=== PATIENT | female | born 1935 | race Caucasian/White ===

== ENCOUNTER → 2018-05-11 07:22 | Outpatient (CLI) | payer MEDICARE, OTHER, SELFPAY ==
--- NOTE | 2018-05-11 07:29 | CT_ITS ---
STUDY: CT ABDOMEN AND PELVIS WITHOUT CONTRAST REASON FOR EXAM: Female, 83 years old. Microhematuria and bilateral flank pain. RADIATION DOSAGE (If Supplied By Facility): CTDIvol = ( 15.99 ) mGy, DLP = ( 1087.20 ) mGycm TECHNIQUE: Transaxial images were obtained from the dome of the diaphragm to the symphysis pubis without oral contrast, and without intravenous contrast. Sagittal and coronal images were reconstructed. Individualized dose optimization techniques were used for this CT. COMPARISON: Comparison is made with prior examination dated May 12, 2009. FINDINGS: The visualized lung bases are unremarkable. The visualized portions of the heart are within normal limits. Normal liver. The patient is status post cholecystectomy. Normal spleen. Normal pancreas. Normal bilateral adrenal glands. Normal right kidney. Small cyst in the upper pole of the left kidney. 1.1 cm hypodensity in the peripheral lateral portion of the left kidney most likely representing a small cyst. There is a small hiatal hernia. Normal small intestine. There are multiple colonic diverticula consistent with diverticulosis. The patient is status post appendectomy. There is diffuse atherosclerotic calcification of the abdominal aorta and its major visceral branches. Infrarenal fusiform abdominal aortic aneurysm with a transverse dimension are 4.7 cm. Mural thrombus is seen on the right side of the aorta. Normal inferior vena cava. Normal retroperitoneum. Distended urinary bladder. There is absence of the uterus consistent with a prior hysterectomy. Normal abdominal wall. Disc space narrowing and degeneration with subchondral sclerosis at the L1-L2 level. CT/CT Abd/Pelvis W/WO Contrast IMPRESSION: Abdominal aortic aneurysm with a transverse dimension of 4.7 cm. Mural thrombus is seen on the right side of the aorta. Small left renal cysts. Electronically Signed: Juancarlos Goddard MD at 15:02 EDT Tel [phone], Service support ,
[2018-05-11 07:56] LABS: CREATININE FINGERSTICK 0.7 mg/dL (0.55-1.02)
== END ==
PROVIDERS: Family Provider Family Medicine; PCP Family Medicine; Visit Provider Nurse Practitioner Adult Health
DX: R31.29 Other microscopic hematuria (principal)
CPT/HCPCS: 74178; Q9967

== ENCOUNTER 2018-12-19 07:56 | Inpatient (IN) | payer MEDICARE, OTHER, SELFPAY ==
[2018-12-19] VITALS (20 sets, daily range): BP systolic 92–142; BP diastolic 58–82; PULSE 86–111; RESP 16–25; TEMP 30.5–37.1; O2SAT 87–95; BMI 30.9; BMI 29.4
--- NOTE | 2018-12-19 08:22 | EKG12_ITS ---
Test Reason : FALL Blood Pressure : / mmHG Vent. Rate : 089 BPM Atrial Rate : 089 BPM P-R Int : 188 ms QRS Dur : 078 ms QT Int : 424 ms P-R-T Axes : 067 -40 -01 degrees QTc Int : 515 ms Normal sinus rhythm Left axis deviation Minimal voltage criteria for LVH, may be normal variant Septal infarct , age undetermined Prolonged QT Abnormal ECG Confirmed by WANDA JURADO, RODOLFO ([id number]), order editor GUIDO BURROWS ([id number]) on 12/20/2018 10:10:40 AM Referred By: MILAGROS Confirmed By:RODOLFO MUÑOZ MD
[2018-12-19 08:42] LABS: Bacteria 0 SEEN /hpf (None Seen); Mucous, Urine 0 SEEN /hpf (<or=2+); Squamous Epithelial Cells - UA 0 SEEN /hpf (5-10)
[2018-12-19 08:46] LABS: Allen Test POS; Base Excess -5 mmol/L (-2 to +2); Blood Gas Specimen Type ART; O2 Delivery Device Nasal Can; PO2 59 mmHG (75-100); SITE R Radial; SO2 90 % (95-99); Time Given 835; Total Carbon Dioxide 21 mmol/L; pCO2 34.1 mmHg (35-45); pH 7.38 (7.35-7.45)
[2018-12-19 08:49] LABS: Color, Urine Yellow (Yellow); Glucose, Dipstick Normal (Normal); Ketone-Dipstick 15 mg/dl (Negative); Leukocyte Esterase-Dipstick Negative /ul (Negative); Nitrite-Dipstick Negative (Negative); Occult Blood-Urine 25 /ul (Negative); Protein-Dipstick 30 mg/dl (Negative); Specific Gravity, Urine 1.015 (1.002-1.030); Urine Bilirubin Dipstick Negative (Negative); Urine Clarity Clear (Clear); Urine Urobilinogen Normal (Normal)
[2018-12-19 08:49] LABS: Absolute Neutrophil Count 8.7 X10^3/uL (2.0-7.7); Basophil# 0.01 X10^3/uL; Basophil% 0.1 % (0-1); Hematocrit 42.8 % (37-47); Hemoglobin 15.1 g/dl (12.0-15.0); Lymphocyte % 6.6 % (19-41); Mean Corp Hgb Conc 35.3 g/gl (32-36); Mean Corpuscular Hgb 34.5 pg (27.0-32.0); Mean Corpuscular Volume 97.7 fL (81-99); Mean Platelet Vol. 10.6 fl (6.2-12.0); Monocyte# 1.15 X10^3/uL; Monocyte% 10.9 % (0-10); Neutrophil # 8.66 X10^3/uL (2.7-7.7); Neutrophil % 82.2 % (47-70); POSITIVE COUNT NO; POSITIVE DIFFERENTIAL NO; POSITIVE MORPHOLOGY NO; Platelet Count 339 K/mm3 (150-450); RBC Distribution Width CV 12.3 % (11.6-14.6); RBC Distribution Width SD 42.6 fl (35.1-43.9); Red Blood Count 4.38 M/mm3 (4.2-5.4); White Blood Count 10.5 K/mm3 (4.4-11.0)
--- NOTE | 2018-12-19 08:49 | ED.VISSUMM ---
- ER Visit Summary Date of Service: 12/19/18 Chief Complaint: Hypothermia History of Present Illness: The patient is a 83 F who presents to the emergency department via ambulance. She was found laying on the ground outside her house this morning by a neighbor. Patient is lethargic but does speak although be it very slowly. She tells me she went outside to get the dog this morning. It was still dark outside. She fell for unknown reason. She is unable to get up noting pain in her right hip and back. She denies any headache. EMS notes a body temperature of 87 degrees. They noted that she was slightly hypoxic 87-88 degrees. She received axillary heat packs and warm blankets in route to the hospital. Physical Examination: 142/74 heart rate of 92 respirations are 19 pulse ox is 90% on nasal cannula core body temperature Gen: Well-nourished well-developed Head: Normocephalic atraumatic Eyes: Perrl EOMI ENT: TMs clear no rhinorrhea moist mucous membranes Neck: Supple no lymphadenopathy no JVD nontender CVS: Regular rate rhythm no murmurs normal S1-S2 Respiratory: No distress clear to auscultation bilaterally chest nontender Abdomen: Soft nontender nondistended normal bowel sounds no masses Back: Palpation in the midline of the thoracic spine. Extremity: Nontender no edema Skin: Normal color there is erythema in the axilla Neuro: Lethargic but orientated ?3 CN II-XII intact normal strength sensation reflexes gait cerebellar Test Results: EKG demonstrates a sinus rhythm at a rate of 89. Her lactic acid is elevated. Her total body CPK is elevated. Troponin elevated at 1. Again note significant EKG features of ACS. CT of the head neck chest abdomen pelvis were obtained does not show any obvious injuries. X-rays of the pelvis and hip were negative for fracture. Emergency Department Course and Treatment: Patient was placed on a Alex hugger and given warmed IV fluids. The patient had a temperature sensitive Reeder placed. We have warmed her from 83 degrees to 97.7. Her mentation is improving. Family is now at bedside. Our plan is admission into the hospital. Impression: 1. Hypothermia 2. Rhabdomyolysis 3. NSTEMI 4. Critical care time 35 minutes This note was generated with [employer] dictation software. It may contain incorrect words, spelling, and punctuation that were not noted in review of the chart prior to signing ED Disposition - Plan for ED Patient: Disposition: Acute Care Hospital [facility]
--- NOTE | 2018-12-19 08:55 | RAD_ITS ---
STUDY: X-RAY CHEST REASON FOR EXAM: Female, 83 years old. History of trauma. TECHNIQUE: Single AP portable view of the chest. COMPARISON: Comparison is made with prior study dated November 08, 2016. FINDINGS: EKG electrodes are seen. Stable elevation of the right hemidiaphragm. Stable mild degree of increased markings at the lung bases suggestive of mild scarring. Scattered calcified granulomas. There is no demonstrated pleural abnormality. There is mild cardiac enlargement. Normal mediastinum and yvette. Normal visualized pulmonary arteries. There is atherosclerotic calcification of the aortic arch with tortuosity. There are diffuse degenerative changes of the visualized thoracic spine. Mild dextroscoliosis. There is degenerative osteoarthritis of the bilateral shoulders. There is no demonstrated abnormality of the visualized soft tissue structures of the upper abdomen. RAD/Chest 1 View (Portable) IMPRESSION: No acute abnormality is seen. Electronically Signed: Juancarlos Goddard, at 9:51 EST , Service support ,
--- NOTE | 2018-12-19 08:55 | ED.DCSUM_ITS ---
- ER Visit Summary Date of Service: 12/19/18 Chief Complaint: Hypothermia History of Present Illness: The patient is a 83 F who presents to the emergency department via ambulance. She was found laying on the ground outside her house this morning by a neighbor. Patient is lethargic but does speak although be it very slowly. She tells me she went outside to get the dog this morning. It was still dark outside. She fell for unknown reason. She is unable to get up noting pain in her right hip and back. She denies any headache. EMS notes a body temperature of 87 degrees. They noted that she was slightly hypoxic 87-88 degrees. She received axillary heat packs and warm blankets in route to the [facility]. Physical Examination: 142/74 heart rate of 92 respirations are 19 pulse ox is 90% on nasal cannula core body temperature Gen: Well-nourished well-developed Head: Normocephalic atraumatic Eyes: Perrl EOMI ENT: TMs clear no rhinorrhea moist mucous membranes Neck: Supple no lymphadenopathy no JVD nontender CVS: Regular rate rhythm no murmurs normal S1-S2 Respiratory: No distress clear to auscultation bilaterally chest nontender Abdomen: Soft nontender nondistended normal bowel sounds no masses Back: Palpation in the midline of the thoracic spine. Extremity: Nontender no edema Skin: Normal color there is erythema in the axilla Neuro: Lethargic but orientated ?3 CN II-XII intact normal strength sensation reflexes gait cerebellar Test Results: EKG demonstrates a sinus rhythm at a rate of 89. Her lactic acid is elevated. Her total body CPK is elevated. Troponin elevated at 1. Again note significant EKG features of ACS. CT of the head neck chest abdomen pelvis were obtained does not show any obvious injuries. X-rays of the pelvis and hip were negative for fracture. Emergency Department Course and Treatment: Patient was placed on a Alex hugger and given warmed IV fluids. The patient had a temperature sensitive Reeder placed. We have warmed her from 83 degrees to 97.7. Her mentation is i mproving. Family is now at bedside. Our plan is admission into the hospital. Impression: 1. Hypothermia 2. Rhabdomyolysis 3. NSTEMI 4. Critical care time 35 minutes This note was generated with [employer] dictation software. It may contain incorrect words, spelling, and punctuation that were not noted in review of the chart prior to signing ED Disposition - Plan for ED Patient: Disposition: Acute Care Hospital [facility]
[2018-12-19 08:57] LABS: International Normalized Ratio 1.1; Partial Thromboplast Time 29.2 Seconds (24.1-36.2); Prothrombin Time (Protime)PT. 13.6 SECONDS (11.7-14.9)
[2018-12-19 08:59] LABS: Red Blood Cells-Urine 0-5 SEEN /hpf (0-5); White Blood Cells 0-5 SEEN /hpf (0-5)
--- NOTE | 2018-12-19 09:00 | RAD_ITS ---
STUDY: X-RAY - LEFT HIP REASON FOR EXAM: Female, 83 years old. Pain following injury. TECHNIQUE: 2 views of the hip. COMPARISON: None. FINDINGS: Normal femoral head, neck, intertrochanteric region and visualized proximal femur. There is osteoarthritic spur formation of the acetabular rim. There is moderate articular joint space narrowing. Degenerative changes and sclerosis of the symphysis pubis. Moderate amount of fecal material is seen in the colon. A calcified phlebolith is seen in the left hemipelvis. A rectal probe is seen. RAD/HIP, UNI W/ Pelvis 2-3 Views IMPRESSION: Degenerative changes of the hip. No fracture or dislocation is present. Electronically Signed: Juancarlos Goddadr, at 9:52 EST , Service support ,
[2018-12-19 09:12] LABS: CPK Total, Creatine Kinase 806 U/L (26-192); Lactic Acid 3.9 mmol/L (0.4-2.0)
[2018-12-19] MEDS: 0.9% Normal Saline 1,000 ML 250 ML IV (09:27)
[2018-12-19 09:29] LABS: AST(SGOT) 50 U/L (15-37); Alanine Aminotransfer ALT/SGPT 25 U/L (13-56); Albumin, Serum 3.9 g/dL (3.2-5.0); Alkaline Phosphatase 35 U/L (45-117); Anion Gap 10 (5-15); BUN 15 mg/dL (7-18); BUN/Creat Ratio 16.9 RATIO (10-20); Bilirubin, Direct 0.21 mg/dL (0.00-0.30); Chloride 102 mmol/L (98-107); Creatinine, Serum 0.89 mg/dL (0.55-1.02); EST Glomerular Filtration Rate 65 mL/min (>60); Est Glom Filt Rate - Afr Amer 78 mL/min (>60); Estimated Creatinine Clearance 42.81 ml/min; Globulin 4.1 g/dL (2.2-4.2); Glucose 118 mg/dL (74-106); Lipase 55 U/L (73-393); Potassium 4.5 mmol/L (3.5-5.1); Sodium Level 135 mmol/L (136-145)
--- NOTE | 2018-12-19 09:51 | CT_ITS ---
STUDY: CT BRAIN WITHOUT CONTRAST REASON FOR EXAM: Female, 83 years old. Unresponsive. Within the and confusion. RADIATION DOSAGE (If Supplied By Facility): CTDIvol = ( 44.99 ) mGy, DLP = ( 779.24 ) mGycm TECHNIQUE: Transaxial CT imaging of the brain was performed without administration of intravenous contrast material. Individualized dose optimization techniques were used for this CT. COMPARISON: None. FINDINGS: Normal soft tissue structures. There is hyperostosis frontalis internus. There is mild cerebral atrophy with widening of the extra-axial spaces and ventricular dilatation. There are areas of decreased attenuation within the white matter tracts of the supratentorial brain, consistent with microvascular disease changes. There is a 1.3 cm x 2.7 cm CSF space along the anterior aspect of the left temporal lobe. This may represent either focal encephalomalacia or a small arachnoid cyst. Normal basal ganglia and thalami. Normal brainstem. Normal cerebellum. There is no intracranial hemorrhage. The left middle cerebral artery and the sylvian artery branches appeared dense. Correlation with CTA is recommended. Normal visualized paranasal sinuses. CT/Brain/Head without Contrast IMPRESSION: Chronic involutional changes of the brain. Questionable hyperdensity of the left middle cerebral artery and sylvian branches as described. CTA is recommended for further evaluation. N.B. : The above information has been verbally conveyed by Juancarlos Goddard to Ryan Brink MD, on 12/19/2018 11:16:16 (ET). Electronically Signed: Juancarlos Goddard, at 11:17 EST , Service support ,
--- NOTE | 2018-12-19 09:51 | CT_ITS ---
STUDY: CT CHEST WITHOUT CONTRAST REASON FOR EXAM: Female, 83 years old. Upper extremity confusion and unresponsive. RADIATION DOSAGE (If Supplied By Facility): CTDIvol = ( 25.66 ) mGy, DLP = ( 1326.72 ) mGycm TECHNIQUE: Transaxial imaging was performed without the administration of intravenous contrast material. Multiplanar coronal and sagittal images were reformatted. Individualized dose optimization techniques were used for this CT. COMPARISON: Comparison is made with prior CT examination dated May 16, 2009. FINDINGS: Dense consolidation in the upper lobes worse on the right side. This also evidence of the infiltration of both lung bases with small bilateral pleural effusions. This may represent changes compatible with the CHF. Aspiration should be ruled out as well. There is no demonstrated pleural abnormality. There are calcifications of the coronary arteries. Cardiomegaly with enlargement of the left ventricle. Normal mediastinum. Normal hilar regions. Normal unenhanced pulmonary arteries. There is atherosclerotic calcification of the aortic arch with tortuosity and elongation of the aortic arch and descending thoracic aorta. There are multi-level degenerative changes of the thoracic spine. Increased kyphosis. Small hiatal hernia. CT/Chest without Contrast IMPRESSION: Airspace disease in the upper lobes as well as in the lower lobes. The differential diagnosis should include either pulmonary edema, infectious process or aspiration. Electronically Signed: Juancarlos Goddard, at 11:20 EST , Service support ,
--- NOTE | 2018-12-19 09:51 | CT_ITS ---
STUDY: CT CERVICAL SPINE WITHOUT CONTRAST REASON FOR EXAM: Female, 83 years old. Hypothermia and confusion following a fall. RADIATION DOSAGE (If Supplied By Facility): CTDIvol = ( 28.36 ) mGy, DLP = ( 547.01 ) mGycm TECHNIQUE: High resolution transaxial imaging was performed without contrast material. Sagittal and coronal images were reconstructed. Individualized dose optimization techniques were used for this CT. COMPARISON: None FINDINGS: Normal craniovertebral junction. There are degenerative changes of the anterior atlantoaxial articulation. Normal odontoid process. There is straightening of the normal cervical lordosis. Normal vertebral bodies and posterior osseous elements. C2-3: Normal endplates. Normal disc height and morphology. Normal central canal and intervertebral neuroforamina. C3-4: Moderate degree of disc space narrowing. Hypertrophy of the facet joints and uncovertebral arthrosis worse on the right side. Moderate degree of bilateral neural foraminal stenosis slightly worse on the right side. C4-5: Marked degree of volar displacement. Spondylosis. Uncovertebral arthrosis and hypertrophy of the facet joints bilaterally. Moderate to severe bilateral neural foraminal stenosis. C5-6: Marked degree of disc space narrowing and spondylosis. Uncovertebral arthrosis. Moderate degree of bilateral neural foraminal stenosis. C6-7: Moderate degree of disc space narrowing. Spondylosis. No significant stenosis is seen. Consolidation in the upper lobes worse on the right side. CT/Spine Cervical without Contras IMPRESSION: Multilevel degenerative changes, as described above. Electronically Signed: Juancarlos Goddard, at 11:07 EST , Service support ,
--- NOTE | 2018-12-19 10:43 | CT_ITS ---
STUDY: CT ABDOMEN AND PELVIS WITHOUT CONTRAST REASON FOR EXAM: Female, 83 years old. Found unresponsive. Confusion. Hypothermia. RADIATION DOSAGE (If Supplied By Facility): CTDIvol = ( 25.66 ) mGy, DLP = ( 1326.72 ) mGycm TECHNIQUE: Transaxial images were obtained from the dome of the diaphragm to the symphysis pubis without oral contrast, and without intravenous contrast. Sagittal and coronal images were reconstructed. Individualized dose optimization techniques were used for this CT. COMPARISON: Comparison is made with prior study dated May 11, 2018. FINDINGS: There is evidence of bibasilar infiltrates worse on the right side with small bilateral pleural effusions. Coronary artery calcifications. Cardiomegaly and prominence of the left atrium. Normal liver. The patient is status post cholecystectomy. Normal spleen. Normal pancreas. Normal bilateral adrenal glands. Normal right kidney. Normal left kidney. There is a small hiatal hernia. Normal small intestine. There are multiple colonic diverticula consistent with diverticulosis. There is non-visualization of the appendix. There is diffuse atherosclerotic calcification of the abdominal aorta and its major visceral branches. Infrarenal saccular aneurysm with a transverse dimension of 5 cm. Normal inferior vena cava. Normal retroperitoneum. Normal urinary bladder. There is absence of the uterus consistent with a prior hysterectomy. Normal abdominal wall. There is retrolisthesis of L1 on L2 with marked degree of disc space narrowing and disc degeneration and subchondral sclerosis. Dextroscoliosis. CT/Abdomen/Pelvis without Cont IMPRESSION: Bibasilar infiltrates and/or atelectasis. Stable infrarenal abdominal aortic aneurysm. Sigmoid diverticulosis. Electronically Signed: Juancarlos Goddard, at 11:11 EST , Service support ,
[2018-12-19] MEDS: Ondansetron 4 MG/2 ML Vial IV (10:45)
--- NOTE | 2018-12-19 11:14 | CT_ITS ---
STUDY: CTA OF THE BRAIN REASON FOR EXAM: Female, 83 years old. Syncopal episodes. RADIATION DOSAGE (If Supplied By Facility): CTDIvol = ( 26.89 ) mGy, DLP = ( 671.32 ) mGycm TECHNIQUE: CT angiography was performed with a multi-detector CT scanner. Data acquisition was obtained from the skull base through the vertex following intravenous administration of Isovue 370 100 IV. MIP images were reconstructed from the axial data set. Post-processing of the angiographic images was performed, with multiplanar reformation and 3D reconstruction. Individualized dose optimization techniques were used for this CT. COMPARISON: None. FINDINGS: Normal bilateral petrous carotid arteries. There is calcified plaque formation of the right cavernous carotid artery, without a cross-sectional luminal stenosis. There is calcified plaque formation of the left cavernous carotid artery, without a cross-sectional luminal stenosis. There is non-visualization of the right A1 segment of the anterior cerebral arteries consistent with either aplastic development or an occlusion. Normal left A1 segments of the anterior cerebral artery. Normal intact anterior communicating artery (ACOM). Normal bilateral A2 segments of the anterior cerebral arteries. Normal right M1 and M2 segments of the middle cerebral arteries, with a normal M1 bifurcation. Normal left M1 and M2 segments of the middle cerebral arteries, with a normal M1 bifurcation. There is a persistent origin of the right posterior cerebral artery with absence of the posterior communicating artery (PCOM). Normal left posterior communicating artery (PCOM). Normal bilateral vertebral arteries. Normal basilar artery with a normal basilar bifurcation. The visualized bilateral superior cerebellar (SCA) arteries are normal. Normal bilateral P1, P2 and visualized P3 segments of the posterior cerebral arteries. There is no demonstrated aneurysm of the [place] of [place]. There is no demonstrated abnormality of the visualized brain. CT/CTA Head W/WO Contrast IMPRESSION: Normal [place] without a demonstrated aneurysm or hemodynamically significant stenosis. Electronically Signed: Juancarlos Goddard, at 12:55 EST , Service support ,
--- NOTE | 2018-12-19 11:14 | CT_ITS ---
STUDY: CTA NECK WITH CONTRAST REASON FOR EXAM: Female, 83 years old. Syncopal episode. RADIATION DOSAGE (If Supplied By Facility): CTDIvol = ( 26.89 ) mGy, DLP = ( 671.32 ) mGycm TECHNIQUE: CT angiography with multi-detector data acquisition was performed from the aortic arch to the skull base following intravenous administration of Isovue 370 100 IV. MIP images were reconstructed from the axial data set. Post-processing of the angiographic images was performed, with multiplanar reformation and 3D reconstruction. Individualized dose optimization techniques were used for this CT. COMPARISON: None. FINDINGS: AORTIC ARCH: There is atherosclerotic calcific plaque formation of the aortic arch and great vessels arising from the aortic arch, without a hemodynamically significant stenosis. There is a normal origin of the brachiocephalic, left common carotid, and left subclavian arteries. RIGHT CAROTID ARTERIES: Normal right common carotid artery (CCA). Normal right common carotid bulb. There is mild atherosclerotic plaque formation of the origin of the right internal carotid artery with less than 50% cross sectional diameter stenosis. Normal visualized cervical portion of the right internal carotid artery. Normal origin of the right external carotid artery (ECA). LEFT CAROTID ARTERIES: Normal left common carotid artery (CCA). Normal left common carotid bulb. There is mild atherosclerotic plaque formation of the origin of the left internal carotid artery with less than 50% cross sectional diameter stenosis. Normal visualized cervical portion of the left internal carotid artery. Normal origin of the left external carotid artery (ECA). VERTEBRAL ARTERIES: There is enhancement within the bilateral vertebral arteries with a small right vertebral artery, and a dominant left vertebral artery. CT/CTA Neck W/WO Contrast IMPRESSION: Normal bilateral cervical carotid and vertebral arteries. Electronically Signed: Juancarlos Goddard, at 12:57 EST , Service support ,
[2018-12-19] MEDS: LORazepam 2 MG/ML Syringe 0.5 MG IV (11:59)
[2018-12-19 12:36] LABS: Reflex Lactate? Y
--- NOTE | 2018-12-19 13:01 | CM.ED ---
Social Work Assessment Referral Date: 12/19/18 Date of Assessment: 12/19/18 Informant: DR. ELDER Reason for Consult: D/C PLANNING Information obtained from: PT'S SON, CRISTINE [phone] Living Arrangements: PT LIVES HOME ALONE WITH 2 CATS AND A DOG IN A 2 STORY HOME WITH 1ST FLOOR SET UP. Supports: PT HAS SUPPORT FROM SON AND BROTHER. Social/Family Stressors: SON VOICES CONCERNS PT IS NOT EATING PROPER DIET. DISCUSSED HOME DELIVERED MEALS IF APPROPRIATE. Mental Health History: SON VOICES HX OF DEPRESSION SINCE HUSBANDS PASSING 2 YEARS AGO. Substance Abuse History: SON DENIES ANY HX OF SUBSTANCE ABUSE FOR PT. Interventions: INITIAL ASSESSMENT COMPLETED EDUCATION Assessment: PT IS A 83 Y/O FEMALE WHO PRESENTS TO ED BY AMBULANCE AFTER BEING FOUND LAYING ON THE GROUND OUTSIDE HER HOUSE BY A NEIGHBOR. PT IS ALERT TO PERSON. SON REPORTS PT WITH NO COGNITIVE DEFICITS PRIOR TO FALL. PT LIVES HOME ALONE WITH HER ANIMALS IN A 2 STORY HOME WITH 1ST FLOOR SET UP. SON REPORTS PRIOR TO VISIT PT WAS INDEPENDENT WITH ADLS AND USED A CANE NEEDED FOR ASSISTANCE WITH AMBULATION. SON REPORTS DOES HAVE CONCERNS PT IS NOT EATING PROPERLY. PT WITH NO PREVIOUS SERVICES IN THE HOME SUCH HOME HEALTH OR PRIVATE DUTY AIDES. SON STATES PT WITH HX OF DEPRESSION SINCE 'S PASSING 2 YEARS AGO. EXPLAINED THIS WORKER'S ROLE AND REASON FOR CONSULT. SON STATES HAS NOT SPOKEN WITH ER DOCTOR AND IS WAITING FOR ALL TEST RESULTS PRIOR TO MAKING ANY DECISIONS. DISCUSSED POSSIBLE NEED FOR CARE HOME PLACEMENT OR HOME HEALTH SERVICES. EDUCATION PROVIDED. PER DR. ELDER, ANTICIPATE ADMISSION. PLAN: ADMIT
[2018-12-19 13:36] LABS: Lactic Acid 2.5 mmol/L (0.4-2.0)
--- NOTE | 2018-12-19 13:40 | NURSING ---
U JESS, ESCOBAR, FALL
--- NOTE | 2018-12-19 14:34 | HP.PCM_ITS ---
Problem List (1) Encephalopathy acute Status: Acute (2) Accidental hypothermia Status: Acute Qualifiers: Encounter type: initial encounter Qualified Code(s): T68.XXXA - Hypothermia, initial encounter (3) Lactic acidosis Status: Acute (4) Rhabdomyolysis Status: Acute Qualifiers: Rhabdomyolysis type: non-traumatic Qualified Code(s): M62.82 - Rhabdomyolysis (5) NSTEMI (non-ST elevated myocardial infarction) Status: Acute (6) HTN (hypertension) Status: Chronic Qualifiers: Hypertension type: essential hypertension Qualified Code(s): I10 - Essenti al (primary) hypertension (7) HLD (hyperlipidemia) Status: Chronic Qualifiers: Hyperlipidemia type: pure hypercholesterolemia Qualified Code(s): E78.00 - Pure hypercholesterolemia, unspecified; E78.0 - Pure hypercholesterolemia (8) Anxiety and depression Status: Chronic (9) Hypothyroidism Status: Chronic Qualifiers: Hypothyroidism type: unspecified Qualified Code(s): E03.9 - Hypothyroidism, unspecified (10) GERD (gastroesophageal reflux disease) Status: Chronic Qualifiers: Esophagitis presence: esophagitis presence not specified Qualified Code(s): K21.9 - Gastro-esophageal reflux disease without esophagitis History of Present Illness Date of Admission: 12/19/18 Chief Complaint: Found on ground outside, fallen, unclear timeline, confused The patient is a 83 y/o F w/ PMHx: HTN, HLD, Hypothyroidism, Depression and Anxiety, GERD who in the last year has been living alone since the passing of her with unclear intake of her medications as filled in June day supply but possibly not taking her regimen and notes not having any money as her had arranged for the farm property to be sold with the allowance that she be allowed to live in the farm house until her with the sale money from description possibly going to her children who presents to the [facility] ED on 12/19/18 found outside per a neighbor on a cement pad, notes she fell letting the dog out early in the pre-sun up AM, laying there for unclear timeline. Patient was transported per EMS with an initial body temperature of 87 degrees and slightly hypoxic with oxygenation 87-88 degrees with axillary heat packs and a warming blanket placed in route to the hospital. In the ED work-up included initially T 87---> improved to 98.4 following bear hugger and warmed IV fluids, heart rate 92, BP 142/74, respiratory rate 19, initially 87% on room air--> 3% on 2 L nasal cannula, CBC with WBC 10.5, hemoglobin 15.1, platelets 339 with left shift, unremarkable coags, ABG with pH 7.38, bicarb 20, O2 saturation 90, PCO2 34.1, PO2 59 obtained on nasal cannula 3 L, CMP with sodium 135, glucose 118, initial lactic acid 3.9, total bilirubin 1.20, direct bilirubin 0.21, AST/ALT 50/25, Alk phos 35, TCK 806, Trop 1.100, EKG without no acute evidence of ischemia, CXR without acute findings, plain film of the hip and pelvis with degenerative changes with no acute fracture or dislocation, CT of the brain with chronic involutional changes, CTA head w/ [place] without a demonstrated aneurysm or hemodynamically significant stenosis, CTA Neck w/ normal bilateral cervical carotid and vertebral arteries, CT cervical spine with multilevel degenerative changes with no acute findings, CT chest with airspace disease in the upper lobes as well as lower lobes, CT A/P w/ bibasilar infiltrate and/or atelectasis with no recent URI symptoms however and stable infrarenal abdominal aortic aneurysm, sigmoid diverticulosis. In the ED patient administered NS, ativan secondary to period of sudden severe agitation and combativeness but this did not recur, zofran, NS. Past Medical History Past Medical History (Chronic Problems): Chronic Problems HTN (hypertension) (Chronic) HLD (hyperlipidemia) (Chronic) Anxiety and depression (Chronic) Hypothyroidism (Chronic) GERD (gastroesophageal reflux disease) (Chronic) Allergies No Known Allergies Allergy (Verified 12/19/18 08:08) Home Medications: Ambulatory Orders Medication Instructions Recorded Amlodipine Besylate/Benazepril 1 cap PO DAILY 12/19/18 [Amlodipine-Benazepril 2.5-10] Bupropion HCl [Wellbutrin Xl] 300 mg PO DAILY 12/19/18 Esomeprazole Mag Trihydrate 40 mg PO DAILY 12/19/18 [Nexium] Levothyroxine [Synthroid] 50 mcg PO DAILY 12/19/18 Sertraline HCl [Zoloft] 50 mg PO DAILY 12/19/18 Tolterodine Tartrate [Detrol LA] 4 mg PO DAILY 12/19/18 Surgical History: - - Appendectomy, hysterectomy, cholecystectomy, T+A. 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 Paternal History Items: Unknown - Patient unavailable to accurately give family history. Review of Systems Constitutional: Denies: Chills, Fever, Weight Change HEENT: Denies: Head Aches, Sinus Congestion, Sinus Drainage Cardiovascular: Denies: Chest Pain, Palpitations Respiratory: Denies: Cough, Shortness of breath at rest, Sputum production Gastrointestinal: Denies: Abdominal Pain, Nausea, Vomiting Genitourinary: Denies: Dysuria Musculoskeletal: Reports: Back Pain, Joint stiffness, Joint swelling, Joint Tenderness. Denies: Joint Pain Skin: Denies: Rash, Wounds Neurological: Reports: Confusion. Denies: Focal weakness, Numbness, Tingling Psychiatric: Denies: Anxiety, Depression, Homicidal Ideations, Suicidal Ideations Hematologic/ Lymphatic: Denies: Easy Bruising, Easy Bleeding Unable to obtain accurate/complete ROS d/t: Patient gives ROS but is very confused. VTE Information - Inpt Only VTE Present on Admission: No VTE Mechan Device Prophylaxis: SCD's VTE Pharm Prophylaxis ordered?: Yes Patient Problems: Active and Suspected Problems Accidental hypothermia (Acute) Lactic acidosis (Acute) Rhabdomyolysis (Acute) NSTEMI (non-ST elevated myocardial infarction) (Acute) Encephalopathy acute (Acute) Subjective: Patient lying in ED bed, currently calm but had period of agitation prior, temperature improved, not oriented but is alert and talking. Objective: Physical Examination: General: awake, more alert, currently cooperative, laying in the ED bed, currently calm, is able to have a conversation but remains non-oriented. Skin: normal color, turgor, no icterus, cyanosis except occasional various staged ecchymoses. HEENT: AT/NC, EOMI, PERRLA, dry MM, no carotid bruits or JVD noted. Lungs: Diminished breath sounds bilaterally, greater bilateral bases, mild effort, no rales, ronchi or wheezing. Heart: Mildly tachycardic with regular rhythm; no gallop, rub audible. Abdomen: soft, NTTP, ND, normal BS, no HSM. Extremities: no cyanosis, clubbing, BL ankle mild edema. Neurological: awake, more alert, currently cooperative, laying in the ED bed, currently calm, is able to have a conversation but remains non-oriented; cogni tive function not baseline intact; pupils equally reactive to light and accomodation; cranial nerves II-XII grossly normal, moving all 4 extremities, no focal deficits, strength severely globally decreased secondary to acute presentation. Psychiatric: affect appears currently calm, not agitated, fatigued appearance, no acute evidence of depressive or anxiety feelings. - Physical Exam Vital Signs Temp Pulse Resp BP Pulse Ox 97.3 F L 98 20 H 128/78 H 94 12/19/18 13:21 12/19/18 13:21 12/19/18 13:21 12/19/18 13:21 12/19/18 13:21 Oxygen Flow Rate (L/min) 3 Oxygen Delivery Method Room Air Weight: 180 lb Body Mass Index (BMI) 30.9 Laboratory Tests Past 24 Hrs 12/19/18 12/19/18 12/19/18 08:30 08:30 08:30 WBC 10.5 RBC 4.38 Hgb 15.1 H Hct 42.8 MCV 97.7 MCH 34.5 H MCHC 35.3 RDW 12.3 RDW Differential 42.6 Plt Count 339 MPV 10.6 Immature Gran % (Auto) 0.200 Neut % (Auto) 82.2 H Lymph % (Auto) 6.6 L [place] % (Auto) 10.9 H Eos % (Auto) 0.0 Baso % (Auto) 0.1 Absolute Neuts (auto) 8.7 H Absolute Lymphs (auto) 0.70 L Total Counted Not Reportable PT 13.6 INR 1.1 APTT 29.2 Specimen Type Sample Site pH Bicarbonate Actual POC Total CO2 Base Excess O2 Saturation ABG pCO2 ABG pO2 Yaakov Test O2 Delivery Device Liter Flow Blood Gas Notified Whom Blood Gas Notified Time Sodium 135 L Potassium 4.5 Chloride 102 Carbon Dioxide 23.0 Anion Gap 10 BUN 15 Creatinine 0.89 Estim Creat Clear Calc 42.81 Est GFR (MDRD) Af Amer 78 Est GFR (MDRD) Non-Af 65 BUN/Creatinine Ratio 16.9 Glucose 118 H Lactic Acid Calcium 9.0 Magnesium Total Bilirubin 1.20 H Direct Bilirubin 0.21 AST 50 H ALT 25 Alkaline Phosphatase 35 L Total Creatine Kinase Troponin I 1.100 H* Total Protein 8.0 Albumin 3.9 Globulin 4.1 Lipase 55 L Urine Color Urine Clarity Urine pH Ur Specific Calvin Urine Protein Urine Glucose (UA) Urine Ketones Urine Occult Blood Urine Nitrite Urine Bilirubin Urine Urobilinogen Ur Leukocyte Esterase Urine RBC Urine WBC Ur Squamous Epith Cells Urine Bacteria Urine Mucus 12/19/18 12/19/18 12/19/18 08:30 08:30 08:36 WBC RBC Hgb Hct MCV MCH MCHC RDW RDW Differential Plt Count MPV Immature Gran % (Auto) Neut % (Auto) Lymph % (Auto) [place] % (Auto) Eos % (Auto) Baso % (Auto) Absolute Neuts (auto) Absolute Lymphs (auto) Total Counted PT INR APTT Specimen Type Sample Site pH Bicarbonate Actual POC Total CO2 Base Excess O2 Saturation ABG pCO2 ABG pO2 Yaakov Test O2 Delivery Device Liter Flow Blood Gas Notified Whom Blood Gas Notified Time Sodium Potassium Chloride Carbon Dioxide Anion Gap BUN Creatinine Estim Creat Clear Calc Est GFR (MDRD) Af Amer Est GFR (MDRD) Non-Af BUN/Creatinine Ratio Glucose Lactic Acid 3.9 H Calcium Magnesium 2.0 Total Bilirubin Direct Bilirubin AST ALT Alkaline Phosphatase Total Creatine Kinase 806 H Troponin I Total Protein Albumin Globulin Lipase Urine Color Yellow Urine Clarity Clear Urine pH 6.0 Ur Specific Calvin 1.015 Urine Protein 30 H Urine Glucose (UA) Normal Urine Ketones 15 H Urine Occult Blood 25 H Urine Nitrite Negative Urine Bilirubin Negative Urine Urobilinogen Normal Ur Leukocyte Esterase Negative Urine RBC 0-5 SEEN Urine WBC 0-5 SEEN Ur Squamous Epith Cells 0 SEEN Urine Bacteria 0 SEEN Urine Mucus 0 SEEN 12/19/18 12/19/18 08:41 12:55 WBC RBC Hgb Hct MCV MCH MCHC RDW RDW Differential Plt Count MPV Immature Gran % (Auto) Neut % (Auto) Lymph % (Auto) [place] % (Auto) Eos % (Auto) Baso % (Auto) Absolute Neuts (auto) Absolute Lymphs (auto) Total Counted PT INR APTT Specimen Type ART Sample Site R Radial pH 7.38 Bicarbonate Actual 20.0 L POC Total CO2 21 Base Excess -5 L O2 Saturation 90 L ABG pCO2 34.1 L ABG pO2 59 L Yaakov Test POS O2 Delivery Device Nasal Can Liter Flow 3.0 Blood Gas Notified Whom ED Blood Gas Notified Time 835 Sodium Potassium Chloride Carbon Dioxide Anion Gap BUN Creatinine Estim Creat Clear Calc Est GFR (MDRD) Af Amer Est GFR (MDRD) Non-Af BUN/Creatinine Ratio Glucose Lactic Acid 2.5 H Calcium Magnesium Total Bilirubin Direct Bilirubin AST ALT Alkaline Phosphatase Total Creatine Kinase Troponin I Total Protein Albumin Globulin Lipase Urine Color Urine Clarity Urine pH Ur Specific Calvin Urine Protein Urine Glucose (UA) Urine Ketones Urine Occult Blood Urine Nitrite Urine Bilirubin Urine Urobilinogen Ur Leukocyte Esterase Urine RBC Urine WBC Ur Squamous Epith Cells Urine Bacteria Urine Mucus Assessment/Plan All Active Problems Accidental hypothermia (Acute) Lactic acidosis (Acute) Rhabdomyolysis (Acute) NSTEMI (non-ST elevated myocardial infarction) (Acute) Encephalopathy acute (Acute) The patient is a 83 y/o F w/ PMHx: HTN, HLD, Hypothyroidism, Depression and Anxiety, GERD who in the last year has been living alone since the passing of her with unclear intake of her medications as filled in June day supply but possibly not taking her regimen and notes not having any money as her had arranged for the farm property to be sold with the allowance that she be allowed to live in the farm house until her with the sale money from description possibly going to her children who presents to the [facility] ED on 12/19/18 found outside per a neighbor on a cement pad, notes she fell letting the dog out early in the pre-sun up AM, laying there for unclear timeline. (1) Acute NSTEMI: Trop 1.100, EKG without no acute evidence of ischemia, CXR without acute findings. Will admit to PCU, maintain on a monitored bed, continue serial cardiac enzymes and EKGs. Obtain magnesium level upon admission. Start therapeutic lovenox. Continue medical management w/ asa, add low dose BB, add low dose statin w/ AM FLP. Cardiology consulted, pending. ECHO requested. ASA, NG, morphine. FLP in AM. Mag pending. (2) Acute rhabdomyolysis: Mild, fortunately no injury with recent fall, unclear timeline down, creatinine kinase 806, lactic acid 3.9-->2.5 following hydration, continue to hydrate, monitor urine output, repeat labs in a.m. including creatinine kinase. (3) Lactic acidosis: Vision lactic acid 3.9-->2.5 following ED hydration, associated with acute presentation, dehydration, rhabdomyolysis, acute N STEMI. (4) Hyponatremia, mild: Admission sodium 135, secondary to acute presentation as noted with recent poor oral intake, unclear downtime, continue to hydrate as noted, repeat labs in a.m. (5) Mechanical fall prolonged downtime, exposure, hypothermia: CT of the brain with chronic involutional changes, CTA head w/ [place] without a demonstrated aneurysm or hemodynamically significant stenosis, CTA Neck w/ normal bilateral cervical carotid and vertebral arteries, CT cervical spine with multilevel degenerative changes with no acute findings, CT chest with airspace disease in the upper lobes as well as lower lobes, CT A/P w/ bibasilar infiltrate and/or atelectasis with no recent URI symptoms however and stable infrarenal abdominal aortic aneurysm, sigmoid diverticulosis. Temperature improving, continue bear hugger, continue warmed IV fluids, Reeder catheter with monitoring T in place. PT, OT, CM for discharge planning. (6) Acute encephalopathy: Metabolic, secondary to #1, #2, #3, #4, #5, continue treatments as noted. (7) Hypertension: BP low normal in the ED, continue hydration, given N STEMI presentation will initiate low-dose beta-risa therapy and continue to closely monitor, potentially restart home regimen, PRN hydralazine. (8) Hyperlipidemia: Noted history, not on regimen, given an STEMI presentation will start low-dose atorvastatin, FLP in AM. (9) Hypothyroidism: Unclear timeline of medication intake, TSH and free T4 pending, continue supplementation. (10) Anxiety and depression: Unclear timeline of intake, will resume Wellbutrin as well as sertraline regimen. (11) GERD: PPI. (12) DVT Prophylaxis: SCDs, therapeutic lovenox. (13) CODE status: Full code given status non-oriented status, no family present in the ED, had been prior per ED physician report. Code Visit Inpatient E&M: 19255 Init Hosp L3
--- NOTE | 2018-12-19 16:03 | ECHOD_ITS ---
Reason For Study: CAD/ASHD Procedure This was a 2D Doppler, Color Flow transthoracic echocardiogram. Exam performed portable in patient room. Left Ventricle Moderate eccentric left ventricular hypertrophy. The estimated ejection fraction is 55 %. Stage 1 diastolic dysfunction. There is mild global hypokinesis of the left ventricle. Right Ventricle Normal size and thickness. Normal systolic function. Atria Normal left atrium. Normal right atrium. Normal atrial septum. Mitral Valve Moderate diffuse mitral valve thickening. Severe mitral annular calcification extending into the posterior leaflet. Mild mitral valve stenosis. Trivial mitral valve insufficiency. Tricuspid Valve Normal tricuspid valve. Moderate (2+) eccentric tricuspid valve insufficiency. Right ventricular systolic pressure estimated to be 45 mmHg. Mild pulmonary hypertension. Aortic Valve Trisinus/trileaflet aortic valve. Trivial aortic valve insufficiency. Pulmonic Valve Normal pulmonic valve. Trivial pulmonic valve insufficiency. Great Vessels Normal aortic root. Normal arch. Normal inferior vena cava. Inferior vena cava collapse with sniff. Pericardium/Pleural No pericardial effusion. MMode/2D Measurements & Calculations LVIDd: 4.1 cm IVSd: 1.7 cm Ao root diam: 3.7 cm LVIDs: 2.7 cm LVPWd: 1.1 cm LA dimension: 4.3 cm FS: 33.9 % LAV(MOD-bp): 78.0 ml LA A4 area: 20.3 cm2 RA A4 area: 17.7 cm2 LAV(MOD-bp) Indexed: 43.8 ml/m2 LAV(MOD-sp2): 84.3 ml LAV(MOD-sp4): 61.6 ml Time Measurements MV dec time: 0.29 sec Doppler Measurements & Calculations MV E max alireza: 110.5 cm/sec Lat Peak E' Alireza: 6.5 cm/sec Med Peak E' Alireza: 4.9 cm/sec MV A max alireza: 127.8 cm/sec E/E' lat: 17.1 E/E' med: 22.5 MV E/A: 0.86 MV V2 max: 152.1 cm/sec MV P1/2t max alireza: 127.3 cm/sec Ao V2 max: 145.4 cm/sec MV max P.2 mmHg MV P1/2t: 84.4 msec Ao max P.5 mmHg MV V2 mean: 87.3 cm/sec MV dec slope: 442.0 cm/sec2 Ao V2 mean: 89.8 cm/sec MV mean P.6 mmHg MVA(P1/2t): 2.6 cm2 Ao mean P.8 mmHg MV V2 VTI: 38.8 cm Ao V2 VTI: 27.8 cm AI max alireza: 361.0 cm/sec LV V1 max: 111.1 cm/sec PA V2 max: 74.7 cm/sec AI max P.2 mmHg LV V1 max P.9 mmHg LV V1 mean P.1 mmHg AI dec slope: 276.7 cm/sec2 LV V1 mean: 65.7 cm/sec AI P1/2t: 382.1 msec LV V1 VTI: 26.2 cm TR max alireza: 310.5 cm/sec TR max P.6 mmHg Interpretation Summary The estimated ejection fraction is 55 %. Stage 1 diastolic dysfunction. There is mild global hypokinesis of the left ventricle. Mild mitral valve stenosis. Trivial mitral valve insufficiency. Moderate (2+) eccentric tricuspid valve insufficiency. Right ventricular systolic pressure estimated to be 45 mmHg. Mild pulmonary hypertension. Trivial aortic valve insufficiency. There is no comparison study available. Ordering Physician: Arabella Mejia Referring Physician: Austin Cuevas Performed By: Minor Emanuel RCS
--- NOTE | 2018-12-19 16:03 | EKG12_ITS ---
Test Reason : CP Blood Pressure : / mmHG Vent. Rate : 099 BPM Atrial Rate : 099 BPM P-R Int : 168 ms QRS Dur : 082 ms QT Int : 408 ms P-R-T Axes : 057 -36 -11 degrees QTc Int : 523 ms Sinus rhythm with Premature atrial complexes Left axis deviation Prolonged QT Abnormal ECG Confirmed by DOMENICO JURADO, CHERYL ([id number]), material expeditor GUIDO BURROWS ([id number]) on 12/21/2018 4:08:08 PM Referred By: KJ Confirmed By:CHERYL ACUÑA MD
[2018-12-19 16:48] LABS: T4 Free Direct 1.18 ng/dL (0.76-1.46); Thyroid Stim Hormone (TSH) 3.04 uIU/mL (0.358-3.74)
[2018-12-19] MEDS: 0.9% Normal Saline 1,000 ML 100 ML IV (16:49)
[2018-12-19] MEDS: Metoprolol Tartrate 25 MG Tablet 12.5 MG PO ×2 (16:49→23:45)
[2018-12-19] MEDS: Enoxaparin 80 MG/0.8 ML Syringe SC (17:02)
[2018-12-19 17:08] LABS: Hemoglobin A1c 4.9 % (4.2-6.3)
[2018-12-19] MEDS: Ipratropium/Albuterol Sulfate 3 ML AMPUL.NEB INHALATION (19:32)
--- NOTE | 2018-12-19 19:43 | PCM.CONS.C ---
Problem List (1) NSTEMI (non-ST elevated myocardial infarction) Status: Acute (2) AAA (abdominal aortic aneurysm) Status: Chronic Qualifiers: Presence of rupture: without rupture Qualified Code(s): I71.4 - Abdominal aortic aneurysm, without rupture (3) HLD (hyperlipidemia) Status: Chronic Qualifiers: Hyperlipidemia type: pure hypercholesterolemia Qualified Code(s): E78.00 - Pure hypercholesterolemia, unspecified; E78.0 - Pure hypercholesterolemia (4) HTN (hypertension) Status: Chronic Qualifiers: Hypertension type: essential hypertension Qualified Code(s): I10 - Essential (primary) hypertension (5) Accidental hypothermia Status: Acute Qualifiers: Encounter type: initial encounter Qualified Code(s): T68.XXXA - Hypothermia, initial encounter (6) Lactic acidosis Status: Acute (7) Rhabdomyolysis Status: Acute Qualifiers: Rhabdomyolysis type: non-traumatic Qualified Code(s): M62.82 - Rhabdomyolysis (8) Encephalopathy acute Status: Acute Reason for Consult Date of Consultation: 12/19/18 History of Present Illness: The patient is a 83 year old Who was referred for evaluation of abnormal cardiac enzymes compatible with a non-ST segment elevation HI superimposed upon history of hyperlipidemia hypertension superimposed upon an acute diagnosis of hypothermia, lactic acidosis, and encephalopathy. Based upon the medical records obtained it appears that the patient was found outside, in the cold, subsequent brought to the emergency department for evaluation. The patient does not recall the events of earlier this day. She does not appear to be alert and oriented at this time. She believes she was taking care of her and taking her son to the store to by a uniform for school. She does not recall having any acute symptoms such as chest discomfort or difficulty breathing. She does not recall following or any episodes of loss of consciousness. Again she is not aware of her place or time. She was evaluated in the emergency department. She was found to be hypothyroid. She was also noted to have elevated lactic acid levels. There are concerns of acute encephalopathy. She had an elevated BNP level and an elevated troponin I level. She underwent a variety of radiologic studies that also revealed she had an abdominal aortic aneurism -5 cm without rupture. She was evaluated was ECG that demonstrated sinus rhythm with left axis deviation with no acute ECG changes. She was subsequently placed in the PCU for further evaluation and care. Her repeat troponin level which has trended upward. In the meantime she has remained confused and has had attempts at getting out of bed in the setting off the bed alarm. [] Past Medical History Allergies/Adverse Reactions: Allergies No Known Allergies Allergy (Verified 12/19/18 08:08) Home Medications: Ambulatory Orders Medication Instructions Recorded Amlodipine Besylate/Benazepril 1 cap PO DAILY 12/19/18 [Amlodipine-Benazepril 2.5-10] Bupropion HCl [Wellbutrin Xl] 300 mg PO DAILY 12/19/18 Esomeprazole Mag Trihydrate 40 mg PO DAILY 12/19/18 [Nexium] Levothyroxine [Synthroid] 50 mcg PO DAILY 12/19/18 Sertraline HCl [Zoloft] 50 mg PO DAILY 12/19/18 Tolterodine Tartrate [Detrol LA] 4 mg PO DAILY 12/19/18 Past Medical History (Chronic Problems): Chronic Problems HTN (hypertension) (Chronic) HLD (hyperlipidemia) (Chronic) Anxiety and depression (Chronic) Hypothyroidism (Chronic) GERD (gastroesophageal reflux disease) (Chronic) AAA (abdominal aortic aneurysm) (Chronic) Surgical History: - - Appendectomy, hysterectomy, cholecystectomy, T+A. Psychiatric History: Anxiety, Depression DEVELOPMENT INTERN History: No pertinent DEVELOPMENT INTERN history - *Family History Maternal History Items: Unknown - Patient unavailable to accurately give family history. Paternal History Items: Unknown - Patient unavailable to accurately give family history. Lives: Alone Smoking Status: Former smoker Tobacco Use: Non-smoker Alcohol: None Drugs: None Review of Systems - Review of Systems General: Reports: - - Hypothermia . Denies: Fever, Fatigue, Night Sweats Cardiovascular: Denies: Chest Discomfort, Shortness of Breath, Orthopnea, PND, Peripheral Edema, Palpitations, Lightheadedness, Dizziness, Near Syncope, Syncope Respiratory: Denies: Cough, Sputum Production, Hemoptysis Gastrointestinal: Denies: Hematemesis, Hematochezia, Melena Genitourinary: Denies: Dysuria, Hematuria Skin: Denies: Rash Subjectve: This is an 83-year-old white female who does not appear to be alert and oriented at this time. She does not appear to be in any acute distress. Objective: Vital Signs Temp Pulse Resp BP Pulse Ox 98.3 F 89 16 107/66 93 12/19/18 18:08 12/19/18 18:08 12/19/18 18:08 12/19/18 18:08 12/19/18 18:08 Oxygen Flow Rate (L/min) 2 Oxygen Delivery Method Nasal Cannula Weight: 160 lb 11.472 oz Body Mass Index (BMI) 29.4 Intake and Output for Last 24 Hours 12/17/18 12/18/18 12/19/18 23:59 23:59 23:59 Intake Total 305 / 305 Output Total 450 / 450 Balance -145 / -145 General: Awake, Disoriented HEENT: Atraumatic, Normocephalic, PERRL, EOMI, Sclera Non Icteric Oral: Moist Mucosa Neck: Supple, Good ROM, No JVD Lungs: Clear to auscultation Cardiovascular: Regular Rhythm, Normal S1, Normal S2 Vascular: No Carotid Bruits Abdomen: Bowel Sounds Present, Soft, Non Tender Extremities: No edema 12/19/18 08:30: WBC 10.5, RBC 4.38, Hgb 15.1 H, Hct 42.8, MCV 97.7, MCH 34.5 H, MCHC 35.3, RDW 12.3, RDW Differential 42.6, Plt Count 339, MPV 10.6, Immature Gran % (Auto) 0.200, Neut % (Auto) 82.2 H, Lymph % (Auto) 6.6 L, [place] % (Auto) 10.9 H, Eos % (Auto) 0.0, Baso % (Auto) 0.1, Absolute Neuts (auto) 8.7 H, Total Counted Not Reportable 12/19/18 08:30: PT 13.6, INR 1.1, APTT 29.2 12/19/18 08:30: Sodium 135 L, Potassium 4.5, Chloride 102, Carbon Dioxide 23.0, Anion Gap 10, BUN 15, Creatinine 0.89, Est GFR (MDRD) Af Amer 78, Est GFR (MDRD) Non-Af 65, BUN/Creatinine Ratio 16.9, Glucose 118 H, Calcium 9.0, Total Bilirubin 1.20 H, Direct Bilirubin 0.21, Troponin I 1.100 H* 12/19/18 08:30: Lactic Acid 3.9 H 12/19/18 08:30: Magnesium 2.0 12/19/18 08:30: Magnesium 2.0 12/19/18 08:30: Hemoglobin A1c 4.9 12/19/18 08:36: Urine Color Yellow, Urine Clarity Clear, Urine pH 6.0, Ur Specific [place] 1.015, Urine Protein 30 H, Urine Glucose (UA) Normal, Urine Ketones 15 H, Urine Occult Blood 25 H, Urine Nitrite Negative, Urine Bilirubin Negative, Urine Urobilinogen Normal, Ur Leukocyte Esterase Negative, Urine RBC 0-5 SEEN, Urine WBC 0-5 SEEN 12/19/18 08:41: pH 7.38, Bicarbonate Actual 20.0 L, POC Total CO2 21, Base Excess -5 L, O2 Saturation 90 L, ABG pCO2 34.1 L, ABG pO2 59 L, Yaakov Test POS 12/19/18 12:55: Lactic Acid 2.5 H 12/19/18 16:42: Troponin I 1.840 H* Rhythm:Sinus rhythm EKG:As noted above Assessment/Plan 1. Non st segment elevation HI She does have elevated troponin I levels. The etiology is unclear at this time whether this is truly represents a primary acute coronary syndrome event or any type 2 events secondary to supply demand mismatch from noncardiovascular issues. She does not appear to be a complaining of any ongoing acute chest discomfort or associated symptoms. Her ECG is demonstrated no acute ECG changes. She will continue to be followed. She will be treated medically. This could include agents such as aspirin, antiplatelets, anticoagulants, nitrates is needed, beta blockers, lipid lowering agents, etc. It would not be unreasonable to obtain a transthoracic echocardiogram to assess her left ventricular wall motion and systolic function. At the moment with her disorientation and acute encephalopathy she does not appear to be an ideal candidate for additional noninvasive or invasive studies as she does not appear to be able to cooperate with such as demonstrated by her wanting to get out of bed and set off her bed alarm. 2. Abdominal aortic aneurysm She was found to have an abdominal aortic aneurysm. This was reportedly chronic. It is unclear at this time who has been following her abdominal aortic aneurysm. However this will need to be followed in the future as it was reported at 5 cm. Thus she should be followed by peripheral vascular surgery for comments on additional evaluation and care. 3. Hyperlipidemia She can continue lipid lowering therapy is deemed appropriate. 4. Hypertension Her blood pressures will be followed. Her medications can be adjusted as needed. 5. Hypothermia She was found to be markedly hypothermic. She is being evaluated and cared for by internal medicine. 6. Lactic acidosis She was also found to have lactic acidosis. This may be secondary to her event and poor perfusion. She will continue to be evaluated by internal medicine. 7. Rhabdomyolysis She was also found to have elevated CPK levels. This may be secondary to her unknown period of time down outside in the cold. These levels, with respect her CPK, can be followed. Also her renal function will need to be followed for any obvious evidence of renal impairment. 8. Acute encephalopathy She does have mental status changes. At the present time she is disoriented. She is having a challenging time cooperating with respect to remain in bed. Hopefully as her multiple medical conditions improve so will her mental status. This note was generated using a voice recognition system and there may be incorrect words, spelling or punctuation that were not noted when reviewing the office note prior to saving.
[2018-12-19] MEDS: Atorvastatin Calcium 10 MG Tablet PO (23:39)
[2018-12-19] MEDS: Clopidogrel Bisulfate 300 MG Tablet PO (23:39)
[2018-12-19] MEDS: Pantoprazole Sodium 20 MG Tablet PO (23:39)
[2018-12-20] VITALS (16 sets, daily range): BP systolic 107–150; BP diastolic 66–80; PULSE 73–87; RESP 16–20; TEMP 36.7–37.1; O2SAT 92–96
--- NOTE | 2018-12-20 05:55 | EKG12_ITS ---
Test Reason : AM EKG Blood Pressure : / mmHG Vent. Rate : 090 BPM Atrial Rate : 090 BPM P-R Int : 168 ms QRS Dur : 082 ms QT Int : 394 ms P-R-T Axes : 058 -28 -35 degrees QTc Int : 481 ms Normal sinus rhythm Nonspecific ST and T wave abnormality Prolonged QT Abnormal ECG When compared with ECG of 19-DEC-2018 16:19, MANUAL COMPARISON REQUIRED, DATA IS UNCONFIRMED Confirmed by DOMENICO JURADO, CHERYL ([id number]), map editor GUIDO BURROWS ([id number]) on 12/21/2018 4:06:16 PM Referred By: KJ Confirmed By:CHERYL ACUÑA MD
--- NOTE | 2018-12-20 05:55 | RAD_ITS ---
STUDY: X-RAY CHEST REASON FOR EXAM: Female, 83 years old. Shortness of breath/dyspnea. TECHNIQUE: AP and lateral views of the chest. COMPARISON: Comparison is made with prior study dated December 19, 2018. FINDINGS: EKG electrodes are seen. Stable elevation of the right hemidiaphragm. Stable increased markings at the left lung base with blunting of the left costophrenic angle. Mild degree of vascular congestion. Normal size heart. Normal mediastinum and yvette. Normal visualized pulmonary arteries. There is atherosclerotic calcification of the aortic arch with tortuosity. There is a dextroscoliosis of the thoracic spine. There is degenerative osteoarthritis of the bilateral shoulders. There is no demonstrated abnormality of the visualized soft tissue structures of the upper abdomen. RAD/Chest PA and Lateral IMPRESSION: Mild degree of vascular congestion with superimposed atelectasis and/or infiltrate at the left lung base with blunting of left costophrenic angle. Electronically Signed: Juancarlos Goddard, at 13:24 EST , Service support ,
[2018-12-20] MEDS: Levothyroxine 50 MCG Tablet PO (06:06)
[2018-12-20] MEDS: Enoxaparin 80 MG/0.8 ML Syringe SC ×2 (06:07→18:25)
[2018-12-20] MEDS: 0.9% Normal Saline 1,000 ML 100 ML IV (06:11)
[2018-12-20 06:12] LABS: Hematocrit 36.8 % (37-47); Hemoglobin 12.6 g/dl (12.0-15.0); Mean Corp Hgb Conc 34.2 g/gl (32-36); Mean Corpuscular Hgb 34.1 pg (27.0-32.0); Mean Corpuscular Volume 99.7 fL (81-99); Mean Platelet Vol. 10.4 fl (6.2-12.0); Platelet Count 255 K/mm3 (150-450); RBC Distribution Width CV 12.8 % (11.6-14.6); RBC Distribution Width SD 44.7 fl (35.1-43.9); Red Blood Count 3.69 M/mm3 (4.2-5.4); White Blood Count 11.8 K/mm3 (4.4-11.0)
[2018-12-20 06:16] LABS: Scan Indicated on CBC? Y/N NO
[2018-12-20] MEDS: Ipratropium/Albuterol Sulfate 3 ML AMPUL.NEB INHALATION ×3 (06:47→19:50)
[2018-12-20 07:03] LABS: AST(SGOT) 113 U/L (15-37); Alanine Aminotransfer ALT/SGPT 46 U/L (13-56); Albumin, Serum 3.2 g/dL (3.2-5.0); Alkaline Phosphatase 26 U/L (45-117); Anion Gap 12 (5-15); BUN 16 mg/dL (7-18); BUN/Creat Ratio 21.4 RATIO (10-20); CPK Total, Creatine Kinase 2578 U/L (26-192); Calcium,Total 8.3 mg/dL (8.5-10.1); Chloride 109 mmol/L (98-107); Cholesterol 200 mg/dL (200); Creatinine, Serum 0.75 mg/dL (0.55-1.02); EST Glomerular Filtration Rate 79 mL/min (>60); Est Glom Filt Rate - Afr Amer 95 mL/min (>60); Globulin 3.2 g/dL (2.2-4.2); Glucose 86 mg/dL (74-106); High Density Lipoprotein 80 mg/dL; Potassium 3.7 mmol/L (3.5-5.1); Protein, Total 6.4 g/dL (6.4-8.2); Sodium Level 145 mmol/L (136-145); Triglycerides 106 mg/dL; Very Low Density Lipoprotein 21 mg/dL (5-40)
--- NOTE | 2018-12-20 07:47 | PN_ITS ---
Patient Problems: Active and Suspected Problems Accidental hypothermia (Acute) Lactic acidosis (Acute) Rhabdomyolysis (Acute) NSTEMI (non-ST elevated myocardial infarction) (Acute) Encephalopathy acute (Acute) Vitals/I&O's: Vital Signs Temp Pulse Resp BP Pulse Ox 98.3 F 81 16 131/68 H 95 12/20/18 05:57 12/20/18 06:55 12/20/18 06:47 12/20/18 05:57 12/20/18 06:47 Oxygen Flow Rate (L/min) 3 Oxygen Delivery Method Nasal Cannula Weight: 160 lb 11.472 oz Body Mass Index (BMI) 29.4 Intake and Output for Last 24 Hours 12/18/18 12/19/18 12/20/18 23:59 23:59 23:59 Intake Total 545 / 545 894 / 894 Output Total 450 / 450 325 / 325 Balance 95 / 569 / 569 Laboratory Results 12/19/18 08:30: WBC 10.5, RBC 4.38, Hgb 15.1 H, Hct 42.8, MCV 97.7, MCH 34.5 H, MCHC 35.3, RDW 12.3, RDW Differential 42.6, Plt Count 339, MPV 10.6, Immature Gran % (Auto) 0.200, Neut % (Auto) 82.2 H, Lymph % (Auto) 6.6 L, [place] % (Auto) 10.9 H, Eos % (Auto) 0.0, Baso % (Auto) 0.1, Absolute Neuts (auto) 8.7 H, Absolute Lymphs (auto) 0.70 L, Total Counted Not Reportable 12/19/18 08:30: PT 13.6, INR 1.1, APTT 29.2 12/19/18 08:30: Sodium 135 L, Potassium 4.5, Chloride 102, Carbon Dioxide 23.0, Anion Gap 10, BUN 15, Creatinine 0.89, Estim Creat Clear Calc 42.81, Est GFR (MDRD) Af Amer 78, Est GFR (MDRD) Non-Af 65, BUN/Creatinine Ratio 16.9, Glucose 118 H, Calcium 9.0, Total Bilirubin 1.20 H, Direct Bilirubin 0.21, AST 50 H, ALT 25, Alkaline Phosphatase 35 L, Troponin I 1.100 H*, Total Protein 8.0, Albumin 3.9, Globulin 4.1, Lipase 55 L 12/19/18 08:30: Lactic Acid 3.9 H 12/19/18 08:30: Magnesium 2.0, Total Creatine Kinase 806 H 12/19/18 08:30: Magnesium 2.0, TSH 3.04, Free T4 1.18 12/19/18 08:30: Hemoglobin A1c 4.9 12/19/18 08:36: Urine Color Yellow, Urine Clarity Clear, Urine pH 6.0, Ur Specific [place] 1.015, Urine Protein 30 H, Urine Glucose (UA) Normal, Urine Ketones 15 H, Urine Occult Blood 25 H, Urine Nitrite Negative, Urine Bilirubin Negative, Urine Urobilinogen Normal, Ur Leukocyte Esterase Negative, Urine RBC 0-5 SEEN, Urine WBC 0-5 SEEN, Ur Squamous Epith Cells 0 SEEN, Urine Bacteria 0 SEEN, Urine Mucus 0 SEEN 12/19/18 08:41: Specimen Type ART, Sample Site R Radial, pH 7.38, Bicarbonate Actual 20.0 L, POC Total CO2 21, Base Excess -5 L, O2 Saturation 90 L, ABG pCO2 34.1 L, ABG pO2 59 L, Yaakov Test POS, O2 Delivery Device Nasal Can, Liter Flow 3.0, Blood Gas Notified Whom ED MD, Blood Gas Notified Time 835 12/19/18 12:55: Lactic Acid 2.5 H 12/19/18 16:42: Troponin I 1.840 H* 12/19/18 20:15: Troponin I 1.910 H* 12/19/18 23:10: Troponin I 1.990 H* 12/20/18 05:30: WBC 11.8 H, RBC 3.69 L, Hgb 12.6, Hct 36.8 L, MCV 99.7 H, MCH 34.1 H, MCHC 34.2, RDW 12.8, RDW Differential 44.7 H, Plt Count 255, MPV 10.4 12/20/18 05:30: Sodium 145, Potassium 3.7, Chloride 109 H, Carbon Dioxide 24.0, Anion Gap 12, BUN 16, Creatinine 0.75, Estim Creat Clear Calc 34.90, Est GFR (MDRD) Af Amer 95, Est GFR (MDRD) Non-Af 79, BUN/Creatinine Ratio 21.4 H, Gluc ose 86, Calcium 8.3 L, Total Bilirubin 0.60, AST 113 H, ALT 46, Alkaline Phosphatase 26 L, Total Creatine Kinase 2578 H, Total Protein 6.4, Albumin 3.2, Globulin 3.2, Albumin/Globulin Ratio 1.0, Triglycerides 106, Cholesterol 200, LDL Cholesterol 99, VLDL Cholesterol 21, HDL Cholesterol 80 Current Medications Acetaminophen (Tylenol) 650 mg PO Q6H PRN PRN PRN Reason: Non-cardiac pain (mod-severe) Al Hydroxide/Mg Hydroxide (Mylanta Ii) 30 ml PO Q6H PRN PRN PRN Reason: Gastric burning Albuterol Sulfate (Ventolin Aerosols) 2.5 mg INHALATION Q2H PRN PRN PRN Reason: dyspnea, wheezing Albuterol/Ipratropium (Duoneb) 3 ml INHALATION Q6HWA.RT [facility] Last Admin: 12/20/18 06:47 Dose: 3 ml Aspirin (Ecotrin) 81 mg PO DAILY@0800 [facility] Atorvastatin Calcium (Lipitor) 10 mg PO QHS [facility] Last Admin: 12/19/18 23:39 Dose: 10 mg Bupropion HCl (Wellbutrin Xl) 300 mg PO DAILY [facility] Clopidogrel Bisulfate (Plavix) 75 mg PO DAILY [facility] Enoxaparin Sodium (Lovenox) 80 mg SC Q12@0600,1800 [facility] Last Admin: 12/20/18 06:07 Dose: 80 mg Haloperidol Lactate (Haldol) 0.5 mg IM Q4H PRN PRN PRN Reason: AGITATION Hydralazine HCl (Apresoline Iv) 10 mg IV Q4H PRN PRN PRN Reason: SBP > 160 Sodium Chloride () 1,000 mls @ 100 mls/hr IV .Q10H [facility] Last Admin: 12/20/18 06:11 Dose: 100 mls/hr Levothyroxine Sodium (Synthroid) 50 mcg PO DAILY@0600 [facility] Last Admin: 12/20/18 06:06 Dose: 50 mcg Magnesium Hydroxide (Milk Of Magnesia) 30 ml PO DAILY PRN PRN Reason: Constipation Metoprolol Tartrate (Lopressor (Beta Shawna)) 12.5 mg PO BID [facility] Last Admin: 12/19/18 23:45 Dose: 12.5 mg Nitroglycerin (Nitrostat) 0.4 mg SUBLINGUAL Q5M PRN PRN Reason: Angina pain Ondansetron HCl (Zofran) 4 mg IV Q8H PRN PRN PRN Reason: NAUSEA/VOMITING Pantoprazole Sodium (Protonix) 20 mg PO BID [facility] Last Admin: 12/19/18 23:39 Dose: 20 mg Sertraline HCl (Zoloft) 50 mg PO DAILY [facility] Medical Necessity - Tobacco Use Smoking Status: Former smoker Tobacco Use: Non-smoker Assessment/Plan All Active Problems Accidental hypothermia (Acute) Lactic acidosis (Acute) Rhabdomyolysis (Acute) NSTEMI (non-ST elevated myocardial infarction) (Acute) Encephalopathy acute (Acute)
[2018-12-20] MEDS: Clopidogrel Bisulfate 75 MG Tablet PO (09:45)
[2018-12-20] MEDS: Aspirin E.C. 81 MG Tablet PO (09:45)
[2018-12-20] MEDS: buPROPion (XL) 300 MG TABLET.XL PO (09:46)
[2018-12-20] MEDS: Metoprolol Tartrate 25 MG Tablet 12.5 MG PO ×2 (09:46→22:18)
[2018-12-20] MEDS: Pantoprazole Sodium 20 MG Tablet PO ×2 (09:46→22:18)
[2018-12-20] MEDS: Sertraline 50 MG Tablet PO (09:50)
--- NOTE | 2018-12-20 11:28 | PCM.CONS.GEN ---
Reason for Consult Date of Consultation: 12/20/18 Reason for Consultation: COPD, fibrosis, multilobar pneumonia History of Present Illness: The patient is an 83-year-old female, with a history as outlined below, who presented to the emergency department on December 19 after sustaining a fall outside and then going on to develop hypothermia. However, the patient does not recall the exact events that led to her being found outside. The patient does not utilize supplemental oxygen at her baseline. She denies ever having been diagnosed with COPD or asthma in the past. She does endorse a prior smoking history, but states that she quit 40+ years ago. She reports previously being employed in the [employer] industry. The patient does have shortness of breath and states that she has been experiencing a cough over the course of the last year. She does report that she occasionally experiences choking/coughing with ingestion of food. On presentation to the emergency department, the patient was noted to be hypothermic, but remained hemodynamically stable. She was noted to be saturating 87% on room air. Laboratory evaluation revealed no evidence of a leukocytosis. Coagulation profile was within normal limits. Chemistry profile was largely unremarkable. Serum lactate was elevated to 3.9 initially. Total CK was increased to 806. Initial troponin was elevated to 1.1. Urinalysis was largely unremarkable. CT head revealed chronic involutional changes along with a questionable hyperdensity of the left middle cerebral artery. C-spine CT was negative for acute fracture or dislocation. A CT chest without contrast was obtained and revealed evidence of diffuse bilateral groundglass changes, most pronounced in the upper lobes bilaterally. The groundglass changes continue into the lower lobes as well. The patient was subsequently rewarmed and did receive supplemental IV fluid hydration. She was then admitted to the progressive care unit for ongoing management. The patient was evaluated by cardiology due to her presenting non-ST segment elevation UT. An echocardiogram was subsequently ordered. The patient's troponin did peak at 1.990. Her total CK level has increased to 2578. She is currently documented to be overall net +1.2 L for the admission. Although the patient appears to have been started on Zosyn, no infectious workup was ordered. She currently has normal saline running at 100 mL/hour. Past Medical History Past Medical History (Chronic Problems): Chronic Problems HTN (hypertension) (Chronic) HLD (hyperlipidemia) (Chronic) Anxiety and depression (Chronic) Hypothyroidism (Chronic) GERD (gastroesophageal reflux disease) (Chronic) AAA (abdominal aortic aneurysm) (Chronic) Allergies No Known Allergies Allergy (Verified 12/19/18 08:08) Home Medications: Ambulatory Orders Medication Instructions Recorded Amlodipine Besylate/Benazepril 1 cap PO DAILY 12/19/18 [Amlodipine-Benazepril 2.5-10] Bupropion HCl [Wellbutrin Xl] 300 mg PO DAILY 12/19/18 Esomeprazole Mag Trihydrate 40 mg PO DAILY 12/19/18 [Nexium] Levothyroxine [Synthroid] 50 mcg PO DAILY 12/19/18 Sertraline HCl [Zoloft] 50 mg PO DAILY 12/19/18 Tolterodine Tartrate [Detrol LA] 4 mg PO DAILY 12/19/18 Surgical History: - - Appendectomy, hysterectomy, cholecystectomy, T+A. Psychiatric History: Anxiety, Depression RN PSYCHIATRIC History: No pertinent RN PSYCHIATRIC history Lives: Alone Smoking Status: Former smoker Tobacco Use: Non-smoker Alcohol: None Drugs: None - *Family History Maternal History Items: Unknown - Patient unavailable to accurately give family history. Paternal History Items: Unknown - Patient unavailable to accurately give family history. Review of Systems Constitutional: Denies: Chills, Fever Eyes: Denies: Blurred vision, Double vision HEENT: Denies: Head Aches, Sinus Congestion, Sinus Drainage Cardiovascular: Denies: Chest Pain, Palpitations Respiratory: Reports: Cough, Shortness of Breath Gastrointestinal: Denies: Abdominal Pain, Nausea, Vomiting Genitourinary: Denies: Dysuria Musculoskeletal: Denies: Joint Pain, Joint Tenderness Skin: Denies: Rash, Wounds Neurological: Denies: Numbness, Tingling, Focal weakness Psychiatric: Reports: Depression Hematologic/ Lymphatic: Denies: Easy Bruising, Easy Bleeding Patient Problems: Active and Suspected Problems Accidental hypothermia (Acute) Lactic acidosis (Acute) Rhabdomyolysis (Acute) NSTEMI (non-ST elevated myocardial infarction) (Acute) Encephalopathy acute (Acute) Objective: The patient's most recent lab work, culture data and imaging studies have all been personally reviewed. - Physical Exam General: Alert, Cooperative, No apparent distress HEENT: Atraumatic, PERRLA, Normocephalic Oral: No Gingival or Mucosal Lesions/ Ulcerations Neck: Supple, No Nodes, Trachea Midline Lungs: No rhonchi, No wheeze, Diminished, Rales Cardiovascular: Regular rate, Regular Rhythm, Normal S1, Normal S2, No murmurs Abdomen: Bowel Sounds Present, Soft, Non Tender Extremities: No clubbing, No cyanosis, Edema Skin: No breakdown Musculoskeletal: No Muscle Wasting Lymphatic: No Cervical, Supraclavicular, or Inguinal Adenopathy Neurological: - - No focal neurological deficits. Vital Signs Temp Pulse Resp BP Pulse Ox 36.9 C 74 16 130/76 H 94 12/20/18 09:42 12/20/18 10:56 12/20/18 09:42 12/20/18 10:07 12/20/18 09:42 Oxygen Flow Rate (L/min) 4 Oxygen Delivery Method Nasal Cannula Weight: 160 lb 11.472 oz Body Mass Index (BMI) 29.4 Orthostatic Vital Signs Start: 12/20/18 10:07 Freq: q24h Status: Active Protocol: Activity Type Activity Date Activity User E-Sign Co-Sign Detail Recorded Client Recorded Date Recorded By Document 12/20/18 10:07 RI [id number] 12/20/18 10:16 [place] 12/20/18 10:07 Orthostatic Vitals Sitting -Blood Pressure (90/60-120/80) 132/75 H -Extremity Use Right Arm -Pulse Rate (60-100) 84 Lying -Blood Pressure (90/60-120/80) 130/76 H -Extremity Use Right Arm -Pulse Rate (60-100) 81 Intake and Output for Last 24 Hours 12/18/18 12/19/18 12/20/18 23:59 23:59 23:59 Intake Total 545 / 545 894 / 894 Output Total 450 / 450 325 / 325 Balance 95 / 95 569 / 569 Laboratory Tests Past 24 Hrs 12/19/18 12/19/18 12/19/18 08:30 08:30 12:55 WBC RBC Hgb Hct MCV MCH MCHC RDW RDW Differential Plt Count MPV Sodium Potassium Chloride Carbon Dioxide Anion Gap BUN Creatinine Estim Creat Clear Calc Est GFR (MDRD) Af Amer Est GFR (MDRD) Non-Af BUN/Creatinine Ratio Glucose Hemoglobin A1c 4.9 Lactic Acid 2.5 H Calcium Magnesium 2.0 Total Bilirubin AST ALT Alkaline Phosphatase Total Creatine Kinase Troponin I Total Protein Albumin Globulin Albumin/Globulin Ratio Triglycerides Cholesterol LDL Cholesterol VLDL Cholesterol HDL Cholesterol TSH 3.04 Free T4 1.18 12/19/18 12/19/18 12/19/18 16:42 20:15 23:10 WBC RBC Hgb Hct MCV MCH MCHC RDW RDW Differential Plt Count MPV Sodium Potassium Chloride Carbon Dioxide Anion Gap BUN Creatinine Estim Creat Clear Calc Est GFR (MDRD) Af Amer Est GFR (MDRD) Non-Af BUN/Creatinine Ratio Glucose Hemoglobin A1c Lactic Acid Calcium Magnesium Total Bilirubin AST ALT Alkaline Phosphatase Total Creatine Kinase Troponin I 1.840 H* 1.910 H* 1.990 H* Total Protein Albumin Globulin Albumin/Globulin Ratio Triglycerides Cholesterol LDL Cholesterol VLDL Cholesterol HDL Cholesterol TSH Free T4 12/20/18 12/20/18 12/20/18 05:10 05:30 05:30 WBC 11.8 H RBC 3.69 L Hgb 12.6 Hct 36.8 L MCV 99.7 H MCH 34.1 H MCHC 34.2 RDW 12.8 RDW Differential 44.7 H Plt Count 255 MPV 10.4 Sodium 145 Potassium 3.7 Chloride 109 H Carbon Dioxide 24.0 Anion Gap 12 BUN 16 Creatinine 0.75 Estim Creat Clear Calc 34.90 Est GFR (MDRD) Af Amer 95 Est GFR (MDRD) Non-Af 79 BUN/Creatinine Ratio 21.4 H Glucose 86 Hemoglobin A1c Lactic Acid Calcium 8.3 L Magnesium Total Bilirubin 0.60 AST 113 H ALT 46 Alkaline Phosphatase 26 L Total Creatine Kinase 2578 H Troponin I 1.850 H* Total Protein 6.4 Albumin 3.2 Globulin 3.2 Albumin/Globulin Ratio 1.0 Triglycerides 106 Cholesterol 200 LDL Cholesterol 99 VLDL Cholesterol 21 HDL Cholesterol 80 TSH Free T4 Clinical Impression(s) from Imaging Studies Chest X-Ray 12/19/18 08:55 IMPRESSION: No acute abnormality is seen. Electronically Signed: Juancarlos Goddard, at 9:51 EST , Service support , Hip/Pelvis X-Ray 12/19/18 09:00 IMPRESSION: Degenerative changes of the hip. No fracture or dislocation is present. Electronically Signed: Juancarlos Goddard, at 9:52 EST , Service support , Brain CT 12/19/18 09:51 IMPRESSION: Chronic involutional changes of the brain. Questionable hyperdensity of the left middle cerebral artery and sylvian branches as described. CTA is recommended for further evaluation. N.B. : The above information has been verbally conveyed by Juancarlos Goddard to Ryan Brink MD, on 12/19/2018 11:16:16 (ET). Electronically Signed: Juancarlos Goddard, at 11:17 EST , Service support , ADDENDUM: 12/19/18 1124 IMPRESSION: Chronic involutional changes of the brain. Questionable hyperdensity of the left middle cerebral artery and sylvian branches as described. CTA is recommended for further evaluation. N.B. : The above information has been verbally conveyed by Juancarlos Goddard to Ryan Brink MD, on 12/19/2018 11:16:16 (ET). Electronically Signed: Juancarlos Goddard, at 11:17 EST , Service support , ADDENDUM: 12/19/18 1206 IMPRESSION: Chronic involutional changes of the brain. Questionable hyperdensity of the left middle cerebral artery and sylvian branches as described. CTA is recommended for further evaluation. N.B. : The above information has been verbally conveyed by Juancarlos Goddard to Ryan Brink MD, on 12/19/2018 11:16:16 (ET). Electronically Signed: Juancarlos Goddard, at 11:17 EST , Service support , Cervical Spine CT 12/19/18 09:51 IMPRESSION: Multilevel degenerative changes, as described above. Electronically Signed: Juancarlos Goddard, at 11:07 EST , Service support , Chest CT 12/19/18 09:51 IMPRESSION: Airspace disease in the upper lobes as well as in the lower lobes. The differential diagnosis should include either pulmonary edema, infectious process or aspiration. Electronically Signed: Juancarlos Ugartethang, at 11:20 EST , Service support , Abdomen/Pelvis CT 12/19/18 10:43 IMPRESSION: Bibasilar infiltrates and/or atelectasis. Stable infrarenal abdominal aortic aneurysm. Sigmoid diverticulosis. Electronically Signed: Juancarlos Rupesh, at 11:11 EST , Service support , Head CTA 12/19/18 11:14 IMPRESSION: Normal [place] of [place] without a demonstrated aneurysm or hemodynamically significant stenosis. Electronically Signed: Juancarlos Rupesh, at 12:55 EST , Service support , Neck CTA 12/19/18 11:14 IMPRESSION: Normal bilateral cervical carotid and vertebral arteries. Electronically Signed: Juancarlos Rupesh, at 12:57 EST , Service support , Assessment/Plan All Active Problems Accidental hypothermia (Acute) Lactic acidosis (Acute) Rhabdomyolysis (Acute) NSTEMI (non-ST elevated myocardial infarction) (Acute) Encephalopathy acute (Acute) RECOMMENDATIONS: 1. Continue antibiotics as ordered. 2. Check strep and urine Legionella antigens along with respiratory viral panel. 3. Check MRSA screen. 4. Check BNP and await results of echocardiogram. 5. Wean supplemental oxygen as tolerated to maintain saturations at or above 90%. 6. Obtain speech therapy evaluation, given patient's report of occasional choking/coughing with food ingestion. IMPRESSIONS: 1. Acute hypoxemic respiratory insufficiency/abnormal chest imaging The patient presented to the hospital with a new supplemental oxygen requirement and radiographic evidence of ground glass changes in the bilateral lungs, most pronounced in the upper lung barcenas. While the presence of groundglass changes are inherently nonspecific and could represent edema, infection or an inflammatory process, there are no prior chest CTs available for comparison to determine the chronicity of these findings. Given that the patient is currently on antibiotics, I would recommend pursuing an infectious workup. Check strep and urine Legionella antigens along with respiratory viral panel. MRSA screen will also be obtained. If the patient is able to expectorate any sputum, please send for culture. In addition, while the patient does report a year-long cough, she is currently prescribed a combination antihypertensive medication that includes an YULISA inhibitor. This should ideally be discontinued. If the patient's BNP is elevated, consider gentle diuresis. 2. Non-ST segment elevation UT Continue current medical management per cardiology recommendations. Echocardiogram is currently pending. 3. Encephalopathy Likely metabolic in nature, as the patient appears to be mentating appropriately today. 4. Hypertension/hyperlipidemia/hypothyroidism/anxiety/depression/advanced age Complicates care, management, recovery and prognosis. Likely okay to continue home medications. This note was generated with [employer] dictation software. It may contain incorrect words, spelling, and punctuation that were not noted in checking the note before signing. Code Visit Inpatient E&M: 06141 Init Hosp L3
--- NOTE | 2018-12-20 11:31 | CON.PCM_ITS ---
Reason for Consult Date of Consultation: 12/20/18 Reason for Consultation: COPD, fibrosis, multilobar pneumonia History of Present Illness: The patient is an 83-year-old female, with a history as outlined below, who presented to the emergency department on December 19 after sustaining a fall o utside and then going on to develop hypothermia. However, the patient does not recall the exact events that led to her being found outside. The patient does not utilize supplemental oxygen at her baseline. She denies ever having been diagnosed with COPD or asthma in the past. She does endorse a prior smoking history, but states that she quit 40+ years ago. 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 The patient does have shortness of breath and states that she has been experiencing a cough over the course of the last year. She does report that she occasionally experiences choking/coughing with ingestion of food. On presentation to the emergency department, the patient was noted to be hypothermic, but remained hemodynamically stable. She was noted to be saturatin g 87% on room air. Laboratory evaluation revealed no evidence of a leukocytosis. Coagulation profile was within normal limits. Chemistry profile was largely unremarkable. Serum lactate was elevated to 3.9 initially. Total CK was increased to 806. Initial troponin was elevated to 1.1. Urinalysis was largely unremarkable. CT head revealed chronic involutional changes along with a questionable hyperdensity of the left middle cerebral artery. C-spine CT was negative for acute fracture or dislocation. A CT chest without contrast was obtained and revealed evidence of diffuse bilateral groundglass changes, most pronounced in the upper lobes bilaterally. The groundglass changes continue into the lower lobes as well. The patient was subsequently rewarmed and did receive supplemental IV fluid hydration. She was then admitted to the progressive care unit for ongoing management. The patient was evaluated by cardiology due to her presenting non-ST segment elevation OR. An echocardiogram was subsequently ordered. The patient's troponin did peak at 1.990. Her total CK level has increased to 2578. She is currently documented to be overall net +1.2 L for the admission. Although the patient appears to have been started on Zosyn, no infectious workup was ordered. She currently has normal saline running at 100 mL/hour. Past Medical History Past Medical History (Chronic Problems): Chronic Problems HTN (hypertension) (Chronic) HLD (hyperlipidemia) (Chronic) Anxiety and depression (Chronic) Hypothyroidism (Chronic) GERD (gastroesophageal reflux disease) (Chronic) AAA (abdominal aortic aneurysm) (Chronic) Allergies No Known Allergies Allergy (Verified 12/19/18 08:08) Home Medications: Ambulatory Orders Medication Instructions Recorded Amlodipine Besylate/Benazepril 1 cap PO DAILY 12/19/18 [Amlodipine-Benazepril 2.5-10] Bupropion HCl [Wellbutrin Xl] 300 mg PO DAILY 12/19/18 Esomeprazole Mag Trihydrate 40 mg PO DAILY 12/19/18 [Nexium] Levothyroxine [Synthroid] 50 mcg PO DAILY 12/19/18 Sertraline HCl [Zoloft] 50 mg PO DAILY 12/19/18 Tolterodine Tartrate [Detrol LA] 4 mg PO DAILY 12/19/18 Surgical History: - - Appendectomy, hysterectomy, cholecystectomy, T+A. 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 Paternal History Items: Unknown - Patient unavailable to accurately give family history. Review of Systems Constitutional: Denies: Chills, Fever Eyes: Denies: Blurred vision, Double vision HEENT: Denies: Head Aches, Sinus Congestion, Sinus Drainage Cardiovascular: Denies: Chest Pain, Palpitations Respiratory: Reports: Cough, Shortness of Breath Gastrointestinal: Denies: Abdominal Pain, Nausea, Vomiting Genitourinary: Denies: Dysuria Musculoskeletal: Denies: Joint Pain, Joint Tenderness Skin: Denies: Rash, Wounds Neurological: Denies: Numbness, Tingling, Focal weakness Psychiatric: Reports: Depression Hematologic/ Lymphatic: Denies: Easy Bruising, Easy Bleeding Patient Problems: Active and Suspected Problems Accidental hypothermia (Acute) Lactic acidosis (Acute) Rhabdomyolysis (Acute) NSTEMI (non-ST elevated myocardial infarction) (Acute) Encephalopathy acute (Acute) Objective: The patient's most recent lab work, culture data and imaging studies have all been personally reviewed. - Physical Exam General: Alert, Cooperative, No apparent distress HEENT: Atraumatic, PERRLA, Normocephalic Oral: No Gingival or Mucosal Lesions/ Ulcerations Neck: Supple, No Nodes, Trachea Midline Lungs: No rhonchi, No wheeze, Diminished, Rales Cardiovascular: Regular rate, Regular Rhythm, Normal S1, Normal S2, No murmurs Abdomen: Bowel Sounds Present, Soft, Non Tender Extremities: No clubbing, No cyanosis, Edema Skin: No breakdown Musculoskeletal: No Muscle Wasting Lymphatic: No Cervical, Supraclavicular, or Inguinal Adenopathy Neurological: - - No focal neurological deficits. Vital Signs Temp Pulse Resp BP Pulse Ox 36.9 C 74 16 130/76 H 94 12/20/18 09:42 12/20/18 10:56 12/20/18 09:42 12/20/18 10:07 12/20/18 09:42 Oxygen Flow Rate (L/min) 4 Oxygen Delivery Method Nasal Cannula Weight: 160 lb 11.472 oz Body Mass Index (BMI) 29.4 Orthostatic Vital Signs Start: 12/20/18 10:07 Freq: q24h Status: Active Protocol: Activity Type Activity Date Activity User E-Sign Co-Sign Detail Recorded Client Recorded Date Recorded By Document 12/20/18 10:07 [place] [id number] 12/20/18 10:16 [place] 12/20/18 10:07 Orthostatic Vitals Sitting -Blood Pressure (90/60-120/80) 132/75 H -Extremity Use Right Arm -Pulse Rate (60-100) 84 Lying -Blood Pressure (90/60-120/80) 130/76 H -Extremity Use Right Arm -Pulse Rate (60-100) 81 Intake and Output for Last 24 Hours 12/18/18 12/19/18 12/20/18 23:59 23:59 23:59 Intake Total 545 / 545 894 / 894 Output Total 450 / 450 325 / 325 Balance 95 / 95 569 / 569 Laboratory Tests Past 24 Hrs 12/19/18 12/19/18 12/19/18 08:30 08:30 12:55 WBC RBC Hgb Hct MCV MCH MCHC RDW RDW Differential Plt Count MPV Sodium Potassium Chloride Carbon Dioxide Anion Gap BUN Creatinine Estim Creat Clear Calc Est GFR (MDRD) Af Amer Est GFR (MDRD) Non-Af BUN/Creatinine Ratio Glucose Hemoglobin A1c 4.9 Lactic Acid 2.5 H Calcium Magnesium 2.0 Total Bilirubin AST ALT Alkaline Phosphatase Total Creatine Kinase Troponin I Total Protein Albumin Globulin Albumin/Globulin Ratio Triglycerides Cholesterol LDL Cholesterol VLDL Cholesterol HDL Cholesterol TSH 3.04 Free T4 1.18 12/19/18 12/19/18 12/19/18 16:42 20:15 23:10 WBC RBC Hgb Hct MCV MCH MCHC RDW RDW Differential Plt Count MPV Sodium Potassium Chloride Carbon Dioxide Anion Gap BUN Creatinine Estim Creat Clear Calc Est GFR (MDRD) Af Amer Est GFR (MDRD) Non-Af BUN/Creatinine Ratio Glucose Hemoglobin A1c Lactic Acid Calcium Magnesium Total Bilirubin AST ALT Alkaline Phosphatase Total Creatine Kinase Troponin I 1.840 H* 1.910 H* 1.990 H* Total Protein Albumin Globulin Albumin/Globulin Ratio Triglycerides Cholesterol LDL Cholesterol VLDL Cholesterol HDL Cholesterol TSH Free T4 12/20/18 12/20/18 12/20/18 05:10 05:30 05:30 WBC 11.8 H RBC 3.69 L Hgb 12.6 Hct 36.8 L MCV 99.7 H MCH 34.1 H MCHC 34.2 RDW 12.8 RDW Differential 44.7 H Plt Count 255 MPV 10.4 Sodium 145 Potassium 3.7 Chloride 109 H Carbon Dioxide 24.0 Anion Gap 12 BUN 16 Creatinine 0.75 Estim Creat Clear Calc 34.90 Est GFR (MDRD) Af Amer 95 Est GFR (MDRD) Non-Af 79 BUN/Creatinine Ratio 21.4 H Glucose 86 Hemoglobin A1c Lactic Acid Calcium 8.3 L Magnesium Total Bilirubin 0.60 AST 113 H ALT 46 Alkaline Phosphatase 26 L Total Creatine Kinase 2578 H Troponin I 1.850 H* Total Protein 6.4 Albumin 3.2 Globulin 3.2 Albumin/Globulin Ratio 1.0 Triglycerides 106 Cholesterol 200 LDL Cholesterol 99 VLDL Cholesterol 21 HDL Cholesterol 80 TSH Free T4 Clinical Impression(s) from Imaging Studies Chest X-Ray 12/19/18 08:55 IMPRESSION: No acute abnormality is seen. Electronically Signed: Juancarlos Goddard, at 9:51 EST , Service support , Hip/Pelvis X-Ray 12/19/18 09:00 IMPRESSION: Degenerative changes of the hip. No fracture or dislocation is present. Electronically Signed: Juancarlos Goddard, at 9:52 EST , Service support , Brain CT 12/19/18 09:51 IMPRESSION: Chronic involutional changes of the brain. Questionable hyperdensity of the left middle cerebral artery and sylvian branches as described. CTA is recommended for further evaluation. N.B. : The above information has been verbally conveyed by Juancarlos Goddard to Ryan Brink MD, on 12/19/2018 11:16:16 (ET). Electronically Signed: Juancarlos Goddard, at 11:17 EST , Service support , ADDENDUM: 12/19/18 1124 IMPRESSION: Chronic involutional changes of the brain. Questionable hyperdensity of the left middle cerebral artery and sylvian branches as described. CTA is recommended for further evaluation. N.B. : The above information has been verbally conveyed by Juancarlos Goddard to Ryan Brink MD, on 12/19/2018 11:16:16 (ET). Electronically Signed: Juancarlos Goddard, at 11:17 EST , Service support , ADDENDUM: 12/19/18 1206 IMPRESSION: Chronic involutional changes of the brain. Questionable hyperdensity of the left middle cerebral artery and sylvian branches as described. CTA is recommended for further evaluation. N.B. : The above information has been verbally conveyed by Juancarlos Goddard to Ryan Brink MD, on 12/19/2018 11:16:16 (ET). Electronically Signed: Juancarlos Goddard, at 11:17 EST , Service support , Cervical Spine CT 12/19/18 09:51 IMPRESSION: Multilevel degenerative changes, as described above. Electronically Signed: Juancarlos Goddard, at 11:07 EST , Service support , Chest CT 12/19/18 09:51 IMPRESSION: Airspace disease in the upper lobes as well as in the lower lobes. The differential diagnosis should include either pulmonary edema, infectious process or aspiration. Electronically Signed: Juancarlos Longmat, at 11:20 EST , Service support , Abdomen/Pelvis CT 12/19/18 10:43 IMPRESSION: Bibasilar infiltrates and/or atelectasis. Stable infrarenal abdominal aortic aneurysm. Sigmoid diverticulosis. Electronically Signed: Juancarlos Rupesh, at 11:11 EST , Service support , Head CTA 12/19/18 11:14 IMPRESSION: Normal quinault of Claudio without a demonstrated aneurysm or hemodynamically significant stenosis. Electronically Signed: Juancarlos Rupesh, at 12:55 EST , Service support , Neck CTA 12/19/18 11:14 IMPRESSION: Normal bilateral cervical carotid and vertebral arteries. Electronically Signed: Juancarlos Rupesh, at 12:57 EST , Service support , Assessment/Plan All Active Problems Accidental hypothermia (Acute) Lactic acidosis (Acute) Rhabdomyolysis (Acute) NSTEMI (non-ST elevated myocardial infarction) (Acute) Encephalopathy acute (Acute) RECOMMENDATIONS: 1. Continue antibiotics as ordered. 2. Check strep and urine Legionella antigens along with respiratory viral panel. 3. Check MRSA screen. 4. Check BNP and await results of echocardiogram. 5. Wean supplemental oxygen as tolerated to maintain saturations at or above 90%. 6. Obtain speech therapy evaluation, given patient's report of occasional choking/coughing with food ingestion. IMPRESSIONS: 1. Acute hypoxemic respiratory insufficiency/abnormal chest imaging The patient presented to the hospital with a new supplemental oxygen requirement and radiographic evidence of ground glass changes in the bilateral lungs, most pronounced in the upper lung barcenas. While the presence of groundglass changes are inherently nonspecific and could represent edema, infection or an inflammatory process, there are no prior chest CTs available for comparison to determine the chronicity of these findings. Given that the patient is currently on antibiotics, I would recommend pursuing an infectious workup. Check strep and urine Legionella antigens along with respiratory viral panel. MRSA screen will also be obtained. If the patient is able to expectorate any sputum, please send for culture. In addition, while the patient does report a year-long cough, she is currently prescribed a combination antihypertensive medication that includes an YULISA inhibitor. This should ideally be discontinued. If the patient's BNP is elevated, consider gentle diuresis. 2. Non-ST segment elevation OR Continue current medical management per cardiology recommendations. Echocardiogram is currently pending. 3. Encephalopathy Likely metabolic in nature, as the patient appears to be mentating appropriately today. 4. Hypertension/hyperlipidemia/hypothyroidism/anxiety/depression/advanced age Complicates care, management, recovery and prognosis. Likely okay to continue home medications. This note was generated with Get[employer] dictation software. It may contain incorrect words, spelling, and punctuation that were not noted in checking the note before signing. Code Visit Inpatient E&M: 11673 Init Hosp L3
--- NOTE | 2018-12-20 12:36 | NURSING ---
This RN talked to the pt's son in law on the phone. Denies needs.
[2018-12-20 13:07] LABS: BNP,B-Type NATRIURETIC PEPTIDE 1080.5 pg/mL (0-100)
--- NOTE | 2018-12-20 15:06 | PCM.PN.CARD ---
Subjectve: The patient is awake. However, she still appears to be confused. She could not answer correctly questions regarding the date, the city she is currently on, or the type of facility she is currently on. She responded by noting that it was maintained 20, she was in [place], [place], and she was in a jail. She appears to deny any ongoing chest discomfort. She does not complain of any acute respiratory issues. She still does not recall the events of yesterday that led her to the hospital. Objective: Vital Signs Temp Pulse Resp BP Pulse Ox 98.5 F 80 20 H 130/76 H 94 12/20/18 09:42 12/20/18 13:00 12/20/18 13:00 12/20/18 10:07 12/20/18 09:42 Oxygen Flow Rate (L/min) 4 Oxygen Delivery Method Nasal Cannula Weight: 160 lb 11.472 oz Body Mass Index (BMI) 29.4 Orthostatic Vital Signs Start: 12/20/18 10:07 Freq: q24h Status: Active Protocol: Activity Type Activity Date Activity User E-Sign Co-Sign Detail Recorded Client Recorded Date Recorded By Document 12/20/18 10:07 [place] [id number] 12/20/18 10:16 [place] 12/20/18 10:07 Orthostatic Vitals Sitting -Blood Pressure (90/60-120/80) 132/75 H -Extremity Use Right Arm -Pulse Rate (60-100) 84 Lying -Blood Pressure (90/60-120/80) 130/76 H -Extremity Use Right Arm -Pulse Rate (60-100) 81 Intake and Output for Last 24 Hours 12/18/18 12/19/18 12/20/18 23:59 23:59 23:59 Intake Total 545 / 545 1619 / 1619 Output Total 450 / 450 475 / 475 Balance 95 / 95 1144 / 1144 General: Awake, No Acute Distress, Disoriented HEENT: Atraumatic, Normocephalic, PERRL, EOMI, Sclera Non Icteric Oral: Moist Mucosa Neck: Supple, Good ROM, No JVD Lungs: Diminished Right Base Cardiovascular: Regular Rhythm, Normal S1, Normal S2 Abdomen: Bowel Sounds Present, Soft, Non Tender Extremities: No edema 12/19/18 08:30: Magnesium 2.0 12/19/18 08:30: Hemoglobin A1c 4.9 12/19/18 16:42: Troponin I 1.840 H* 12/19/18 20:15: Troponin I 1.910 H* 12/19/18 23:10: Troponin I 1.990 H* 12/20/18 05:10: Troponin I 1.850 H* 12/20/18 05:30: WBC 11.8 H, RBC 3.69 L, Hgb 12.6, Hct 36.8 L, MCV 99.7 H, MCH 34.1 H, MCHC 34.2, RDW 12.8, RDW Differential 44.7 H, Plt Count 255, MPV 10.4 12/20/18 05:30: Sodium 145, Potassium 3.7, Chloride 109 H, Carbon Dioxide 24.0, Anion Gap 12, BUN 16, Creatinine 0.75, Est GFR (MDRD) Af Amer 95, Est GFR (MDRD) Non-Af 79, BUN/Creatinine Ratio 21.4 H, Glucose 86, Calcium 8.3 L, Total Bilirubin 0.60, Triglycerides 106, Cholesterol 200, LDL Cholesterol 99, VLDL Cholesterol 21, HDL Cholesterol 80 12/20/18 05:30: B-Natriuretic Peptide 1080.5 H Rhythm:Sinus rhythm ECHO:pending Medical Necessity - Tobacco Use Smoking Status: Former smoker Tobacco Use: Non-smoker Assessment/Plan 1. Non st segment elevation SD She does have elevated troponin I levels. The etiology is unclear at this time whether this is truly represents a primary acute coronary syndrome event or any type 2 events secondary to supply demand mismatch from noncardiovascular issues including concerns of her underlying prolonged downtime leading to her hypothermia and rhabdomyolysis. . She does not appear to be a complaining of any ongoing acute chest discomfort or associated symptoms. Her ECG is demonstrated no acute ECG changes. She will continue to be followed. her troponin I level has decreased. She will be treated medically. This could include agents such as aspirin, antiplatelets, anticoagulants, nitrates is needed, beta blockers, lipid lowering agents, etc. A transthoracic echocardiogram is pending. At the moment with her disorientation and acute encephalopathy she does not appear to be an ideal candidate for additional noninvasive or invasive studies. When asked if she would not want to consider undergoing further evaluation care such as a cardiac catheterization she responded no. 2. Abdominal aortic aneurysm She was found to have an abdominal aortic aneurysm. This was reportedly chronic. It is unclear at this time who has been following her abdominal aortic aneurysm. However this will need to be followed in the future as it was reported at 5 cm. Thus she should be followed by peripheral vascular surgery for comments on additional evaluation and care. 3. Hyperlipidemia She can continue lipid lowering therapy is deemed appropriate. 4. Hypertension Her blood pressures will be followed. Her medications can be adjusted as needed. 5. Hypothermia She was found to be markedly hypothermic. She is being evaluated and cared for by internal medicine. 6. Lactic acidosis She was also found to have lactic acidosis. This may be secondary to her event and poor perfusion. She will continue to be evaluated by internal medicine. 7. Rhabdomyolysis She was also found to have elevated CPK levels. This may be secondary to her unknown period of time down outside in the cold. Her CPK levels have increased. Her creatinine level appears to be stable at this time. 8. Acute encephalopathy She does have mental status changes. At the present time she is disoriented. Hopefully as her multiple medical conditions improve so will her mental status. This note was generated using a voice recognition system and there may be incorrect words, spelling or punctuation that were not noted when reviewing the office note prior to saving.
[2018-12-20 15:14] LABS: M R Staph aureus DNA By PCR Negative (Negative); Probe Check PASS; Specimen Processing Control PASS
--- NOTE | 2018-12-20 15:15 | PCM.PROGNOTE ---
<Gregorio Walters - Last Filed: 12/20/18 15:15> Patient Problems: Active and Suspected Problems Accidental hypothermia (Acute) Lactic acidosis (Acute) Rhabdomyolysis (Acute) NSTEMI (non-ST elevated myocardial infarction) (Acute) Encephalopathy acute (Acute) Subjective: Pt does not appear confused today. No chest pain. No body aches or swelling. She does have some SOB and cough which is nonproductive, no fevers or chills. She no longer smokes but did smoke from about age 12 to 42 years old. - Physical Exam General: Alert, Oriented x3, Cooperative HEENT: Atraumatic, PERRLA, EOMI, Normocephalic Neck: Supple, No JVD, Negative Carotid Bruits Lungs: Diminished, Rales Cardiovascular: Regular rate, No murmurs Abdomen: Bowel Sounds Present, Soft, Non Tender Extremities: No edema, Capillary Refill Less than 3 Seconds Skin: No rashes, No breakdown Musculoskeletal: No Tenderness to Palpation of Joints or Extremities Neurological: Cranial nerves II-XII grossly intact Psych/Mental Status: Normal Affect, Appropriate, Alert and oriented to time, place, person, mood and affect Vital Signs Temp Pulse Resp BP Pulse Ox 98.5 F 84 20 H 130/76 H 94 12/20/18 09:42 12/20/18 14:57 12/20/18 13:00 12/20/18 10:07 12/20/18 09:42 Oxygen Flow Rate (L/min) 4 Oxygen Delivery Method Nasal Cannula Weight: 160 lb 11.472 oz Body Mass Index (BMI) 29.4 Orthostatic Vital Signs Start: 12/20/18 10:07 Freq: q24h Status: Active Protocol: Activity Type Activity Date Activity User E-Sign Co-Sign Detail Recorded Client Recorded Date Recorded By Document 12/20/18 10:07 KS [id number] 12/20/18 10:16 KS 12/20/18 10:07 Orthostatic Vitals Sitting -Blood Pressure (90/60-120/80 mm Hg) 132/75 H -Extremity Use Right Arm -Pulse Rate (60-100 beats/min) 84 Lying -Blood Pressure (90/60-120/80 mm Hg) 130/76 H -Extremity Use Right Arm -Pulse Rate (60-100 beats/min) 81 Intake and Output for Last 24 Hours 12/18/18 12/19/18 12/20/18 23:59 23:59 23:59 Intake Total 545 / 545 1619 / 1619 Output Total 450 / 450 475 / 475 Balance 95 / 95 1144 / 1144 Microbiology Past 72 Hours 12/19/18 08:36 Streptococcus pneumoniae Antigen (M - Final Urine Catheter - Reeder 12/19/18 12:05 Legionella Antigen - Final Urine Catheter - Reeder Laboratory Tests Past 24 Hrs 12/19/18 12/19/18 12/19/18 08:30 08:30 16:42 WBC RBC Hgb Hct MCV MCH MCHC RDW RDW Differential Plt Count MPV Sodium Potassium Chloride Carbon Dioxide Anion Gap BUN Creatinine Estim Creat Clear Calc Est GFR (MDRD) Af Amer Est GFR (MDRD) Non-Af BUN/Creatinine Ratio Glucose Hemoglobin A1c 4.9 Calcium Magnesium 2.0 Total Bilirubin AST ALT Alkaline Phosphatase Total Creatine Kinase Troponin I 1.840 H* B-Natriuretic Peptide Total Protein Albumin Globulin Albumin/Globulin Ratio Triglycerides Cholesterol LDL Cholesterol VLDL Cholesterol HDL Cholesterol TSH 3.04 Free T4 1.18 MRSA (PCR) 12/19/18 12/19/18 12/20/18 20:15 23:10 05:10 WBC RBC Hgb Hct MCV MCH MCHC RDW RDW Differential Plt Count MPV Sodium Potassium Chloride Carbon Dioxide Anion Gap BUN Creatinine Estim Creat Clear Calc Est GFR (MDRD) Af Amer Est GFR (MDRD) Non-Af BUN/Creatinine Ratio Glucose Hemoglobin A1c Calcium Magnesium Total Bilirubin AST ALT Alkaline Phosphatase Total Creatine Kinase Troponin I 1.910 H* 1.990 H* 1.850 H* B-Natriuretic Peptide Total Protein Albumin Globulin Albumin/Globulin Ratio Triglycerides Cholesterol LDL Cholesterol VLDL Cholesterol HDL Cholesterol TSH Free T4 MRSA (PCR) 12/20/18 12/20/18 12/20/18 05:30 05:30 05:30 WBC 11.8 H RBC 3.69 L Hgb 12.6 Hct 36.8 L MCV 99.7 H MCH 34.1 H MCHC 34.2 RDW 12.8 RDW Differential 44.7 H Plt Count 255 MPV 10.4 Sodium 145 Potassium 3.7 Chloride 109 H Carbon Dioxide 24.0 Anion Gap 12 BUN 16 Creatinine 0.75 Estim Creat Clear Calc 34.90 Est GFR (MDRD) Af Amer 95 Est GFR (MDRD) Non-Af 79 BUN/Creatinine Ratio 21.4 H Glucose 86 Hemoglobin A1c Calcium 8.3 L Magnesium Total Bilirubin 0.60 AST 113 H ALT 46 Alkaline Phosphatase 26 L Total Creatine Kinase 2578 H Troponin I B-Natriuretic Peptide 1080.5 H Total Protein 6.4 Albumin 3.2 Globulin 3.2 Albumin/Globulin Ratio 1.0 Triglycerides 106 Cholesterol 200 LDL Cholesterol 99 VLDL Cholesterol 21 HDL Cholesterol 80 TSH Free T4 MRSA (PCR) 12/20/18 12:10 WBC RBC Hgb Hct MCV MCH MCHC RDW RDW Differential Plt Count MPV Sodium Potassium Chloride Carbon Dioxide Anion Gap BUN Creatinine Estim Creat Clear Calc Est GFR (MDRD) Af Amer Est GFR (MDRD) Non-Af BUN/Creatinine Ratio Glucose Hemoglobin A1c Calcium Magnesium Total Bilirubin AST ALT Alkaline Phosphatase Total Creatine Kinase Troponin I B-Natriuretic Peptide Total Protein Albumin Globulin Albumin/Globulin Ratio Triglycerides Cholesterol LDL Cholesterol VLDL Cholesterol HDL Cholesterol TSH Free T4 MRSA (PCR) Negative Medical Necessity - Tobacco Use Smoking Status: Former smoker Tobacco Use: Non-smoker Assessment/Plan All Active Problems Accidental hypothermia (Acute) Lactic acidosis (Acute) Rhabdomyolysis (Acute) NSTEMI (non-ST elevated myocardial infarction) (Acute) Encephalopathy acute (Acute) 1. NSTEMI - cardiology following. No chest pain. Trop peak 1.990. No acute EKG findings. Thyroid studies unremarkable. Continue asa/statin/plavix/lovenox/metoprolol 2. Acute hypoxic respiratory failure 2/2 Acute severe sepsis 2/2 BL CAP - present on admission. Continue Zosyn. MRSA screen neg. No fever but was hypothermic at admission, found down out in cold. Leukocytosis, tachycardia, elevated lactate - trending down. Pulm consulted. Now requiring up to 4lpm O2 via nasal cannula. Does not use O2 at home. BNP is elevated however she is receiving fluids for acute rhabdo. She may have some underlying heart failure. Obtain 2d echo. CT with infiltrates, edema vs infection, multilobar. Urine antigens negative Resp panel pending. Blood cultures pending. With encephalopathy will order speech eval as aspiration is a consideration. 3. Acute rhabdomyolysis - CPK increased from 806 to 2578. No local swelling or pain. Continue gentle hydration. 4. Acute metabolic encephalopathy 2/2 sepsis/rhabdo - resolved. 5. Hx AAA - stable. CTA on chart. 6. HLD - statin 7. HTN -stable 8. ? underlying COPD - fibrosis on CT. Continue duonebs. 9. hypothyroid - synthroid - thyroid studies normal. 10. Depression - zoloft/wellbutrin DVT ppx: lovenox DC planning: PTOT evals. lives alone, found down. This patient was seen by Gregorio Walters PA-C under the supervision of Doctor Narayan. <Suman Busch - Last Filed: 12/20/18 17:03> Subjective: Seen and examined. Detailed history taken from patient's son, Mateus and Celio. Overall, patient has flulike symptoms for 2-3 weeks and feeling weak, wobbly and tired for about 1 month. Patient also had fall recently and is weak on hip and knee joints. She also has gait incoordination. She fell down and was on cemented floor for unknown period of time. Patient was unconscious. In ED, patient was found to have high troponin in non-STEMI range, acute rhabdomyolysis, lactic acidosis and hyponatremic. Cardiology was consulted. CT brain shows hypodensity of left MCA and sylvian branches therefore CTA was recommended which did not show acute occlusion or stenosis. Patient denies any chest pain or shortness of breath. Patient was seen by explosive operator bomb. CT chest shows Airspace disease in the upper lobes as well as in the lower lobes. Pulmonary was consulted and discussed with Dr. Holt. Started on IV Zosyn for suspicion of pneumonia. Patient has chronic cough for more than 1 year and has about 25 pack years of smoking, quit 40 years ago - Physical Exam General: Alert, Oriented x3, Cooperative HEENT: Atraumatic, PERRLA, EOMI, Normocephalic Neck: Supple, No JVD, Negative Carotid Bruits Lungs: Diminished - Air entry severely diminished in all lung barcenas, Rales Cardiovascular: Regular rate, Normal S1, Normal S2, No murmurs Abdomen: Bowel Sounds Present, Soft, Non Tender, Non-Distended Extremities: Capillary Refill Less than 3 Seconds, Edema Skin: No rashes, No breakdown Musculoskeletal: No Tenderness to Palpation of Joints or Extremities, Arthritic Changes, Muscle Wasting Neurological: Cranial nerves II-XII grossly intact, Deep Tendon Reflexes 2+/4 and Symmetrical, Neuro grossly intact, - - Chronic bilateral lower extremity weakness from arthritis Psych/Mental Status: Normal Affect, Appropriate Vital Signs Temp Pulse Resp BP Pulse Ox 98.0 F 73 16 109/70 96 12/20/18 15:52 12/20/18 15:52 12/20/18 15:52 12/20/18 15:52 12/20/18 15:52 Oxygen Flow Rate (L/min) 4 Oxygen Delivery Method Nasal Cannula Weight: 160 lb 11.472 oz Body Mass Index (BMI) 29.4 Orthostatic Vital Signs Start: 12/20/18 10:07 Freq: q24h Status: Active Protocol: Activity Type Activity Date Activity User E-Sign Co-Sign Detail Recorded Client Recorded Date Recorded By Document 12/20/18 10:07 KS [id number] 12/20/18 10:16 KS 12/20/18 10:07 Orthostatic Vitals Sitting -Blood Pressure (90/60-120/80) 132/75 H -Extremity Use Right Arm -Pulse Rate (60-100) 84 Lying -Blood Pressure (90/60-120/80) 130/76 H -Extremity Use Right Arm -Pulse Rate (60-100) 81 Intake and Output for Last 24 Hours 12/18/18 12/19/18 12/20/18 23:59 23:59 23:59 Intake Total 545 / 545 1619 / 1619 Output Total 450 / 450 475 / 475 Balance 95 / 95 1144 / 1144 Microbiology Past 72 Hours 12/20/18 13:00 Respiratory Panel (PCR) - Final Mucosa - Nose 12/19/18 08:36 Streptococcus pneumoniae Antigen (M - Final Urine Catheter - Reeder 12/19/18 12:05 Legionella Antigen - Final Urine Catheter - Reeder Laboratory Tests Past 24 Hrs 12/19/18 12/19/18 12/19/18 08:30 08:30 16:42 WBC RBC Hgb Hct MCV MCH MCHC RDW RDW Differential Plt Count MPV Sodium Potassium Chloride Carbon Dioxide Anion Gap BUN Creatinine Estim Creat Clear Calc Est GFR (MDRD) Af Amer Est GFR (MDRD) Non-Af BUN/Creatinine Ratio Glucose Hemoglobin A1c 4.9 Calcium Magnesium 2.0 Total Bilirubin AST ALT Alkaline Phosphatase Total Creatine Kinase Troponin I 1.840 H* B-Natriuretic Peptide Total Protein Albumin Globulin Albumin/Globulin Ratio Triglycerides Cholesterol LDL Cholesterol VLDL Cholesterol HDL Cholesterol TSH 3.04 Free T4 1.18 MRSA (PCR) 02/12/19/18 12/20/18 20:15 23:10 05:10 WBC RBC Hgb Hct MCV MCH MCHC RDW RDW Differential Plt Count MPV Sodium Potassium Chloride Carbon Dioxide Anion Gap BUN Creatinine Estim Creat Clear Calc Est GFR (MDRD) Af Amer Est GFR (MDRD) Non-Af BUN/Creatinine Ratio Glucose Hemoglobin A1c Calcium Magnesium Total Bilirubin AST ALT Alkaline Phosphatase Total Creatine Kinase Troponin I 1.910 H* 1.990 H* 1.850 H* B-Natriuretic Peptide Total Protein Albumin Globulin Albumin/Globulin Ratio Triglycerides Cholesterol LDL Cholesterol VLDL Cholesterol HDL Cholesterol TSH Free T4 MRSA (PCR) 12/20/18 12/20/18 12/20/18 05:30 05:30 05:30 WBC 11.8 H RBC 3.69 L Hgb 12.6 Hct 36.8 L MCV 99.7 H MCH 34.1 H MCHC 34.2 RDW 12.8 RDW Differential 44.7 H Plt Count 255 MPV 10.4 Sodium 145 Potassium 3.7 Chloride 109 H Carbon Dioxide 24.0 Anion Gap 12 BUN 16 Creatinine 0.75 Estim Creat Clear Calc 34.90 Est GFR (MDRD) Af Amer 95 Est GFR (MDRD) Non-Af 79 BUN/Creatinine Ratio 21.4 H Glucose 86 Hemoglobin A1c Calcium 8.3 L Magnesium Total Bilirubin 0.60 AST 113 H ALT 46 Alkaline Phosphatase 26 L Total Creatine Kinase 2578 H Troponin I B-Natriuretic Peptide 1080.5 H Total Protein 6.4 Albumin 3.2 Globulin 3.2 Albumin/Globulin Ratio 1.0 Triglycerides 106 Cholesterol 200 LDL Cholesterol 99 VLDL Cholesterol 21 HDL Cholesterol 80 TSH Free T4 MRSA (PCR) 12/20/18 12:10 WBC RBC Hgb Hct MCV MCH MCHC RDW RDW Differential Plt Count MPV Sodium Potassium Chloride Carbon Dioxide Anion Gap BUN Creatinine Estim Creat Clear Calc Est GFR (MDRD) Af Amer Est GFR (MDRD) Non-Af BUN/Creatinine Ratio Glucose Hemoglobin A1c Calcium Magnesium Total Bilirubin AST ALT Alkaline Phosphatase Total Creatine Kinase Troponin I B-Natriuretic Peptide Total Protein Albumin Globulin Albumin/Globulin Ratio Triglycerides Cholesterol LDL Cholesterol VLDL Cholesterol HDL Cholesterol TSH Free T4 MRSA (PCR) Negative Assessment/Plan This patient was seen in conjunction with Gregorio MELO. I have independently interviewed and examined the patient and reviewed pertinent history, examination findings, laboratory and plan of management. I have reviewed the note and agree with the documented findings with the few additional points. In brief, this 83-year-old female with multiple comorbidities as listed above as admitted with fall, unconsciousness of unknown duration, flulike symptoms for 2-3 weeks, chronic cough and lab abnormalities including high troponin in ER consistent with non-STEMI e, acute rhabdomyolysis, lactic acidosis and hyponatremia. Machine Heddle Cleaner was consulted. CT brain shows hypodensity of left MCA and sylvian branches therefore CTA was recommended which did not show acute occlusion or stenosis. CT chest shows Airspace disease in the upper lobes as well as in the lower lobes. Pulmonary was consulted and discussed with Dr. Holt. Started on IV Zosyn for suspicion of pneumonia. Patient has chronic cough for more than 1 year and has about 25 pack years of smoking, quit 40 years ago. Overall, impression is non-STEMI, acute hypoxic respiratory failure secondary to severe sepsis with multilobar multifocal community-acquired pneumonia with possibility of interstitial lung disease/COPD. She also has acute rhabdomyolysis, acute metabolic encephalopathy as listed above. I have discussed my assessment with Gregorio MELO and orders have been reviewed. Clinical Impression(s) from Imaging Studies Chest X-Ray 12/19/18 08:55 IMPRESSION: No acute abnormality is seen. Electronically Signed: Juancarlos Goddard, at 9:51 EST , Service support , Hip/Pelvis X-Ray 12/19/18 09:00 IMPRESSION: Degenerative changes of the hip. No fracture or dislocation is present. Electronically Signed: Juancarlos Goddard, at 9:52 EST , Service support , Brain CT 12/19/18 09:51 IMPRESSION: Chronic involutional changes of the brain. Questionable hyperdensity of the left middle cerebral artery and sylvian branches as described. CTA is recommended for further evaluation. N.B. : The above information has been verbally conveyed by Juancarlos Goddard to Ryan Brink MD, on 12/19/2018 11:16:16 (ET). Electronically Signed: Juancarlos Goddard, at 11:17 EST , Service support , ADDENDUM: 12/19/18 1124 IMPRESSION: Chronic involutional changes of the brain. Questionable hyperdensity of the left middle cerebral artery and sylvian branches as described. CTA is recommended for further evaluation. N.B. : The above information has been verbally conveyed by Juancarlos Goddard to Ryan Brink MD, on 12/19/2018 11:16:16 (ET). Electronically Signed: Juancarlos Goddard, at 11:17 EST , Service support , ADDENDUM: 12/19/18 1206 IMPRESSION: Chronic involutional changes of the brain. Questionable hyperdensity of the left middle cerebral artery and sylvian branches as described. CTA is recommended for further evaluation. N.B. : The above information has been verbally conveyed by Juancarlos Goddard to Ryan Brink MD, on 12/19/2018 11:16:16 (ET). Electronically Signed: Juancarlos Goddard, at 11:17 EST , Service support , Cervical Spine CT 12/19/18 09:51 IMPRESSION: Multilevel degenerative changes, as described above. Electronically Signed: Juancarlos Goddard, at 11:07 EST , Service support , Chest CT 12/19/18 09:51 IMPRESSION: Airspace disease in the upper lobes as well as in the lower lobes. The differential diagnosis should include either pulmonary edema, infectious process or aspiration. Abdomen/Pelvis CT 12/19/18 10:43 IMPRESSION: Bibasilar infiltrates and/or atelectasis. Stable infrarenal abdominal aortic aneurysm. Sigmoid diverticulosis. Electronically Signed: Juancarlos Goddard, at 11:11 EST , Service support , Head CTA 12/19/18 11:14 IMPRESSION: Normal [place] of [place] without a demonstrated aneurysm or hemodynamically significant stenosis. Electronically Signed: Juancarlos Goddard, at 12:55 EST , Service support , Neck CTA 12/19/18 11:14 IMPRESSION: Normal bilateral cervical carotid and vertebral arteries. Chest X-Ray 12/20/18 05:55 IMPRESSION: Mild degree of vascular congestion with superimposed atelectasis and/or infiltrate at the left lung base with blunting of left costophrenic angle. Active Medications Acetaminophen (Tylenol) 650 mg PO Q6H PRN PRN PRN Reason: Non-cardiac pain (mod-severe) Al Hydroxide/Mg Hydroxide (Mylanta Ii) 30 ml PO Q6H PRN PRN PRN Reason: Gastric burning Albuterol Sulfate (Ventolin Aerosols) 2.5 mg INHALATION Q2H PRN PRN PRN Reason: dyspnea, wheezing Albuterol/Ipratropium (Duoneb) 3 ml INHALATION Q6HWA.RT [facility] Last Admin: 12/20/18 13:00 Dose: 3 ml Aspirin (Ecotrin) 81 mg PO DAILY@0800 [facility] Last Admin: 12/20/18 09:45 Dose: 81 mg Atorvastatin Calcium (Lipitor) 10 mg PO QHS [facility] Last Admin: 12/19/18 23:39 Dose: 10 mg Bupropion HCl (Wellbutrin Xl) 300 mg PO DAILY [facility] Last Admin: 12/20/18 09:46 Dose: 300 mg Clopidogrel Bisulfate (Plavix) 75 mg PO DAILY [facility] Last Admin: 12/20/18 09:45 Dose: 75 mg Enoxaparin Sodium (Lovenox) 80 mg SC Q12@0600,1800 [facility] Last Admin: 12/20/18 06:07 Dose: 80 mg Haloperidol Lactate (Haldol) 0.5 mg IM Q4H PRN PRN PRN Reason: AGITATION Hydralazine HCl (Apresoline Iv) 10 mg IV Q4H PRN PRN PRN Reason: SBP > 160 Piperacillin Sod/Tazobactam (Sod 3.375 gm/ Sodium Chloride) 50 mls @ 12.5 mls/hr IV Q8 [facility] Last Admin: 12/20/18 11:42 Dose: 12.5 mls/hr Sodium Chloride () 1,000 mls @ 50 mls/hr IV .Q20H [facility] Levothyroxine Sodium (Synthroid) 50 mcg PO DAILY@0600 [facility] Last Admin: 12/20/18 06:06 Dose: 50 mcg Magnesium Hydroxide (Milk Of Magnesia) 30 ml PO DAILY PRN PRN Reason: Constipation Metoprolol Tartrate (Lopressor (Beta Shawna)) 12.5 mg PO BID [facility] Last Admin: 12/20/18 09:46 Dose: 12.5 mg Nitroglycerin (Nitrostat) 0.4 mg SUBLINGUAL Q5M PRN PRN Reason: Angina pain Ondansetron HCl (Zofran) 4 mg IV Q8H PRN PRN PRN Reason: NAUSEA/VOMITING Pantoprazole Sodium (Protonix) 20 mg PO BID [facility] Last Admin: 12/20/18 09:46 Dose: 20 mg Sertraline HCl (Zoloft) 50 mg PO DAILY [facility] Last Admin: 12/20/18 09:50 Dose: 50 mg Sodium Chloride () 5 - 15 ml IV UD PRN PRN Reason: SALINE FLUSH Code Visit Inpatient E&M: [id number] [facility] [place] [facility] L3
--- NOTE | 2018-12-20 15:20 | PN.CARD_ITS ---
Subjectve: The patient is awake. However, she still appears to be confused. She could not answer correctly questions regarding the date, the city she is currently on, or the type of facility she is currently on. She responded by noting that it was maintained 20, she was in [place], [place], and she was in a detention. She appears to deny any ongoing chest discomfort. She does not complain of any acute respiratory issues. She still does not recall the events of yesterday that led her to the hospital. Objective: Vital Signs Temp Pulse Resp BP Pulse Ox 98.5 F 80 20 H 130/76 H 94 12/20/18 09:42 12/20/18 13:00 12/20/18 13:00 12/20/18 10:07 12/20/18 09:42 Oxygen Flow Rate (L/min) 4 Oxygen Delivery Method Nasal Cannula Weight: 160 lb 11.472 oz Body Mass Index (BMI) 29.4 Orthostatic Vital Signs Start: 12/20/18 10:07 Freq: q24h Status: Active Protocol: Activity Type Activity Date Activity User E-Sign Co-Sign Detail Recorded Client Recorded Date Recorded By Document 12/20/18 10:07 KS [id number] 12/20/18 10:16 KS 12/20/18 10:07 Orthostatic Vitals Sitting -Blood Pressure (90/60-120/80) 132/75 H -Extremity Use Right Arm -Pulse Rate (60-100) 84 Lying -Blood Pressure (90/60-120/80) 130/76 H -Extremity Use Right Arm -Pulse Rate (60-100) 81 Intake and Output for Last 24 Hours 12/18/18 12/19/18 12/20/18 23:59 23:59 23:59 Intake Total 545 / 545 1619 / 1619 Output Total 450 / 450 475 / 475 Balance 95 / 95 1144 / 1144 General: Awake, No Acute Distress, Disoriented HEENT: Atraumatic, Normocephalic, PERRL, EOMI, Sclera Non Icteric Oral: Moist Mucosa Neck: Supple, Good ROM, No JVD Lungs: Diminished Right Base Cardiovascular: Regular Rhythm, Normal S1, Normal S2 Abdomen: Bowel Sounds Present, Soft, Non Tender Extremities: No edema 12/19/18 08:30: Magnesium 2.0 12/19/18 08:30: Hemoglobin A1c 4.9 12/19/18 16:42: Troponin I 1.840 H* 12/19/18 20:15: Troponin I 1.910 H* 12/19/18 23:10: Troponin I 1.990 H* 12/20/18 05:10: Troponin I 1.850 H* 12/20/18 05:30: WBC 11.8 H, RBC 3.69 L, Hgb 12.6, Hct 36.8 L, MCV 99.7 H, MCH 34.1 H, MCHC 34.2, RDW 12.8, RDW Differential 44.7 H, Plt Count 255, MPV 10.4 12/20/18 05:30: Sodium 145, Potassium 3.7, Chloride 109 H, Carbon Dioxide 24.0, Anion Gap 12, BUN 16, Creatinine 0.75, Est GFR (MDRD) Af Amer 95, Est GFR (MDRD) Non-Af 79, BUN/Creatinine Ratio 21.4 H, Glucose 86, Calcium 8.3 L, Total Bilir ubin 0.60, Triglycerides 106, Cholesterol 200, LDL Cholesterol 99, VLDL Cholesterol 21, HDL Cholesterol 80 12/20/18 05:30: B-Natriuretic Peptide 1080.5 H Rhythm:Sinus rhythm ECHO:pending Medical Necessity - Tobacco Use Smoking Status: Former smoker Tobacco Use: Non-smoker Assessment/Plan 1. Non st segment elevation IL She does have elevated troponin I levels. The etiology is unclear at this time whether this is truly represents a primary acute coronary syndrome event or any type 2 events secondary to supply demand mismatch from noncardiovascular issues including concerns of her underlying prolonged downtime leading to her hypothermia and rhabdomyolysis. . She does not appear to be a complaining of any ongoing acute chest discomfort or associated symptoms. Her ECG is demonstrated no acute ECG changes. She will continue to be followed. her troponin I level has decreased. She will be treated medically. This could include agents such as aspirin, antiplatelets, anticoagulants, nitrates is needed, beta blockers, lipid lowering agents, etc. A transthoracic echocardiogram is pending. At the moment with her disorientation and acute encephalopathy she does not appear to be an ideal candidate for additional noninvasive or invasive studies. When asked if she would not want to consider undergoing further evaluation care such as a cardiac catheterization she responded no. 2. Abdominal aortic aneurysm She was found to have an abdominal aortic aneurysm. This was reportedly chronic. It is unclear at this time who has been following her abdominal aortic aneurysm. However this will need to be followed in the future as it was reported at 5 cm. Thus she should be followed by peripheral vascular surgery for comments on additional evaluation and care. 3. Hyperlipidemia She can continue lipid lowering therapy is deemed appropriate. 4. Hypertension Her blood pressures will be followed. Her medications can be adjusted as needed. 5. Hypothermia She was found to be markedly hypothermic. She is being evaluated and cared for by internal medicine. 6. Lactic acidosis She was also found to have lactic acidosis. This may be secondary to her event and poor perfusion. She will continue to be evaluated by internal medicine. 7. Rhabdomyolysis She was also found to have elevated CPK levels. This may be secondary to her unknown period of time down outside in the cold. Her CPK levels have increased. Her creatinine level appears to be stable at this time. 8. Acute encephalopathy She does have mental status changes. At the present time she is disoriented. Hopefully as her multiple medical conditions improve so will her mental status. This note was generated using a voice recognition system and there may be incorrect words, spelling or punctuation that were not noted when reviewing the office note prior to saving.
--- NOTE | 2018-12-20 15:28 | PN_ITS ---
<Gregorio Walters - Last Filed: 12/20/18 15:15> Patient Problems: Active and Suspected Problems Accidental hypothermia (Acute) Lactic acidosis (Acute) Rhabdomyolysis (Acute) NSTEMI (non-ST elevated myocardial infarction) (Acute) Encephalopathy acute (Acute) Subjective: Pt does not appear confused today. No chest pain. No body aches or swelling. She does have some SOB and cough which is nonproductive, no fevers or chills. She no longer smokes but did smoke from about age 12 to 42 years old. - Physical Exam General: Alert, Oriented x3, Cooperative HEENT: Atraumatic, PERRLA, EOMI, Normocephalic Neck: Supple, No JVD, Negative Carotid Bruits Lungs: Diminished, Rales Cardiovascular: Regular rate, No murmurs Abdomen: Bowel Sounds Present, Soft, Non Tender Extremities: No edema, Capillary Refill Less than 3 Seconds Skin: No rashes, No breakdown Musculoskeletal: No Tenderness to Palpation of Joints or Extremities Neurological: Cranial nerves II-XII grossly intact Psych/Mental Status: Normal Affect, Appropriate, Alert and oriented to time, place, person, mood and affect Vital Signs Temp Pulse Resp BP Pulse Ox 98.5 F 84 20 H 130/76 H 94 12/20/18 09:42 12/20/18 14:57 12/20/18 13:00 12/20/18 10:07 12/20/18 09:42 Oxygen Flow Rate (L/min) 4 Oxygen Delivery Method Nasal Cannula Weight: 160 lb 11.472 oz Body Mass Index (BMI) 29.4 Orthostatic Vital Signs Start: 12/20/18 10:07 Freq: q24h Status: Active Protocol: Activity Type Activity Date Activity User E-Sign Co-Sign Detail Recorded Client Recorded Date Recorded By Document 12/20/18 10:07 KS [id number] 12/20/18 10:16 KS 12/20/18 10:07 Orthostatic Vitals Sitting -Blood Pressure (90/60-120/80 mm Hg) 132/75 H -Extremity Use Right Arm -Pulse Rate (60-100 beats/min) 84 Lying -Blood Pressure (90/60-120/80 mm Hg) 130/76 H -Extremity Use Right Arm -Pulse Rate (60-100 beats/min) 81 Intake and Output for Last 24 Hours 12/18/18 12/19/18 12/20/18 23:59 23:59 23:59 Intake Total 545 / 545 1619 / 1619 Output Total 450 / 450 475 / 475 Balance 95 / 95 1144 / 1144 Microbiology Past 72 Hours 12/19/18 08:36 Streptococcus pneumoniae Antigen (M - Final Urine Catheter - Reeder 12/19/18 12:05 Legionella Antigen - Final Urine Catheter - Reeder Laboratory Tests Past 24 Hrs 12/19/18 12/19/18 12/19/18 08:30 08:30 16:42 WBC RBC Hgb Hct MCV MCH MCHC RDW RDW Differential Plt Count MPV Sodium Potassium Chloride Carbon Dioxide Anion Gap BUN Creatinine Estim Creat Clear Calc Est GFR (MDRD) Af Amer Est GFR (MDRD) Non-Af BUN/Creatinine Ratio Glucose Hemoglobin A1c 4.9 Calcium Magnesium 2.0 Total Bilirubin AST ALT Alkaline Phosphatase Total Creatine Kinase Troponin I 1.840 H* B-Natriuretic Peptide Total Protein Albumin Globulin Albumin/Globulin Ratio Triglycerides Cholesterol LDL Cholesterol VLDL Cholesterol HDL Cholesterol TSH 3.04 Free T4 1.18 MRSA (PCR) 12/19/18 12/19/18 12/20/18 20:15 23:10 05:10 WBC RBC Hgb Hct MCV MCH MCHC RDW RDW Differential Plt Count MPV Sodium Potassium Chloride Carbon Dioxide Anion Gap BUN Creatinine Estim Creat Clear Calc Est GFR (MDRD) Af Amer Est GFR (MDRD) Non-Af BUN/Creatinine Ratio Glucose Hemoglobin A1c Calcium Magnesium Total Bilirubin AST ALT Alkaline Phosphatase Total Creatine Kinase Troponin I 1.910 H* 1.990 H* 1.850 H* B-Natriuretic Peptide Total Protein Albumin Globulin Albumin/Globulin Ratio Triglycerides Cholesterol LDL Cholesterol VLDL Cholesterol HDL Cholesterol TSH Free T4 MRSA (PCR) 12/20/18 12/20/18 12/20/18 05:30 05:30 05:30 WBC 11.8 H RBC 3.69 L Hgb 12.6 Hct 36.8 L MCV 99.7 H MCH 34.1 H MCHC 34.2 RDW 12.8 RDW Differential 44.7 H Plt Count 255 MPV 10.4 Sodium 145 Potassium 3.7 Chloride 109 H Carbon Dioxide 24.0 Anion Gap 12 BUN 16 Creatinine 0.75 Estim Creat Clear Calc 34.90 Est GFR (MDRD) Af Amer 95 Est GFR (MDRD) Non-Af 79 BUN/Creatinine Ratio 21.4 H Glucose 86 Hemoglobin A1c Calcium 8.3 L Magnesium Total Bilirubin 0.60 AST 113 H ALT 46 Alkaline Phosphatase 26 L Total Creatine Kinase 2578 H Troponin I B-Natriuretic Peptide 1080.5 H Total Protein 6.4 Albumin 3.2 Globulin 3.2 Albumin/Globulin Ratio 1.0 Triglycerides 106 Cholesterol 200 LDL Cholesterol 99 VLDL Cholesterol 21 HDL Cholesterol 80 TSH Free T4 MRSA (PCR) 12/20/18 12:10 WBC RBC Hgb Hct MCV MCH MCHC RDW RDW Differential Plt Count MPV Sodium Potassium Chloride Carbon Dioxide Anion Gap BUN Creatinine Estim Creat Clear Calc Est GFR (MDRD) Af Amer Est GFR (MDRD) Non-Af BUN/Creatinine Ratio Glucose Hemoglobin A1c Calcium Magnesium Total Bilirubin AST ALT Alkaline Phosphatase Total Creatine Kinase Troponin I B-Natriuretic Peptide Total Protein Albumin Globulin Albumin/Globulin Ratio Triglycerides Cholesterol LDL Cholesterol VLDL Cholesterol HDL Cholesterol TSH Free T4 MRSA (PCR) Negative Medical Necessity - Tobacco Use Smoking Status: Former smoker Tobacco Use: Non-smoker Assessment/Plan All Active Problems Accidental hypothermia (Acute) Lactic acidosis (Acute) Rhabdomyolysis (Acute) NSTEMI (non-ST elevated myocardial infarction) (Acute) Encephalopathy acute (Acute) 1. NSTEMI - cardiology following. No chest pain. Trop peak 1.990. No acute EKG findings. Thyroid studies unremarkable. Continue asa/statin/plavix/lovenox/metoprolol 2. Acute hypoxic respiratory failure 2/2 Acute severe sepsis 2/2 BL CAP - present on admission. Continue Zosyn. MRSA screen neg. No fever but was hypo thermic at admission, found down out in cold. Leukocytosis, tachycardia, elevated lactate - trending down. Pulm consulted. Now requiring up to 4lpm O2 via nasal cannula. Does not use O2 at home. BNP is elevated however she is receiving fluids for acute rhabdo. She may have some underlying heart failure. Obtain 2d echo. CT with infiltrates, edema vs infection, multilobar. Urine antigens negative Resp panel pending. Blood cultures pending. With encephalopathy will order speech eval as aspiration is a consideration. 3. Acute rhabdomyolysis - CPK increased from 806 to 2578. No local swelling or pain. Continue gentle hydration. 4. Acute metabolic encephalopathy 2/2 sepsis/rhabdo - resolved. 5. Hx AAA - stable. CTA on chart. 6. HLD - statin 7. HTN -stable 8. ? underlying COPD - fibrosis on CT. Continue duonebs. 9. hypothyroid - synthroid - thyroid studies normal. 10. Depression - zoloft/wellbutrin DVT ppx: lovenox DC planning: PTOT evals. lives alone, found down. This patient was seen by Gregorio Walters PA-C under the supervision of Doctor Narayan. <Suman Busch - Last Filed: 12/20/18 17:03> Subjective: Seen and examined. Detailed history taken from patient's son, Mateus and Celio. Overall, patient has flulike symptoms for 2-3 weeks and feeling weak, wobbly and tired for about 1 month. Patient also had fall recently and is weak on hip and knee joints. She also has gait incoordination. She fell down and was on cemented floor for unknown period of time. Patient was unconscious. In ED, patient was found to have high troponin in non-STEMI range, acute rhabdomyolysis, lactic acidosis and hyponatremic. Cardiology was consulted. CT brain shows hypodensity of left MCA and sylvian branches therefore CTA was recommended which did not show acute occlusion or stenosis. Patient denies any chest pain or shortness of breath. Patient was seen by industry segment specialist. CT chest shows Airspace disease in the upper lobes as well as in the lower lobes. Pulmonary was consulted and discussed with Dr. Holt. Started on IV Zosyn for suspicion of pneumonia. Patient has chronic cough for more than 1 year and has about 25 pack years of smoking, quit 40 years ago - Physical Exam General: Alert, Oriented x3, Cooperative HEENT: Atraumatic, PERRLA, EOMI, Normocephalic Neck: Supple, No JVD, Negative Carotid Bruits Lungs: Diminished - Air entry severely diminished in all lung barcenas, Rales Cardiovascular: Regular rate, Normal S1, Normal S2, No murmurs Abdomen: Bowel Sounds Present, Soft, Non Tender, Non-Distended Extremities: Capillary Refill Less than 3 Seconds, Edema Skin: No rashes, No breakdown Musculoskeletal: No Tenderness to Palpation of Joints or Extremities, Arthritic Changes, Muscle Wasting Neurological: Cranial nerves II-XII grossly intact, Deep Tendon Reflexes 2+/4 and Symmetrical, Neuro grossly intact, - - Chronic bilateral lower extremity weakness from arthritis Psych/Mental Status: Normal Affect, Appropriate Vital Signs Temp Pulse Resp BP Pulse Ox 98.0 F 73 16 109/70 96 12/20/18 15:52 12/20/18 15:52 12/20/18 15:52 12/20/18 15:52 12/20/18 15:52 Oxygen Flow Rate (L/min) 4 Oxygen Delivery Method Nasal Cannula Weight: 160 lb 11.472 oz Body Mass Index (BMI) 29.4 Orthostatic Vital Signs Start: 12/20/18 10:07 Freq: q24h Status: Active Protocol: Activity Type Activity Date Activity User E-Sign Co-Sign Detail Recorded Client Recorded Date Recorded By Document 12/20/18 10:07 KS [id number] 12/20/18 10:16 KS 12/20/18 10:07 Orthostatic Vitals Sitting -Blood Pressure (90/60-120/80) 132/75 H -Extremity Use Right Arm -Pulse Rate (60-100) 84 Lying -Blood Pressure (90/60-120/80) 130/76 H -Extremity Use Right Arm -Pulse Rate (60-100) 81 Intake and Output for Last 24 Hours 12/18/18 12/19/18 12/20/18 23:59 23:59 23:59 Intake Total 545 / 545 1619 / 1619 Output Total 450 / 450 475 / 475 Balance 95 / 95 1144 / 1144 Microbiology Past 72 Hours 12/20/18 13:00 Respiratory Panel (PCR) - Final Mucosa - Nose 12/19/18 08:36 Streptococcus pneumoniae Antigen (M - Final Urine Catheter - Reeder 12/19/18 12:05 Legionella Antigen - Final Urine Catheter - Reeder Laboratory Tests Past 24 Hrs 12/19/18 12/19/18 12/19/18 08:30 08:30 16:42 WBC RBC Hgb Hct MCV MCH MCHC RDW RDW Differential Plt Count MPV Sodium Potassium Chloride Carbon Dioxide Anion Gap BUN Creatinine Estim Creat Clear Calc Est GFR (MDRD) Af Amer Est GFR (MDRD) Non-Af BUN/Creatinine Ratio Glucose Hemoglobin A1c 4.9 Calcium Magnesium 2.0 Total Bilirubin AST ALT Alkaline Phosphatase Total Creatine Kinase Troponin I 1.840 H* B-Natriuretic Peptide Total Protein Albumin Globulin Albumin/Globulin Ratio Triglycerides Cholesterol LDL Cholesterol VLDL Cholesterol HDL Cholesterol TSH 3.04 Free T4 1.18 MRSA (PCR) 0212/19/18 12/20/18 20:15 23:10 05:10 WBC RBC Hgb Hct MCV MCH MCHC RDW RDW Differential Plt Count MPV Sodium Potassium Chloride Carbon Dioxide Anion Gap BUN Creatinine Estim Creat Clear Calc Est GFR (MDRD) Af Amer Est GFR (MDRD) Non-Af BUN/Creatinine Ratio Glucose Hemoglobin A1c Calcium Magnesium Total Bilirubin AST ALT Alkaline Phosphatase Total Creatine Kinase Troponin I 1.910 H* 1.990 H* 1.850 H* B-Natriuretic Peptide Total Protein Albumin Globulin Albumin/Globulin Ratio Triglycerides Cholesterol LDL Cholesterol VLDL Cholesterol HDL Cholesterol TSH Free T4 MRSA (PCR) 12/20/18 12/20/18 12/20/18 05:30 05:30 05:30 WBC 11.8 H RBC 3.69 L Hgb 12.6 Hct 36.8 L MCV 99.7 H MCH 34.1 H MCHC 34.2 RDW 12.8 RDW Differential 44.7 H Plt Count 255 MPV 10.4 Sodium 145 Potassium 3.7 Chloride 109 H Carbon Dioxide 24.0 Anion Gap 12 BUN 16 Creatinine 0.75 Estim Creat Clear Calc 34.90 Est GFR (MDRD) Af Amer 95 Est GFR (MDRD) Non-Af 79 BUN/Creatinine Ratio 21.4 H Glucose 86 Hemoglobin A1c Calcium 8.3 L Magnesium Total Bilirubin 0.60 AST 113 H ALT 46 Alkaline Phosphatase 26 L Total Creatine Kinase 2578 H Troponin I B-Natriuretic Peptide 1080.5 H Total Protein 6.4 Albumin 3.2 Globulin 3.2 Albumin/Globulin Ratio 1.0 Triglycerides 106 Cholesterol 200 LDL Cholesterol 99 VLDL Cholesterol 21 HDL Cholesterol 80 TSH Free T4 MRSA (PCR) 12/20/18 12:10 WBC RBC Hgb Hct MCV MCH MCHC RDW RDW Differential Plt Count MPV Sodium Potassium Chloride Carbon Dioxide Anion Gap BUN Creatinine Estim Creat Clear Calc Est GFR (MDRD) Af Amer Est GFR (MDRD) Non-Af BUN/Creatinine Ratio Glucose Hemoglobin A1c Calcium Magnesium Total Bilirubin AST ALT Alkaline Phosphatase Total Creatine Kinase Troponin I B-Natriuretic Peptide Total Protein Albumin Globulin Albumin/Globulin Ratio Triglycerides Cholesterol LDL Cholesterol VLDL Cholesterol HDL Cholesterol TSH Free T4 MRSA (PCR) Negative Assessment/Plan This patient was seen in conjunction with Gregorio MELO. I have independently interviewed and examined the patient and reviewed pertinent history, examination findings, laboratory and plan of management. I have reviewed the note and agree with the documented findings with the few additional points. In brief, this 83-year-old female with multiple comorbidities as listed above as admitted with fall, unconsciousness of unknown duration, flulike symptoms for 2-3 weeks, chronic cough and lab abnormalities including high troponin in ER consistent with non-STEMI e, acute rhabdomyolysis, lactic acidosis and hyponatremia. Avionics Systems Repairer was consulted. CT brain shows hypodensity of left MCA and sylvian branches therefore CTA was recommended which did not show acute occlusion or stenosis. CT chest shows Airspace disease in the upper lobes as well as in the lower lobes. Pulmonary was consulted and discussed with Dr. Holt. Started on IV Zosyn for suspicion of pneumonia. Patient has chronic cough for more than 1 year and has about 25 pack years of smoking, quit 40 years ago. Overall, impression is non-STEMI, acute hypoxic respiratory failure secondary to severe sepsis with multilobar multifocal community-acquired pneumonia with possibility of interstitial lung disease/COPD. She also has acute rhabdomyolysis, acute metabolic encephalopathy as listed above. I have discussed my assessment with Gregorio MELO and orders have been reviewed. Clinical Impression(s) from Imaging Studies Chest X-Ray 12/19/18 08:55 IMPRESSION: No acute abnormality is seen. Electronically Signed: Juancarlos Goddard, at 9:51 EST , Service support , Hip/Pelvis X-Ray 12/19/18 09:00 IMPRESSION: Degenerative changes of the hip. No fracture or dislocation is present. Electronically Signed: Juancarlos Goddard, at 9:52 EST , Service support , Brain CT 12/19/18 09:51 IMPRESSION: Chronic involutional changes of the brain. Questionable hyperdensity of the left middle cerebral artery and sylvian branches as described. CTA is recommended for further evaluation. N.B. : The above information has been verbally conveyed by Juancarlos Goddard to Ryan Brink MD, on 12/19/2018 11:16:16 (ET). Electronically Signed: Juancarlos Goddard, at 11:17 EST , Service support , ADDENDUM: 12/19/18 1124 IMPRESSION: Chronic involutional changes of the brain. Questionable hyperdensity of the left middle cerebral artery and sylvian branches as described. CTA is recommended for further evaluation. N.B. : The above information has been verbally conveyed by Juancarlos Goddard to Ryan Brink MD, on 12/19/2018 11:16:16 (ET). Electronically Signed: Juancarlos Goddard, at 11:17 EST , Service support , ADDENDUM: 12/19/18 1206 IMPRESSION: Chronic involutional changes of the brain. Questionable hyperdensity of the left middle cerebral artery and sylvian branches as described. CTA is recommended for further evaluation. N.B. : The above information has been verbally conveyed by Juancarlos Goddard to Ryan Brink MD, on 12/19/2018 11:16:16 (ET). Electronically Signed: Juancarlos Goddard, at 11:17 EST , Service support , Cervical Spine CT 12/19/18 09:51 IMPRESSION: Multilevel degenerative changes, as described above. Electronically Signed: Juancarlos Goddard, at 11:07 EST , Service support , Chest CT 12/19/18 09:51 IMPRESSION: Airspace disease in the upper lobes as well as in the lower lobes. The differential diagnosis should include either pulmonary edema, infectious process or aspiration. Abdomen/Pelvis CT 12/19/18 10:43 IMPRESSION: Bibasilar infiltrates and/or atelectasis. Stable infrarenal abdominal aortic aneurysm. Sigmoid diverticulosis. Electronically Signed: Juancarlos Goddard, at 11:11 EST , Service support , Head CTA 12/19/18 11:14 IMPRESSION: Normal [place] of [place] without a demonstrated aneurysm or hemodynamically significant stenosis. Electronically Signed: Juancarlos Goddard, at 12:55 EST , Service support , Neck CTA 12/19/18 11:14 IMPRESSION: Normal bilateral cervical carotid and vertebral arteries. Chest X-Ray 12/20/18 05:55 IMPRESSION: Mild degree of vascular congestion with superimposed atelectasis and/or infiltrate at the left lung base with blunting of left costophrenic angle. Active Medications Acetaminophen (Tylenol) 650 mg PO Q6H PRN PRN PRN Reason: Non-cardiac pain (mod-severe) Al Hydroxide/Mg Hydroxide (Mylanta Ii) 30 ml PO Q6H PRN PRN PRN Reason: Gastric burning Albuterol Sulfate (Ventolin Aerosols) 2.5 mg INHALATION Q2H PRN PRN PRN Reason: dyspnea, wheezing Albuterol/Ipratropium (Duoneb) 3 ml INHALATION Q6HWA.RT [facility] Last Admin: 12/20/18 13:00 Dose: 3 ml Aspirin (Ecotrin) 81 mg PO DAILY@0800 [facility] Last Admin: 12/20/18 09:45 Dose: 81 mg Atorvastatin Calcium (Lipitor) 10 mg PO QHS [facility] Last Admin: 12/19/18 23:39 Dose: 10 mg Bupropion HCl (Wellbutrin Xl) 300 mg PO DAILY [facility] Last Admin: 12/20/18 09:46 Dose: 300 mg Clopidogrel Bisulfate (Plavix) 75 mg PO DAILY [facility] Last Admin: 12/20/18 09:45 Dose: 75 mg Enoxaparin Sodium (Lovenox) 80 mg SC Q12@0600,1800 [facility] Last Admin: 12/20/18 06:07 Dose: 80 mg Haloperidol Lactate (Haldol) 0.5 mg IM Q4H PRN PRN PRN Reason: AGITATION Hydralazine HCl (Apresoline Iv) 10 mg IV Q4H PRN PRN PRN Reason: SBP > 160 Piperacillin Sod/Tazobactam (Sod 3.375 gm/ Sodium Chloride) 50 mls @ 12.5 mls/hr IV Q8 [facility] Last Admin: 12/20/18 11:42 Dose: 12.5 mls/hr Sodium Chloride () 1,000 mls @ 50 mls/hr IV .Q20H [facility] Levothyroxine Sodium (Synthroid) 50 mcg PO DAILY@0600 [facility] Last Admin: 12/20/18 06:06 Dose: 50 mcg Magnesium Hydroxide (Milk Of Magnesia) 30 ml PO DAILY PRN PRN Reason: Constipation Metoprolol Tartrate (Lopressor (Beta Shawna)) 12.5 mg PO BID [facility] Last Admin: 12/20/18 09:46 Dose: 12.5 mg Nitroglycerin (Nitrostat) 0.4 mg SUBLINGUAL Q5M PRN PRN Reason: Angina pain Ondansetron HCl (Zofran) 4 mg IV Q8H PRN PRN PRN Reason: NAUSEA/VOMITING Pantoprazole Sodium (Protonix) 20 mg PO BID [facility] Last Admin: 12/20/18 09:46 Dose: 20 mg Sertraline HCl (Zoloft) 50 mg PO DAILY [facility] Last Admin: 12/20/18 09:50 Dose: 50 mg Sodium Chloride () 5 - 15 ml IV UD PRN PRN Reason: SALINE FLUSH Code Visit Inpatient E&M: [id number] [facility] Hosp L3
--- NOTE | 2018-12-20 15:44 | CHAPLAIN ---
Type of Pastoral Visit _x__ Initial Visit ___ Follow-up Visit ___ On-call Visit ___ General Patient Visit ___ Spiritual Assessment ___ Family Conference ___ Bereavement ___ Rapid Response ___ Code Blue ___ Other (describe below) Pastoral Care Referral From _x__ Patient ___ Family ___ Nurse ___ Physician ___ Claims Representative ___ Foreman/[employer] ___ Other (describe below) Sacrament/Intervention _x__ Active listening ___ Anointing ___ Scientologist ___ Bereavement ___ Communion _x__ Evy exploration ___ ___ Life review _x__ Prayer ___ Reconciliation ___ Sacrament of Sick _x__ Supportive presence ___ Wedding ___ Other (describe below) Pastoral Comments kath is with patient and they are talking; pt answers questions for me but seems to misuse some words and hesitates at times as if looking for a word; otherwise pt is just concerned about the changes this event might bring; when asked if she had any needs or concerns the patient requested prayers for her children; kath said she has eight children and about 35 grandchildren and great grandchildren
[2018-12-20] MEDS: Atorvastatin Calcium 10 MG Tablet PO (22:18)
[2018-12-21] VITALS (16 sets, daily range): BP systolic 124–146; BP diastolic 75–84; PULSE 69–92; RESP 16–20; TEMP 36.6–37; O2SAT 85–94
[2018-12-21] MEDS: 0.9% Normal Saline 1,000 ML 50 ML IV ×2 (02:10→20:43)
[2018-12-21] MEDS: Levothyroxine 50 MCG Tablet PO (05:51)
[2018-12-21] MEDS: Enoxaparin 80 MG/0.8 ML Syringe SC ×2 (05:55→17:18)
[2018-12-21 05:58] LABS: Absolute Lymphocyte Count 1.25 X10^3/ul (0.83-4.51); Basophil# 0.01 X10^3/uL; Basophil% 0.1 % (0-1); Eosinophil# 0.01 X10^3/uL; Eosinophils% 0.1 % (0-5); Hematocrit 35.4 % (37-47); Hemoglobin 11.6 g/dl (12.0-15.0); Lymphocyte # 1.25 X10^3/ul (4.0); Lymphocyte % 17.1 % (19-41); Mean Corp Hgb Conc 32.8 g/gl (32-36); Mean Corpuscular Hgb 32.9 pg (27.0-32.0); Mean Corpuscular Volume 100.3 fL (81-99); Mean Platelet Vol. 10.2 fl (6.2-12.0); Monocyte# 1.03 X10^3/uL; Monocyte% 14.1 % (0-10); Neutrophil # 4.98 X10^3/uL (2.7-7.7); Neutrophil % 68.3 % (47-70); Platelet Count 225 K/mm3 (150-450); RBC Distribution Width CV 12.7 % (11.6-14.6); Red Blood Count 3.53 M/mm3 (4.2-5.4); White Blood Count 7.3 K/mm3 (4.4-11.0)
[2018-12-21 06:01] LABS: POSITIVE COUNT NO; POSITIVE DIFFERENTIAL NO; POSITIVE MORPHOLOGY NO
[2018-12-21 06:22] LABS: Anion Gap 11 (5-15); BUN 15 mg/dL (7-18); BUN/Creat Ratio 20.4 RATIO (10-20); CPK Total, Creatine Kinase 991 U/L (26-192); Calcium,Total 7.9 mg/dL (8.5-10.1); Chloride 109 mmol/L (98-107); Creatinine, Serum 0.74 mg/dL (0.55-1.02); EST Glomerular Filtration Rate 80 mL/min (>60); Est Glom Filt Rate - Afr Amer 97 mL/min (>60); Glucose 86 mg/dL (74-106); Potassium 3.3 mmol/L (3.5-5.1); Sodium Level 143 mmol/L (136-145)
--- NOTE | 2018-12-21 07:20 | PCM.PROGNOTE ---
Patient Problems: Active and Suspected Problems Accidental hypothermia (Acute) Lactic acidosis (Acute) Rhabdomyolysis (Acute) NSTEMI (non-ST elevated myocardial infarction) (Acute) Encephalopathy acute (Acute) Subjective: The patient was seen and examined at the bedside this morning. Events from the last 24 hours have been reviewed. The patient is currently afebrile, hemodynamically stable and maintaining appropriate oxygen saturations on 3 L/min via nasal cannula. Potassium is low this morning at 3.3. Creatinine remains stable. Total CK is down trending. BNP, checked yesterday, was noted to be elevated to 1080. The patient is currently documented to be overall net +2.3 L for the admission. The patient was evaluated by speech therapy at the bedside yesterday with no significant issues identified. The patient is currently receiving an aerosol treatment, but denies the presence of a cough. She is a little confused this morning. Objective: The patient's most recent lab work, culture data and imaging studies have all been personally reviewed. CT chest without contrast was obtained and revealed evidence of diffuse bilateral groundglass changes, most pronounced in the upper lobes bilaterally. The groundglass changes continue into the lower lobes as well. Strep and urine Legionella antigens were both negative. Respiratory viral panel was negative. Blood cultures are currently pending. Surface echocardiogram revealed moderate concentric LVH with an ejection fraction of 55% and evidence of stage I diastolic dysfunction. There was mild global hypokinesis of the LV along with a right ventricular systolic pressure estimated to be 45 mmHg. - Physical Exam General: Alert, Cooperative, No apparent distress, Confused HEENT: Atraumatic, PERRLA, Normocephalic Oral: No Gingival or Mucosal Lesions/ Ulcerations Neck: Supple, No Nodes, Trachea Midline Lungs: - - Lung barcenas are grossly clear anteriorly without wheezes, rales or rhonchi. Cardiovascular: Regular rate, Regular Rhythm, Normal S1, Normal S2, No murmurs Abdomen: Bowel Sounds Present, Soft, Non Tender Extremities: No clubbing, No cyanosis, No edema Skin: No breakdown Musculoskeletal: No Tenderness to Palpation of Joints or Extremities Lymphatic: No Cervical, Supraclavicular, or Inguinal Adenopathy Neurological: Cranial nerves II-XII grossly intact, Neuro grossly intact Vital Signs Temp Pulse Resp BP Pulse Ox 36.8 C 86 20 H 146/77 H 92 12/21/18 04:00 12/21/18 04:00 12/21/18 04:00 12/21/18 04:00 12/21/18 04:00 Oxygen Flow Rate (L/min) 3 Oxygen Delivery Method Nasal Cannula Weight: 160 lb 11.472 oz Body Mass Index (BMI) 29.4 Orthostatic Vital Signs Start: 12/20/18 10:07 Freq: q24h Status: Active Protocol: Activity Type Activity Date Activity User E-Sign Co-Sign Detail Recorded Client Recorded Date Recorded By Document 12/20/18 10:07 DE [id number] 12/20/18 10:16 DE 12/20/18 10:07 Orthostatic Vitals Sitting -Blood Pressure (90/60-120/80) 132/75 H -Extremity Use Right Arm -Pulse Rate (60-100) 84 Lying -Blood Pressure (90/60-120/80) 130/76 H -Extremity Use Right Arm -Pulse Rate (60-100) 81 Intake and Output for Last 24 Hours 12/19/18 12/20/18 12/21/18 23:59 23:59 23:59 Intake Total 545 / 545 1993 824.7 / 824.7 Output Total 450 / 450 575 / 575 Balance 95 / 95 1419 / 1419 824.7 / 824.7 Microbiology Past 72 Hours 12/20/18 13:00 Respiratory Panel (PCR) - Final Mucosa - Nose 12/19/18 08:36 Streptococcus pneumoniae Antigen (M - Final Urine Catheter - Reeder 12/19/18 12:05 Legionella Antigen - Final Urine Catheter - Reeder Laboratory Tests Past 24 Hrs 12/20/18 12/20/18 12/20/18 05:10 05:30 12:10 WBC RBC Hgb Hct MCV MCH MCHC RDW RDW Differential Plt Count MPV Immature Gran % (Auto) Neut % (Auto) Lymph % (Auto) [place] % (Auto) Eos % (Auto) Baso % (Auto) Absolute Neuts (auto) Absolute Lymphs (auto) Total Counted Sodium Potassium Chloride Carbon Dioxide Anion Gap BUN Creatinine Estim Creat Clear Calc Est GFR (MDRD) Af Amer Est GFR (MDRD) Non-Af BUN/Creatinine Ratio Glucose Calcium Total Creatine Kinase Troponin I 1.850 H* B-Natriuretic Peptide 1080.5 H MRSA (PCR) Negative 12/21/18 12/21/18 05:35 05:35 WBC 7.3 RBC 3.53 L Hgb 11.6 L Hct 35.4 L MCV 100.3 H MCH 32.9 H MCHC 32.8 RDW 12.7 RDW Differential 45.0 H Plt Count 225 MPV 10.2 Immature Gran % (Auto) 0.300 Neut % (Auto) 68.3 Lymph % (Auto) 17.1 L [place] % (Auto) 14.1 H Eos % (Auto) 0.1 Baso % (Auto) 0.1 Absolute Neuts (auto) 5.0 Absolute Lymphs (auto) 1.25 Total Counted Not Reportable Sodium 143 Potassium 3.3 L Chloride 109 H Carbon Dioxide 23.0 Anion Gap 11 BUN 15 Creatinine 0.74 Estim Creat Clear Calc 34.90 Est GFR (MDRD) Af Amer 97 Est GFR (MDRD) Non-Af 80 BUN/Creatinine Ratio 20.4 H Glucose 86 Calcium 7.9 L Total Creatine Kinase 991 H Troponin I B-Natriuretic Peptide MRSA (PCR) Clinical Impression(s) from Imaging Studies Chest X-Ray 12/19/18 08:55 IMPRESSION: No acute abnormality is seen. Electronically Signed: Juancarlos Goddard, at 9:51 EST , Service support , Hip/Pelvis X-Ray 12/19/18 09:00 IMPRESSION: Degenerative changes of the hip. No fracture or dislocation is present. Electronically Signed: Juancarlos Goddard, at 9:52 EST , Service support , Brain CT 12/19/18 09:51 IMPRESSION: Chronic involutional changes of the brain. Questionable hyperdensity of the left middle cerebral artery and sylvian branches as described. CTA is recommended for further evaluation. N.B. : The above information has been verbally conveyed by Juancarlos Goddard to Ryan Brink MD, on 12/19/2018 11:16:16 (ET). Electronically Signed: Juancarlos Goddard, at 11:17 EST , Service support , ADDENDUM: 12/19/18 1124 IMPRESSION: Chronic involutional changes of the brain. Questionable hyperdensity of the left middle cerebral artery and sylvian branches as described. CTA is recommended for further evaluation. N.B. : The above information has been verbally conveyed by Juancarlos Goddard to Ryan Brink MD, on 12/19/2018 11:16:16 (ET). Electronically Signed: Juancarlos Goddard, at 11:17 EST , Service support , ADDENDUM: 12/19/18 1206 IMPRESSION: Chronic involutional changes of the brain. Questionable hyperdensity of the left middle cerebral artery and sylvian branches as described. CTA is recommended for further evaluation. N.B. : The above information has been verbally conveyed by Juancarlos Goddard to Ryan Brink MD, on 12/19/2018 11:16:16 (ET). Electronically Signed: Juancarlos Goddard, at 11:17 EST , Service support , Cervical Spine CT 12/19/18 09:51 IMPRESSION: Multilevel degenerative changes, as described above. Electronically Signed: Juancarlos Goddard, at 11:07 EST , Service support , Chest CT 12/19/18 09:51 IMPRESSION: Airspace disease in the upper lobes as well as in the lower lobes. The differential diagnosis should include either pulmonary edema, infectious process or aspiration. Electronically Signed: Juancarlos Goddard, at 11:20 EST , Service support , Abdomen/Pelvis CT 12/19/18 10:43 IMPRESSION: Bibasilar infiltrates and/or atelectasis. Stable infrarenal abdominal aortic aneurysm. Sigmoid diverticulosis. Electronically Signed: Juancarlos Goddard, at 11:11 EST , Service support , Head CTA 12/19/18 11:14 IMPRESSION: Normal [place] without a demonstrated aneurysm or hemodynamically significant stenosis. Electronically Signed: Juancarlos Longmat, at 12:55 EST , Service support , Neck CTA 12/19/18 11:14 IMPRESSION: Normal bilateral cervical carotid and vertebral arteries. Electronically Signed: Juancarlos Ugartethang, at 12:57 EST , Service support , Chest X-Ray 12/20/18 05:55 IMPRESSION: Mild degree of vascular congestion with superimposed atelectasis and/or infiltrate at the left lung base with blunting of left costophrenic angle. Electronically Signed: Juancarlos Longmat, at 13:24 EST , Service support , Medical Necessity - Tobacco Use Smoking Status: Former smoker Tobacco Use: Non-smoker Assessment/Plan All Active Problems Accidental hypothermia (Acute) Lactic acidosis (Acute) Rhabdomyolysis (Acute) NSTEMI (non-ST elevated myocardial infarction) (Acute) Encephalopathy acute (Acute) RECOMMENDATIONS: 1. Discontinue scheduled bronchodilators. 2. Attempt gentle diuresis. 3. From my perspective, the patient can be transitioned from Zosyn to p.o. Levaquin to complete a 7-day treatment course. 4. I would recommend repeat chest imaging studies in 6-8 weeks. 5. Continue medical management per cardiology recommendations. 6. Continue to wean supplemental oxygen to maintain saturations at or above 90%. Encourage incentive spirometer use and mobilize patient as tolerated. 7. Potassium repletion as ordered. IMPRESSIONS: 1. Acute hypoxemic respiratory insufficiency/abnormal chest imaging The patient presented to the hospital with a new supplemental oxygen requirement and radiographic evidence of ground glass changes in the bilateral lungs, most pronounced in the upper lung barcenas. While the presence of groundglass changes are inherently nonspecific and could represent edema, infection or an inflammatory process, there are no prior chest CTs available for comparison to determine the chronicity of these findings. In addition, while the patient does report a year-long cough, she is currently prescribed a combination antihypertensive medication that includes an YULISA inhibitor. This should ideally be discontinued. Given the ground glass changes aforementioned along with an elevated BNP and evidence of diastolic dysfunction and pulmonary hypertension, will begin gentle diuresis today. Infectious workup has been unrevealing to date. Therefore, I believe the patient can be transitioned from Zosyn to Levaquin to complete a 7-day treatment course. I would recommend that she have a repeat CT chest in 6-8 weeks along with follow-up in the pulmonary medicine clinic. 2. Non-ST segment elevation [place]/heart failure with preserved ejection fraction/pulmonary hypertension Continue current medical management per cardiology recommendations. Echocardiogram did reveal stage I diastolic dysfunction, mild global hypokinesis of the LV and the right ventricular systolic pressure of 45 mmHg. Therefore, I am going to attempt gentle diuresis in hopes that this will aid the patient in being weaned from supplemental oxygen. 3. Hypertension/hyperlipidemia/hypothyroidism/anxiety/depression/advanced age Complicates care, management, recovery and prognosis. Likely okay to continue home medications. This note was generated with [employer] dictation software. It may contain incorrect words, spelling, and punctuation that were not noted in checking the note before signing. Code Visit Inpatient E&M: 97390 Subs Hosp L2
--- NOTE | 2018-12-21 07:25 | PN_ITS ---
Patient Problems: Active and Suspected Problems Accidental hypothermia (Acute) Lactic acidosis (Acute) Rhabdomyolysis (Acute) NSTEMI (non-ST elevated myocardial infarction) (Acute) Encephalopathy acute (Acute) Subjective: The patient was seen and examined at the bedside this morning. Events from the last 24 hours have been reviewed. The patient is currently afebrile, hemodynamically stable and maintaining appropriate oxygen saturations on 3 L/min via nasal cannula. Potassium is low this morning at 3.3. Creatinine remains s table. Total CK is down trending. BNP, checked yesterday, was noted to be elevated to 1080. The patient is currently documented to be overall net +2.3 L for the admission. The patient was evaluated by speech therapy at the bedside yesterday with no significant issues identified. The patient is currently receiving an aerosol treatment, but denies the presence of a cough. She is a little confused this morning. Objective: The patient's most recent lab work, culture data and imaging studies have all been personally reviewed. CT chest without contrast was obtained and revealed evidence of diffuse bilateral groundglass changes, most pronounced in the upper lobes bilaterally. The groundglass changes continue into the lower lobes as well. Strep and urine Legionella antigens were both negative. Respiratory viral panel was negative. Blood cultures are currently pending. Surface echocardiogram revealed moderate concentric LVH with an ejection fraction of 55% and evidence of stage I diastolic dysfunction. There was mild global hypokinesis of the LV along with a right ventricular systolic pressure estimated to be 45 mmHg. - Physical Exam General: Alert, Cooperative, No apparent distress, Confused HEENT: Atraumatic, PERRLA, Normocephalic Oral: No Gingival or Mucosal Lesions/ Ulcerations Neck: Supple, No Nodes, Trachea Midline Lungs: - - Lung barcenas are grossly clear anteriorly without wheezes, rales or rhonchi. Cardiovascular: Regular rate, Regular Rhythm, Normal S1, Normal S2, No murmurs Abdomen: Bowel Sounds Present, Soft, Non Tender Extremities: No clubbing, No cyanosis, No edema Skin: No breakdown Musculoskeletal: No Tenderness to Palpation of Joints or Extremities Lymphatic: No Cervical, Supraclavicular, or Inguinal Adenopathy Neurological: Cranial nerves II-XII grossly intact, Neuro grossly intact Vital Signs Temp Pulse Resp BP Pulse Ox 36.8 C 86 20 H 146/77 H 92 12/21/18 04:00 12/21/18 04:00 12/21/18 04:00 12/21/18 04:00 12/21/18 04:00 Oxygen Flow Rate (L/min) 3 Oxygen Delivery Method Nasal Cannula Weight: 160 lb 11.472 oz Body Mass Index (BMI) 29.4 Orthostatic Vital Signs Start: 12/20/18 10:07 Freq: q24h Status: Active Protocol: Activity Type Activity Date Activity User E-Sign Co-Sign Detail Recorded Client Recorded Date Recorded By Document 12/20/18 10:07 [id number] 12/20/18 10:16 CT 12/20/18 10:07 Orthostatic Vitals Sitting -Blood Pressure (90/60-120/80) 132/75 H -Extremity Use Right Arm -Pulse Rate (60-100) 84 Lying -Blood Pressure (90/60-120/80) 130/76 H -Extremity Use Right Arm -Pulse Rate (60-100) 81 Intake and Output for Last 24 Hours 12/19/18 12/20/18 12/21/18 23:59 23:59 23:59 Intake Total 545 / 545 1993 824.7 / 824.7 Output Total 450 / 450 575 / 575 Balance 95 / 95 1419 / 1419 824.7 / 824.7 Microbiology Past 72 Hours 12/20/18 13:00 Respiratory Panel (PCR) - Final Mucosa - Nose 12/19/18 08:36 Streptococcus pneumoniae Antigen (M - Final Urine Catheter - Reeder 12/19/18 12:05 Legionella Antigen - Final Urine Catheter - Reeder Laboratory Tests Past 24 Hrs 12/20/18 12/20/18 12/20/18 05:10 05:30 12:10 WBC RBC Hgb Hct MCV MCH MCHC RDW RDW Differential Plt Count MPV Immature Gran % (Auto) Neut % (Auto) Lymph % (Auto) [place] % (Auto) Eos % (Auto) Baso % (Auto) Absolute Neuts (auto) Absolute Lymphs (auto) Total Counted Sodium Potassium Chloride Carbon Dioxide Anion Gap BUN Creatinine Estim Creat Clear Calc Est GFR (MDRD) Af Amer Est GFR (MDRD) Non-Af BUN/Creatinine Ratio Glucose Calcium Total Creatine Kinase Troponin I 1.850 H* B-Natriuretic Peptide 1080.5 H MRSA (PCR) Negative 12/21/18 12/21/18 05:35 05:35 WBC 7.3 RBC 3.53 L Hgb 11.6 L Hct 35.4 L MCV 100.3 H MCH 32.9 H MCHC 32.8 RDW 12.7 RDW Differential 45.0 H Plt Count 225 MPV 10.2 Immature Gran % (Auto) 0.300 Neut % (Auto) 68.3 Lymph % (Auto) 17.1 L [place] % (Auto) 14.1 H Eos % (Auto) 0.1 Baso % (Auto) 0.1 Absolute Neuts (auto) 5.0 Absolute Lymphs (auto) 1.25 Total Counted Not Reportable Sodium 143 Potassium 3.3 L Chloride 109 H Carbon Dioxide 23.0 Anion Gap 11 BUN 15 Creatinine 0.74 Estim Creat Clear Calc 34.90 Est GFR (MDRD) Af Amer 97 Est GFR (MDRD) Non-Af 80 BUN/Creatinine Ratio 20.4 H Glucose 86 Calcium 7.9 L Total Creatine Kinase 991 H Troponin I B-Natriuretic Peptide MRSA (PCR) Clinical Impression(s) from Imaging Studies Chest X-Ray 12/19/18 08:55 IMPRESSION: No acute abnormality is seen. Electronically Signed: Juancarlos Goddard, at 9:51 EST , Service support , Hip/Pelvis X-Ray 12/19/18 09:00 IMPRESSION: Degenerative changes of the hip. No fracture or dislocation is present. Electronically Signed: Juancarlos Goddard, at 9:52 EST , Service support , Brain CT 12/19/18 09:51 IMPRESSION: Chronic involutional changes of the brain. Questionable hyperdensity of the left middle cerebral artery and sylvian branches as described. CTA is recommended for further evaluation. N.B. : The above information has been verbally conveyed by Juancarlos Goddard to Ryan Brink MD, on 12/19/2018 11:16:16 (ET). Electronically Signed: Juancarlos Goddard, at 11:17 EST , Service support , ADDENDUM: 12/19/18 1124 IMPRESSION: Chronic involutional changes of the brain. Questionable hyperdensity of the left middle cerebral artery and sylvian branches as described. CTA is recommended for further evaluation. N.B. : The above information has been verbally conveyed by Juancarlos Goddard to Ryan Brink MD, on 12/19/2018 11:16:16 (ET). Electronically Signed: Juancarlos Goddard, at 11:17 EST , Service support , ADDENDUM: 12/19/18 1206 IMPRESSION: Chronic involutional changes of the brain. Questionable hyperdensity of the left middle cerebral artery and sylvian branches as described. CTA is recommended for further evaluation. N.B. : The above information has been verbally conveyed by Juancarlos Goddard to Ryan Brink MD, on 12/19/2018 11:16:16 (ET). Electronically Signed: Juancarlos Goddard, at 11:17 EST , Service support , Cervical Spine CT 12/19/18 09:51 IMPRESSION: Multilevel degenerative changes, as described above. Electronically Signed: Juancarlos Goddard, at 11:07 EST , Service support , Chest CT 12/19/18 09:51 IMPRESSION: Airspace disease in the upper lobes as well as in the lower lobes. The differential diagnosis should include either pulmonary edema, infectious process or aspiration. Electronically Signed: Juancarlos Goddard, at 11:20 EST , Service support , Abdomen/Pelvis CT 12/19/18 10:43 IMPRESSION: Bibasilar infiltrates and/or atelectasis. Stable infrarenal abdominal aortic aneurysm. Sigmoid diverticulosis. Electronically Signed: Juancarlos Lopezluly, at 11:11 EST , Service support , Head CTA 12/19/18 11:14 IMPRESSION: Normal [place] without a demonstrated aneurysm or hemodynamically significant stenosis. Electronically Signed: Juancarlos Rupesh, at 12:55 EST , Service support , Neck CTA 12/19/18 11:14 IMPRESSION: Normal bilateral cervical carotid and vertebral arteries. Electronically Signed: Juancarlos Rupesh, at 12:57 EST , Service support , Chest X-Ray 12/20/18 05:55 IMPRESSION: Mild degree of vascular congestion with superimposed atelectasis and/or infiltrate at the left lung base with blunting of left costophrenic angle. Electronically Signed: Juancarlos Ugartethang, at 13:24 EST , Service support , Medical Necessity - Tobacco Use Smoking Status: Former smoker Tobacco Use: Non-smoker Assessment/Plan All Active Problems Accidental hypothermia (Acute) Lactic acidosis (Acute) Rhabdomyolysis (Acute) NSTEMI (non-ST elevated myocardial infarction) (Acute) Encephalopathy acute (Acute) RECOMMENDATIONS: 1. Discontinue scheduled bronchodilators. 2. Attempt gentle diuresis. 3. From my perspective, the patient can be transitioned from Zosyn to p.o. Levaquin to complete a 7-day treatment course. 4. I would recommend repeat chest imaging studies in 6-8 weeks. 5. Continue medical management per cardiology recommendations. 6. Continue to wean supplemental oxygen to maintain saturations at or above 90%. Encourage incentive spirometer use and mobilize patient as tolerated. 7. Potassium repletion as ordered. IMPRESSIONS: 1. Acute hypoxemic respiratory insufficiency/abnormal chest imaging The patient presented to the hospital with a new supplemental oxygen requirement and radiographic evidence of ground glass changes in the bilateral lungs, most pronounced in the upper lung barcenas. While the presence of groundglass changes are inherently nonspecific and could represent edema, infection or an inflammatory process, there are no prior chest CTs available for comparison to determine the chronicity of these findings. In addition, while the patient does report a year-long cough, she is currently prescribed a combination antihypertensive medication that includes an YULISA inhibitor. This should ideally be discontinued. Given the ground glass changes aforementioned along with an elevated BNP and evidence of diastolic dysfunction and pulmonary hypertension, will begin gentle diuresis today. Infectious workup has been unrevealing to date. Therefore, I believe the patient can be transitioned from Zosyn to Levaquin to complete a 7-day treatment course. I would recommend that she have a repeat CT chest in 6-8 weeks along with follow-up in the pulmonary medicine clinic. 2. Non-ST segment elevation [place]/heart failure with preserved ejection fraction/pulmonary hypertension Continue current medical management per cardiology recommendations. Echocardiogram did reveal stage I diastolic dysfunction, mild global hypokinesis of the LV and the right ventricular systolic pressure of 45 mmHg. Therefore, I am going to attempt gentle diuresis in hopes that this will aid the patient in being weaned from supplemental oxygen. 3. Hypertension/hyperlipidemia/hypothyroidism/anxiety/depression/advanced age Complicates care, management, recovery and prognosis. Likely okay to continue home medications. This note was generated with [employer] dictation software. It may contain incorrect words, spelling, and punctuation that were not noted in checking the note before signing. Code Visit Inpatient E&M: 14536 Subs Hosp L2
[2018-12-21] MEDS: Ipratropium/Albuterol Sulfate 3 ML AMPUL.NEB INHALATION (07:42)
[2018-12-21] MEDS: Aspirin E.C. 81 MG Tablet PO (08:43)
[2018-12-21] MEDS: Metoprolol Tartrate 25 MG Tablet 12.5 MG PO (08:44)
[2018-12-21] MEDS: Furosemide 40 MG/4 ML Vial IV (08:44)
[2018-12-21] MEDS: Potassium Chloride 10mEq/100mL 10 MEQ/100 ML IV.SOLN. 100 MEQ IV BOLUS ×4 (08:44→12:09)
[2018-12-21] MEDS: Clopidogrel Bisulfate 75 MG Tablet PO (08:45)
[2018-12-21] MEDS: buPROPion (XL) 300 MG TABLET.XL PO (08:45)
[2018-12-21] MEDS: Pantoprazole Sodium 20 MG Tablet PO ×2 (08:45→21:36)
[2018-12-21] MEDS: Sertraline 50 MG Tablet PO (08:45)
--- NOTE | 2018-12-21 09:26 | PCM.PN.CARD ---
Subjectve: The patient appears to be somewhat more awake and alert today. She was able to state that she was in a hospital, although she still believe she may be in a facility in [place], [place], she remembers being told that she has in a facility in [place], [place]. She denies any ongoing chest discomfort or worsening shortness of breath. She believes overall she may feel somewhat better. Objective: Vital Signs Temp Pulse Resp BP Pulse Ox 98.3 F 84 20 H 146/77 H 94 12/21/18 04:00 12/21/18 08:44 12/21/18 07:45 12/21/18 04:00 12/21/18 07:45 Oxygen Flow Rate (L/min) 3 Oxygen Delivery Method Nasal Cannula Weight: 160 lb 11.472 oz Body Mass Index (BMI) 29.4 Orthostatic Vital Signs Start: 12/20/18 10:07 Freq: q24h Status: Active Protocol: Activity Type Activity Date Activity User E-Sign Co-Sign Detail Recorded Client Recorded Date Recorded By Document 12/20/18 10:07 [place] [id number] 12/20/18 10:16 [place] 12/20/18 10:07 Orthostatic Vitals Sitting -Blood Pressure (90/60-120/80 mm Hg) 132/75 H -Extremity Use Right Arm -Pulse Rate (60-100 beats/min) 84 Lying -Blood Pressure (90/60-120/80 mm Hg) 130/76 H -Extremity Use Right Arm -Pulse Rate (60-100 beats/min) 81 Intake and Output for Last 24 Hours 12/19/18 12/20/18 12/21/18 23:59 23:59 23:59 Intake Total 545 / 545 1993 / 1993 824.7 / 824.7 Output Total 450 / 450 575 / 575 Balance 95 / 95 1419 / 1419 824.7 / 824.7 General: Awake, Cooperative, No Acute Distress HEENT: Atraumatic, Normocephalic, PERRL, EOMI, Sclera Non Icteric Oral: Moist Mucosa Neck: Supple, Good ROM, No JVD Lungs: Clear to auscultation Cardiovascular: Regular Rhythm, Normal S1, Normal S2 Abdomen: Bowel Sounds Present, Soft, Non Tender Extremities: No edema Psych/Mental Status: Appropriate 12/20/18 05:30: B-Natriuretic Peptide 1080.5 H 12/21/18 05:35: WBC 7.3, RBC 3.53 L, Hgb 11.6 L, Hct 35.4 L, MCV 100.3 H, MCH 32.9 H, MCHC 32.8, RDW 12.7, RDW Differential 45.0 H, Plt Count 225, MPV 10.2, Immature Gran % (Auto) 0.300, Neut % (Auto) 68.3, Lymph % (Auto) 17.1 L, Hitchcock % (Auto) 14.1 H, Eos % (Auto) 0.1, Baso % (Auto) 0.1, Absolute Neuts (auto) 5.0, Total Counted Not Reportable 12/21/18 05:35: Sodium 143, Potassium 3.3 L, Chloride 109 H, Carbon Dioxide 23.0, Anion Gap 11, BUN 15, Creatinine 0.74, Est GFR (MDRD) Af Amer 97, Est GFR (MDRD) Non-Af 80, BUN/Creatinine Ratio 20.4 H, Glucose 86, Calcium 7.9 L Rhythm:Sinus rhythm ECHO: Interpretation Summary The estimated ejection fraction is 55 %. Stage 1 diastolic dysfunction. There is mild global hypokinesis of the left ventricle. Mild mitral valve stenosis. Trivial mitral valve insufficiency. Moderate (2+) eccentric tricuspid valve insufficiency. Right ventricular systolic pressure estimated to be 45 mmHg. Mild pulmonary hypertension. Trivial aortic valve insufficiency. There is no comparison study available. Medical Necessity - Tobacco Use Smoking Status: Former smoker Tobacco Use: Non-smoker Assessment/Plan 1. Non st segment elevation VT She does have elevated troponin I levels. The etiology is unclear at this time whether this is truly represents a primary acute coronary syndrome event or any type 2 events secondary to supply demand mismatch from noncardiovascular issues including concerns of her underlying prolonged downtime leading to her hypothermia and rhabdomyolysis. . She does not appear to be a complaining of any ongoing acute chest discomfort or associated symptoms. Her ECG is demonstrated no acute ECG changes. She will continue to be followed. her troponin I level has decreased. She will be treated medically. This could include agents such as aspirin, antiplatelets, anticoagulants, nitrates is needed, beta blockers, lipid lowering agents, etc. Her transthoracic echocardiogram is as noted above. At the present time she states that she was feeling better overall. With respect a cardiovascular concerns she will consider undergoing further evaluation and care which would include additional noninvasive and or invasive studies such as diagnostic cardiac catheterization. 2. Abdominal aortic aneurysm She was found to have an abdominal aortic aneurysm. This was reportedly chronic. It is unclear at this time who has been following her abdominal aortic aneurysm. However this will need to be followed in the future as it was reported at 5 cm. Thus she should be followed by peripheral vascular surgery for comments on additional evaluation and care. 3. Hyperlipidemia She can continue lipid lowering therapy is deemed appropriate. 4. Hypertension Her blood pressures will be followed. Her medications can be adjusted as needed. 5. Hypothermia She was found to be markedly hypothermic. She is being evaluated and cared for by internal medicine. 6. Lactic acidosis She was also found to have lactic acidosis. This may be secondary to her event and poor perfusion. She will continue to be evaluated by internal medicine. 7. Rhabdomyolysis She was also found to have elevated CPK levels. This may be secondary to her unknown period of time down outside in the cold. Her CPK levels have decreased. Her creatinine level appears to be stable at this time. 8. Acute encephalopathy Her mental status does appear to be somewhat improved today. This note was generated using a voice recognition system and there may be incorrect words, spelling or punctuation that were not noted when reviewing the office note prior to saving.
--- NOTE | 2018-12-21 09:37 | CASEMGMT ---
SW spoke with patient about discharge plan. She was open to going somewhere for rehab. She asked SW to talk with her son. ALESSIA spoke with [facility] and she has beds available. ALESSIA spoke with patient's son and explained short term rehab. Explained there are community SNF's and [facility] also has a Transitional Care Unit. He would prefer she stay at [facility] for her rehab. ALESSIA explained Medicare benefits to him and that there will be a Senior Linux Unix Engineer in TCU to help with her discharge planning from [facility] TCU. He thanked SW for the help and he will let patient know. Plan: [facility] TCU Tuesday if medically ready. Yessy PRINCE
[2018-12-21] MEDS: Metoprolol Tartrate 25 MG Tablet PO ×2 (09:39→21:36)
--- NOTE | 2018-12-21 12:29 | PCM.PROGNOTE ---
<Katalina Rose - Last Filed: 12/21/18 12:48> Patient Problems: Active and Suspected Problems Accidental hypothermia (Acute) Lactic acidosis (Acute) Rhabdomyolysis (Acute) NSTEMI (non-ST elevated myocardial infarction) (Acute) Encephalopathy acute (Acute) Subjective: Patient seen and examined. Reports she feels improved. Denies significant shortness of breath. Denies fever, chills. Agreeable to SNF for further PT/OT prior to returning home. - Physical Exam General: Alert, Oriented x3, Cooperative HEENT: Atraumatic, PERRLA, EOMI, Normocephalic Neck: Supple, No JVD, Negative Carotid Bruits Lungs: Clear to auscultation, Diminished Cardiovascular: Regular rate, Regular Rhythm, Normal S1, Normal S2, No murmurs Abdomen: Bowel Sounds Present, Soft, Non Tender, Non-Distended Extremities: No clubbing, No cyanosis, No edema, Capillary Refill Less than 3 Seconds Skin: No rashes, No breakdown Musculoskeletal: No Tenderness to Palpation of Joints or Extremities Neurological: Cranial nerves II-XII grossly intact, Neuro grossly intact Psych/Mental Status: Normal Affect, Appropriate Vital Signs Temp Pulse Resp BP Pulse Ox 98.0 F 69 16 126/84 H 94 12/21/18 08:45 12/21/18 11:00 12/21/18 08:45 12/21/18 08:45 12/21/18 08:45 Oxygen Flow Rate (L/min) 3 Oxygen Delivery Method Nasal Cannula Weight: 160 lb 11.472 oz Body Mass Index (BMI) 29.4 Orthostatic Vital Signs Start: 12/20/18 10:07 Freq: q24h Status: Active Protocol: Activity Type Activity Date Activity User E-Sign Co-Sign Detail Recorded Client Recorded Date Recorded By Document 12/20/18 10:07 [place] [id number] 12/20/18 10:16 [place] 12/20/18 10:07 Orthostatic Vitals Sitting -Blood Pressure (90/60-120/80) 132/75 H -Extremity Use Right Arm -Pulse Rate (60-100) 84 Lying -Blood Pressure (90/60-120/80) 130/76 H -Extremity Use Right Arm -Pulse Rate (60-100) 81 Intake and Output for Last 24 Hours 12/19/18 12/20/18 12/21/18 23:59 23:59 23:59 Intake Total 545 / 545 1993 1904.5 / 1904.5 Output Total 450 / 450 575 / 575 300 / 300 Balance 95 / 95 1419 / 1419 1604.5 / 1604.5 Microbiology Past 72 Hours 12/20/18 13:00 Respiratory Panel (PCR) - Final Mucosa - Nose 12/19/18 08:36 Streptococcus pneumoniae Antigen (M - Final Urine Catheter - Reeder 12/19/18 12:05 Legionella Antigen - Final Urine Catheter - Reeder Laboratory Tests Past 24 Hrs 12/20/18 12/20/18 12/21/18 05:30 12:10 05:35 WBC 7.3 RBC 3.53 L Hgb 11.6 L Hct 35.4 L MCV 100.3 H MCH 32.9 H MCHC 32.8 RDW 12.7 RDW Differential 45.0 H Plt Count 225 MPV 10.2 Immature Gran % (Auto) 0.300 Neut % (Auto) 68.3 Lymph % (Auto) 17.1 L Bandera % (Auto) 14.1 H Eos % (Auto) 0.1 Baso % (Auto) 0.1 Absolute Neuts (auto) 5.0 Absolute Lymphs (auto) 1.25 Total Counted Not Reportable Sodium Potassium Chloride Carbon Dioxide Anion Gap BUN Creatinine Estim Creat Clear Calc Est GFR (MDRD) Af Amer Est GFR (MDRD) Non-Af BUN/Creatinine Ratio Glucose Calcium Total Creatine Kinase B-Natriuretic Peptide 1080.5 H MRSA (PCR) Negative 12/21/18 05:35 WBC RBC Hgb Hct MCV MCH MCHC RDW RDW Differential Plt Count MPV Immature Gran % (Auto) Neut % (Auto) Lymph % (Auto) Bandera % (Auto) Eos % (Auto) Baso % (Auto) Absolute Neuts (auto) Absolute Lymphs (auto) Total Counted Sodium 143 Potassium 3.3 L Chloride 109 H Carbon Dioxide 23.0 Anion Gap 11 BUN 15 Creatinine 0.74 Estim Creat Clear Calc 34.90 Est GFR (MDRD) Af Amer 97 Est GFR (MDRD) Non-Af 80 BUN/Creatinine Ratio 20.4 H Glucose 86 Calcium 7.9 L Total Creatine Kinase 991 H B-Natriuretic Peptide MRSA (PCR) Medical Necessity - Tobacco Use Smoking Status: Former smoker Tobacco Use: Non-smoker Assessment/Plan All Active Problems Accidental hypothermia (Acute) Lactic acidosis (Acute) Rhabdomyolysis (Acute) NSTEMI (non-ST elevated myocardial infarction) (Acute) Encephalopathy acute (Acute) 1. Acute hypoxic respiratory failure secondary to bilateral community-acquired pneumonia with associated acute severe sepsis-pulmonary medicine following. Chest CT during admission showed airspace disease in the upper lobes as well as in the lower lobes. Pulmonary edema versus infectious process. Groundglass changes in bilateral lungs. Patient initially treated with IV Zosyn. Will transition to oral Levaquin regimen. Patient will need outpatient follow-up with pulmonary medicine for repeat chest imaging in 6-8 weeks. Wean supplement oxygen as tolerated to maintain O2 at or above 90%. 2. Mild acute diastolic CHF-this may be a component of acute hypoxic respiratory failure as well. Echocardiogram showed an EF of 55%, stage I diastolic dysfunction, mild mitral valve stenosis, trivial mitral insufficiency, moderate tricuspid valve insufficiency, RVSP estimated to be 45 mmHg. BNP 1080. Initiated on Lasix 40 mg IV daily. Strict I&O. Daily weight. 3. NSTEMI-cardiology following. Patient will continue medical management including aspirin, statin, Plavix, metoprolol. Denies chest pain. Echocardiogram as noted above. 4. Acute rhabdomyolysis-secondary to fall prior to admission and found lying on the ground for an unclear amount of time. Improved with IV fluids. 5. Hypothermia-secondary to being found on the ground outside, resolved. 6. Acute metabolic encephalopathy secondary to acute hypoxic respiratory failure, community-acquired pneumonia, rhabdomyolysis. Improved. Continue to treat underlying processes. 7. Hypertension-continue metoprolol regimen. 8. Hyperlipidemia-noted history, not on regimen. Fasting lipid panel within normal limits. Continue low-dose statin given NSTEMI. 9. Hypothyroidism-continue Synthroid regimen. 10. Anxiety/depression-continue home Wellbutrin and sertraline regimen. 11. History of AAA-stable. 12. GERD-continue PPI. DVT prophylaxis-Lovenox subcu. Discharge planning: Plan for TCU 12/22/18. This patient was seen by SARA Sal under the supervision of Dr. Busch. <Suman Busch - Last Filed: 12/22/18 07:31> Subjective: Patient looks much better, sitting on the chair. Discussed with the patient's son some year the bedside. No fever or chills overnight. Patient on 3 L of oxygen discussed with the yard associate and dough molder hand. Consults and follow-up appreciated - Physical Exam General: Alert, Oriented x3, Cooperative HEENT: Atraumatic, PERRLA, EOMI, Normocephalic Neck: Supple, No JVD, Negative Carotid Bruits Lungs: Clear to auscultation, No rhonchi, No wheeze, No rales, Diminished Cardiovascular: Regular rate, Normal S2, No murmurs Abdomen: Bowel Sounds Present, Soft, Non Tender, Non-Distended Extremities: No cyanosis, Capillary Refill Less than 3 Seconds, Edema Skin: No rashes, No breakdown Musculoskeletal: No Tenderness to Palpation of Joints or Extremities, Arthritic Changes, Muscle Wasting Neurological: Cranial nerves II-XII grossly intact, Neuro grossly intact, Unsteady Gait, - - Chronic musculoskeletal weakness of lower extremity with unsteady gait Psych/Mental Status: Normal Affect, Appropriate Vital Signs Temp Pulse Resp BP Pulse Ox 98.5 F 83 20 H 150/78 H 94 12/22/18 05:20 12/22/18 05:20 12/22/18 05:20 12/22/18 05:20 12/22/18 05:20 Oxygen Flow Rate (L/min) 3 Oxygen Delivery Method Nasal Cannula Weight: 163 lb 5.8 oz Body Mass Index (BMI) 29.4 Orthostatic Vital Signs Start: 12/20/18 10:07 Freq: q24h Status: Active Protocol: Activity Type Activity Date Activity User E-Sign Co-Sign Detail Recorded Client Recorded Date Recorded By Document 12/20/18 10:07 DC [id number] 12/20/18 10:16 DC 12/20/18 10:07 Orthostatic Vitals Sitting -Blood Pressure (90/60-120/80) 132/75 H -Extremity Use Right Arm -Pulse Rate (60-100) 84 Lying -Blood Pressure (90/60-120/80) 130/76 H -Extremity Use Right Arm -Pulse Rate (60-100) 81 Intake and Output for Last 24 Hours 12/20/18 12/21/18 12/22/18 23:59 23:59 23:59 Intake Total 1993 3197.5 / 3197.5 90 / 90 Output Total 575 / 575 500 / 500 300 / 300 Balance 1419 / 1419 2697.5 / 2697.5 -210 / -210 Microbiology Past 72 Hours 12/20/18 13:00 Respiratory Panel (PCR) - Final Mucosa - Nose 12/19/18 08:36 Streptococcus pneumoniae Antigen (M - Final Urine Catheter - Reeder 12/19/18 12:05 Legionella Antigen - Final Urine Catheter - Reeder Assessment/Plan This patient was seen in conjunction with PRODUCTION CORRUGATORKatalina. I have independently interviewed and examined the patient and reviewed pertinent history, examination findings, laboratory and plan of management. I have reviewed the note and agree with the documented findings with the few additional points. In brief, this 83-year-old female with multiple comorbidities as listed above as admitted with fall, unconsciousness of unknown duration, flulike symptoms for 2-3 weeks, chronic cough and lab abnormalities including high troponin in ER consistent with non-STEMI, acute rhabdomyolysis, lactic acidosis and hyponatremia. Crime Specialist was consulted. CT brain shows hypodensity of left MCA and sylvian branches therefore CTA of head and neck was recommended which did not show acute occlusion or stenosis. CT chest shows Airspace disease in the upper lobes as well as in the lower lobes. Pulmonary was consulted and discussed with Dr. Hotl. Started on IV Zosyn for suspicion of pneumonia. Patient has chronic cough for more than 1 year and has about 25 pack years of smoking, quit 40 years ago. Speech/swallow evaluation did not find acute issues with swallowing therefore antibiotic changed from Zosyn to Levaquin. Gentle diuresis as BNP is high, 1080. Potassium replacement and monitoring he had CKs trending down Overall, impression is non-STEMI, acute hypoxic respiratory failure secondary to severe sepsis with multilobar multifocal community-acquired pneumonia with possibility of interstitial lung disease/COPD. She also has acute rhabdomyolysis, acute metabolic encephalopathy as listed above. I have discussed my assessment with Katalina SON and orders have been reviewed. Code Visit Inpatient E&M: [id number] Subs Hosp L3
--- NOTE | 2018-12-21 12:48 | PN_ITS ---
<Katalina Rose - Last Filed: 12/21/18 12:48> Patient Problems: Active and Suspected Problems Accidental hypothermia (Acute) Lactic acidosis (Acute) Rhabdomyolysis (Acute) NSTEMI (non-ST elevated myocardial infarction) (Acute) Encephalopathy acute (Acute) Subjective: Patient seen and examined. Reports she feels improved. Denies significant shortness of breath. Denies fever, chills. Agreeable to SNF for further PT/OT prior to returning home. - Physical Exam General: Alert, Oriented x3, Cooperative HEENT: Atraumatic, PERRLA, EOMI, Normocephalic Neck: Supple, No JVD, Negative Carotid Bruits Lungs: Clear to auscultation, Diminished Cardiovascular: Regular rate, Regular Rhythm, Normal S1, Normal S2, No murmurs Abdomen: Bowel Sounds Present, Soft, Non Tender, Non-Distended Extremities: No clubbing, No cyanosis, No edema, Capillary Refill Less than 3 Seconds Skin: No rashes, No breakdown Musculoskeletal: No Tenderness to Palpation of Joints or Extremities Neurological: Cranial nerves II-XII grossly intact, Neuro grossly intact Psych/Mental Status: Normal Affect, Appropriate Vital Signs Temp Pulse Resp BP Pulse Ox 98.0 F 69 16 126/84 H 94 12/21/18 08:45 12/21/18 11:00 12/21/18 08:45 12/21/18 08:45 12/21/18 08:45 Oxygen Flow Rate (L/min) 3 Oxygen Delivery Method Nasal Cannula Weight: 160 lb 11.472 oz Body Mass Index (BMI) 29.4 Orthostatic Vital Signs Start: 12/20/18 10:07 Freq: q24h Status: Active Protocol: Activity Type Activity Date Activity User E-Sign Co-Sign Detail Recorded Client Recorded Date Recorded By Document 12/20/18 10:07 [place] [id number] 12/20/18 10:16 [place] 12/20/18 10:07 Orthostatic Vitals Sitting -Blood Pressure (90/60-120/80) 132/75 H -Extremity Use Right Arm -Pulse Rate (60-100) 84 Lying -Blood Pressure (90/60-120/80) 130/76 H -Extremity Use Right Arm -Pulse Rate (60-100) 81 Intake and Output for Last 24 Hours 12/19/18 12/20/18 12/21/18 23:59 23:59 23:59 Intake Total 545 / 545 1993 1904.5 / 1904.5 Output Total 450 / 450 575 / 575 300 / 300 Balance 95 / 95 1419 / 1419 1604.5 / 1604.5 Microbiology Past 72 Hours 12/20/18 13:00 Respiratory Panel (PCR) - Final Mucosa - Nose 12/19/18 08:36 Streptococcus pneumoniae Antigen (M - Final Urine Catheter - Reeder 12/19/18 12:05 Legionella Antigen - Final Urine Catheter - Reeder Laboratory Tests Past 24 Hrs 12/20/18 12/20/18 12/21/18 05:30 12:10 05:35 WBC 7.3 RBC 3.53 L Hgb 11.6 L Hct 35.4 L MCV 100.3 H MCH 32.9 H MCHC 32.8 RDW 12.7 RDW Differential 45.0 H Plt Count 225 MPV 10.2 Immature Gran % (Auto) 0.300 Neut % (Auto) 68.3 Lymph % (Auto) 17.1 L Clarke % (Auto) 14.1 H Eos % (Auto) 0.1 Baso % (Auto) 0.1 Absolute Neuts (auto) 5.0 Absolute Lymphs (auto) 1.25 Total Counted Not Reportable Sodium Potassium Chloride Carbon Dioxide Anion Gap BUN Creatinine Estim Creat Clear Calc Est GFR (MDRD) Af Amer Est GFR (MDRD) Non-Af BUN/Creatinine Ratio Glucose Calcium Total Creatine Kinase B-Natriuretic Peptide 1080.5 H MRSA (PCR) Negative 12/21/18 05:35 WBC RBC Hgb Hct MCV MCH MCHC RDW RDW Differential Plt Count MPV Immature Gran % (Auto) Neut % (Auto) Lymph % (Auto) Clarke % (Auto) Eos % (Auto) Baso % (Auto) Absolute Neuts (auto) Absolute Lymphs (auto) Total Counted Sodium 143 Potassium 3.3 L Chloride 109 H Carbon Dioxide 23.0 Anion Gap 11 BUN 15 Creatinine 0.74 Estim Creat Clear Calc 34.90 Est GFR (MDRD) Af Amer 97 Est GFR (MDRD) Non-Af 80 BUN/Creatinine Ratio 20.4 H Glucose 86 Calcium 7.9 L Total Creatine Kinase 991 H B-Natriuretic Peptide MRSA (PCR) Medical Necessity - Tobacco Use Smoking Status: Former smoker Tobacco Use: Non-smoker Assessment/Plan All Active Problems Accidental hypothermia (Acute) Lactic acidosis (Acute) Rhabdomyolysis (Acute) NSTEMI (non-ST elevated myocardial infarction) (Acute) Encephalopathy acute (Acute) 1. Acute hypoxic respiratory failure secondary to bilateral community-acquired pneumonia with associated acute severe sepsis-pulmonary medicine following. Chest CT during admission showed airspace disease in the upper lobes as well as in the lower lobes. Pulmonary edema versus infectious process. Groundglass changes in bilateral lungs. Patient initially treated with IV Zosyn. Will transition to oral Levaquin regimen. Patient will need outpatient follow-up [facility] pulmonary medicine for repeat chest imaging in 6-8 weeks. Wean supplement oxygen as tolerated to maintain O2 at or above 90%. 2. Mild acute diastolic CHF-this may be a component of acute hypoxic respiratory failure as well. Echocardiogram showed an EF of 55%, stage I diastolic dysfunction, mild mitral valve stenosis, trivial mitral insufficiency, moderate tricuspid valve insufficiency, RVSP estimated to be 45 mmHg. BNP 1080. Initiated on Lasix 40 mg IV daily. Strict I&O. Daily weight. 3. NSTEMI-cardiology following. Patient will continue medical management including aspirin, statin, Plavix, metoprolol. Denies chest pain. Echocardiogram as noted above. 4. Acute rhabdomyolysis-secondary to fall prior to admission and found lying on the ground for an unclear amount of time. Improved with IV fluids. 5. Hypothermia-secondary to being found on the ground outside, resolved. 6. Acute metabolic encephalopathy secondary to acute hypoxic respiratory failure, community-acquired pneumonia, rhabdomyolysis. Improved. Continue to treat underlying processes. 7. Hypertension-continue metoprolol regimen. 8. Hyperlipidemia-noted history, not on regimen. Fasting lipid panel within normal limits. Continue low-dose statin given NSTEMI. 9. Hypothyroidism-continue Synthroid regimen. 10. Anxiety/depression-continue home Wellbutrin and sertraline regimen. 11. History of AAA-stable. 12. GERD-continue PPI. DVT prophylaxis-Lovenox subcu. Discharge planning: Plan for TCU 12/22/18. This patient was seen by SARA Sal under the supervision of Dr. Busch. <Suman Busch - Last Filed: 12/22/18 07:31> Subjective: Patient looks much better, sitting on the chair. Discussed with the patient's son some year the bedside. No fever or chills overnight. Patient on 3 L of oxygen discussed with the gear tooth lapping machine operator and streetcar repairer. Consults and follow- up appreciated - Physical Exam General: Alert, Oriented x3, Cooperative HEENT: Atraumatic, PERRLA, EOMI, Normocephalic Neck: Supple, No JVD, Negative Carotid Bruits Lungs: Clear to auscultation, No rhonchi, No wheeze, No rales, Diminished Cardiovascular: Regular rate, Normal S2, No murmurs Abdomen: Bowel Sounds Present, Soft, Non Tender, Non-Distended Extremities: No cyanosis, Capillary Refill Less than 3 Seconds, Edema Skin: No rashes, No breakdown Musculoskeletal: No Tenderness to Palpation of Joints or Extremities, Arthritic Changes, Muscle Wasting Neurological: Cranial nerves II-XII grossly intact, Neuro grossly intact, Unsteady Gait, - - Chronic musculoskeletal weakness of lower extremity with unsteady gait Psych/Mental Status: Normal Affect, Appropriate Vital Signs Temp Pulse Resp BP Pulse Ox 98.5 F 83 20 H 150/78 H 94 12/22/18 05:20 12/22/18 05:20 12/22/18 05:20 12/22/18 05:20 12/22/18 05:20 Oxygen Flow Rate (L/min) 3 Oxygen Delivery Method Nasal Cannula Weight: 163 lb 5.8 oz Body Mass Index (BMI) 29.4 Orthostatic Vital Signs Start: 12/20/18 10:07 Freq: q24h Status: Active Protocol: Activity Type Activity Date Activity User E-Sign Co-Sign Detail Recorded Client Recorded Date Recorded By Document 12/20/18 10:07 [place] [id number] 12/20/18 10:16 [place] 12/20/18 10:07 Orthostatic Vitals Sitting -Blood Pressure (90/60-120/80) 132/75 H -Extremity Use Right Arm -Pulse Rate (60-100) 84 Lying -Blood Pressure (90/60-120/80) 130/76 H -Extremity Use Right Arm -Pulse Rate (60-100) 81 Intake and Output for Last 24 Hours 12/20/18 12/21/18 12/22/18 23:59 23:59 23:59 Intake Total 1993 3197.5 / 3197.5 90 / 90 Output Total 575 / 575 500 / 500 300 / 300 Balance 1419 / 1419 2697.5 / 2697.5 -210 / -210 Microbiology Past 72 Hours 12/20/18 13:00 Respiratory Panel (PCR) - Final Mucosa - Nose 12/19/18 08:36 Streptococcus pneumoniae Antigen (M - Final Urine Catheter - Reeder 12/19/18 12:05 Legionella Antigen - Final Urine Catheter - Reeder Assessment/Plan This patient was seen in conjunction with [facility] RNKatalina. I have independently interviewed and examined the patient and reviewed pertinent history, examination findings, laboratory and plan of management. I have reviewed the note and agree with the documented findings with the few additional points. In brief, this 83-year-old female with multiple comorbidities as listed above as admitted with fall, unconsciousness of unknown duration, flulike symptoms for 2-3 weeks, chronic cough and lab abnormalities including high troponin in ER consistent with non-STEMI, acute rhabdomyolysis, lactic acidosis and hyponatremia. Bisque Grader was consulted. CT brain shows hypodensity of left MCA and sylvian branches therefore CTA of head and neck was recommended which did not show acute occlusion or stenosis. CT chest shows Airspace disease in the upper lobes as well as in the lower lobes. Pulmonary was consulted and discussed with Dr. Holt. Started on IV Zosyn for suspicion of pneumonia. Patient has chronic cough for more than 1 year and has about 25 pack years of smoking, quit 40 years ago. Speech/swallow evaluation did not find acute issues with swallowing therefore antibiotic changed from Zosyn to Levaquin. Gentle diuresis as BNP is high, 1080. Potassium replacement and monitoring he had CKs trending down Overall, impression is non-STEMI, acute hypoxic respiratory failure secondary to severe sepsis with multilobar multifocal community-acquired pneumonia with possibility of interstitial lung disease/COPD. She also has acute rhabdomyolysis, acute metabolic encephalopathy as listed above. I have discussed my assessment with Katalina SON and orders have been reviewed. Code Visit Inpatient E&M: 58820 Subs Hosp L3
[2018-12-21] MEDS: levoFLOXacin 750 MG Tablet PO (13:50)
[2018-12-21] MEDS: Atorvastatin Calcium 10 MG Tablet PO (21:35)
[2018-12-22] VITALS (7 sets, daily range): BP systolic 130–150; BP diastolic 74–81; PULSE 79–85; RESP 16–28; TEMP 36.8–36.9; O2SAT 92–94
[2018-12-22] MEDS: Albuterol 2.5 MG/3 ML VIAL.NEB. INHALATION (01:38)
[2018-12-22] MEDS: Furosemide 40 MG/4 ML Vial IV ×2 (03:47→08:49)
[2018-12-22] MEDS: 0.9% NaCl Peripheral Flush Adult/Peds IV ×2 (04:04→08:50)
[2018-12-22] MEDS: Levothyroxine 50 MCG Tablet PO (05:28)
[2018-12-22] MEDS: Enoxaparin 80 MG/0.8 ML Syringe SC (05:31)
--- NOTE | 2018-12-22 07:28 | PN_ITS ---
Subjective: The patient was seen and examined at the bedside this morning. Events from the last 24 hours have been reviewed. The patient is currently afebrile, hemodynamically stable and maintaining appropriate oxygen saturations on room air. The patient is currently documented to be overall net +4 L for the admission. Her breathing quality has improved. Objective: The patient's most recent lab work, culture data and imaging studies have all been personally reviewed. CT chest without contrast was obtained and revealed evidence of diffuse bilateral groundglass changes, most pronounced in the upper lobes bilaterally. The groundglass changes continue into the lower lobes as well. Strep and urine Legionella antigens were both negative. Respiratory viral panel was negative. Blood cultures are currently pending. Surface echocardiogram revealed moderate concentric LVH with an ejection fraction of 55% and evidence of stage I diastolic dysfunction. There was mild global hypokinesis of the LV along with a right ventricular systolic pressure estimated to be 45 mmHg. - Physical Exam General: Alert, Cooperative, No apparent distress HEENT: Atraumatic, PERRLA, Normocephalic Oral: No Gingival or Mucosal Lesions/ Ulcerations Neck: Supple, No Nodes, Trachea Midline Lungs: Normal air movement, No rhonchi, No wheeze, No rales Cardiovascular: Regular rate, Regular Rhythm, Normal S1, Normal S2, No murmurs Abdomen: Bowel Sounds Present, Soft, Non Tender Extremities: No clubbing, No cyanosis, No edema Skin: No breakdown Musculoskeletal: No Tenderness to Palpation of Joints or Extremities Lymphatic: No Cervical, Supraclavicular, or Inguinal Adenopathy Neurological: Cranial nerves II-XII grossly intact, Neuro grossly intact Vital Signs Temp Pulse Resp BP Pulse Ox 36.9 C 83 20 H 150/78 H 94 12/22/18 05:20 12/22/18 05:20 12/22/18 05:20 12/22/18 05:20 12/22/18 05:20 Oxygen Flow Rate (L/min) 3 Oxygen Delivery Method Nasal Cannula Weight: 163 lb 5.8 oz Body Mass Index (BMI) 29.4 Orthostatic Vital Signs Start: 12/20/18 10:07 Freq: q24h Status: Active Protocol: Activity Type Activity Date Activity User E-Sign Co-Sign Detail Recorded Client Recorded Date Recorded By Document 12/20/18 10:07 [place] [id number] 12/20/18 10:16 [place] 12/20/18 10:07 Orthostatic Vitals Sitting -Blood Pressure (90/60-120/80) 132/75 H -Extremity Use Right Arm -Pulse Rate (60-100) 84 Lying -Blood Pressure (90/60-120/80) 130/76 H -Extremity Use Right Arm -Pulse Rate (60-100) 81 Intake and Output for Last 24 Hours 12/20/18 12/21/18 12/22/18 23:59 23:59 23:59 Intake Total 1993 / 1993 3197.5 / 3197.5 90 / 90 Output Total 575 / 575 500 / 500 300 / 300 Balance 1419 / 1419 2697.5 / 2697.5 -210 / -210 Microbiology Past 72 Hours 12/20/18 13:00 Respiratory Panel (PCR) - Final Mucosa - Nose 12/19/18 08:36 Streptococcus pneumoniae Antigen (M - Final Urine Catheter - Reeder 12/19/18 12:05 Legionella Antigen - Final Urine Catheter - Reeder Clinical Impression(s) from Imaging Studies Chest X-Ray 12/19/18 08:55 IMPRESSION: No acute abnormality is seen. Electronically Signed: Juancarlos Goddard, at 9:51 EST , Service support , Hip/Pelvis X-Ray 12/19/18 09:00 IMPRESSION: Degenerative changes of the hip. No fracture or dislocation is present. Electronically Signed: Juancarlos Goddard, at 9:52 EST , Service support , Brain CT 12/19/18 09:51 IMPRESSION: Chronic involutional changes of the brain. Questionable hyperdensity of the left middle cerebral artery and sylvian branches as described. CTA is recommended for further evaluation. N.B. : The above information has been verbally conveyed by Juancarlos Goddard to Ryan Brink MD, on 12/19/2018 11:16:16 (ET). Electronically Signed: Juancarlos Goddard, at 11:17 EST , Service support , ADDENDUM: 12/19/18 1124 IMPRESSION: Chronic involutional changes of the brain. Questionable hyperdensity of the left middle cerebral artery and sylvian branches as described. CTA is recommended for further evaluation. N.B. : The above information has been verbally conveyed by Juancarlos Goddard to Ryan Brink MD, on 12/19/2018 11:16:16 (ET). Electronically Signed: Juancarlos Goddard, at 11:17 EST , Service support , ADDENDUM: 12/19/18 1206 IMPRESSION: Chronic involutional changes of the brain. Questionable hyperdensity of the left middle cerebral artery and sylvian branches as described. CTA is recommended for further evaluation. N.B. : The above information has been verbally conveyed by Juancarlos Goddard to Ryan Brink MD, on 12/19/2018 11:16:16 (ET). Electronically Signed: Juancarlos Goddard, at 11:17 EST , Service support , Cervical Spine CT 12/19/18 09:51 IMPRESSION: Multilevel degenerative changes, as described above. Electronically Signed: Juancalros Goddard, at 11:07 EST , Service support , Chest CT 12/19/18 09:51 IMPRESSION: Airspace disease in the upper lobes as well as in the lower lobes. The differential diagnosis should include either pulmonary edema, infectious process or aspiration. Electronically Signed: Juancarlos Goddard, at 11:20 EST , Service support , Abdomen/Pelvis CT 12/19/18 10:43 IMPRESSION: Bibasilar infiltrates and/or atelectasis. Stable infrarenal abdominal aortic aneurysm. Sigmoid diverticulosis. Electronically Signed: Juancarlos Goddard, at 11:11 EST , Service support , Head CTA 12/19/18 11:14 IMPRESSION: Normal [place] of [place] without a demonstrated aneurysm or hemodynamically significant stenosis. Electronically Signed: Juancarlos Longmat, at 12:55 EST , Service support , Neck CTA 12/19/18 11:14 IMPRESSION: Normal bilateral cervical carotid and vertebral arteries. Electronically Signed: Juancarlos Ugartethang, at 12:57 EST , Service support , Chest X-Ray 12/20/18 05:55 IMPRESSION: Mild degree of vascular congestion with superimposed atelectasis and/or infiltrate at the left lung base with blunting of left costophrenic angle. Electronically Signed: Juancarlos Longmat, at 13:24 EST , Service support , Medical Necessity - Tobacco Use Smoking Status: Former smoker Tobacco Use: Non-smoker Assessment/Plan All Active Problems Accidental hypothermia (Acute) Lactic acidosis (Acute) Rhabdomyolysis (Acute) NSTEMI (non-ST elevated myocardial infarction) (Acute) Encephalopathy acute (Acute) Acute respiratory failure with hypoxia (Acute) CAP (community acquired pneumonia) (Acute) RECOMMENDATIONS: 1. Discontinue scheduled bronchodilators. 2. Continue gentle diuresis. 3. Continue Levaquin to complete a 7-day treatment course. 4. I would recommend repeat chest imaging studies in 6-8 weeks. 5. Continue medical management per cardiology recommendations. 6. Encourage incentive spirometer use and mobilize patient as tolerated. 7. Potassium repletion as ordered. IMPRESSIONS: 1. Acute hypoxemic respiratory insufficiency/abnormal chest imaging The patient presented to the hospital with a new supplemental oxygen requirement and radiographic evidence of ground glass changes in the bilateral lungs, most pronounced in the upper lung barcenas. While the presence of groundglass changes are inherently nonspecific and could represent edema, infection or an inflammatory process, there are no prior chest CTs available for comparison to determine the chronicity of these findings. In addition, while the patient does report a year-long cough, she is currently prescribed a combination antihypertensive medication that includes an YULISA inhibitor. This should ideally be discontinued. Given the ground glass changes aforementioned along with an elevated BNP and evidence of diastolic dysfunction and pulmonary hypertension, will begin gentle diuresis today. Infectious workup has been unrevealing to date. Therefore, I believe the patient can be transitioned from Zosyn to Levaquin to complete a 7-day treatment course. I would recommend that she have a repeat CT chest in 6-8 weeks along with follow-up in the pulmonary medicine clinic. 2. Non-ST segment elevation W[place]/heart failure with preserved ejection fraction/pulmonary hypertension Continue current medical management per cardiology recommendations. Echocardiogram did reveal stage I diastolic dysfunction, mild global hypokinesis of the LV and the right ventricular systolic pressure of 45 mmHg. Therefore, I am going to attempt gentle diuresis in hopes that this will aid the patient in being weaned from supplemental oxygen. 3. Hypertension/hyperlipidemia/hypothyroidism/anxiety/depression/advanced age Complicates care, management, recovery and prognosis. Likely okay to continue home medications. This note was generated with [employer] software. It may contain incorrect words, spelling, and punctuation that were not noted in checking the note before signing. Code Visit Inpatient E&M: 97813 Subs Hosp L2
[2018-12-22 08:17] LABS: Anion Gap 9 (5-15); BUN 11 mg/dL (7-18); BUN/Creat Ratio 17.8 RATIO (10-20); Calcium,Total 8.2 mg/dL (8.5-10.1); Chloride 106 mmol/L (98-107); Creatinine, Serum 0.62 mg/dL (0.55-1.02); EST Glomerular Filtration Rate 98 mL/min (>60); Est Glom Filt Rate - Afr Amer 119 mL/min (>60); Glucose 90 mg/dL (74-106); Potassium 2.9 mmol/L (3.5-5.1); Sodium Level 140 mmol/L (136-145)
--- NOTE | 2018-12-22 08:35 | PN.CARD_ITS ---
Subjectve: The patient states she is feeling better overall. She denies any ongoing chest discomfort. She is not complaining of acute shortness of breath/dyspnea. She is still has waxing and waning mental status. Today she stated it was 1989. She did answer the question correctly with respect to she knew she was in a hospital in [place]. Objective: Vital Signs Temp Pulse Resp BP Pulse Ox 98.5 F 79 20 H 150/78 H 94 12/22/18 05:20 12/22/18 07:00 12/22/18 05:20 12/22/18 05:20 12/22/18 05:20 Oxygen Flow Rate (L/min) 3 Oxygen Delivery Method Nasal Cannula Weight: 163 lb 5.8 oz Body Mass Index (BMI) 29.4 Orthostatic Vital Signs Start: 12/20/18 10:07 Freq: q24h Status: Active Protocol: Activity Type Activity Date Activity User E-Sign Co-Sign Detail Recorded Client Recorded Date Recorded By Document 12/20/18 10:07 SD [id number] 12/20/18 10:16 SD 12/20/18 10:07 Orthostatic Vitals Sitting -Blood Pressure (90/60-120/80) 132/75 H -Extremity Use Right Arm -Pulse Rate (60-100) 84 Lying -Blood Pressure (90/60-120/80) 130/76 H -Extremity Use Right Arm -Pulse Rate (60-100) 81 Intake and Output for Last 24 Hours 12/20/18 12/21/18 12/22/18 23:59 23:59 23:59 Intake Total 1993 / 1993 3197.5 / 3197.5 90 / 90 Output Total 575 / 575 500 / 500 300 / 300 Balance 1419 / 1419 2697.5 / 2697.5 -210 / -210 General: Awake, Alert, Oriented x 3, Cooperative, No Acute Distress HEENT: Atraumatic, Normocephalic, PERRL, EOMI, Sclera Non Icteric Neck: Supple, Good ROM, No JVD Lungs: - - Diminished breath sounds with no obvious rales or rhonchi at this time Cardiovascular: Regular Rhythm, Normal S1, Normal S2 Abdomen: Bowel Sounds Present, Soft, Non Tender Extremities: No edema 12/22/18 07:03: Sodium 140, Potassium 2.9 L, Chloride 106, Carbon Dioxide 25.0, Anion Gap 9, BUN 11, Creatinine 0.62, Est GFR (MDRD) Af Amer 119, Est GFR (MDRD) Non-Af 98, BUN/Creatinine Ratio 17.8, Glucose 90, Calcium 8.2 L Rhythm:sinus rhythm Medical Necessity - Tobacco Use Smoking Status: Former smoker Tobacco Use: Non-smoker Assessment/Plan 1. Non st segment elevation OR She does have elevated troponin I levels. The etiology is unclear at this time whether this is truly represents a primary acute coronary syndrome event or any type 2 events secondary to supply demand mismatch from noncardiovascular issues including concerns of her underlying prolonged downtime leading to her hypothermia and rhabdomyolysis. . She does not appear to be a complaining of any ongoing acute chest discomfort or associated symptoms. Her ECG is demonstrated no acute ECG changes. She is continuing medical management at this time. This has included aspirin, antiplatelets, beta blockers, and lipid lowering agents. Consideration can be given once she is improved with respect to her concerns of rhabdomyolysis, her pulmonary disease process being evaluated by Dr. Holt, her encephalopathy/mental status, to proceeding with further cardiovascular evaluation. This may include noninvasive studies such as a pharmacologic stress nuclear imaging study to evaluate for obvious underlying significant myocardial ischemia that would warrant further evaluation with diagnostic cardiac catheterization versus consideration for diagnostic cardiac catheterization when she is improved/stable. In the meantime she will continue medical management. 2. Abdominal aortic aneurysm She was found to have an abdominal aortic aneurysm. This was reportedly chronic. It is unclear at this time who has been following her abdominal aortic aneurysm. However this will need to be followed in the future as it was reported at 5 cm. Thus she should be followed by peripheral vascular surgery for comments on additional evaluation and care. 3. Hyperlipidemia She can continue lipid lowering therapy is deemed appropriate. 4. Hypertension Her blood pressures will be followed. Her medications can be adjusted as needed. 5. Hypothermia She was found to be markedly hypothermic. She is being evaluated and cared for by internal medicine. 6. Lactic acidosis She was also found to have lactic acidosis. This may be secondary to her event and poor perfusion. She will continue to be evaluated by internal medicine. 7. Rhabdomyolysis She was also found to have elevated CPK levels. This may be secondary to her unknown period of time down outside in the cold. Her CPK levels have decreased. Her creatinine level appears to be stable at this time. 8. Acute encephalopathy Her mental status does appear to be somewhat improved today. 9. Pulmonary disease The patient has had findings with respect to ground glass appearance on her radiologic studies. She is being evaluated by pulmonology. She has been treated with antibiotics. She is being treated with diuretic therapy. This have been discussed with internal medicine. At the present time it was felt the patient should continue her general medical care with respect to resolution of her issues of rhabdomyolysis, her pulmonary disease process, and hopefully her encephalopathy prior to proceeding with additional noninvasive or invasive cardiovascular testing. This note was generated using a voice recognition system and there may be incorrect words, spelling or punctuation that were not noted when reviewing the office note prior to saving.
[2018-12-22] MEDS: Aspirin E.C. 81 MG Tablet PO (08:48)
[2018-12-22] MEDS: Metoprolol Tartrate 25 MG Tablet PO (08:48)
[2018-12-22] MEDS: Sertraline 50 MG Tablet PO (08:49)
[2018-12-22] MEDS: Pantoprazole Sodium 20 MG Tablet PO (08:49)
[2018-12-22] MEDS: buPROPion (XL) 300 MG TABLET.XL PO (08:49)
[2018-12-22] MEDS: Clopidogrel Bisulfate 75 MG Tablet PO (08:49)
[2018-12-22 09:19] LABS: CPK Total, Creatine Kinase 582 U/L (26-192)
--- NOTE | 2018-12-22 09:33 | PCM.EXTCARCO ---
- Diet 12/19/18 16:04 Diet: Cardiac/Low Cholesterol Food consistency:: Regular Liquid Consistency:: Regular/Thin - Routine Orders/Code Status Enema Type: Fleetz Enema Frequency: Daily PRN Suppository Type: Dulcolax 10mg Suppository Frequency: Daily PRN O2 Liters per Minute: 2-4 O2 Frequency: PRN Keep PO Greater than or Equal to (%): 90 Routine Lab Work: - - BMP daily X3 days and then BMP, CBC Q week. - Suggestions for Active Care Change Position every (hours): 2 Times a day to sit in chair: 3 - Therapies Physical Therapy: Eval and Treat Occupational Therapy: Eval and Treat - Problem/Diagnosis (1) Accidental hypothermia Status: Acute Current Visit: Yes (2) Lactic acidosis Status: Acute Current Visit: Yes (3) Rhabdomyolysis Status: Acute Current Visit: Yes (4) NSTEMI (non-ST elevated myocardial infarction) Status: Acute Current Visit: Yes (5) HTN (hypertension) Status: Chronic Current Visit: No (6) HLD (hyperlipidemia) Status: Chronic Current Visit: No (7) Anxiety and depression Status: Chronic Current Visit: No (8) Hypothyroidism Status: Chronic Current Visit: No (9) GERD (gastroesophageal reflux disease) Status: Chronic Current Visit: No (10) Encephalopathy acute Status: Acute Current Visit: Yes (11) AAA (abdominal aortic aneurysm) Status: Chronic Current Visit: No (12) Acute respiratory failure with hypoxia Status: Acute Current Visit: Yes (13) CAP (community acquired pneumonia) Status: Acute Current Visit: Yes - Allergies/Procedures Done in Hospital Allergies/Adverse Reactions: Allergies No Known Allergies Allergy (Verified 12/19/18 08:08) Procedures: 2-D Echocardiogram - Type of Care/Length of Stay Estimated LOS: Convalescent Care Less Than 30 days Type of Care Needed: Skilled Rehab Potential: Fair Prognosis: Fair - Additional Orders/Day of Discharge Additional Orders: Patient discharged on 40 mg p.o. Lasix daily as well as potassium supplementation. This may need reduced or possibly discontinued in the future when patient is further diuresed. Follow BMP as ordered. If creatinine increases, Lasix will need reduced. Follow-up with cardiology in 1-2 weeks for further recommendations as well. H&P will serve as current which was dated: 12/19/18 Day of Discharge: 12/22/18 - Follow Up Care Primary Care Physician: Austin Cuevas MD [Primary Care Provider] - Please follow up with your Primary Care Physician in: 1 Week Please Follow Up With: Epi Joya MD - May see casket inspector/pa When: 1-2 Weeks Please Follow Up With: Daniele Holt DO When: 6-8 Weeks, will need repeat CT chest in 6-8 weeks prior to follow up
--- NOTE | 2018-12-22 09:37 | TREXTCA.CO_ITS ---
- Diet 12/19/18 16:04 Diet: Cardiac/Low Cholesterol Food consistency:: Regular Liquid Consistency:: Regular/Thin - Routine Orders/Code Status Enema Type: Fleetz Enema Frequency: Daily PRN Suppository Type: Dulcolax 10mg Suppository Frequency: Daily PRN O2 Liters per Minute: 2-4 O2 Frequency: PRN Keep PO Greater than or Equal to (%): 90 Routine Lab Work: - - BMP daily X3 days and then BMP, CBC Q week. - Suggestions for Active Care Change Position every (hours): 2 Times a day to sit in chair: 3 - Therapies Physical Therapy: Eval and Treat Occupational Therapy: Eval and Treat - Problem/Diagnosis (1) Accidental hypothermia Status: Acute Current Visit: Yes (2) Lactic acidosis Status: Acute Current Visit: Yes (3) Rhabdomyolysis Status: Acute Current Visit: Yes (4) NSTEMI (non-ST elevated myocardial infarction) Status: Acute Current Visit: Yes (5) HTN (hypertension) Status: Chronic Current Visit: No (6) HLD (hyperlipidemia) Status: Chronic Current Visit: No (7) Anxiety and depression Status: Chronic Current Visit: No (8) Hypothyroidism Status: Chronic Current Visit: No (9) GERD (gastroesophageal reflux disease) Status: Chronic Current Visit: No (10) Encephalopathy acute Status: Acute Current Visit: Yes (11) AAA (abdominal aortic aneurysm) Status: Chronic Current Visit: No (12) Acute respiratory failure with hypoxia Status: Acute Current Visit: Yes (13) CAP (community acquired pneumonia) Status: Acute Current Visit: Yes - Allergies/Procedures Done in Hospital Allergies/Adverse Reactions: Allergies No Known Allergies Allergy (Verified 12/19/18 08:08) Procedures: 2-D Echocardiogram - Type of Care/Length of Stay Estimated LOS: Convalescent Care Less Than 30 days Type of Care Needed: Skilled Rehab Potential: Fair Prognosis: Fair - Additional Orders/Day of Discharge Additional Orders: Patient discharged on 40 mg p.o. Lasix daily as well as potas sium supplementation. This may need reduced or possibly discontinued in the future when patient is further diuresed. Follow BMP as ordered. If creatinine increases, Lasix will need reduced. Follow-up with cardiology in 1-2 weeks for further recommendations as well. H&P will serve as current which was dated: 12/19/18 Day of Discharge: 12/22/18 - Follow Up Care Primary Care Physician: Austin Cuevas MD [Primary Care Provider] - Please follow up with your Primary Care Physician in: 1 Week Please Follow Up With: Epi Joya MD - May see deck officer/pa When: 1-2 Weeks Please Follow Up With: Daniele oHlt DO When: 6-8 Weeks, will need repeat CT chest in 6-8 weeks prior to follow up
--- NOTE | 2018-12-22 09:45 | PCM.DC.SUM ---
<Katalina Rose - Last Filed: 12/22/18 09:54> Discharge Date and Diagnosis - Problem List Patient Problems: Active and Suspected Problems Fall (Acute) Hypothermia (Acute) Encephalopathy (Acute) Acute diastolic (congestive) heart failure (Acute) Date of Admission: 12/19/18 Date of Discharge: 12/22/18 - Primary Discharge Diagnosis Active and Suspected Problems 1. Acute hypoxic respiratory failure secondary to bilateral community-acquired pneumonia with associated acute severe sepsis 2. Mild acute diastolic CHF, subsequent hypokalemia secondary to IV Lasix regimen 3. NSTEMI 4. Acute rhabdomyolysis 5. Hypothermia 6. Acute metabolic encephalopathy secondary to acute hypoxic respiratory failure, community-acquired pneumonia, rhabdomyolysis 7. Hypertension 8. Hyperlipidemia 9. Hypothyroidism 10. Anxiety/depression 11. History of AAA 12. GERD - Secondary Discharge Diagnosis Chronic Problems HTN (hypertension) (Chronic) HLD (hyperlipidemia) (Chronic) Anxiety and depression (Chronic) Hypothyroidism (Chronic) GERD (gastroesophageal reflux disease) (Chronic) AAA (abdominal aortic aneurysm) (Chronic) Hospital Course and Treatment Imaging Results: Diagnostic Data Hip/Pelvis X-Ray 12/19/18 09:00 IMPRESSION: Degenerative changes of the hip. No fracture or dislocation is present. Electronically Signed: Juancarlos Goddard, at 9:52 EST , Service support , Brain CT 12/19/18 09:51 IMPRESSION: Chronic involutional changes of the brain. Questionable hyperdensity of the left middle cerebral artery and sylvian branches as described. CTA is recommended for further evaluation. N.B. : The above information has been verbally conveyed by Juancarlos Goddard to Ryan Brink MD, on 12/19/2018 11:16:16 (ET). Electronically Signed: Juancarlos Goddard, at 11:17 EST , Service support , ADDENDUM: 12/19/18 1124 IMPRESSION: Chronic involutional changes of the brain. Questionable hyperdensity of the left middle cerebral artery and sylvian branches as described. CTA is recommended for further evaluation. N.B. : The above information has been verbally conveyed by Juancarlos Goddard to Ryan Brink MD, on 12/19/2018 11:16:16 (ET). Electronically Signed: Juancarlos Goddard, at 11:17 EST , Service support , ADDENDUM: 12/19/18 1206 IMPRESSION: Chronic involutional changes of the brain. Questionable hyperdensity of the left middle cerebral artery and sylvian branches as described. CTA is recommended for further evaluation. N.B. : The above information has been verbally conveyed by Juancarlos Goddard to Ryan Brink MD, on 12/19/2018 11:16:16 (ET). Electronically Signed: Juancarlos Goddard, at 11:17 EST , Service support , Cervical Spine CT 12/19/18 09:51 IMPRESSION: Multilevel degenerative changes, as described above. Electronically Signed: Juancarlos Goddard, at 11:07 EST , Service support , Chest CT 12/19/18 09:51 IMPRESSION: Airspace disease in the upper lobes as well as in the lower lobes. The differential diagnosis should include either pulmonary edema, infectious process or aspiration. Electronically Signed: Juancarlos Goddard, at 11:20 EST , Service support , Abdomen/Pelvis CT 12/19/18 10:43 IMPRESSION: Bibasilar infiltrates and/or atelectasis. Stable infrarenal abdominal aortic aneurysm. Sigmoid diverticulosis. Electronically Signed: Juancarlos Goddard, at 11:11 EST , Service support , Head CTA 12/19/18 11:14 IMPRESSION: Normal robinson of Claudio without a demonstrated aneurysm or hemodynamically significant stenosis. Electronically Signed: Juancarlos Goddard, at 12:55 EST , Service support , Neck CTA 12/19/18 11:14 IMPRESSION: Normal bilateral cervical carotid and vertebral arteries. Electronically Signed: Juancarlos Longmat, at 12:57 EST , Service support , Chest X-Ray 12/20/18 05:55 IMPRESSION: Mild degree of vascular congestion with superimposed atelectasis and/or infiltrate at the left lung base with blunting of left costophrenic angle. Electronically Signed: Juancarlos Longmat, at 13:24 EST , Service support , Dr. Holt- Pulmonary Medicine Dr. Joya- Cardiology Operations: None Procedures: 2-D Echocardiogram Summary of Care Provided: The patient is a 83 year old F admitted 12/19/2018 due to fall, found on ground outside, confusion. 1. Acute hypoxic respiratory failure secondary to bilateral community-acquired pneumonia with associated acute severe sepsis-pulmonary medicine consulted during admission. Chest CT during admission showed airspace disease in the upper lobes as well as in the lower lobes. Pulmonary edema versus infectious process. Groundglass changes in bilateral lungs. Patient initially treated with IV Zosyn. Will transition to oral Levaquin regimen for 7 days with stop date 12/28/18. Patient will need outpatient follow-up with pulmonary medicine with repeat chest imaging in 6-8 weeks. Oxygen stable on room air at discharge. She can continue supplement oxygen to maintain O2 at or above 90%. Follow-up with primary care physician in 1 week. 2. Mild acute diastolic CHF-this may be a component of acute hypoxic respiratory failure as well. Echocardiogram showed an EF of 55%, stage I diastolic dysfunction, mild mitral valve stenosis, trivial mitral insufficiency, moderate tricuspid valve insufficiency, RVSP estimated to be 45 mmHg. BNP 1080. Initiated on Lasix 40 mg IV daily. Discharge on Lasix 40 mg p.o. daily. Patient will have BMP trend at discharge if creatinine increases, recommend reducing or discontinuing Lasix regimen. Do feel patient needs further diuresis but patient may not need long-term oral Lasix. Patient will follow up with Dr. Joya in 1-2 weeks. This can be reevaluated at that time as well. Patient was also discharged on potassium supplementation due to hypokalemia as a result of IV diuresis. Again, potassium supplement may need reduced or discontinued pending BMP/Lasix regimen. 3. NSTEMI-cardiology consulted during admission. Patient will continue medical management including aspirin, statin, Plavix, metoprolol. Denies chest pain. Echocardiogram as noted above. 4. Acute rhabdomyolysis-secondary to fall prior to admission and found lying on the ground for an unclear amount of time. Improved with IV fluids. 5. Hypothermia-secondary to being found on the ground outside, resolved. 6. Acute metabolic encephalopathy secondary to acute hypoxic respiratory failure, community-acquired pneumonia, rhabdomyolysis. Improved. 7. Hypertension-continue metoprolol regimen. 8. Hyperlipidemia-noted history, not on regimen. Fasting lipid panel within normal limits. Continue low-dose statin given NSTEMI. 9. Hypothyroidism-continue Synthroid regimen. 10. Anxiety/depression-continue home Wellbutrin and sertraline regimen. 11. History of AAA-stable. 12. GERD-continue PPI. General: Alert, Oriented x3, Cooperative HEENT: Atraumatic, PERRLA, EOMI, Normocephalic Neck: Supple, No JVD, Negative Carotid Bruits Lungs: Clear to auscultation, Diminished Cardiovascular: Regular rate, Regular Rhythm, Normal S1, Normal S2, No murmurs Abdomen: Bowel Sounds Present, Soft, Non Tender, Non-Distended Extremities: No clubbing, No cyanosis, No edema, Capillary Refill Less than 3 Seconds Skin: No rashes, No breakdown Musculoskeletal: No Tenderness to Palpation of Joints or Extremities Neurological: Cranial nerves II-XII grossly intact, Neuro grossly intact Psych/Mental Status: Normal Affect, Appropriate Patient seen and examined prior to discharge. Physical assessment as noted above. Patient is stable for discharge with follow up recommendations as noted above. This patient was seen by SARA Sal under the supervision of Dr. Busch. Patient Problems: Active and Suspected Problems Fall (Acute) Hypothermia (Acute) Encephalopathy (Acute) Acute diastolic (congestive) heart failure (Acute) - Physical Exam Vital Signs Temp Pulse Resp BP Pulse Ox 98.2 F 83 16 130/74 H 92 12/22/18 08:48 12/22/18 08:48 12/22/18 08:48 12/22/18 08:48 12/22/18 08:48 Oxygen Flow Rate (L/min) 3 Oxygen Delivery Method Room Air Weight: 163 lb 5.8 oz Body Mass Index (BMI) 29.4 Intake and Output for Last 24 Hours 12/20/18 12/21/18 12/22/18 23:59 23:59 23:59 Intake Total 1993 3197.5 / 3197.5 90 / 90 Output Total 575 / 575 500 / 500 300 / 300 Balance 1419 / 1419 2697.5 / 2697.5 -210 / -210 Microbiology Past 72 Hours 12/20/18 13:00 Respiratory Panel (PCR) - Final Mucosa - Nose 12/19/18 08:36 Streptococcus pneumoniae Antigen (M - Final Urine Catheter - Reeder 12/19/18 12:05 Legionella Antigen - Final Urine Catheter - Reeder Laboratory Tests Past 24 Hrs 12/22/18 12/22/18 07:03 07:03 Sodium 140 Potassium 2.9 L Chloride 106 Carbon Dioxide 25.0 Anion Gap 9 BUN 11 Creatinine 0.62 Estim Creat Clear Calc 34.90 Est GFR (MDRD) Af Amer 119 Est GFR (MDRD) Non-Af 98 BUN/Creatinine Ratio 17.8 Glucose 90 Calcium 8.2 L Total Creatine Kinase 582 H Home Medications: Medications to take at Discharge Amlodipine Besylate/Benazepril [Amlodipine-Benazepril 2.5-10] 1 cap PO DAILY 12/19/18 Bupropion HCl [Wellbutrin Xl] 300 mg PO DAILY 12/19/18 Esomeprazole Mag Trihydrate [Nexium] 40 mg PO DAILY 12/19/18 Levothyroxine [Synthroid] 50 mcg PO DAILY 12/19/18 Sertraline HCl [Zoloft] 50 mg PO DAILY 12/19/18 Tolterodine Tartrate [Detrol LA] 4 mg PO DAILY 12/19/18 Aspirin E.C. [Ecotrin] 81 mg PO DAILY@0800 12/22/18 Atorvastatin Calcium [Lipitor] 10 mg PO QHS 12/22/18 Clopidogrel Bisulfate [Plavix] 75 mg PO DAILY 12/22/18 Furosemide [Lasix] 40 mg PO DAILY 12/22/18 Metoprolol Tartrate [Lopressor (beta risa)] 25 mg PO BID 12/22/18 Potassium Chloride [K-Dur] 40 meq PO BID 12/22/18 levoFLOXacin tablet [Levaquin tablet] 750 mg PO Q48H 12/22/18 Primary Care Physician: Austin Cuevas MD [Primary Care Provider] - Please follow up with your Primary Care Physician in: 1 Week Please Follow Up With: Epi Joya MD - May see cat cracker operator/pa When: 1-2 Weeks Please Follow Up With: Daniele Holt DO When: 6-8 Weeks, will need repeat CT chest in 6-8 weeks prior to follow up Disposition: [facility] facility Minutes spent on discharge:: 35 Patient Condition:: Stable Medical Necessity - Tobacco Use Smoking Status: Former smoker Tobacco Use: Non-smoker Meaningful Use Info Meaningful Use Diagnoses (Choose all that apply): CHF - CHF YULISA/ARB ordered at discharge?: Yes Documented LVEF (%): 55 <Suman Busch - Last Filed: 12/22/18 15:38> Discharge Date and Diagnosis - Primary Discharge Diagnosis Active and Suspected Problems Fall (Acute) Hypothermia (Acute) Encephalopathy (Acute) Acute diastolic (congestive) heart failure (Acute) - Secondary Discharge Diagnosis Chronic Problems Depression (Chronic) Anxiety (Chronic) HTN (hypertension) (Chronic) HLD (hyperlipidemia) (Chronic) Anxiety and depression (Chronic) Hypothyroidism (Chronic) GERD (gastroesophageal reflux disease) (Chronic) AAA (abdominal aortic aneurysm) (Chronic) Hospital Course and Treatment Summary of Care Provided: This patient was seen in conjunction with CALL CENTER OPERATORKatalina. I have independently interviewed and examined the patient and reviewed pertinent history, examination findings, laboratory and plan of management. I have reviewed the note and agree with the documented findings with the few additional points. In brief, this 83-year-old female with multiple comorbidities as listed above as admitted with fall, unconsciousness of unknown duration, flulike symptoms for 2-3 weeks, chronic cough and lab abnormalities including high troponin in ER consistent with non-STEMI, acute rhabdomyolysis, lactic acidosis and hyponatremia. Distribution Lineman was consulted. CT brain shows hypodensity of left MCA and sylvian branches therefore CTA of head and neck was recommended which did not show acute occlusion or stenosis. CT chest shows Airspace disease in the upper lobes as well as in the lower lobes. Pulmonary was consulted and discussed with Dr. Holt. Started on IV Zosyn for suspicion of pneumonia. Patient has chronic cough for more than 1 year and has about 25 pack years of smoking, quit 40 years ago. Speech/swallow evaluation did not find acute issues with swallowing therefore antibiotic changed from Zosyn to Levaquin. Gentle diuresis as BNP is high, 1080. Potassium replacement and monitoring. CKs trending down. Patient on Lasix 40 g daily and replace potassium. Patient is discharged on Levaquin to complete a total of 7 days. Overall, impression is non-STEMI, acute hypoxic respiratory failure secondary to severe sepsis with multilobar multifocal community-acquired pneumonia with possibility of interstitial lung disease/COPD. She also has acute rhabdomyolysis, acute metabolic encephalopathy as listed above. Discharge medication reconciliation done. Discharge follow-up instructions completed. Discharge process discussed with the patient and all questions were answered to patient's satisfaction.. Total time spent, exact 35 minutes on discharge meds reconciliation, examination, review of imaging and blood test and discussion with the patient on follow-up instructions. I have discussed my assessment with CALL CENTER OPERATORKatalina and orders have been reviewed. [] Subjective: Patient respiratory status is much improved. Sitting on the chair. Pulse ox is 92% on room air. No fever or chills. Objective: General: Alert, Oriented x3, Cooperative HEENT: Atraumatic, PERRLA, EOMI, Normocephalic Neck: Supple, No JVD, Negative Carotid Bruits Lungs: Clear to auscultation, No rhonchi, No wheeze, No rales, air entry diminished in bilateral lung bases although has improved. Hypoxia improved and resolved Cardiovascular: Regular rate, Normal S2, No murmurs Abdomen: Bowel Sounds Present, Soft, Non Tender, Non-Distended Extremities: No cyanosis, Capillary Refill Less than 3 Seconds, Edema Skin: No rashes, No breakdown Musculoskeletal: No Tenderness to Palpation of Joints or Extremities, Arthritic Changes, Muscle Wasting Neurological: Cranial nerves II-XII grossly intact, Neuro grossly intact, Unsteady Gait. Chronic musculoskeletal weakness of lower extremity with unsteady gait. Psych/Mental Status: Normal Affect, Appropriate - Physical Exam Vital Signs Temp Pulse Resp BP Pulse Ox 98.2 F 83 16 130/74 H 92 12/22/18 08:48 12/22/18 08:48 12/22/18 08:48 12/22/18 08:48 12/22/18 08:48 Oxygen Flow Rate (L/min) 3 Oxygen Delivery Method Room Air Weight: 163 lb 5.8 oz Body Mass Index (BMI) 29.4 Intake and Output for Last 24 Hours 12/20/18 12/21/18 12/22/18 23:59 23:59 23:59 Intake Total 1993 / 1993 3197.5 / 3197.5 90 / 90 Output Total 575 / 575 500 / 500 300 / 300 Balance 1419 / 1419 2697.5 / 2697.5 -210 / -210 Microbiology Past 72 Hours 12/20/18 13:00 Respiratory Panel (PCR) - Final Mucosa - Nose 12/19/18 08:36 Streptococcus pneumoniae Antigen (M - Final Urine Catheter - Reeder 12/19/18 12:05 Legionella Antigen - Final Urine Catheter - Reeder Laboratory Tests Past 24 Hrs 12/22/18 12/22/18 07:03 07:03 Sodium 140 Potassium 2.9 L Chloride 106 Carbon Dioxide 25.0 Anion Gap 9 BUN 11 Creatinine 0.62 Estim Creat Clear Calc 34.90 Est GFR (MDRD) Af Amer 119 Est GFR (MDRD) Non-Af 98 BUN/Creatinine Ratio 17.8 Glucose 90 Calcium 8.2 L Total Creatine Kinase 582 H Code Visit Inpatient E&M: 22242 Disch Hosp
--- NOTE | 2018-12-22 09:49 | DS.PCM_ITS ---
<Katalina Rose - Last Filed: 12/22/18 09:54> Discharge Date and Diagnosis - Problem List Patient Problems: Active and Suspected Problems Fall (Acute) Hypothermia (Acute) Encephalopathy (Acute) Acute diastolic (congestive) heart failure (Acute) Date of Admission: 12/19/18 Date of Discharge: 12/22/18 - Primary Discharge Diagnosis Active and Suspected Problems 1. Acute hypoxic respiratory failure secondary to bilateral community-acquired pneumonia with associated acute severe sepsis 2. Mild acute diastolic CHF, subsequent hypokalemia secondary to IV Lasix regimen 3. NSTEMI 4. Acute rhabdomyolysis 5. Hypothermia 6. Acute metabolic encephalopathy secondary to acute hypoxic respiratory failure, community-acquired pneumonia, rhabdomyolysis 7. Hypertension 8. Hyperlipidemia 9. Hypothyroidism 10. Anxiety/depression 11. History of AAA 12. GERD - Secondary Discharge Diagnosis Chronic Problems HTN (hypertension) (Chronic) HLD (hyperlipidemia) (Chronic) Anxiety and depression (Chronic) Hypothyroidism (Chronic) GERD (gastroesophageal reflux disease) (Chronic) AAA (abdominal aortic aneurysm) (Chronic) Hospital Course and Treatment Imaging Results: Diagnostic Data Hip/Pelvis X-Ray 12/19/18 09:00 IMPRESSION: Degenerative changes of the hip. No fracture or dislocation is present. Electronically Signed: Juancarlos Goddard, at 9:52 EST , Service support , Brain CT 12/19/18 09:51 IMPRESSION: Chronic involutional changes of the brain. Questionable hyperdensity of the left middle cerebral artery and sylvian branches as described. CTA is recommended for further evaluation. N.B. : The above information has been verbally conveyed by Juancarlos Goddard to Ryan Brink MD, on 12/19/2018 11:16:16 (ET). Electronically Signed: Juancarlos Goddard, at 11:17 EST , Service support , ADDENDUM: 12/19/18 1124 IMPRESSION: Chronic involutional changes of the brain. Questionable hyperdensity of the left middle cerebral artery and sylvian branches as described. CTA is recommended for further evaluation. N.B. : The above information has been verbally conveyed by Juancarlos Goddard to Ryan Brink MD, on 12/19/2018 11:16:16 (ET). Electronically Signed: Juancarlos Goddard, at 11:17 EST , Service support , ADDENDUM: 12/19/18 1206 IMPRESSION: Chronic involutional changes of the brain. Questionable hyperdensity of the left middle cerebral artery and sylvian branches as described. CTA is recommended for further evaluation. N.B. : The above information has been verbally conveyed by Juancarlos Goddard to Ryan Brink MD, on 12/19/2018 11:16:16 (ET). Electronically Signed: Juancarlos Goddard, at 11:17 EST , Service support , Cervical Spine CT 12/19/18 09:51 IMPRESSION: Multilevel degenerative changes, as described above. Electronically Signed: Juancarlos Goddard, at 11:07 EST , Service support , Chest CT 12/19/18 09:51 IMPRESSION: Airspace disease in the upper lobes as well as in the lower lobes. The differential diagnosis should include either pulmonary edema, infectious process or aspiration. Electronically Signed: Juancarlos Goddard, at 11:20 EST , Service support , Abdomen/Pelvis CT 12/19/18 10:43 IMPRESSION: Bibasilar infiltrates and/or atelectasis. Stable infrarenal abdominal aortic aneurysm. Sigmoid diverticulosis. Electronically Signed: Juancarlos Goddard, at 11:11 EST , Service support , Head CTA 12/19/18 11:14 IMPRESSION: Normal huslia of Claudio without a demonstrated aneurysm or hemodynamically significant stenosis. Electronically Signed: Juancarlos Goddard, at 12:55 EST , Service support , Neck CTA 12/19/18 11:14 IMPRESSION: Normal bilateral cervical carotid and vertebral arteries. Electronically Signed: Juancarlos Longmat, at 12:57 EST , Service support , Chest X-Ray 12/20/18 05:55 IMPRESSION: Mild degree of vascular congestion with superimposed atelectasis and/or infiltrate at the left lung base with blunting of left costophrenic angle. Electronically Signed: Juancarlos Longmat, at 13:24 EST , Service support , Dr. Holt- Pulmonary Medicine Dr. Joya- Cardiology Operations: None Procedures: 2-D Echocardiogram Summary of Care Provided: The patient is a 83 year old F admitted 12/19/2018 due to fall, found on ground outside, confusion. 1. Acute hypoxic respiratory failure secondary to bilateral community-acquired pneumonia with associated acute severe sepsis-pulmonary medicine consulted during admission. Chest CT during admission showed airspace disease in the upper lobes as well as in the lower lobes. Pulmonary edema versus infectious process. Groundglass changes in bilateral lungs. Patient initially treated with IV Zosyn. Will transition to oral Levaquin regimen for 7 days with stop date 12/28/18. Patient will need outpatient follow-up with pulmonary medicine with repeat chest imaging in 6-8 weeks. Oxygen stable on room air at discharge. She can continue supplement oxygen to maintain O2 at or above 90%. Follow-up with primary care physician in 1 week. 2. Mild acute diastolic CHF-this may be a component of acute hypoxic respiratory failure as well. Echocardiogram showed an EF of 55%, stage I diastolic dysfunction, mild mitral valve stenosis, trivial mitral insufficiency, moderate tricuspid valve insufficiency, RVSP estimated to be 45 mmHg. BNP 1080. Initiated on Lasix 40 mg IV daily. Discharge on Lasix 40 mg p.o. daily. Patient will have BMP trend at discharge if creatinine increases, recommend reducing or discontinuing Lasix regimen. Do feel patient needs further diuresis but patient may not need long-term oral Lasix. Patient will follow up with Dr. Joya in 1-2 weeks. This can be reevaluated at that time as well. Patient was also discharged on potassium supplementation due to hypokalemia as a result of IV diuresis. Again, potassium supplement may need reduced or discontinued pending BMP/Lasix regimen. 3. NSTEMI-cardiology consulted during admission. Patient will continue medical management including aspirin, statin, Plavix, metoprolol. Denies chest pain. Echocardiogram as noted above. 4. Acute rhabdomyolysis-secondary to fall prior to admission and found lying on the ground for an unclear amount of time. Improved with IV fluids. 5. Hypothermia-secondary to being found on the ground outside, resolved. 6. Acute metabolic encephalopathy secondary to acute hypoxic respiratory failure, community-acquired pneumonia, rhabdomyolysis. Improved. 7. Hypertension-continue metoprolol regimen. 8. Hyperlipidemia-noted history, not on regimen. Fasting lipid panel within normal limits. Continue low-dose statin given NSTEMI. 9. Hypothyroidism-continue Synthroid regimen. 10. Anxiety/depression-continue home Wellbutrin and sertraline regimen. 11. History of AAA-stable. 12. GERD-continue PPI. General: Alert, Oriented x3, Cooperative HEENT: Atraumatic, PERRLA, EOMI, Normocephalic Neck: Supple, No JVD, Negative Carotid Bruits Lungs: Clear to auscultation, Diminished Cardiovascular: Regular rate, Regular Rhythm, Normal S1, Normal S2, No murmurs Abdomen: Bowel Sounds Present, Soft, Non Tender, Non-Distended Extremities: No clubbing, No cyanosis, No edema, Capillary Refill Less than 3 Seconds Skin: No rashes, No breakdown Musculoskeletal: No Tenderness to Palpation of Joints or Extremities Neurological: Cranial nerves II-XII grossly intact, Neuro grossly intact Psych/Mental Status: Normal Affect, Appropriate Patient seen and examined prior to discharge. Physical assessment as noted above. Patient is stable for discharge with follow up recommendations as noted above. This patient was seen by SARA Sal under the supervision of Dr. Busch. Patient Problems: Active and Suspected Problems Fall (Acute) Hypothermia (Acute) Encephalopathy (Acute) Acute diastolic (congestive) heart failure (Acute) - Physical Exam Vital Signs Temp Pulse Resp BP Pulse Ox 98.2 F 83 16 130/74 H 92 12/22/18 08:48 12/22/18 08:48 12/22/18 08:48 12/22/18 08:48 12/22/18 08:48 Oxygen Flow Rate (L/min) 3 Oxygen Delivery Method Room Air Weight: 163 lb 5.8 oz Body Mass Index (BMI) 29.4 Intake and Output for Last 24 Hours 12/20/18 12/21/18 12/22/18 23:59 23:59 23:59 Intake Total 1993 3197.5 / 3197.5 90 / 90 Output Total 575 / 575 500 / 500 300 / 300 Balance 1419 / 1419 2697.5 / 2697.5 -210 / -210 Microbiology Past 72 Hours 12/20/18 13:00 Respiratory Panel (PCR) - Final Mucosa - Nose 12/19/18 08:36 Streptococcus pneumoniae Antigen (M - Final Urine Catheter - Reeder 12/19/18 12:05 Legionella Antigen - Final Urine Catheter - Reeder Laboratory Tests Past 24 Hrs 12/22/18 12/22/18 07:03 07:03 Sodium 140 Potassium 2.9 L Chloride 106 Carbon Dioxide 25.0 Anion Gap 9 BUN 11 Creatinine 0.62 Estim Creat Clear Calc 34.90 Est GFR (MDRD) Af Amer 119 Est GFR (MDRD) Non-Af 98 BUN/Creatinine Ratio 17.8 Glucose 90 Calcium 8.2 L Total Creatine Kinase 582 H Home Medications: Medications to take at Discharge Amlodipine Besylate/Benazepril [Amlodipine-Benazepril 2.5-10] 1 cap PO DAILY 12/19/18 Bupropion HCl [Wellbutrin Xl] 300 mg PO DAILY 12/19/18 Esomeprazole Mag Trihydrate [Nexium] 40 mg PO DAILY 12/19/18 Levothyroxine [Synthroid] 50 mcg PO DAILY 12/19/18 Sertraline HCl [Zoloft] 50 mg PO DAILY 12/19/18 Tolterodine Tartrate [Detrol LA] 4 mg PO DAILY 12/19/18 Aspirin E.C. [Ecotrin] 81 mg PO DAILY@0800 12/22/18 Atorvastatin Calcium [Lipitor] 10 mg PO QHS 12/22/18 Clopidogrel Bisulfate [Plavix] 75 mg PO DAILY 12/22/18 Furosemide [Lasix] 40 mg PO DAILY 12/22/18 Metoprolol Tartrate [Lopressor (beta risa)] 25 mg PO BID 12/22/18 Potassium Chloride [K-Dur] 40 meq PO BID 12/22/18 levoFLOXacin tablet [Levaquin tablet] 750 mg PO Q48H 12/22/18 Primary Care Physician: Austin Cuevas MD [Primary Care Provider] - Please follow up with your Primary Care Physician in: 1 Week Please Follow Up With: Epi Joya MD - May see power brake rebuilder/pa When: 1-2 Weeks Please Follow Up With: Daniele Holt DO When: 6-8 Weeks, will need repeat CT chest in 6-8 weeks prior to follow up [facility]position: [facility] Minutes spent on discharge:: 35 Patient Condition:: Stable Medical Necessity - Tobacco Use Smoking Status: Former smoker Tobacco Use: Non-smoker Meaningful Use Info Meaningful Use Diagnoses (Choose all that apply): CHF - CHF YULISA/ARB ordered at discharge?: Yes Documented LVEF (%): 55 <Suman Busch - Last Filed: 12/22/18 15:38> Discharge Date and Diagnosis - Primary Discharge Diagnosis Active and Suspected Problems Fall (Acute) Hypothermia (Acute) Encephalopathy (Acute) Acute diastolic (congestive) heart failure (Acute) - Secondary Discharge Diagnosis Chronic Problems Depression (Chronic) Anxiety (Chronic) HTN (hypertension) (Chronic) HLD (hyperlipidemia) (Chronic) Anxiety and depression (Chronic) Hypothyroidism (Chronic) GERD (gastroesophageal reflux disease) (Chronic) AAA (abdominal aortic aneurysm) (Chronic) Hospital Course and Treatment Summary of Care Provided: This patient was seen in conjunction with [employer] EXTENSION EDUCATORKatalina. I have independently interviewed and examined the patient and reviewed pertinent history, examination findings, laboratory and plan of management. I have reviewed the note and agree with the documented findings with the few additional points. In brief, this 83-year-old female with multiple comorbidities as listed above as admitted with fall, unconsciousness of unknown duration, flulike symptoms for 2-3 weeks, chronic cough and lab abnormalities including high tro ponin in ER consistent with non-STEMI, acute rhabdomyolysis, lactic acidosis and hyponatremia. Server Assistant was consulted. CT brain shows hypodensity of left MCA and sylvian branches therefore CTA of head and neck was recommended which did not show acute occlusion or stenosis. CT chest shows Airspace disease in the upper lobes as well as in the lower lobes. Pulmonary was consulted and discussed with Dr. Holt. Started on IV Zosyn for suspicion of pneumonia. Patient has chronic cough for more than 1 year and has about 25 pack years of smoking, quit 40 years ago. Speech/swallow evaluation did not find acute issues with swallowing therefore antibiotic changed from Zosyn to Levaquin. Gentle diuresis as BNP is high, 1080. Potassium replacement and monitoring. CKs trending down. Patient on Lasix 40 g daily and replace potassium. Patient is discharged on Levaquin to complete a total of 7 days. Overall, impression is non-STEMI, acute hypoxic respiratory failure secondary to severe sepsis with multilobar multifocal community-acquired pneumonia with possibility of interstitial lung disease/COPD. She also has acute rhabdomyolysis, acute metabolic encephalopathy as listed above. Discharge medication reconciliation done. Discharge follow-up instructions completed. Discharge process discussed with the patient and all questions were answered to patient's satisfaction.. Total time spent, exact 35 minutes on discharge meds reconciliation, examination, review of imaging and blood test and discussion with the patient on follow-up instructions. I have discussed my assessment with [employer] EDUCATORKatalina and orders have been reviewed. [] Subjective: Patient respiratory status is much improved. Sitting on the chair. Pulse ox is 92% on room air. No fever or chills. Objective: General: Alert, Oriented x3, Cooperative HEENT: Atraumatic, PERRLA, EOMI, Normocephalic Neck: Supple, No JVD, Negative Carotid Bruits Lungs: Clear to auscultation, No rhonchi, No wheeze, No rales, air entry diminished in bilateral lung bases although has improved. Hypoxia improved and resolved Cardiovascular: Regular rate, Normal S2, No murmurs Abdomen: Bowel Sounds Present, Soft, Non Tender, Non-Distended Extremities: No cyanosis, Capillary Refill Less than 3 Seconds, Edema Skin: No rashes, No breakdown Musculoskeletal: No Tenderness to Palpation of Joints or Extremities, Arthritic Changes, Muscle Wasting Neurological: Cranial nerves II-XII grossly intact, Neuro grossly intact, Unst alejo Gait. Chronic musculoskeletal weakness of lower extremity with unsteady gait. Psych/Mental Status: Normal Affect, Appropriate - Physical Exam Vital Signs Temp Pulse Resp BP Pulse Ox 98.2 F 83 16 130/74 H 92 12/22/18 08:48 12/22/18 08:48 12/22/18 08:48 12/22/18 08:48 12/22/18 08:48 Oxygen Flow Rate (L/min) 3 Oxygen Delivery Method Room Air Weight: 163 lb 5.8 oz Body Mass Index (BMI) 29.4 Intake and Output for Last 24 Hours 12/20/18 12/21/18 12/22/18 23:59 23:59 23:59 Intake Total 1993 / 1993 3197.5 / 3197.5 90 / 90 Output Total 575 / 575 500 / 500 300 / 300 Balance 1419 / 1419 2697.5 / 2697.5 -210 / -210 Microbiology Past 72 Hours 12/20/18 13:00 Respiratory Panel (PCR) - Final Mucosa - Nose 12/19/18 08:36 Streptococcus pneumoniae Antigen (M - Final Urine Catheter - Reeder 12/19/18 12:05 Legionella Antigen - Final Urine Catheter - Reeder Laboratory Tests Past 24 Hrs 12/22/18 12/22/18 07:03 07:03 Sodium 140 Potassium 2.9 L Chloride 106 Carbon Dioxide 25.0 Anion Gap 9 BUN 11 Creatinine 0.62 Estim Creat Clear Calc 34.90 Est GFR (MDRD) Af Amer 119 Est GFR (MDRD) Non-Af 98 BUN/Creatinine Ratio 17.8 Glucose 90 Calcium 8.2 L Total Creatine Kinase 582 H Code Visit Inpatient E&M: 05244 Disch Hosp
--- NOTE | 2018-12-22 09:56 | NURSING ---
report called to Orly APODACA in TCU
--- NOTE | 2018-12-22 10:24 | CASEMGMT ---
Patient is ready for discharge to TCU. Orders copied. Patient's son is aware of d/c. He went home to get her some clothes. RN said she would wait to send patient until he gets back unless it is more than an hour and she will call him. Yessy PRINCE
== END 2018-12-22 11:20 | disposition skilled nursing facility (03) | DRG 871 ==
LOC: ED 13:38 → PCU 13:55
PROVIDERS: Internal Medicine Cardiovascular Disease; Internal Medicine Critical Care Medicine; Nurse Practitioner Family; Physician Assistant; Admitting Provider Family Medicine; Emergency Provider Emergency Medicine; Family Provider Family Medicine; PCP Family Medicine; Visit Provider Internal Medicine
DX: A41.9 Sepsis, unspecified organism (principal); G93.41 Metabolic encephalopathy; I21.4 Non-ST elevation (NSTEMI) myocardial infarction; J96.01 Acute respiratory failure with hypoxia; J18.9 Pneumonia, unspecified organism; I50.31 Acute diastolic (congestive) heart failure; M62.82 Rhabdomyolysis; E87.2 Acidosis; E87.1 Hypo-osmolality and hyponatremia; R65.20 Severe sepsis without septic shock; E03.9 Hypothyroidism, unspecified; E78.5 Hyperlipidemia, unspecified; F32.9 Major depressive disorder, single episode, unspecified; F41.9 Anxiety disorder, unspecified; E87.6 Hypokalemia; K21.9 Gastro-esophageal reflux disease without esophagitis; T68.XXXA Hypothermia, initial encounter; X31.XXXA Exposure to excessive natural cold, initial encounter; I71.4 Abdominal aortic aneurysm, without rupture; Z87.891 Personal history of nicotine dependence; I10 Essential (primary) hypertension; W19.XXXA Unspecified fall, initial encounter; Y92.017 Garden or yard in single-family (private) house as the place of occurrence of the external cause
CPT/HCPCS: 36415; 36600; 51702; 70450; 70496; 70498; 71045; 71046; 71250; 72125; 73502; 74176; 80048; 80053; 80061; 80076; 81001; 82550; 82803; 83036; 83605; 83690; 83735; 83880; 84439; 84443; 84484; 85025; 85027; 85610; 85730; 87040; 87449; 87633; 87641; 92610; 93005; 93306; 94640; 97162; 97166; 97530; 97535; 97802; 99285; J7030; Q9957; Q9967; A4216; J1940; J2405

== ENCOUNTER 2018-12-22 11:40 | Inpatient (IN) | payer MEDICARE, OTHER, SELFPAY ==
[2018-12-19 15:28] VITALS: BMI 29.4
[2018-12-22 11:47] VITALS: BP 129/75; PULSE 77; RESP 17; TEMP 36.2; O2SAT 92
--- NOTE | 2018-12-22 11:47 | NURSING ---
Patient admitted to room 13 from PCU via wheelchair. Oriented to room and call light system explained.
--- NOTE | 2018-12-22 12:04 | NURSING ---
R' ARRIVED TO UNIT AT 1125 FROM [facility] VIA WHEELCHAIR.
[2018-12-22 12:07] VITALS: BMI 25.3
[2018-12-22 12:12] VITALS: BMI 25.3
--- NOTE | 2018-12-22 14:49 | PCM.HP.STD ---
Problem List (1) Fall Status: Acute (2) Hypothermia Status: Acute (3) Encephalopathy Status: Acute (4) Depression Status: Chronic (5) Anxiety Status: Chronic (6) Acute diastolic (congestive) heart failure Status: Acute (7) Lactic acidosis Status: Acute (8) Rhabdomyolysis Status: Acute Qualifiers: (9) NSTEMI (non-ST elevated myocardial infarction) Status: Acute (10) HTN (hypertension) Status: Chronic Qualifiers: (11) HLD (hyperlipidemia) Status: Chronic Qualifiers: (12) Hypothyroidism Status: Chronic Qualifiers: (13) GERD (gastroesophageal reflux disease) Status: Chronic Qualifiers: (14) CAP (community acquired pneumonia) Status: Acute History of Present Illness Date of Admission: 12/22/18 Chief Complaint: Here for rehabilitation, strengthening, prior to discharge home alone. The patient is a 83 year old Female with below past medical history presented to [facility] Emergency Department 12/19/2018 with Hypothermia. 12/19/2018 CT head chronic involutional changes, left middle cerebral artery hyperdensity. 12/19/2018 CT cervical spine multilevel degenerative changes, no fracture, no dislocation. 12/19/2018 CT chest bilateral upper lobe pulmonary edema versus pneumonia versus aspiration. 12/19/2018 CT abdomen/pelvis showed bibasilar infiltrates/atelectasis, stable 5CM abdominal aortic aneurysm, sigmoid diverticulosis. 12/19/2018 X-ray left hip arthritis. 12/19/2018 EKG normal sinus rhythm, left axis deviation, minimal voltage criteria LVH, septal infarct. 12/19/2018 CTA head, neck NORMAL. Found outside, lying on ground, lethargic. Temperature 87, Pulsox 87 to 88% on RA. Heat packs, warm blankets applied in ambulance. Lactic acid elevated, CPK elevated, Troponin 1.0. Bear hugger, warm IV fluids given. Temperature sensitive may noted temperature increase from 83 to 97.7. 12/20/2018 Admit to Hospital. Serial enzymes, beta risa, aspirin, statin, Echo, Cardiology for NSTEMI. IV hydration for rhabdomyolysis. 12/20/2018 Chest X-ray mild degree vascular congestion, atelectasis, infiltrate left lung base, left costovertebral angle blunting. 12/19/2018 Dr. Joya recommended medical management of NSTEMI. Need Vascular follow up of 5CM abdominal aortic aneurysm. 12/20/2018 Dr. Holt recommended continuing IV antibiotics. Pancultured, urine antigen for legionella, strep pneumo, respiratory panel, MRSA. 12/20/2018 Echo EF 55% Stage 1 diastolic dysfunction. mild global hypokinesis. right ventricular systolic pressure 45mm HG. Community acquired pneumonia treated with IV Zosyn, transitioned to Levaquin. Lasix IV for acute diastolic congestive heart failure, swelling improved. Potassium chloride supplementation for hypokalemia. Medical management of NSTEMI. 12/22/2018 Admit to TCU with debility, here for rehabilitation, strengthening, prior to discharge home alone. Past Medical History Past Medical History (Chronic Problems): Chronic Problems Depression (Chronic) Anxiety (Chronic) HTN (hypertension) (Chronic) HLD (hyperlipidemia) (Chronic) Anxiety and depression (Chronic) Hypothyroidism (Chronic) GERD (gastroesophageal reflux disease) (Chronic) AAA (abdominal aortic aneurysm) (Chronic) Allergies No Known Allergies Allergy (Verified 12/19/18 08:08) Home Medications: Ambulatory Orders Medication Instructions Recorded Amlodipine Besylate/Benazepril 1 cap PO DAILY 12/19/18 [Amlodipine-Benazepril 2.5-10] Bupropion HCl [Wellbutrin Xl] 300 mg PO DAILY 12/19/18 Esomeprazole Mag Trihydrate 40 mg PO DAILY 12/19/18 [Nexium] Levothyroxine [Synthroid] 50 mcg PO DAILY 12/19/18 Sertraline HCl [Zoloft] 50 mg PO DAILY 12/19/18 Tolterodine Tartrate [Detrol LA] 4 mg PO DAILY 12/19/18 Aspirin E.C. 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 Paternal History Items: Unknown - Patient unavailable to accurately give family history. Review of Systems Constitutional: Denies: Chills, Fever, Weight Change HEENT: Denies: Head Aches, Sinus Congestion, Sinus Drainage Cardiovascular: Denies: Chest Pain, Palpitations Respiratory: Denies: Cough, Shortness of breath at rest, Sputum production Gastrointestinal: Denies: Abdominal Pain, Nausea, Vomiting Genitourinary: Denies: Dysuria Musculoskeletal: Denies: Joint Pain, Joint Tenderness Skin: Denies: Rash, Wounds Neurological: Denies: Numbness, Tingling, Focal weakness Psychiatric: Denies: Anxiety, Depression, Homicidal Ideations, Suicidal Ideations Hematologic/ Lymphatic: Denies: Easy Bruising, Easy Bleeding VTE Information - Inpt Only VTE Present on Admission: No VTE Mechan Device Prophylaxis: Knee High ERIK Hose VTE Pharm Prophylaxis ordered?: Yes Patient Problems: Active and Suspected Problems Fall (Acute) Hypothermia (Acute) Encephalopathy (Acute) Acute diastolic (congestive) heart failure (Acute) - Physical Exam General: Alert, Oriented x3, Cooperative HEENT: Atraumatic, PERRLA, EOMI, Normocephalic Neck: Supple, No JVD, Negative Carotid Bruits Lungs: Clear to auscultation, Normal air movement Cardiovascular: Regular rate, No murmurs Abdomen: Bowel Sounds Present, Soft, Non Tender Extremities: No edema, Capillary Refill Less than 3 Seconds Skin: No rashes, No breakdown Musculoskeletal: No Tenderness to Palpation of Joints or Extremities Neurological: Cranial nerves II-XII grossly intact Psych/Mental Status: Normal Affect, Appropriate Vital Signs Temp Pulse Resp BP Pulse Ox 97.1 F L 77 17 129/75 H 92 12/22/18 11:47 12/22/18 11:47 12/22/18 11:47 12/22/18 11:47 12/22/18 11:47 Oxygen Delivery Method Room Air Weight: 69 kg Body Mass Index (BMI) 25.3 Intake and Output for Last 24 Hours 12/20/18 12/21/18 12/22/18 23:59 23:59 23:59 Intake Total 240 / 240 Balance 240 / 240 Assessment/Plan All Active Problems Fall (Acute) Hypothermia (Acute) Encephalopathy (Acute) Acute diastolic (congestive) heart failure (Acute) Accidental hypothermia (Acute) Lactic acidosis (Acute) Rhabdomyolysis (Acute) NSTEMI (non-ST elevated myocardial infarction) (Acute) Encephalopathy acute (Acute) Acute respiratory failure with hypoxia (Acute) CAP (community acquired pneumonia) (Acute) 83 year old female with below past medical history hospitalized found down, hypothermic secondary to community acquired pneumonia, complicated by NSTEMI, encephalopathy, rhabdomyolysis, acute diastolic heart failure, admitted to TCU with debility, here for rehabilitation, strengthening, prior to discharge home alone. Debility - PT/OT. Pain - Tylenol 1000MG Q6H PRN mild pain. Bowel - Miralax 17GM daily, Senna/colace 1 tablet BID, Dulcolax 10MG PO daily PRN. Pneumonia vaccination - Administer Prevnar 13 and/or Pneumovax 23 as necessary. DVT prophylaxis - Lovenox 30MG SC daily. Hypertension - Metoprolol 25MG BID, Lisinopril 10MG daily, Amlodipine 2.5MG daily. NSTEMI - Metoprolol 25MG BID, Lisinopril 10MG daily, Plavix 75MG daily, Aspirin 81MG daily, cardiology f/u as outpatient. Hyperlipidemia - Atorvastatin 10MG QHS, consider high intensity statin Atorvastatin 40MG QHS. Depression - Sertraline 50MG daily, Bupropion XL 300MG daily, resident doing well with chronic fpc use, GDR clinically contraindicated. Nutrition - Ensure Enlive 120ML 4x/day. Acute diastolic congestive heart failure - Metoprolol 25MG BID, Lisinopril 10MG daily, Furosemide 40MG daily. Community Acquired pneumonia - Levaquin 750MG Q48H thru 12/28/2018. Hypothyroidism - Levothyroxine 50MCG daily. GERD - Pantoprazole 40MG daily. Hypokalemia - KCL 40MEQ BID. Overactive Bladder - Tolterodine 4MG daily.
--- NOTE | 2018-12-22 15:06 | HP.PCM_ITS ---
Problem List (1) Fall Status: Acute (2) Hypothermia Status: Acute (3) Encephalopathy Status: Acute (4) Depression Status: Chronic (5) Anxiety Status: Chronic (6) Acute diastolic (congestive) heart failure Status: Acute (7) Lactic acidosis Status: Acute (8) Rhabdomyolysis Status: Acute Qualifiers: (9) NSTEMI (non-ST elevated myocardial infarction) Status: Acute (10) HTN (hypertension) Status: Chronic Qualifiers: (11) HLD (hyperlipidemia) Status: Chronic Qualifiers: (12) Hypothyroidism Status: Chronic Qualifiers: (13) GERD (gastroesophageal reflux disease) Status: Chronic Qualifiers: (14) CAP (community acquired pneumonia) Status: Acute History of Present Illness Date of Admission: 12/22/18 Chief Complaint: Here for rehabilitation, strengthening, prior to discharge home alone. The patient is a 83 year old Female with below past medical history presented to [facility] Emergency Department 12/19/2018 with Hypothermia. 12/19/2018 CT head chronic involutional changes, left middle cerebral artery hyperdensity. 12/19/2018 CT cervical spine multilevel degenerative changes, no fracture, no dislocation. 12/19/2018 CT chest bilateral upper lobe pulmonary edema versus pneumonia versus aspiration. 12/19/2018 CT abdomen/pelvis showed bibasilar infiltrates/atelectasis, stable 5CM abdominal aortic aneurysm, sigmoid diverticulosis. 12/19/2018 X-ray left hip arthritis. 12/19/2018 EKG normal sinus rhythm, left axis deviation, minimal voltage criteria LVH, septal infarct. 12/19/2018 CTA head, neck NORMAL. Found outside, lying on ground, lethargic. Temperature 87, Pulsox 87 to 88% on RA. Heat packs, warm blankets applied in ambulance. Lactic acid elevated, CPK elevated, Troponin 1.0. Bear hugger, warm IV fluids given. Temperature sensitive may noted temperature increase from 83 to 97.7. 12/20/2018 Admit to Hospital. Serial enzymes, beta risa, aspirin, statin, Echo, Cardiology for NSTEMI. IV hydration for rhabdomyolysis. 12/20/2018 Chest X-ray mild degree vascular congestion, atelectasis, infiltrate left lung base, left costovertebral angle blunting. 12/19/2018 Dr. Joya recommended medical management of NSTEMI. Need Vascular follow up of 5CM abdominal aortic aneurysm. 12/20/2018 Dr. Holt recommended continuing IV antibiotics. Pancultured, urine antigen for legionella, strep pneumo, respiratory panel, MRSA. 12/20/2018 Echo EF 55% Stage 1 diastolic dysfunction. mild global hypokinesis. right ventricular systolic pressure 45mm HG. Community acquired pneumonia treated with IV Zosyn, transitioned to Levaquin. Lasix IV for acute diastolic congestive heart failure, swelling improved. Potassium chloride supplementation for hypokalemia. Medical management of NSTEMI. 12/22/2018 Admit to TCU with debility, here for rehabilitation, strengthening, prior to discharge home alone. Past Medical History Past Medical History (Chronic Problems): Chronic Problems Depression (Chronic) Anxiety (Chronic) HTN (hypertension) (Chronic) HLD (hyperlipidemia) (Chronic) Anxiety and depression (Chronic) Hypothyroidism (Chronic) GERD (gastroesophageal reflux disease) (Chronic) AAA (abdominal aortic aneurysm) (Chronic) Allergies No Known Allergies Allergy (Verified 12/19/18 08:08) Home Medications: Ambulatory Orders Medication Instructions Recorded Amlodipine Besylate/Benazepril 1 cap PO DAILY 12/19/18 [Amlodipine-Benazepril 2.5-10] Bupropion HCl [Wellbutrin Xl] 300 mg PO DAILY 12/19/18 Esomeprazole Mag Trihydrate 40 mg PO DAILY 12/19/18 [Nexium] Levothyroxine [Synthroid] 50 mcg PO DAILY 12/19/18 Sertraline HCl [Zoloft] 50 mg PO DAILY 12/19/18 Tolterodine Tartrate [Detrol LA] 4 mg PO DAILY 12/19/18 Aspirin E.C. [Ecotrin] 81 mg PO DAILY@0800 12/22/18 Atorvastatin Calcium [Lipitor] 10 mg PO QHS 12/22/18 Clopidogrel Bisulfate [Plavix] 75 mg PO DAILY 12/22/18 Furosemide [Lasix] 40 mg PO DAILY 12/22/18 Metoprolol Tartrate [Lopressor 25 mg PO BID 12/22/18 (beta risa)] Potassium Chloride [K-Dur] 40 meq PO BID 12/22/18 levoFLOXacin tablet [Levaquin 750 mg PO Q48H 12/22/18 tablet] Surgical History: adenoidectomy, appendectomy, cholecystectomy, hysterectomy, tonsillectomy, - Psychiatric History: Anxiety, Depression [employer] History: No pertinent [employer] history Lives: Alone Smoking Status: Former smoker Tobacco Use: Non-smoker Alcohol: None Drugs: None - *Family History Maternal History Items: Unknown - Patient unavailable to accurately give family history. Paternal History Items: Unknown - Patient unavailable to accurately give family history. Review of Systems Constitutional: Denies: Chills, Fever, Weight Change HEENT: Denies: Head Aches, Sinus Congestion, Sinus Drainage Cardiovascular: Denies: Chest Pain, Palpitations Respiratory: Denies: Cough, Shortness of breath at rest, Sputum production Gastrointestinal: Denies: Abdominal Pain, Nausea, Vomiting Genitourinary: Denies: Dysuria Musculoskeletal: Denies: Joint Pain, Joint Tenderness Skin: Denies: Rash, Wounds Neurological: Denies: Numbness, Tingling, Focal weakness Psychiatric: Denies: Anxiety, Depression, Homicidal Ideations, Suicidal Ideations Hematologic/ Lymphatic: Denies: Easy Bruising, Easy Bleeding VTE Information - Inpt Only VTE Present on Admission: No VTE Mechan Device Prophylaxis: Knee High ERIK Hose VTE Pharm Prophylaxis ordered?: Yes Patient Problems: Active and Suspected Problems Fall (Acute) Hypothermia (Acute) Encephalopathy (Acute) Acute diastolic (congestive) heart failure (Acute) - Physical Exam General: Alert, Oriented x3, Cooperative HEENT: Atraumatic, PERRLA, EOMI, Normocephalic Neck: Supple, No JVD, Negative Carotid Bruits Lungs: Clear to auscultation, Normal air movement Cardiovascular: Regular rate, No murmurs Abdomen: Bowel Sounds Present, Soft, Non Tender Extremities: No edema, Capillary Refill Less than 3 Seconds Skin: No rashes, No breakdown Musculoskeletal: No Tenderness to Palpation of Joints or Extremities Neurological: Cranial nerves II-XII grossly intact Psych/Mental Status: Normal Affect, Appropriate Vital Signs Temp Pulse Resp BP Pulse Ox 97.1 F L 77 17 129/75 H 92 12/22/18 11:47 12/22/18 11:47 12/22/18 11:47 12/22/18 11:47 12/22/18 11:47 Oxygen Delivery Method Room Air Weight: 69 kg Body Mass Index (BMI) 25.3 Intake and Output for Last 24 Hours 12/20/18 12/21/18 12/22/18 23:59 23:59 23:59 Intake Total 240 / 240 Balance 240 / 240 Assessment/Plan All Active Problems Fall (Acute) Hypothermia (Acute) Encephalopathy (Acute) Acute diastolic (congestive) heart failure (Acute) Accidental hypothermia (Acute) Lactic acidosis (Acute) Rhabdomyolysis (Acute) NSTEMI (non-ST elevated myocardial infarction) (Acute) Encephalopathy acute (Acute) Acute respiratory failure with hypoxia (Acute) CAP (community acquired pneumonia) (Acute) 83 year old female with below past medical history hospitalized found down, hypothermic secondary to community acquired pneumonia, complicated by NSTEMI, encephalopathy, rhabdomyolysis, acute diastolic heart failure, admitted to TCU with debility, here for rehabilitation, strengthening, prior to discharge home alone. * Debility - PT/OT. * Pain - Tylenol 1000MG Q6H PRN mild pain. * Bowel - Miralax 17GM daily, Senna/colace 1 tablet BID, Dulcolax 10MG PO daily PRN. * Pneumonia vaccination - Administer Prevnar 13 and/or Pneumovax 23 as necessary. * DVT prophylaxis - Lovenox 30MG SC daily. * Hypertension - Metoprolol 25MG BID, Lisinopril 10MG daily, Amlodipine 2.5MG daily. * NSTEMI - Metoprolol 25MG BID, Lisinopril 10MG daily, Plavix 75MG daily, Aspirin 81MG daily, cardiology f/u as outpatient. * Hyperlipidemia - Atorvastatin 10MG QHS, consider high intensity statin Atorvastatin 40MG QHS. 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 * Nutrition - Ensure Enlive 120ML 4x/day. * Acute diastolic congestive heart failure - Metoprolol 25MG BID, Lisinopril 10MG daily, Furosemide 40MG daily. * Community Acquired pneumonia - Levaquin 750MG Q48H thru 12/28/2018. * Hypothyroidism - Levothyroxine 50MCG daily. * GERD - Pantoprazole 40MG daily. * Hypokalemia - KCL 40MEQ BID. * Overactive Bladder - Tolterodine 4MG daily.
[2018-12-22 15:35] VITALS: O2SAT 88
[2018-12-22 15:40] VITALS: O2SAT 94
[2018-12-22 16:00] VITALS: BP 137/78; PULSE 70; RESP 18; TEMP 36.8; O2SAT 91
[2018-12-22 17:25] VITALS: PULSE 70
[2018-12-22] MEDS: Senna/Docusate Sodium 1 Tablet PO (17:25)
[2018-12-22] MEDS: Metoprolol Tartrate 25 MG Tablet PO (17:25)
[2018-12-22] MEDS: Atorvastatin Calcium 10 MG Tablet PO (20:31)
[2018-12-23 06:36] VITALS: O2SAT 93
[2018-12-23 07:08] LABS: Absolute Lymphocyte Count 1.48 X10^3/ul (0.83-4.51); Absolute Neutrophil Count 4.2 X10^3/uL (2.0-7.7); Basophil# 0.01 X10^3/uL; Basophil% 0.1 % (0-1); Eosinophil# 0.07 X10^3/uL; Hematocrit 36.1 % (37-47); Lymphocyte # 1.48 X10^3/ul (4.0); Mean Corp Hgb Conc 33.2 g/gl (32-36); Mean Corpuscular Hgb 32.8 pg (27.0-32.0); Mean Corpuscular Volume 98.6 fL (81-99); Mean Platelet Vol. 10.5 fl (6.2-12.0); Monocyte# 1.23 X10^3/uL; Monocyte% 17.5 % (0-10); Neutrophil # 4.24 X10^3/uL (2.7-7.7); Neutrophil % 60.3 % (47-70); Platelet Count 254 K/mm3 (150-450); RBC Distribution Width SD 46.2 fl (35.1-43.9); Red Blood Count 3.66 M/mm3 (4.2-5.4)
[2018-12-23 07:10] LABS: POSITIVE COUNT NO; POSITIVE DIFFERENTIAL NO; POSITIVE MORPHOLOGY NO
[2018-12-23 07:21] LABS: Anion Gap 10 (5-15); BUN 12 mg/dL (7-18); Calcium,Total 8.3 mg/dL (8.5-10.1); Chloride 106 mmol/L (98-107); Creatinine, Serum 0.67 mg/dL (0.55-1.02); EST Glomerular Filtration Rate 90 mL/min (>60); Est Glom Filt Rate - Afr Amer 109 mL/min (>60); Glucose 86 mg/dL (74-106); Potassium 3.5 mmol/L (3.5-5.1); Sodium Level 142 mmol/L (136-145)
[2018-12-23] MEDS: Furosemide 40 MG Tablet PO (07:24)
[2018-12-23] MEDS: Tolterodine Tartrate 4 MG CAP.SA PO (07:24)
[2018-12-23] MEDS: Senna/Docusate Sodium 1 Tablet PO ×2 (07:24→16:49)
[2018-12-23] MEDS: Levothyroxine 50 MCG Tablet PO (07:24)
[2018-12-23] MEDS: Pantoprazole Sodium 40 MG Tablet PO (07:24)
[2018-12-23] MEDS: levoFLOXacin 750 MG Tablet PO (07:24)
[2018-12-23] MEDS: Sertraline 50 MG Tablet PO (07:25)
[2018-12-23] MEDS: Clopidogrel Bisulfate 75 MG Tablet PO (07:25)
[2018-12-23] MEDS: Enoxaparin 30 MG/0.3 ML Syringe SC (07:26)
[2018-12-23 07:27] VITALS: BP 140/81; PULSE 83
[2018-12-23] MEDS: buPROPion (XL) 300 MG TABLET.XL PO (07:27)
[2018-12-23] MEDS: Metoprolol Tartrate 25 MG Tablet PO ×2 (07:27→16:49)
[2018-12-23] MEDS: Aspirin E.C. 81 MG Tablet PO (08:19)
[2018-12-23] MEDS: Tuberculin,Purif.prot.deriv. 50 TU/ML Vial 5 ML ID (14:22)
[2018-12-23 15:50] VITALS: BP 115/73; PULSE 75; RESP 18; TEMP 36.7; O2SAT 95
[2018-12-23 16:49] VITALS: PULSE 75
[2018-12-23] MEDS: Atorvastatin Calcium 10 MG Tablet PO (20:16)
[2018-12-24] MEDS: amLODIPine 2.5 MG Tablet PO (05:26)
[2018-12-24] MEDS: Furosemide 40 MG Tablet PO (05:26)
[2018-12-24] MEDS: Lisinopril 10 MG Tablet PO (05:26)
[2018-12-24] MEDS: Tolterodine Tartrate 4 MG CAP.SA PO (05:26)
[2018-12-24] MEDS: Enoxaparin 30 MG/0.3 ML Syringe SC (05:26)
[2018-12-24] MEDS: Sertraline 50 MG Tablet PO (05:26)
[2018-12-24] MEDS: Clopidogrel Bisulfate 75 MG Tablet PO (05:26)
[2018-12-24] MEDS: Levothyroxine 50 MCG Tablet PO (05:26)
[2018-12-24] MEDS: Senna/Docusate Sodium 1 Tablet PO (05:26)
[2018-12-24] MEDS: Pantoprazole Sodium 40 MG Tablet PO (05:26)
[2018-12-24] MEDS: buPROPion (XL) 300 MG TABLET.XL PO (05:26)
[2018-12-24 05:27] VITALS: BP 145/80; PULSE 81
[2018-12-24] MEDS: Metoprolol Tartrate 25 MG Tablet PO ×2 (05:27→17:30)
[2018-12-24 05:35] VITALS: BP 145/80; TEMP 27.2
[2018-12-24 06:40] VITALS: O2SAT 94
[2018-12-24] MEDS: Aspirin E.C. 81 MG Tablet PO (07:49)
[2018-12-24 16:00] VITALS: BP 129/73; PULSE 75; RESP 18; TEMP 37; O2SAT 94
[2018-12-24 17:30] VITALS: PULSE 75
--- NOTE | 2018-12-24 19:27 | NURSING ---
PT GRANDDAUGHTER CALLED AND LEFT MESSAGE ON TCU MACHINE CUSSING THAT SHE HAD TO LEAVE A MESSAGE AND WANTED TO SPEAK TO HER GRANDMOTHER. THIS NURSE IN ROOM AND PT ROOM PHONE RANG, THIS NURSE GAVE PHONE TO PT TO ANSWER. PT SEEMED CONFUSED DID NOT KNOW WHO SHE WAS SPEAKING TO AND HANDED PHONE TO THIS SEED POTATO ARRANGER. ASKED WHO SHE WAS AND THAT SHE NEEDED TO CALM DOWN, GRANDDAUGHTER WAS CRYING LOOKING FOR PT. EXPLAINED TO HER THAT PT WAS JUST FINISHING UP WITH PILLS & SHE CAN TALK. GRANDDAUGHTER VERY HYSTERICAL. WHEN PT DONE SPEAKING, PT ASKED THAT WE NOT GIVE INFORMATION TO CRYS HER GRANDDAUGHTER. STATES SHE HAS DRUG PROBLEMS. WILL UDPDATE NEXT SHIFT.
[2018-12-24] MEDS: Atorvastatin Calcium 10 MG Tablet PO (20:11)
[2018-12-25 05:19] VITALS: BP 118/71; PULSE 69
[2018-12-25] MEDS: Metoprolol Tartrate 25 MG Tablet PO ×2 (05:19→17:46)
[2018-12-25] MEDS: Furosemide 40 MG Tablet PO (05:19)
[2018-12-25] MEDS: Senna/Docusate Sodium 1 Tablet PO ×2 (05:19→17:46)
[2018-12-25] MEDS: Sertraline 50 MG Tablet PO (05:19)
[2018-12-25] MEDS: levoFLOXacin 750 MG Tablet PO (05:19)
[2018-12-25] MEDS: amLODIPine 2.5 MG Tablet PO (05:19)
[2018-12-25] MEDS: Tolterodine Tartrate 4 MG CAP.SA PO (05:19)
[2018-12-25] MEDS: Clopidogrel Bisulfate 75 MG Tablet PO (05:19)
[2018-12-25] MEDS: Lisinopril 10 MG Tablet PO (05:19)
[2018-12-25] MEDS: buPROPion (XL) 300 MG TABLET.XL PO (05:19)
[2018-12-25] MEDS: Pantoprazole Sodium 40 MG Tablet PO (05:19)
[2018-12-25] MEDS: Enoxaparin 30 MG/0.3 ML Syringe SC (05:20)
[2018-12-25] MEDS: Levothyroxine 50 MCG Tablet PO (05:20)
[2018-12-25] MEDS: Aspirin E.C. 81 MG Tablet PO (09:41)
[2018-12-25 11:08] VITALS: O2SAT 96
[2018-12-25 15:17] VITALS: BP 129/61; PULSE 70; RESP 18; TEMP 36.8; O2SAT 95
[2018-12-25 17:46] VITALS: BP 129/61; PULSE 70
--- NOTE | 2018-12-25 18:56 | NURSING ---
speech therapy consulted d/t confusion
[2018-12-25] MEDS: Atorvastatin Calcium 10 MG Tablet PO (20:57)
[2018-12-26 05:55] VITALS: BP 154/64; PULSE 70
[2018-12-26] MEDS: Metoprolol Tartrate 25 MG Tablet PO ×2 (05:55→17:25)
[2018-12-26] MEDS: Enoxaparin 30 MG/0.3 ML Syringe SC (05:55)
[2018-12-26] MEDS: Pantoprazole Sodium 40 MG Tablet PO (05:56)
[2018-12-26] MEDS: Senna/Docusate Sodium 1 Tablet PO (05:56)
[2018-12-26] MEDS: Levothyroxine 50 MCG Tablet PO (05:56)
[2018-12-26] MEDS: Sertraline 50 MG Tablet PO (05:56)
[2018-12-26] MEDS: Clopidogrel Bisulfate 75 MG Tablet PO (05:56)
[2018-12-26] MEDS: Tolterodine Tartrate 4 MG CAP.SA PO (05:56)
[2018-12-26] MEDS: amLODIPine 2.5 MG Tablet PO (05:56)
[2018-12-26] MEDS: buPROPion (XL) 300 MG TABLET.XL PO (05:56)
[2018-12-26] MEDS: Furosemide 40 MG Tablet PO (05:56)
[2018-12-26] MEDS: Lisinopril 10 MG Tablet PO (05:56)
[2018-12-26] MEDS: Aspirin E.C. 81 MG Tablet PO (08:15)
[2018-12-26 08:23] VITALS: O2SAT 94
--- NOTE | 2018-12-26 14:04 | CASEMGMT ---
Brief interview for mental status (BIMS) and resident mood interview (PHQ-9) completed on this day. BIMS score 07/08. PHQ-9 score 01/17
--- NOTE | 2018-12-26 14:36 | PCM.PN.RX ---
<Simone Hernandez D - Last Filed: 12/26/18 14:36> Progress Note - Pharmacy Subjective: TCU Admission Objective: Allergies No Known Allergies Allergy (Verified 12/19/18 08:08) Current Medications Generic Name Dose Route Start Last Admin Trade Name Freq PRN Reason Stop Dose Admin Acetaminophen 1,000 mg 12/22/18 15:19 Tylenol PO Q6H PRN PRN MILD PAIN (1-3/10) Amlodipine Besylate 2.5 mg 12/24/18 06:00 12/26/18 05:56 Norvasc PO 2.5 mg DAILY HENRI Administration Aspirin 81 mg 12/23/18 08:00 12/26/18 08:15 Ecotrin PO 81 mg DAILY@0800 HENRI Administration Atorvastatin Calcium 10 mg 12/22/18 22:00 12/25/18 20:57 Lipitor PO 10 mg QHS HENRI Administration Bisacodyl 10 mg 12/22/18 12:28 Dulcolax PO DAILY PRN Constipation Bupropion HCl 300 mg 12/23/18 06:00 12/26/18 05:56 Wellbutrin Xl PO 300 mg DAILY HENRI Administration Clopidogrel Bisulfate 75 mg 12/23/18 06:00 12/26/18 05:56 Plavix PO 75 mg DAILY HENRI Administration Enoxaparin Sodium 30 mg 12/23/18 06:00 12/26/18 05:55 Lovenox SC 30 mg DAILY@0600 HENRI Administration Furosemide 40 mg 12/23/18 06:00 12/26/18 05:56 Lasix PO 40 mg DAILY HENRI Administration Levofloxacin 750 mg 12/23/18 06:00 12/25/18 05:19 Levaquin Tablet PO 12/28/18 06:01 750 mg Q48H HENRI Administration Levothyroxine Sodium 50 mcg 12/23/18 06:00 12/26/18 05:56 Synthroid PO 50 mcg DAILY HENRI Administration Lisinopril 10 mg 12/24/18 06:00 12/26/18 05:56 Zestril PO 10 mg DAILY HENRI Administration Metoprolol Tartrate 25 mg 12/22/18 18:00 12/26/18 05:55 Lopressor (Beta Shawna) PO 25 mg BID HENRI Administration Nutritional Formula (Lactose Free) 120 ml 12/22/18 17:00 12/26/18 13:40 Ensure Enlive PO 120 ml 4X/DAY HENRI Administration Pantoprazole Sodium 40 mg 12/23/18 06:00 12/26/18 05:56 Protonix PO 40 mg DAILY HENRI Administration Polyethylene Glycol 17 gm 12/23/18 06:00 12/26/18 05:54 Miralax PO Not Given DAILY HENRI Potassium Chloride 40 meq 12/22/18 18:00 12/26/18 05:56 K-Dur PO 40 meq BID HENRI Administration Senna/Docusate Sodium 1 tablet 12/22/18 18:00 12/26/18 05:56 Senokot-S, Mariola-Colace PO 1 tablet BID HENRI Administration Sertraline HCl 50 mg 12/23/18 06:00 12/26/18 05:56 Zoloft PO 50 mg DAILY HENRI Administration Tolterodine Tartrate 4 mg 12/23/18 06:00 12/26/18 05:56 Detrol La PO 4 mg DAILY HENRI Administration Tuberculin PPD 5 tu 12/30/18 10:00 Tubersol, Aplisol, Ppd ID 12/30/18 10:01 X1 ONE Problem List Fall (Acute) Hypothermia (Acute) Encephalopathy (Acute) Depression (Chronic) Anxiety (Chronic) Acute diastolic (congestive) heart failure (Acute) Vital Signs Temp Pulse Resp BP Pulse Ox 98.2 F 70 18 154/64 H 94 12/25/18 15:17 12/26/18 05:55 12/25/18 15:17 12/26/18 05:55 12/26/18 08:23 Oxygen Flow Rate (L/min) 2 Oxygen Delivery Method Nasal Cannula Weight: 69 kg Body Mass Index (BMI) 25.3 Sodium 142 mmol/L (136-145) 12/23/18 06:18 Potassium 3.5 mmol/L (3.5-5.1) 12/23/18 06:18 Chloride 106 mmol/L (98-107) 12/23/18 06:18 Carbon Dioxide 26.0 mmol/L (21.0-32.0) 12/23/18 06:18 Anion Gap 10 (5-15) 12/23/18 06:18 BUN 12 mg/dL (7-18) 12/23/18 06:18 Creatinine 0.67 mg/dL (0.55-1.02) 12/23/18 06:18 Est GFR (MDRD) Af Amer 109 mL/min (>60) 12/23/18 06:18 Est GFR (MDRD) Non-Af 90 mL/min (>60) 12/23/18 06:18 BUN/Creatinine Ratio 18.0 RATIO (10-20) 12/23/18 06:18 Glucose 86 mg/dL (74-106) 12/23/18 06:18 Assessment/Plan: 1) Pain APAP for mild pain. Continue to monitor daily pain scores, prn medication use. 2) HTN/Heart Failure/NSTEMI Amlodipine, lisinopril, metoprolol, ASA, atorvastatin, furosemide/KCl, clopidogrel. Continue to monitor BP/HR, renal function, electrolytes, lipids, swelling. 3) ID Levofloxacin qod thru 12/28. Continue to monitor renal function, s/s infection. 4) Hypothyroidism Levothyroxine. Continue to monitor s/s hyper/hypothyroidism. 5) GI Pantoprazole. Continue to monitor s/s GI distress. 6) DV PPx Enoxaparin. Continue to monitor s/s bleeding/clot. Psychotropic Medications: 7) Depression Sertraline, bupropion. Continue to monitor s/s depression. Unnecessary Medications: None Bowel Regimen: 8) Senna/s, PEG, prn bisacodyl. Continue to monitor prn medication use, for constipation/diarrhea. Date of Note:: 12/26/18 - Provider Comments Provider responsibility: Provider responsible to enter orders to implement recommendations <Gold Barnett Chi - Last Filed: 12/26/18 17:53> Progress Note - Pharmacy Subjective: [] Objective: Allergies No Known Allergies Allergy (Verified 12/19/18 08:08) Current Medications Generic Name Dose Route Start Last Admin Trade Name Freq PRN Reason Stop Dose Admin Acetaminophen 1,000 mg 12/22/18 15:19 Tylenol PO Q6H PRN PRN MILD PAIN (1-3/10) Amlodipine Besylate 2.5 mg 12/24/18 06:00 12/26/18 05:56 Norvasc PO 2.5 mg DAILY HENRI Administration Aspirin 81 mg 12/23/18 08:00 12/26/18 08:15 Ecotrin PO 81 mg DAILY@0800 HENRI Administration Atorvastatin Calcium 10 mg 12/22/18 22:00 12/25/18 20:57 Lipitor PO 10 mg QHS HENRI Administration Bisacodyl 10 mg 12/22/18 12:28 Dulcolax PO DAILY PRN Constipation Bupropion HCl 300 mg 12/23/18 06:00 12/26/18 05:56 Wellbutrin Xl PO 300 mg DAILY HENRI Administration Clopidogrel Bisulfate 75 mg 12/23/18 06:00 12/26/18 05:56 Plavix PO 75 mg DAILY [facility] Administration Enoxaparin Sodium 30 mg 12/23/18 06:00 12/26/18 05:55 Lovenox SC 30 mg DAILY@0600 HENRI Administration Furosemide 40 mg 12/23/18 06:00 12/26/18 05:56 Lasix PO 40 mg DAILY [facility] Administration Levofloxacin 750 mg 12/23/18 06:00 12/25/18 05:19 Levaquin Tablet PO 12/28/18 06:01 750 mg Q48H HENRI Administration Levothyroxine Sodium 50 mcg 12/23/18 06:00 12/26/18 05:56 Synthroid PO 50 mcg DAILY [facility] Administration Lisinopril 10 mg 12/24/18 06:00 12/26/18 05:56 Zestril PO 10 mg DAILY [facility] Administration Metoprolol Tartrate 25 mg 12/22/18 18:00 12/26/18 17:25 Lopressor (Beta Shawna) PO 25 mg BID [facility] Administration Nutritional Formula (Lactose Free) 120 ml 12/22/18 17:00 12/26/18 17:24 Ensure Enlive PO 120 ml 4X/DAY [facility] Administration Pantoprazole Sodium 40 mg 12/23/18 06:00 12/26/18 05:56 Protonix PO 40 mg DAILY [facility] Administration Polyethylene Glycol 17 gm 12/23/18 06:00 12/26/18 05:54 Miralax PO Not Given DAILY [facility] Potassium Chloride 40 meq 12/22/18 18:00 12/26/18 17:24 K-Dur PO 40 meq BID [facility] Administration Senna/Docusate Sodium 1 tablet 12/22/18 18:00 12/26/18 17:25 Senokot-S, Mariola-Colace PO Not Given BID [facility] Sertraline HCl 50 mg 12/23/18 06:00 12/26/18 05:56 Zoloft PO 50 mg DAILY [facility] Administration Tolterodine Tartrate 4 mg 12/23/18 06:00 12/26/18 05:56 Detrol La PO 4 mg DAILY HENRI Administration Tuberculin PPD 5 tu 12/30/18 10:00 Tubersol, Aplisol, Ppd ID 12/30/18 10:01 X1 ONE Problem List Fall (Acute) Hypothermia (Acute) Encephalopathy (Acute) Depression (Chronic) Anxiety (Chronic) Acute diastolic (congestive) heart failure (Acute) Vital Signs Temp Pulse Resp BP Pulse Ox 97.8 F 70 18 124/66 H 97 12/26/18 16:00 12/26/18 17:25 12/26/18 16:00 12/26/18 17:25 12/26/18 16:00 Oxygen Flow Rate (L/min) 2 Oxygen Delivery Method Room Air Weight: 69 kg Body Mass Index (BMI) 25.3 Sodium 142 mmol/L (136-145) 12/23/18 06:18 Potassium 3.5 mmol/L (3.5-5.1) 12/23/18 06:18 Chloride 106 mmol/L (98-107) 12/23/18 06:18 Carbon Dioxide 26.0 mmol/L (21.0-32.0) 12/23/18 06:18 Anion Gap 10 (5-15) 12/23/18 06:18 BUN 12 mg/dL (7-18) 12/23/18 06:18 Creatinine 0.67 mg/dL (0.55-1.02) 12/23/18 06:18 Est GFR (MDRD) Af Amer 109 mL/min (>60) 12/23/18 06:18 Est GFR (MDRD) Non-Af 90 mL/min (>60) 12/23/18 06:18 BUN/Creatinine Ratio 18.0 RATIO (10-20) 12/23/18 06:18 Glucose 86 mg/dL (74-106) 12/23/18 06:18 Assessment/Plan: Psychotropic Medications: Unnecessary Medications: Bowel Regimen: - Provider Comments Provider responsibility: Provider responsible to enter orders to implement recommendations Provider Comments to Recommendations by Pharmacy: Agree
--- NOTE | 2018-12-26 14:42 | PHA.CONS_ITS ---
<Simone Hernandez D - Last Filed: 12/26/18 14:36> Progress Note - Pharmacy Subjective: TCU Admission Objective: Allergies No Known Allergies Allergy (Verified 12/19/18 08:08) Current Medications Generic Name Dose Route Start Last Admin Trade Name Freq PRN Reason Stop Dose Admin Acetaminophen 1,000 mg 12/22/18 15:19 Tylenol PO Q6H PRN PRN MILD PAIN (1-3/10) Amlodipine Besylate 2.5 mg 12/24/18 06:00 12/26/18 05:56 Norvasc PO 2.5 mg DAILY HENRI Administration Aspirin 81 mg 12/23/18 08:00 12/26/18 08:15 Ecotrin PO 81 mg DAILY@0800 HENRI Administration Atorvastatin Calcium 10 mg 12/22/18 22:00 12/25/18 20:57 Lipitor PO 10 mg QHS HENRI Administration Bisacodyl 10 mg 12/22/18 12:28 Dulcolax PO DAILY PRN Constipation Bupropion HCl 300 mg 12/23/18 06:00 12/26/18 05:56 Wellbutrin Xl PO 300 mg DAILY HENRI Administration Clopidogrel Bisulfate 75 mg 12/23/18 06:00 12/26/18 05:56 Plavix PO 75 mg DAILY HENRI Administration Enoxaparin Sodium 30 mg 12/23/18 06:00 12/26/18 05:55 Lovenox SC 30 mg DAILY@0600 HENRI Administration Furosemide 40 mg 12/23/18 06:00 12/26/18 05:56 Lasix PO 40 mg DAILY HENRI Administration Levofloxacin 750 mg 12/23/18 06:00 12/25/18 05:19 Levaquin Tablet PO 12/28/18 06:01 750 mg Q48H HENRI Administration Levothyroxine Sodium 50 mcg 12/23/18 06:00 12/26/18 05:56 Synthroid PO 50 mcg DAILY HENRI Administration Lisinopril 10 mg 12/24/18 06:00 12/26/18 05:56 Zestril PO 10 mg DAILY HENRI Administration Metoprolol Tartrate 25 mg 12/22/18 18:00 12/26/18 05:55 Lopressor (Beta Shawna) PO 25 mg BID HENRI Administration Nutritional Formula (Lactose Free) 120 ml 12/22/18 17:00 12/26/18 13:40 Ensure Enlive PO 120 ml 4X/DAY HENRI Administration Pantoprazole Sodium 40 mg 12/23/18 06:00 12/26/18 05:56 Protonix PO 40 mg DAILY HENRI Administration Polyethylene Glycol 17 gm 12/23/18 06:00 12/26/18 05:54 Miralax PO Not Given DAILY HENRI Potassium Chloride 40 meq 12/22/18 18:00 12/26/18 05:56 K-Dur PO 40 meq BID HENRI Administration Senna/Docusate Sodium 1 tablet 12/22/18 18:00 12/26/18 05:56 Senokot-S, Mariola-Colace PO 1 tablet BID HENRI Administration Sertraline HCl 50 mg 12/23/18 06:00 12/26/18 05:56 Zoloft PO 50 mg DAILY HENRI Administration Tolterodine Tartrate 4 mg 12/23/18 06:00 12/26/18 05:56 Detrol La PO 4 mg DAILY HENRI Administration Tuberculin PPD 5 tu 12/30/18 10:00 Tubersol, Aplisol, Ppd ID 12/30/18 10:01 X1 ONE Problem List Fall (Acute) Hypothermia (Acute) Encephalopathy (Acute) Depression (Chronic) Anxiety (Chronic) Acute diastolic (congestive) heart failure (Acute) Vital Signs Temp Pulse Resp BP Pulse Ox 98.2 F 70 18 154/64 H 94 12/25/18 15:17 12/26/18 05:55 12/25/18 15:17 12/26/18 05:55 12/26/18 08:23 Oxygen Flow Rate (L/min) 2 Oxygen Delivery Method Nasal Cannula Weight: 69 kg Body Mass Index (BMI) 25.3 Sodium 142 mmol/L (136-145) 12/23/18 06:18 Potassium 3.5 mmol/L (3.5-5.1) 12/23/18 06:18 Chloride 106 mmol/L (98-107) 12/23/18 06:18 Carbon Dioxide 26.0 mmol/L (21.0-32.0) 12/23/18 06:18 Anion Gap 10 (5-15) 12/23/18 06:18 BUN 12 mg/dL (7-18) 12/23/18 06:18 Creatinine 0.67 mg/dL (0.55-1.02) 12/23/18 06:18 Est GFR (MDRD) Af Amer 109 mL/min (>60) 12/23/18 06:18 Est GFR (MDRD) Non-Af 90 mL/min (>60) 12/23/18 06:18 BUN/Creatinine Ratio 18.0 RATIO (10-20) 12/23/18 06:18 Glucose 86 mg/dL (74-106) 12/23/18 06:18 Assessment/Plan: 1) Pain APAP for mild pain. Continue to monitor daily pain scores, prn medication use. 2) HTN/Heart Failure/NSTEMI Amlodipine, lisinopril, metoprolol, ASA, atorvastatin, furosemide/KCl, clopidogrel. Continue to monitor BP/HR, renal function, electrolytes, lipids, swelling. 3) ID Levofloxacin qod thru 12/28. Continue to monitor renal function, s/s infection. 4) Hypothyroidism Levothyroxine. Continue to monitor s/s hyper/hypothyroidism. 5) GI Pantoprazole. Continue to monitor s/s GI distress. 6) DV PPx Enoxaparin. Continue to monitor s/s bleeding/clot. Psychotropic Medications: 7) Depression Sertraline, bupropion. Continue to monitor s/s depression. Unnecessary Medications: None Bowel Regimen: 8) Senna/s, PEG, prn bisacodyl. Continue to monitor prn medication use, for constipation/diarrhea. Date of Note:: 12/26/18 - Provider Comments Provider responsibility: Provider responsible to enter orders to implement recommendations <Gold Barnett Chi - Last Filed: 12/26/18 17:53> Progress Note - Pharmacy Subjective: [] Objective: Allergies No Known Allergies Allergy (Verified 12/19/18 08:08) Current Medications Generic Name Dose Route Start Last Admin Trade Name Freq PRN Reason Stop Dose Admin Acetaminophen 1,000 mg 12/22/18 15:19 Tylenol PO Q6H PRN PRN MILD PAIN (1-3/10) Amlodipine Besylate 2.5 mg 12/24/18 06:00 12/26/18 05:56 Norvasc PO 2.5 mg DAILY HENRI Administration Aspirin 81 mg 12/23/18 08:00 12/26/18 08:15 Ecotrin PO 81 mg DAILY@0800 HENRI Administration Atorvastatin Calcium 10 mg 12/22/18 22:00 12/25/18 20:57 Lipitor PO 10 mg QHS HENRI Administration Bisacodyl 10 mg 12/22/18 12:28 Dulcolax PO DAILY PRN Constipation Bupropion HCl 300 mg 12/23/18 06:00 12/26/18 05:56 Wellbutrin Xl PO 300 mg DAILY HENRI Administration Clopidogrel Bisulfate 75 mg 12/23/18 06:00 12/26/18 05:56 Plavix PO 75 mg DAILY [facility] Administration Enoxaparin Sodium 30 mg 12/23/18 06:00 12/26/18 05:55 Lovenox SC 30 mg DAILY@0600 HENRI Administration Furosemide 40 mg 12/23/18 06:00 12/26/18 05:56 Lasix PO 40 mg DAILY [facility] Administration Levofloxacin 750 mg 12/23/18 06:00 12/25/18 05:19 Levaquin Tablet PO 12/28/18 06:01 750 mg Q48H HENRI Administration Levothyroxine Sodium 50 mcg 12/23/18 06:00 12/26/18 05:56 Synthroid PO 50 mcg DAILY [facility] Administration Lisinopril 10 mg 12/24/18 06:00 12/26/18 05:56 Zestril PO 10 mg DAILY [facility] Administration Metoprolol Tartrate 25 mg 12/22/18 18:00 12/26/18 17:25 Lopressor (Beta Shawna) PO 25 mg BID [facility] Administration Nutritional Formula (Lactose Free) 120 ml 12/22/18 17:00 12/26/18 17:24 Ensure Enlive PO 120 ml 4X/DAY [facility] Administration Pantoprazole Sodium 40 mg 12/23/18 06:00 12/26/18 05:56 Protonix PO 40 mg DAILY [facility] Administration Polyethylene Glycol 17 gm 12/23/18 06:00 12/26/18 05:54 Miralax PO Not Given DAILY [facility] Potassium Chloride 40 meq 12/22/18 18:00 12/26/18 17:24 K-Dur PO 40 meq BID [facility] Administration Senna/Docusate Sodium 1 tablet 12/22/18 18:00 12/26/18 17:25 Senokot-S, Mariola-Colace PO Not Given BID [facility] Sertraline HCl 50 mg 12/23/18 06:00 12/26/18 05:56 Zoloft PO 50 mg DAILY [facility] Administration Tolterodine Tartrate 4 mg 12/23/18 06:00 12/26/18 05:56 Detrol La PO 4 mg DAILY HENRI Administration Tuberculin PPD 5 tu 12/30/18 10:00 Tubersol, Aplisol, Ppd ID 12/30/18 10:01 X1 ONE Problem List Fall (Acute) Hypothermia (Acute) Encephalopathy (Acute) Depression (Chronic) Anxiety (Chronic) Acute diastolic (congestive) heart failure (Acute) Vital Signs Temp Pulse Resp BP Pulse Ox 97.8 F 70 18 124/66 H 97 12/26/18 16:00 12/26/18 17:25 12/26/18 16:00 12/26/18 17:25 12/26/18 16:00 Oxygen Flow Rate (L/min) 2 Oxygen Delivery Method Room Air Weight: 69 kg Body Mass Index (BMI) 25.3 Sodium 142 mmol/L (136-145) 12/23/18 06:18 Potassium 3.5 mmol/L (3.5-5.1) 12/23/18 06:18 Chloride 106 mmol/L (98-107) 12/23/18 06:18 Carbon Dioxide 26.0 mmol/L (21.0-32.0) 12/23/18 06:18 Anion Gap 10 (5-15) 12/23/18 06:18 BUN 12 mg/dL (7-18) 12/23/18 06:18 Creatinine 0.67 mg/dL (0.55-1.02) 12/23/18 06:18 Est GFR (MDRD) Af Amer 109 mL/min (>60) 12/23/18 06:18 Est GFR (MDRD) Non-Af 90 mL/min (>60) 12/23/18 06:18 BUN/Creatinine Ratio 18.0 RATIO (10-20) 12/23/18 06:18 Glucose 86 mg/dL (74-106) 12/23/18 06:18 Assessment/Plan: Psychotropic Medications: Unnecessary Medications: Bowel Regimen: - Provider Comments Provider responsibility: Provider responsible to enter orders to implement recommendations Provider Comments to Recommendations by Pharmacy: Agree
[2018-12-26 16:00] VITALS: BP 110/60; PULSE 73; RESP 18; TEMP 36.6; O2SAT 97
--- NOTE | 2018-12-26 16:27 | CHAPLAIN ---
two attempts made to visit but first time pt had PT and the second time she was sleeping
[2018-12-26 17:25] VITALS: BP 124/66; PULSE 70
[2018-12-26] MEDS: Atorvastatin Calcium 10 MG Tablet PO (20:15)
[2018-12-27] MEDS: Tolterodine Tartrate 4 MG CAP.SA PO (06:17)
[2018-12-27] MEDS: Furosemide 40 MG Tablet PO (06:17)
[2018-12-27 06:18] VITALS: BP 122/66; PULSE 71
[2018-12-27] MEDS: levoFLOXacin 750 MG Tablet PO (06:18)
[2018-12-27] MEDS: Clopidogrel Bisulfate 75 MG Tablet PO (06:18)
[2018-12-27] MEDS: amLODIPine 2.5 MG Tablet PO (06:18)
[2018-12-27] MEDS: Enoxaparin 30 MG/0.3 ML Syringe SC (06:18)
[2018-12-27] MEDS: Metoprolol Tartrate 25 MG Tablet PO ×2 (06:18→16:32)
[2018-12-27] MEDS: Sertraline 50 MG Tablet PO (06:19)
[2018-12-27] MEDS: Lisinopril 10 MG Tablet PO (06:19)
[2018-12-27] MEDS: buPROPion (XL) 300 MG TABLET.XL PO (06:19)
[2018-12-27] MEDS: Pantoprazole Sodium 40 MG Tablet PO (06:19)
[2018-12-27] MEDS: Levothyroxine 50 MCG Tablet PO (06:19)
[2018-12-27] MEDS: Aspirin E.C. 81 MG Tablet PO (07:51)
--- NOTE | 2018-12-27 11:49 | CASEMGMT ---
Plan of care meeting held. Resident present as well as resident family. No discharge date set. Resident to continue with further care and treatment no the Transitional Care Unit. Resident plans to discharge to home alone. Team currently recommending for resident to have 24hr care within the home due to cognitive deficits. Resident and resident family voicing to have discussed assisted living and to currently want to see how things go before making a decision about following above recommendation. Support given. Will continue to follow. Radha PRINCE, COLBY
[2018-12-27 16:00] VITALS: BP 101/53; PULSE 64; RESP 18; TEMP 36.6; O2SAT 96
[2018-12-27 16:32] VITALS: PULSE 64
[2018-12-27] MEDS: Senna/Docusate Sodium 1 Tablet PO (16:32)
[2018-12-27] MEDS: Atorvastatin Calcium 10 MG Tablet PO (21:20)
[2018-12-27] MEDS: Mirtazapine 15 MG Tablet 7.5 MG PO (21:21)
[2018-12-28 05:59] VITALS: BP 118/61; PULSE 67
[2018-12-28] MEDS: Tolterodine Tartrate 4 MG CAP.SA PO (05:59)
[2018-12-28] MEDS: Levothyroxine 50 MCG Tablet PO (05:59)
[2018-12-28] MEDS: Metoprolol Tartrate 25 MG Tablet PO ×2 (05:59→17:16)
[2018-12-28] MEDS: Enoxaparin 30 MG/0.3 ML Syringe SC (06:00)
[2018-12-28] MEDS: Furosemide 40 MG Tablet PO (06:00)
[2018-12-28] MEDS: Senna/Docusate Sodium 1 Tablet PO ×2 (06:00→17:16)
[2018-12-28 07:25] VITALS: O2SAT 98
[2018-12-28] MEDS: buPROPion (XL) 300 MG TABLET.XL PO (08:31)
[2018-12-28] MEDS: Sertraline 50 MG Tablet PO (08:31)
[2018-12-28] MEDS: Aspirin E.C. 81 MG Tablet PO (08:31)
[2018-12-28] MEDS: Pantoprazole Sodium 40 MG Tablet PO (08:32)
[2018-12-28] MEDS: Clopidogrel Bisulfate 75 MG Tablet PO (08:32)
[2018-12-28] MEDS: Lisinopril 10 MG Tablet PO (08:33)
[2018-12-28] MEDS: amLODIPine 2.5 MG Tablet PO (08:33)
--- NOTE | 2018-12-28 13:55 | MDS.RN ---
Pain interview for leslie 12/29/18 completed.
[2018-12-28 16:00] VITALS: BP 103/57; PULSE 66; RESP 18; TEMP 36.7; O2SAT 93
[2018-12-28 17:16] VITALS: BP 103/57; PULSE 66
[2018-12-28] MEDS: Atorvastatin Calcium 10 MG Tablet PO (21:01)
[2018-12-28] MEDS: Mirtazapine 15 MG Tablet 7.5 MG PO (21:01)
[2018-12-29 06:32] VITALS: O2SAT 91
[2018-12-29] MEDS: Enoxaparin 30 MG/0.3 ML Syringe SC (06:36)
[2018-12-29] MEDS: Levothyroxine 50 MCG Tablet PO (06:36)
[2018-12-29] MEDS: Senna/Docusate Sodium 1 Tablet PO ×2 (06:36→17:26)
[2018-12-29] MEDS: Tolterodine Tartrate 4 MG CAP.SA PO (06:36)
[2018-12-29] MEDS: Furosemide 40 MG Tablet PO (06:36)
[2018-12-29 06:37] VITALS: BP 119/62; PULSE 63
[2018-12-29] MEDS: Metoprolol Tartrate 25 MG Tablet PO ×2 (06:37→17:26)
[2018-12-29] MEDS: Aspirin E.C. 81 MG Tablet PO (08:04)
[2018-12-29] MEDS: Pantoprazole Sodium 40 MG Tablet PO (08:05)
[2018-12-29] MEDS: buPROPion (XL) 300 MG TABLET.XL PO (08:05)
[2018-12-29] MEDS: Sertraline 50 MG Tablet PO (08:05)
[2018-12-29] MEDS: Clopidogrel Bisulfate 75 MG Tablet PO (08:05)
[2018-12-29] MEDS: amLODIPine 2.5 MG Tablet PO (08:05)
[2018-12-29] MEDS: Lisinopril 10 MG Tablet PO (08:05)
[2018-12-29 08:07] VITALS: BP 100/57; PULSE 64
[2018-12-29 10:05] VITALS: PULSE 61; RESP 18; O2SAT 94
[2018-12-29 15:27] VITALS: BP 94/54; PULSE 65; RESP 20; TEMP 36.9; O2SAT 92
--- NOTE | 2018-12-29 17:16 | CHAPLAIN ---
patient was sleeping and did not awaken upon entrance into room; left a calling card
[2018-12-29 17:26] VITALS: PULSE 65
[2018-12-29] MEDS: Menthol/Lanolin/Calamine/Znox 113 GM Tube 1 APPLIC TOPICAL (20:46)
[2018-12-29] MEDS: Mirtazapine 15 MG Tablet 7.5 MG PO (20:46)
[2018-12-29] MEDS: Atorvastatin Calcium 10 MG Tablet PO (20:46)
[2018-12-30] MEDS: Menthol/Lanolin/Calamine/Znox 113 GM Tube 1 APPLIC TOPICAL ×2 (06:06→19:47)
[2018-12-30 06:07] VITALS: BP 113/55; PULSE 67
[2018-12-30] MEDS: Metoprolol Tartrate 25 MG Tablet PO ×2 (06:07→17:49)
[2018-12-30] MEDS: Furosemide 40 MG Tablet PO (06:07)
[2018-12-30] MEDS: Enoxaparin 30 MG/0.3 ML Syringe SC (06:07)
[2018-12-30] MEDS: Tolterodine Tartrate 4 MG CAP.SA PO (06:07)
[2018-12-30] MEDS: Senna/Docusate Sodium 1 Tablet PO ×2 (06:07→17:48)
[2018-12-30] MEDS: Levothyroxine 50 MCG Tablet PO (06:07)
[2018-12-30 08:02] LABS: Absolute Lymphocyte Count 1.42 X10^3/ul (0.83-4.51); Absolute Neutrophil Count 3.5 X10^3/uL (2.0-7.7); Basophil# 0.06 X10^3/uL; Eosinophil# 0.25 X10^3/uL; Eosinophils% 4.1 % (0-5); Hematocrit 38.8 % (37-47); Hemoglobin 12.5 g/dl (12.0-15.0); Lymphocyte # 1.42 X10^3/ul (4.0); Lymphocyte % 23.3 % (19-41); Mean Corp Hgb Conc 32.2 g/gl (32-36); Mean Corpuscular Hgb 33.2 pg (27.0-32.0); Mean Corpuscular Volume 103.2 fL (81-99); Mean Platelet Vol. 9.9 fl (6.2-12.0); Monocyte# 0.79 X10^3/uL; Neutrophil # 3.53 X10^3/uL (2.7-7.7); Neutrophil % 57.9 % (47-70); Platelet Count 287 K/mm3 (150-450); RBC Distribution Width CV 13.2 % (11.6-14.6); RBC Distribution Width SD 49.5 fl (35.1-43.9); Red Blood Count 3.76 M/mm3 (4.2-5.4); White Blood Count 6.1 K/mm3 (4.4-11.0)
[2018-12-30 08:04] LABS: POSITIVE COUNT NO; POSITIVE DIFFERENTIAL NO; POSITIVE MORPHOLOGY NO
[2018-12-30 08:18] LABS: Anion Gap 7 (5-15); BUN 34 mg/dL (7-18); BUN/Creat Ratio 29.1 RATIO (10-20); Calcium,Total 9.6 mg/dL (8.5-10.1); Chloride 105 mmol/L (98-107); Creatinine, Serum 1.17 mg/dL (0.55-1.02); EST Glomerular Filtration Rate 47 mL/min (>60); Est Glom Filt Rate - Afr Amer 57 mL/min (>60); Estimated Creatinine Clearance 33.93 ml/min; Glucose 85 mg/dL (74-106); Potassium 4.8 mmol/L (3.5-5.1); Sodium Level 138 mmol/L (136-145)
[2018-12-30] MEDS: buPROPion (XL) 300 MG TABLET.XL PO (08:27)
[2018-12-30] MEDS: Pantoprazole Sodium 40 MG Tablet PO (08:28)
[2018-12-30] MEDS: Sertraline 50 MG Tablet PO (08:28)
[2018-12-30] MEDS: amLODIPine 2.5 MG Tablet PO (08:28)
[2018-12-30] MEDS: Lisinopril 10 MG Tablet PO (08:28)
[2018-12-30] MEDS: Clopidogrel Bisulfate 75 MG Tablet PO (08:28)
[2018-12-30] MEDS: Aspirin E.C. 81 MG Tablet PO (08:28)
[2018-12-30] MEDS: Tuberculin,Purif.prot.deriv. 50 TU/ML Vial 5 ML ID (11:57)
[2018-12-30 15:38] VITALS: BP 102/51; PULSE 59; RESP 18; TEMP 36.4; O2SAT 93
[2018-12-30 17:49] VITALS: BP 102/51; PULSE 72
[2018-12-30] MEDS: Mirtazapine 15 MG Tablet 7.5 MG PO (19:46)
[2018-12-30] MEDS: Atorvastatin Calcium 10 MG Tablet PO (19:47)
[2018-12-31] MEDS: Menthol/Lanolin/Calamine/Znox 113 GM Tube 1 APPLIC TOPICAL ×2 (06:30→19:37)
[2018-12-31 06:31] VITALS: BP 118/48; PULSE 65
[2018-12-31] MEDS: Metoprolol Tartrate 25 MG Tablet PO ×2 (06:31→17:50)
[2018-12-31] MEDS: Senna/Docusate Sodium 1 Tablet PO ×2 (06:32→17:50)
[2018-12-31] MEDS: Tolterodine Tartrate 4 MG CAP.SA PO (06:32)
[2018-12-31] MEDS: Levothyroxine 50 MCG Tablet PO (06:32)
[2018-12-31] MEDS: Furosemide 20 MG Tablet PO (06:33)
[2018-12-31] MEDS: Enoxaparin 30 MG/0.3 ML Syringe SC (06:34)
[2018-12-31 08:24] VITALS: O2SAT 93
[2018-12-31] MEDS: Pantoprazole Sodium 40 MG Tablet PO (08:48)
[2018-12-31] MEDS: buPROPion (XL) 300 MG TABLET.XL PO (08:48)
[2018-12-31] MEDS: amLODIPine 2.5 MG Tablet PO (08:48)
[2018-12-31] MEDS: Lisinopril 10 MG Tablet PO (08:48)
[2018-12-31] MEDS: Aspirin E.C. 81 MG Tablet PO (08:48)
[2018-12-31] MEDS: Sertraline 50 MG Tablet PO (08:48)
[2018-12-31] MEDS: Clopidogrel Bisulfate 75 MG Tablet PO (08:48)
[2018-12-31 15:19] VITALS: BP 102/57; PULSE 66; RESP 18; TEMP 36.6; O2SAT 95
[2018-12-31 17:50] VITALS: BP 102/57; PULSE 66
[2018-12-31] MEDS: Mirtazapine 15 MG Tablet 7.5 MG PO (19:36)
[2018-12-31] MEDS: Atorvastatin Calcium 10 MG Tablet PO (19:36)
[2019-01-01 06:36] VITALS: O2SAT 95
--- NOTE | 2019-01-01 07:05 | NURSING ---
Addendum entered by Palma Escalona 01/01/19 08:28: After seeing pt, agitation is decreased, Dr. Barnett visited and changed Ativan order to 0.25 mg x1 PRN. Will continue to monitor. Original Note: Addendum entered by Glenis Patrick 01/01/19 07:40: Dr. Barnett notified of this. New orders given. Original Note: Patient has had increased confusion throughout the night. Patient confused at where she is at and states that she wants to go home Patient reoriented back to hospital and patient calm and appreciative of care. This morning patient noted to have O2 tubing balled into her hands. This nurse tried to help patient with her tubing which patient refused swatting away this nurse stating I don't need any help. I am going home. Patient stating that she is needing to go to the restroom. Walker set in front of patient, patient refusing walker stating I don't need this walker. I am supposed to be stronger. Patient up without walker very unsteady walking. Patient rushing to bathroom and trying to shut door without help. very unsteady almost losing balance. This nurse assisted by LOIS Goodson. Patient finally to sit on toilet. This nurse offering wash bin and clothes to patient which patient accepted. States I am going home. Will update Dr. Barnett on this.
[2019-01-01] MEDS: Aspirin E.C. 81 MG Tablet PO (07:58)
[2019-01-01] MEDS: Levothyroxine 50 MCG Tablet PO (07:58)
[2019-01-01] MEDS: Furosemide 20 MG Tablet PO (07:58)
[2019-01-01] MEDS: Senna/Docusate Sodium 1 Tablet PO ×2 (07:58→17:06)
[2019-01-01] MEDS: Tolterodine Tartrate 4 MG CAP.SA PO (07:58)
[2019-01-01] MEDS: Sertraline 50 MG Tablet PO (07:59)
[2019-01-01] MEDS: buPROPion (XL) 300 MG TABLET.XL PO (07:59)
[2019-01-01] MEDS: amLODIPine 2.5 MG Tablet PO (07:59)
[2019-01-01] MEDS: Lisinopril 10 MG Tablet PO (07:59)
[2019-01-01] MEDS: Clopidogrel Bisulfate 75 MG Tablet PO (07:59)
[2019-01-01] MEDS: Pantoprazole Sodium 40 MG Tablet PO (07:59)
[2019-01-01] MEDS: Polyethylene Glycol 3350 17 GM PACKET PO (08:00)
[2019-01-01 08:09] VITALS: BP 127/68; PULSE 71
[2019-01-01] MEDS: Metoprolol Tartrate 25 MG Tablet PO ×2 (08:09→17:05)
[2019-01-01] MEDS: Enoxaparin 30 MG/0.3 ML Syringe SC (08:11)
[2019-01-01] MEDS: Menthol/Lanolin/Calamine/Znox 113 GM Tube 1 APPLIC TOPICAL ×2 (08:21→19:24)
--- NOTE | 2019-01-01 09:05 | RAD_ITS ---
STUDY: X-RAY CHEST REASON FOR EXAM: Female, 83 years old. Cough. TECHNIQUE: Single AP portable view of the chest. COMPARISON: Comparison is made with prior study dated December 20, 2018. FINDINGS: There is elevation of the right hemidiaphragm. Scattered calcified granulomas. There is no demonstrated pleural abnormality. There is mild cardiac enlargement. Normal mediastinum and yvette. Normal visualized pulmonary arteries. There is atherosclerotic calcification of the aortic arch with tortuosity. There are diffuse degenerative changes of the visualized thoracic spine. Levoscoliosis of the lumbar spine. There is degenerative osteoarthritis of the bilateral shoulders. There is no demonstrated abnormality of the visualized soft tissue structures of the upper abdomen. RAD/Chest 1 View (Portable) IMPRESSION: No acute abnormality is seen. Electronically Signed: Juancarlos Goddard, at 14:49 EDT , Service support ,
--- NOTE | 2019-01-01 09:15 | RAD_ITS ---
STUDY: X-RAY - ABDOMEN/PELVIS REASON FOR EXAM: Female, 83 years old. Constipation. TECHNIQUE: Two AP supine views of the abdomen and pelvis. COMPARISON: None. FINDINGS: There is elevation of the right hemidiaphragm. There is a moderate amount of colonic fecal material is seen in the left hemicolon and rectum.. The visualized liver, spleen and kidneys are grossly normal in size and morphology. There are calcified phleboliths in the pelvis. There are diffuse degenerative changes of the visualized lumbar spine. Levoscoliosis. RAD/Abdomen Single View (Portable) IMPRESSION: Moderate amount of fecal material is seen in the left hemicolon as well as the rectosigmoid colon. Electronically Signed: Juancarlos Goddard, at 14:48 EDT , Service support ,
[2019-01-01 09:43] LABS: Absolute Neutrophil Count 8.1 X10^3/uL (2.0-7.7); Basophil# 0.06 X10^3/uL; Basophil% 0.6 % (0-1); Eosinophil# 0.21 X10^3/uL; Hematocrit 41.8 % (37-47); Hemoglobin 13.3 g/dl (12.0-15.0); Lymphocyte % 10.6 % (19-41); Mean Corp Hgb Conc 31.8 g/gl (32-36); Mean Corpuscular Hgb 33.1 pg (27.0-32.0); Mean Platelet Vol. 10.3 fl (6.2-12.0); Monocyte# 0.81 X10^3/uL; Monocyte% 7.8 % (0-10); Neutrophil # 8.12 X10^3/uL (2.7-7.7); Neutrophil % 78.7 % (47-70); Platelet Count 317 K/mm3 (150-450); RBC Distribution Width CV 12.8 % (11.6-14.6); RBC Distribution Width SD 47.7 fl (35.1-43.9); Red Blood Count 4.02 M/mm3 (4.2-5.4); White Blood Count 10.3 K/mm3 (4.4-11.0)
[2019-01-01 09:44] LABS: POSITIVE COUNT NO; POSITIVE DIFFERENTIAL NO; POSITIVE MORPHOLOGY NO
[2019-01-01 09:48] LABS: Anion Gap 10 (5-15); BUN 31 mg/dL (7-18); BUN/Creat Ratio 25.4 RATIO (10-20); Calcium,Total 9.9 mg/dL (8.5-10.1); Chloride 106 mmol/L (98-107); Creatinine, Serum 1.22 mg/dL (0.55-1.02); EST Glomerular Filtration Rate 45 mL/min (>60); Est Glom Filt Rate - Afr Amer 54 mL/min (>60); Estimated Creatinine Clearance 32.54 ml/min; Glucose 127 mg/dL (74-106); Potassium 5.1 mmol/L (3.5-5.1); Sodium Level 141 mmol/L (136-145)
[2019-01-01 10:00] VITALS: PULSE 62; O2SAT 96
[2019-01-01 10:00] LABS: Mucous, Urine 0 SEEN /hpf (<or=2+); Red Blood Cells-Urine 0 SEEN /hpf (0-5); White Blood Cells 0 SEEN /hpf (0-5)
[2019-01-01 10:02] LABS: Color, Urine Yellow (Yellow); Glucose, Dipstick Normal (Normal); Ketone-Dipstick Negative (Negative); Leukocyte Esterase-Dipstick Negative /ul (Negative); Nitrite-Dipstick Negative (Negative); Occult Blood-Urine Negative /ul (Negative); Protein-Dipstick Negative (Negative); Urine Bilirubin Dipstick Negative (Negative); Urine Clarity Clear (Clear); Urine Urobilinogen Normal (Normal)
[2019-01-01 10:14] LABS: Bacteria RARE /hpf (None Seen); Hyaline Cast 0-5 SEEN /lpf (0-5); Squamous Epithelial Cells - UA 0-5 SEEN /hpf (5-10)
[2019-01-01] MEDS: Magnesium Citrate 300 ML PO (14:09)
[2019-01-01] MEDS: 0.9% Normal Saline 1,000 ML 999 ML IV (14:13)
[2019-01-01 16:00] VITALS: BP 115/58; PULSE 62; RESP 18; TEMP 36.4; O2SAT 94
--- NOTE | 2019-01-01 16:54 | CHAPLAIN ---
Type of Pastoral Visit _x__ Initial Visit ___ Follow-up Visit ___ On-call Visit ___ General Patient Visit ___ Spiritual Assessment ___ Family Conference ___ Bereavement ___ Rapid Response ___ Code Blue ___ Other (describe below) Pastoral Care Referral From _x__ Patient ___ Family ___ Nurse ___ Physician ___ Inpatient Coder ___ Rehabilitation Physician ___ Other (describe below) Sacrament/Intervention _x__ Active listening ___ Anointing ___ Orthodoxy ___ Bereavement ___ Communion _x__ Evy exploration ___ _x__ Life review _x__ Prayer ___ Reconciliation ___ Sacrament of Sick _x__ Supportive presence ___ Wedding ___ Other (describe below) Pastoral Comments
[2019-01-01 17:05] VITALS: PULSE 62
--- NOTE | 2019-01-01 18:26 | NURSING ---
pt pulled out IV. Pt got all but 100cc of NS bolus. Pt w/confusion intermittently this evening. Dr Barnett aware and adjusted meds. Pleasant & cooperative today.
[2019-01-01] MEDS: Atorvastatin Calcium 10 MG Tablet PO (19:23)
--- NOTE | 2019-01-01 19:56 | PCM.TCUNOT ---
Subjective: Resident confused this AM, uncooperative with care, swinging at staff. Resident seen in room, sitting in chair, eating breakfast, she is confused but not combative. Vitals/I&O's: Vital Signs Temp Pulse Resp BP Pulse Ox 97.5 F L 62 18 115/58 L 94 01/01/19 16:00 01/01/19 17:05 01/01/19 16:00 01/01/19 16:00 01/01/19 16:00 Oxygen Flow Rate (L/min) 2 Oxygen Delivery Method Room Air Weight: 69 kg Body Mass Index (BMI) 25.3 Intake and Output for Last 24 Hours 12/30/18 12/31/18 01/01/19 22:59 23:59 23:59 Intake Total 200 / 200 Output Total 650 / 650 Balance -450 / -450 Laboratory Results 01/01/19 09:25: WBC 10.3, RBC 4.02 L, Hgb 13.3, Hct 41.8, MCV 104.0 H, MCH 33.1 H, MCHC 31.8 L, RDW 12.8, RDW Differential 47.7 H, Plt Count 317, MPV 10.3, Immature Gran % (Auto) 0.300, Neut % (Auto) 78.7 H, Lymph % (Auto) 10.6 L, [place] % (Auto) 7.8, Eos % (Auto) 2.0, Baso % (Auto) 0.6, Absolute Neuts (auto) 8.1 H, Absolute Lymphs (auto) 1.10, Total Counted Not Reportable 01/01/19 09:25: Sodium 141, Potassium 5.1, Chloride 106, Carbon Dioxide 25.0, Anion Gap 10, BUN 31 H, Creatinine 1.22 H, Estim Creat Clear Calc 32.54, Est GFR (MDRD) Af Amer 54 L, Est GFR (MDRD) Non-Af 45 L, BUN/Creatinine Ratio 25.4 H, Glucose 127 H, Calcium 9.9 01/01/19 09:50: Urine Color Yellow, Urine Clarity Clear, Urine pH 7.0, Ur Specific [place] 1.010, Urine Protein Negative, Urine Glucose (UA) Normal, Urine Ketones Negative, Urine Occult Blood Negative, Urine Nitrite Negative, Urine Bilirubin Negative, Urine Urobilinogen Normal, Ur Leukocyte Esterase Negative, Urine RBC 0 SEEN, Urine WBC 0 SEEN, Ur Squamous Epith Cells 0-5 SEEN, Urine Bacteria RARE, Hyaline Casts 0-5 SEEN, Urine Mucus 0 SEEN Past Medical History Past Medical History (Chronic Problems): Chronic Problems Depression (Chronic) Anxiety (Chronic) HTN (hypertension) (Chronic) HLD (hyperlipidemia) (Chronic) Anxiety and depression (Chronic) Hypothyroidism (Chronic) GERD (gastroesophageal reflux disease) (Chronic) AAA (abdominal aortic aneurysm) (Chronic) Allergies No Known Allergies Allergy (Verified 12/19/18 08:08) Home Medications: Ambulatory Orders Medication Instructions Recorded Amlodipine Besylate/Benazepril 1 cap PO DAILY 12/19/18 [Amlodipine-Benazepril 2.5-10] Bupropion HCl [Wellbutrin Xl] 300 mg PO DAILY 12/19/18 Esomeprazole Mag Trihydrate 40 mg PO DAILY 12/19/18 [Nexium] Levothyroxine [Synthroid] 50 mcg PO DAILY 12/19/18 Sertraline HCl [Zoloft] 50 mg PO DAILY 12/19/18 Tolterodine Tartrate [Detrol LA] 4 mg PO DAILY 12/19/18 Aspirin E.C. [Ecotrin] 81 mg PO DAILY@0800 12/22/18 Atorvastatin Calcium [Lipitor] 10 mg PO QHS 12/22/18 Clopidogrel Bisulfate [Plavix] 75 mg PO DAILY 12/22/18 Furosemide [Lasix] 40 mg PO DAILY 12/22/18 Metoprolol Tartrate [Lopressor 25 mg PO BID 12/22/18 (beta risa)] Potassium Chloride [K-Dur] 40 meq PO BID 12/22/18 levoFLOXacin tablet [Levaquin 750 mg PO Q48H 12/22/18 tablet] Surgical History: adenoidectomy, appendectomy, cholecystectomy, hysterectomy, tonsillectomy, - Psychiatric History: Anxiety, Depression [employer] History: No pertinent [employer] history Lives: Alone Smoking Status: Former smoker Tobacco Use: Non-smoker Alcohol: None Drugs: None - *Family History Maternal History Items: Unknown - Patient unavailable to accurately give family history. Paternal History Items: Unknown - Patient unavailable to accurately give family history. Capacity - Capacity Assessment Tool Can the patient make a choice & communicate that choice?: No Can the patient understand benefits, risks and alternatives?: No Can the patient make a logical, rational choice?: No Is the choice the patient makes consistent w/ their values?: No Is there an impending, emergent risk to the patient?: Yes Does the patient have an Advance Directive?: No Is there a Surrogate Available?: No i.e. HCPOA: No i.e. close relative (spouse, child, parent, sibling)?: No Review of Systems Constitutional: Denies: Chills, Fever, Weight Change HEENT: Denies: Head Aches, Sinus Congestion, Sinus Drainage Cardiovascular: Denies: Chest Pain, Palpitations Respiratory: Denies: Cough, Shortness of breath at rest, Sputum production Gastrointestinal: Denies: Abdominal Pain, Nausea, Vomiting Genitourinary: Denies: Dysuria Musculoskeletal: Denies: Joint Pain, Joint Tenderness Skin: Denies: Rash, Wounds Neurological: Reports: Confusion. Denies: Focal weakness, Numbness, Tingling Psychiatric: Denies: Anxiety, Depression, Homicidal Ideations, Suicidal Ideations Hematologic/ Lymphatic: Denies: Easy Bruising, Easy Bleeding Patient Problems: Active and Suspected Problems Fall (Acute) Hypothermia (Acute) Encephalopathy (Acute) Acute diastolic (congestive) heart failure (Acute) - Physical Exam General: Alert, Oriented x3, Cooperative HEENT: Atraumatic, PERRLA, EOMI, Normocephalic Neck: Supple, No JVD, Negative Carotid Bruits Lungs: Clear to auscultation, Normal air movement Cardiovascular: Regular rate, No murmurs Abdomen: Bowel Sounds Present, Soft, Non Tender Extremities: No edema, Capillary Refill Less than 3 Seconds Skin: No rashes, No breakdown Musculoskeletal: No Tenderness to Palpation of Joints or Extremities Neurological: Cranial nerves II-XII grossly intact Psych/Mental Status: Normal Affect, Appropriate Vital Signs Temp Pulse Resp BP Pulse Ox 97.5 F L 62 18 115/58 L 94 01/01/19 16:00 01/01/19 17:05 01/01/19 16:00 01/01/19 16:00 01/01/19 16:00 Oxygen Flow Rate (L/min) 2 Oxygen Delivery Method Room Air Weight: 69 kg Body Mass Index (BMI) 25.3 Intake and Output for Last 24 Hours 12/30/18 12/31/18 01/01/19 22:59 23:59 23:59 Intake Total 200 / 200 Output Total 650 / 650 Balance -450 / -450 Laboratory Tests Past 24 Hrs 01/01/19 01/01/19 01/01/19 09:25 09:25 09:50 WBC 10.3 RBC 4.02 L Hgb 13.3 Hct 41.8 MCV 104.0 H MCH 33.1 H MCHC 31.8 L RDW 12.8 RDW Differential 47.7 H Plt Count 317 MPV 10.3 Immature Gran % (Auto) 0.300 Neut % (Auto) 78.7 H Lymph % (Auto) 10.6 L [place] % (Auto) 7.8 Eos % (Auto) 2.0 Baso % (Auto) 0.6 Absolute Neuts (auto) 8.1 H Absolute Lymphs (auto) 1.10 Total Counted Not Reportable Sodium 141 Potassium 5.1 Chloride 106 Carbon Dioxide 25.0 Anion Gap 10 BUN 31 H Creatinine 1.22 H Estim Creat Clear Calc 32.54 Est GFR (MDRD) Af Amer 54 L Est GFR (MDRD) Non-Af 45 L BUN/Creatinine Ratio 25.4 H Glucose 127 H Calcium 9.9 Urine Color Yellow Urine Clarity Clear Urine pH 7.0 Ur Specific [place] 1.010 Urine Protein Negative Urine Glucose (UA) Normal Urine Ketones Negative Urine Occult Blood Negative Urine Nitrite Negative Urine Bilirubin Negative Urine Urobilinogen Normal Ur Leukocyte Esterase Negative Urine RBC 0 SEEN Urine WBC 0 SEEN Ur Squamous Epith Cells 0-5 SEEN Urine Bacteria RARE Hyaline Casts 0-5 SEEN Urine Mucus 0 SEEN Assessment/Plan All Active Problems Fall (Acute) Hypothermia (Acute) Encephalopathy (Acute) Acute diastolic (congestive) heart failure (Acute) Accidental hypothermia (Acute) Lactic acidosis (Acute) Rhabdomyolysis (Acute) NSTEMI (non-ST elevated myocardial infarction) (Acute) Encephalopathy acute (Acute) Acute respiratory failure with hypoxia (Acute) CAP (community acquired pneumonia) (Acute) 83 year old female with below past medical history hospitalized found down, hypothermic secondary to community acquired pneumonia, complicated by NSTEMI, encephalopathy, rhabdomyolysis, acute diastolic heart failure, admitted to TCU with debility, here for rehabilitation, strengthening, prior to discharge home alone. Encephalopathy - CBCD, BMP, UA, CXR, KUB. Stop Mirtazapine, Stop Lisinopril, Rx Lorazepam 0.25MG PO daily PRN. CBCD okay, Cr 1.22, UA negative, CXR negative, KUB fecal impaction. NSTEMI - Metoprolol 25MG BID, Plavix 75MG daily, Aspirin 81MG daily. Hyperlipidemia - Atorvastatin 10MG QHS, moderate intensity statin for age > 75. Chronic diastolic heart failure - Metoprolol 25MG BID, Lasix 20MG daily. Fecal impaction of colon - Already on Miralax 17GM daily, Senna/colace 1 tablet BID, Dulcolax 10MG daily PRN. KUB showed fecal impaction rectum, descending colon, recommend Magnesium Citrate 300ML PO x 1 dose, Soap Suds enema. Dehydration - Cr 1.22, NS 1 liter IV over 4 hours.
--- NOTE | 2019-01-01 20:00 | NURSING ---
Addendum entered by Glenis Patrick 01/02/19 06:20: Soap Suds enema given at this time per order. Patient tolerated 500 cc of fluid. Very cooperative, patient this morning. Patient with instant results of stool. Original Note: Patient refused to have soap suds enema this evening per orders. States that she does not want it tonight. Patient reminded of the importance of soap ivory enema. Patient aware but not wanting it at this time. Patient states that I will do it in the morning. Dr. Barnett aware of this.
--- NOTE | 2019-01-01 20:03 | PN_ITS ---
Subjective: Resident confused this AM, uncooperative with care, swinging at staff. Resident seen in room, sitting in chair, eating breakfast, she is confused but not combative. Vitals/I&O's: Vital Signs Temp Pulse Resp BP Pulse Ox 97.5 F L 62 18 115/58 L 94 01/01/19 16:00 01/01/19 17:05 01/01/19 16:00 01/01/19 16:00 01/01/19 16:00 Oxygen Flow Rate (L/min) 2 Oxygen Delivery Method Room Air Weight: 69 kg Body Mass Index (BMI) 25.3 Intake and Output for Last 24 Hours 12/30/18 12/31/18 01/01/19 22:59 23:59 23:59 Intake Total 200 / 200 Output Total 650 / 650 Balance -450 / -450 Laboratory Results 01/01/19 09:25: WBC 10.3, RBC 4.02 L, Hgb 13.3, Hct 41.8, MCV 104.0 H, MCH 33.1 H, MCHC 31.8 L, RDW 12.8, RDW Differential 47.7 H, Plt Count 317, MPV 10.3, Immature Gran % (Auto) 0.300, Neut % (Auto) 78.7 H, Lymph % (Auto) 10.6 L, [place] % (Auto) 7.8, Eos % (Auto) 2.0, Baso % (Auto) 0.6, Absolute Neuts (auto) 8.1 H, Absolute Lymphs (auto) 1.10, Total Counted Not Reportable 01/01/19 09:25: Sodium 141, Potassium 5.1, Chloride 106, Carbon Dioxide 25.0, Anion Gap 10, BUN 31 H, Creatinine 1.22 H, Estim Creat Clear Calc 32.54, Est GFR (MDRD) Af Amer 54 L, Est GFR (MDRD) Non-Af 45 L, BUN/Creatinine Ratio 25.4 H, Glucose 127 H, Calcium 9.9 01/01/19 09:50: Urine Color Yellow, Urine Clarity Clear, Urine pH 7.0, Ur Specific [place] 1.010, Urine Protein Negative, Urine Glucose (UA) Normal, Urine Ketones Negative, Urine Occult Blood Negative, Urine Nitrite Negative, Urine Bilirubin Negative, Urine Urobilinogen Normal, Ur Leukocyte Esterase Negative, Urine RBC 0 SEEN, Urine WBC 0 SEEN, Ur Squamous Epith Cells 0-5 SEEN, Urine Bacteria RARE, Hyaline Casts 0-5 SEEN, Urine Mucus 0 SEEN Past Medical History Past Medical History (Chronic Problems): Chronic Problems Depression (Chronic) Anxiety (Chronic) HTN (hypertension) (Chronic) HLD (hyperlipidemia) (Chronic) Anxiety and depression (Chronic) Hypothyroidism (Chronic) GERD (gastroesophageal reflux disease) (Chronic) AAA (abdominal aortic aneurysm) (Chronic) Allergies No Known Allergies Allergy (Verified 12/19/18 08:08) Home Medications: Ambulatory Orders Medication Instructions Recorded Amlodipine Besylate/Benazepril 1 cap PO DAILY 12/19/18 [Amlodipine-Benazepril 2.5-10] Bupropion HCl [Wellbutrin Xl] 300 mg PO DAILY 12/19/18 Esomeprazole Mag Trihydrate 40 mg PO DAILY 12/19/18 [Nexium] Levothyroxine [Synthroid] 50 mcg PO DAILY 12/19/18 Sertraline HCl [Zoloft] 50 mg PO DAILY 12/19/18 Tolterodine Tartrate [Detrol LA] 4 mg PO DAILY 12/19/18 Aspirin E.C. 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 Paternal History Items: Unknown - Patient unavailable to accurately give family history. Capacity - Capacity Assessment Tool Can the patient make a choice & communicate that choice?: No Can the patient understand benefits, risks and alternatives?: No Can the patient make a logical, rational choice?: No Is the choice the patient makes consistent w/ their values?: No Is there an impending, emergent risk to the patient?: Yes Does the patient have an Advance Directive?: No Is there a Surrogate Available?: No i.e. HCPOA: No i.e. close relative (spouse, child, parent, sibling)?: No Review of Systems Constitutional: Denies: Chills, Fever, Weight Change HEENT: Denies: Head Aches, Sinus Congestion, Sinus Drainage Cardiovascular: Denies: Chest Pain, Palpitations Respiratory: Denies: Cough, Shortness of breath at rest, Sputum production Gastrointestinal: Denies: Abdominal Pain, Nausea, Vomiting Genitourinary: Denies: Dysuria Musculoskeletal: Denies: Joint Pain, Joint Tenderness Skin: Denies: Rash, Wounds Neurological: Reports: Confusion. Denies: Focal weakness, Numbness, Tingling Psychiatric: Denies: Anxiety, Depression, Homicidal Ideations, Suicidal Ideations Hematologic/ Lymphatic: Denies: Easy Bruising, Easy Bleeding Patient Problems: Active and Suspected Problems Fall (Acute) Hypothermia (Acute) Encephalopathy (Acute) Acute diastolic (congestive) heart failure (Acute) - Physical Exam General: Alert, Oriented x3, Cooperative HEENT: Atraumatic, PERRLA, EOMI, Normocephalic Neck: Supple, No JVD, Negative Carotid Bruits Lungs: Clear to auscultation, Normal air movement Cardiovascular: Regular rate, No murmurs Abdomen: Bowel Sounds Present, Soft, Non Tender Extremities: No edema, Capillary Refill Less than 3 Seconds Skin: No rashes, No breakdown Musculoskeletal: No Tenderness to Palpation of Joints or Extremities Neurological: Cranial nerves II-XII grossly intact Psych/Mental Status: Normal Affect, Appropriate Vital Signs Temp Pulse Resp BP Pulse Ox 97.5 F L 62 18 115/58 L 94 01/01/19 16:00 01/01/19 17:05 01/01/19 16:00 01/01/19 16:00 01/01/19 16:00 Oxygen Flow Rate (L/min) 2 Oxygen Delivery Method Room Air Weight: 69 kg Body Mass Index (BMI) 25.3 Intake and Output for Last 24 Hours 12/30/18 12/31/18 01/01/19 22:59 23:59 23:59 Intake Total 200 / 200 Output Total 650 / 650 Balance -450 / -450 Laboratory Tests Past 24 Hrs 01/01/19 01/01/19 01/01/19 09:25 09:25 09:50 WBC 10.3 RBC 4.02 L Hgb 13.3 Hct 41.8 MCV 104.0 H MCH 33.1 H MCHC 31.8 L RDW 12.8 RDW Differential 47.7 H Plt Count 317 MPV 10.3 Immature Gran % (Auto) 0.300 Neut % (Auto) 78.7 H Lymph % (Auto) 10.6 L [place] % (Auto) 7.8 Eos % (Auto) 2.0 Baso % (Auto) 0.6 Absolute Neuts (auto) 8.1 H Absolute Lymphs (auto) 1.10 Total Counted Not Reportable Sodium 141 Potassium 5.1 Chloride 106 Carbon Dioxide 25.0 Anion Gap 10 BUN 31 H Creatinine 1.22 H Estim Creat Clear Calc 32.54 Est GFR (MDRD) Af Amer 54 L Est GFR (MDRD) Non-Af 45 L BUN/Creatinine Ratio 25.4 H Glucose 127 H Calcium 9.9 Urine Color Yellow Urine Clarity Clear Urine pH 7.0 Ur Specific [place] 1.010 Urine Protein Negative Urine Glucose (UA) Normal Urine Ketones Negative Urine Occult Blood Negative Urine Nitrite Negative Urine Bilirubin Negative Urine Urobilinogen Normal Ur Leukocyte Esterase Negative Urine RBC 0 SEEN Urine WBC 0 SEEN Ur Squamous Epith Cells 0-5 SEEN Urine Bacteria RARE Hyaline Casts 0-5 SEEN Urine Mucus 0 SEEN Assessment/Plan All Active Problems Fall (Acute) Hypothermia (Acute) Encephalopathy (Acute) Acute diastolic (congestive) heart failure (Acute) Accidental hypothermia (Acute) Lactic acidosis (Acute) Rhabdomyolysis (Acute) NSTEMI (non-ST elevated myocardial infarction) (Acute) Encephalopathy acute (Acute) Acute respiratory failure with hypoxia (Acute) CAP (community acquired pneumonia) (Acute) 83 year old female with below past medical history hospitalized found down, hypothermic secondary to community acquired pneumonia, complicated by NSTEMI, encephalopathy, rhabdomyolysis, acute diastolic heart failure, admitted to TCU with debility, here for rehabilitation, strengthening, prior to discharge home alone. * Encephalopathy - CBCD, BMP, UA, CXR, KUB. Stop Mirtazapine, Stop Lisinopril, Rx Lorazepam 0.25MG PO daily PRN. CBCD okay, Cr 1.22, UA negative, CXR negative, KUB fecal impaction. * NSTEMI - Metoprolol 25MG BID, Plavix 75MG daily, Aspirin 81MG daily. * Hyperlipidemia - Atorvastatin 10MG QHS, moderate intensity statin for age > 75. * Chronic diastolic heart failure - Metoprolol 25MG BID, Lasix 20MG daily. * Fecal impaction of colon - Already on Miralax 17GM daily, Senna/colace 1 tablet BID, Dulcolax 10MG daily PRN. KUB showed fecal impaction rectum, descending colon, recommend Magnesium Citrate 300ML PO x 1 dose, Soap Suds enema. * Dehydration - Cr 1.22, NS 1 liter IV over 4 hours.
[2019-01-02 05:49] VITALS: BP 115/57; PULSE 64
[2019-01-02] MEDS: Metoprolol Tartrate 25 MG Tablet PO ×2 (05:49→17:49)
[2019-01-02] MEDS: Furosemide 20 MG Tablet PO (05:49)
[2019-01-02] MEDS: Enoxaparin 30 MG/0.3 ML Syringe SC (05:51)
[2019-01-02] MEDS: Polyethylene Glycol 3350 17 GM PACKET PO (05:51)
[2019-01-02] MEDS: Levothyroxine 50 MCG Tablet PO (05:51)
[2019-01-02] MEDS: Senna/Docusate Sodium 1 Tablet PO ×2 (05:51→17:49)
[2019-01-02] MEDS: Menthol/Lanolin/Calamine/Znox 113 GM Tube 1 APPLIC TOPICAL ×2 (06:02→19:55)
[2019-01-02 06:45] VITALS: O2SAT 92
[2019-01-02] MEDS: Sertraline 50 MG Tablet PO (08:05)
[2019-01-02] MEDS: buPROPion (XL) 300 MG TABLET.XL PO (08:05)
[2019-01-02] MEDS: Clopidogrel Bisulfate 75 MG Tablet PO (08:05)
[2019-01-02] MEDS: Aspirin E.C. 81 MG Tablet PO (08:05)
[2019-01-02] MEDS: Pantoprazole Sodium 40 MG Tablet PO (08:05)
--- NOTE | 2019-01-02 10:38 | NURSING ---
Dr. Barnett reviewed CT results, NNO.
[2019-01-02 15:40] VITALS: BP 123/66; PULSE 59; RESP 18; TEMP 36.8; O2SAT 96
--- NOTE | 2019-01-02 16:30 | NURSING ---
Toenails trimmed by this nurse per families request.
[2019-01-02 17:49] VITALS: PULSE 64
[2019-01-02] MEDS: Atorvastatin Calcium 10 MG Tablet PO (20:02)
[2019-01-03] MEDS: Polyethylene Glycol 3350 17 GM PACKET PO (04:57)
[2019-01-03 04:59] VITALS: BP 134/62; PULSE 65
[2019-01-03] MEDS: Furosemide 20 MG Tablet PO (04:59)
[2019-01-03] MEDS: Senna/Docusate Sodium 1 Tablet PO ×2 (04:59→17:08)
[2019-01-03] MEDS: Levothyroxine 50 MCG Tablet PO (04:59)
[2019-01-03] MEDS: Metoprolol Tartrate 25 MG Tablet PO ×2 (04:59→17:09)
[2019-01-03] MEDS: Enoxaparin 30 MG/0.3 ML Syringe SC (05:00)
[2019-01-03] MEDS: Menthol/Lanolin/Calamine/Znox 113 GM Tube 1 APPLIC TOPICAL ×2 (05:00→20:35)
[2019-01-03] MEDS: Sertraline 50 MG Tablet PO (07:52)
[2019-01-03] MEDS: Aspirin E.C. 81 MG Tablet PO (07:52)
[2019-01-03] MEDS: Pantoprazole Sodium 40 MG Tablet PO (07:52)
[2019-01-03] MEDS: buPROPion (XL) 300 MG TABLET.XL PO (07:52)
[2019-01-03] MEDS: Clopidogrel Bisulfate 75 MG Tablet PO (07:52)
[2019-01-03 08:51] VITALS: O2SAT 95
[2019-01-03 10:00] VITALS: PULSE 68; RESP 18; O2SAT 96
--- NOTE | 2019-01-03 11:25 | MDS.RN ---
Information for the mds was obtained from review of the clinical record, interview of resident, staff, and direct observation of resident's care.
--- NOTE | 2019-01-03 12:42 | NURSING ---
Pt with confusion this AM, unable to say where she at. reoriented. pt tired of sitting, assisted pt around halls & let pt sit in lobby until next therapy session.
[2019-01-03 16:00] VITALS: BP 141/78; PULSE 63; RESP 18; TEMP 36.9; O2SAT 98
[2019-01-03 17:09] VITALS: BP 141/78; PULSE 63
[2019-01-03] MEDS: Atorvastatin Calcium 10 MG Tablet PO (20:36)
[2019-01-04 06:12] VITALS: BP 120/59; PULSE 65
[2019-01-04] MEDS: Polyethylene Glycol 3350 17 GM PACKET PO (06:12)
[2019-01-04] MEDS: Metoprolol Tartrate 25 MG Tablet PO ×2 (06:12→16:47)
[2019-01-04] MEDS: Furosemide 20 MG Tablet PO (06:13)
[2019-01-04] MEDS: Senna/Docusate Sodium 1 Tablet PO ×2 (06:13→16:47)
[2019-01-04] MEDS: Menthol/Lanolin/Calamine/Znox 113 GM Tube 1 APPLIC TOPICAL ×2 (06:13→20:26)
[2019-01-04] MEDS: Levothyroxine 50 MCG Tablet PO (06:13)
[2019-01-04] MEDS: Enoxaparin 30 MG/0.3 ML Syringe SC (06:14)
[2019-01-04] MEDS: Clopidogrel Bisulfate 75 MG Tablet PO (08:36)
[2019-01-04] MEDS: Pantoprazole Sodium 40 MG Tablet PO (08:37)
[2019-01-04] MEDS: Sertraline 50 MG Tablet PO (08:37)
[2019-01-04] MEDS: buPROPion (XL) 300 MG TABLET.XL PO (08:37)
[2019-01-04] MEDS: Aspirin E.C. 81 MG Tablet PO (08:37)
--- NOTE | 2019-01-04 11:27 | NURSING ---
Addendum entered by Blanche Price 01/04/19 12:10: Returned from appt, no new orders, f/u in March. Original Note: pt to cardiology appt @ 11am with son at side.
--- NOTE | 2019-01-04 13:15 | MDS.RN ---
Pain interview for leslie 01/05/19 completed.
--- NOTE | 2019-01-04 14:44 | CASEMGMT ---
Social Work Team communicating that resident will need 24hr care at time of discharge wether that be at home or in an assisted living. This socially responsible investment adviser met with resident son, Mateus in room. This socially responsible investment adviser communicating team recommendations. Mateus voicing understanding and accepting information on both private duty aides and assisted living. Mateus reporting to not be sure what family will decide but family will discuss options for 24hr care for resident at time of discharge. Mateus thanking this socially responsible investment adviser for the information. Support given. Will continue to follow. Radha Zayas MSW, COLBY
[2019-01-04 16:00] VITALS: BP 149/77; PULSE 77; RESP 16; TEMP 37; O2SAT 95
[2019-01-04 16:47] VITALS: BP 149/77; PULSE 77
[2019-01-04] MEDS: Atorvastatin Calcium 10 MG Tablet PO (20:25)
[2019-01-05] MEDS: Furosemide 20 MG Tablet PO (06:05)
[2019-01-05] MEDS: Levothyroxine 50 MCG Tablet PO (06:05)
[2019-01-05] MEDS: Enoxaparin 30 MG/0.3 ML Syringe SC (06:05)
[2019-01-05] MEDS: Senna/Docusate Sodium 1 Tablet PO ×2 (06:05→17:20)
[2019-01-05 06:11] VITALS: BP 134/72; PULSE 71
[2019-01-05] MEDS: Metoprolol Tartrate 25 MG Tablet PO ×2 (06:11→17:21)
[2019-01-05] MEDS: Menthol/Lanolin/Calamine/Znox 113 GM Tube 1 APPLIC TOPICAL ×2 (06:12→20:14)
[2019-01-05] MEDS: Polyethylene Glycol 3350 17 GM PACKET PO (06:14)
[2019-01-05 06:45] VITALS: O2SAT 95
[2019-01-05] MEDS: buPROPion (XL) 300 MG TABLET.XL PO (09:21)
[2019-01-05] MEDS: Sertraline 50 MG Tablet PO (09:21)
[2019-01-05] MEDS: Aspirin E.C. 81 MG Tablet PO (09:21)
[2019-01-05] MEDS: Pantoprazole Sodium 40 MG Tablet PO (09:21)
[2019-01-05] MEDS: Clopidogrel Bisulfate 75 MG Tablet PO (09:21)
--- NOTE | 2019-01-05 09:29 | CASEMGMT ---
Addendum entered by Chelsi Zayas 01/05/19 12:11: Reviewed and approved social human services assistants student documentation. Radha Zayas AUTOMOBILE RENTAL AGENT, FINISH REMOVER Original Note: Brief interview for mental status (BIMS) and mood (PHQ-9) completed on this day. BIMS score 06/07. PHQ-9 score 03/19. Kaity Mayen social work student
[2019-01-05 15:37] VITALS: BP 136/80; PULSE 73; RESP 16; TEMP 36.6; O2SAT 97
[2019-01-05 17:21] VITALS: PULSE 73
[2019-01-05] MEDS: Atorvastatin Calcium 10 MG Tablet PO (20:13)
[2019-01-06] MEDS: Enoxaparin 30 MG/0.3 ML Syringe SC (05:22)
[2019-01-06 05:23] VITALS: BP 117/61; PULSE 68
[2019-01-06] MEDS: Levothyroxine 50 MCG Tablet PO (05:23)
[2019-01-06] MEDS: Metoprolol Tartrate 25 MG Tablet PO ×2 (05:23→17:52)
[2019-01-06] MEDS: Polyethylene Glycol 3350 17 GM PACKET PO (05:23)
[2019-01-06] MEDS: Furosemide 20 MG Tablet PO (05:23)
[2019-01-06] MEDS: Senna/Docusate Sodium 1 Tablet PO ×2 (05:23→17:52)
[2019-01-06] MEDS: Menthol/Lanolin/Calamine/Znox 113 GM Tube 1 APPLIC TOPICAL ×2 (05:27→19:41)
[2019-01-06 06:56] LABS: Absolute Lymphocyte Count 1.63 X10^3/ul (0.83-4.51); Absolute Neutrophil Count 3.1 X10^3/uL (2.0-7.7); Basophil# 0.04 X10^3/uL; Basophil% 0.7 % (0-1); Eosinophil# 0.21 X10^3/uL; Eosinophils% 3.6 % (0-5); Hematocrit 37.5 % (37-47); Hemoglobin 12.2 g/dl (12.0-15.0); Lymphocyte # 1.63 X10^3/ul (4.0); Lymphocyte % 28.2 % (19-41); Mean Corp Hgb Conc 32.5 g/gl (32-36); Mean Corpuscular Hgb 33.2 pg (27.0-32.0); Mean Corpuscular Volume 102.2 fL (81-99); Mean Platelet Vol. 10.6 fl (6.2-12.0); Monocyte# 0.76 X10^3/uL; Monocyte% 13.1 % (0-10); Neutrophil # 3.12 X10^3/uL (2.7-7.7); Neutrophil % 54.1 % (47-70); Platelet Count 262 K/mm3 (150-450); RBC Distribution Width CV 12.7 % (11.6-14.6); RBC Distribution Width SD 46.3 fl (35.1-43.9); Red Blood Count 3.67 M/mm3 (4.2-5.4); White Blood Count 5.8 K/mm3 (4.4-11.0)
[2019-01-06 06:59] LABS: POSITIVE COUNT NO; POSITIVE DIFFERENTIAL NO; POSITIVE MORPHOLOGY NO
[2019-01-06] MEDS: Aspirin E.C. 81 MG Tablet PO (07:56)
[2019-01-06] MEDS: buPROPion (XL) 300 MG TABLET.XL PO (07:56)
[2019-01-06] MEDS: Pantoprazole Sodium 40 MG Tablet PO (07:56)
[2019-01-06] MEDS: Sertraline 50 MG Tablet PO (07:56)
[2019-01-06] MEDS: Clopidogrel Bisulfate 75 MG Tablet PO (07:57)
[2019-01-06 07:59] LABS: Anion Gap 7 (5-15); BUN 18 mg/dL (7-18); BUN/Creat Ratio 18.1 RATIO (10-20); Calcium,Total 8.7 mg/dL (8.5-10.1); Chloride 109 mmol/L (98-107); EST Glomerular Filtration Rate 57 mL/min (>60); Est Glom Filt Rate - Afr Amer 69 mL/min (>60); Glucose 101 mg/dL (74-106); Potassium 4.2 mmol/L (3.5-5.1); Sodium Level 142 mmol/L (136-145)
[2019-01-06 16:00] VITALS: BP 138/77; PULSE 69; RESP 18; TEMP 34.6; O2SAT 93
[2019-01-06 17:52] VITALS: BP 138/77; PULSE 69
[2019-01-06] MEDS: Atorvastatin Calcium 10 MG Tablet PO (19:43)
[2019-01-07] MEDS: Menthol/Lanolin/Calamine/Znox 113 GM Tube 1 APPLIC TOPICAL ×2 (06:22→19:35)
[2019-01-07 06:24] VITALS: BP 117/65; PULSE 67
[2019-01-07] MEDS: Polyethylene Glycol 3350 17 GM PACKET PO (06:24)
[2019-01-07] MEDS: Metoprolol Tartrate 25 MG Tablet PO ×2 (06:24→17:08)
[2019-01-07] MEDS: Furosemide 20 MG Tablet PO (06:24)
[2019-01-07] MEDS: Levothyroxine 50 MCG Tablet PO (06:25)
[2019-01-07] MEDS: Enoxaparin 30 MG/0.3 ML Syringe SC (06:25)
[2019-01-07] MEDS: Senna/Docusate Sodium 1 Tablet PO ×2 (06:25→17:07)
[2019-01-07] MEDS: Aspirin E.C. 81 MG Tablet PO (07:56)
[2019-01-07] MEDS: Sertraline 50 MG Tablet PO (07:56)
[2019-01-07] MEDS: Pantoprazole Sodium 40 MG Tablet PO (07:57)
[2019-01-07] MEDS: buPROPion (XL) 300 MG TABLET.XL PO (07:57)
[2019-01-07] MEDS: Clopidogrel Bisulfate 75 MG Tablet PO (07:57)
[2019-01-07 15:33] VITALS: BP 145/84; PULSE 84; RESP 20; TEMP 36.7; O2SAT 93
[2019-01-07 17:08] VITALS: BP 145/84; PULSE 84
[2019-01-07] MEDS: Atorvastatin Calcium 10 MG Tablet PO (19:36)
[2019-01-08] MEDS: Menthol/Lanolin/Calamine/Znox 113 GM Tube 1 APPLIC TOPICAL ×2 (06:28→22:15)
[2019-01-08 06:29] VITALS: BP 133/72; PULSE 64
[2019-01-08] MEDS: Senna/Docusate Sodium 1 Tablet PO ×2 (06:29→16:59)
[2019-01-08] MEDS: Metoprolol Tartrate 25 MG Tablet PO ×2 (06:29→16:59)
[2019-01-08] MEDS: Enoxaparin 30 MG/0.3 ML Syringe SC (06:29)
[2019-01-08] MEDS: Furosemide 20 MG Tablet PO (06:29)
[2019-01-08] MEDS: Levothyroxine 50 MCG Tablet PO (06:29)
[2019-01-08] MEDS: Aspirin E.C. 81 MG Tablet PO (07:36)
[2019-01-08] MEDS: Pantoprazole Sodium 40 MG Tablet PO (07:36)
[2019-01-08] MEDS: buPROPion (XL) 300 MG TABLET.XL PO (07:36)
[2019-01-08] MEDS: Clopidogrel Bisulfate 75 MG Tablet PO (07:36)
[2019-01-08] MEDS: Sertraline 50 MG Tablet PO (07:36)
--- NOTE | 2019-01-08 12:35 | CASEMGMT ---
Social Work Spoke with resident son. Resident son reporting that discharge plan is for resident to discharge to home with family for 24hr care within the home. This high school social science teacher providing positive reinforcement to this discharge plan as team is highly recommending for resident to have 24hr care. Will continue to follow as needed. Radha Zayas MSW, COLBY
[2019-01-08 15:19] VITALS: BP 125/68; PULSE 74; RESP 16; TEMP 36.8; O2SAT 93
[2019-01-08 16:59] VITALS: PULSE 74
[2019-01-08] MEDS: Atorvastatin Calcium 10 MG Tablet PO (22:10)
[2019-01-09] MEDS: Enoxaparin 30 MG/0.3 ML Syringe SC (05:47)
[2019-01-09] MEDS: Senna/Docusate Sodium 1 Tablet PO (05:47)
[2019-01-09] MEDS: Furosemide 20 MG Tablet PO (05:47)
[2019-01-09] MEDS: Levothyroxine 50 MCG Tablet PO (05:47)
[2019-01-09 05:48] VITALS: BP 120/68; PULSE 67
[2019-01-09] MEDS: Polyethylene Glycol 3350 17 GM PACKET PO (05:48)
[2019-01-09] MEDS: Metoprolol Tartrate 25 MG Tablet PO ×2 (05:48→17:06)
[2019-01-09] MEDS: Menthol/Lanolin/Calamine/Znox 113 GM Tube 1 APPLIC TOPICAL ×2 (05:49→19:28)
[2019-01-09] MEDS: buPROPion (XL) 300 MG TABLET.XL PO (08:32)
[2019-01-09] MEDS: Clopidogrel Bisulfate 75 MG Tablet PO (08:32)
[2019-01-09] MEDS: Aspirin E.C. 81 MG Tablet PO (08:32)
[2019-01-09] MEDS: Sertraline 50 MG Tablet PO (08:32)
[2019-01-09] MEDS: Pantoprazole Sodium 40 MG Tablet PO (08:32)
--- NOTE | 2019-01-09 15:37 | CASEMGMT ---
Social Work Spoke with resident and resident son, Mateus. This social media developer communicating that discharge date has been set for 01/19/19. Mateus reporting that plan is for resident to discharge to home with 24hr care, per team recommendation. Physical, Occupational and speech therapy are also recommending for resident to have continued services within the home at time of discharge. Social work will need to follow up on what home health options resident/resident family would like to go with. Support provided. Proposed discharge date: 01/19/19 PLAN: Discharge to home with 24hr care and home health care. Radha PRINCE, COLBY
[2019-01-09 16:00] VITALS: BP 151/78; PULSE 76; RESP 18; TEMP 35.9; O2SAT 98
[2019-01-09 17:06] VITALS: BP 151/78; PULSE 76
[2019-01-09] MEDS: Atorvastatin Calcium 10 MG Tablet PO (19:28)
--- NOTE | 2019-01-09 21:12 | DCINST_ITS ---
- Discharge Diagnoses Current Active Problems: Current Active and Chronic Problems (Last Updated 01/04/19 @ 10:56 by Domitila Cleaning) Fall (Acute) Hypothermia (Acute) Encephalopathy (Acute) Depression (Chronic) Anxiety (Chronic) Acute diastolic (congestive) heart failure (Acute) You will use the following diet at home:: No restrictions, Regular Your food should be the consistency of: Regular Your liquids should be the consistency of: Regular/Thin Discharge Activity: Return to Normal Activity, May Shower, Use Walker Weight Bearing Status: Weight bearing as tolerated Call your doctor if you observe: Fever of 101 or Higher, Inability to urinate, Inability to have a bowel movement, Shortness of breath, Chest pain, Uncontrolled pain Allergies/Adverse Reactions: Allergies No Known Allergies Allergy (Verified 01/04/19 11:24) Medications to take at Discharge Bupropion HCl [Wellbutrin Xl] 300 mg PO DAILY 12/19/18 Levothyroxine [Synthroid] 50 mcg PO DAILY 12/19/18 Sertraline HCl [Zoloft] 50 mg PO DAILY 12/19/18 pantoprazole 40 mg tablet,delayed release 40 mg PO DAILY 01/04/19 Acetaminophen [Tylenol] 1,000 mg PO Q6H PRN PRN tablet 01/09/19 Aspirin E.C. [Ecotrin] 81 mg PO DAILY@0800 #30 tablet 01/09/19 Atorvastatin Calcium [Lipitor] 10 mg PO QHS #30 tablet 01/09/19 Clopidogrel Bisulfate [Plavix] 75 mg PO DAILY #30 tablet 01/09/19 Furosemide [Lasix] 20 mg PO DAILY #30 tablet 01/09/19 Menthol/Lanolin/Calamine/Znox [Calmoseptine Ointment] 1 applic TOPICAL 0600,2200 tube 01/09/19 Metoprolol Tartrate [Lopressor (beta risa)] 25 mg PO BID #60 tablet 01/09/19 Mineral Oil/Petrolatum,White [Eucerin] 1 applic TOPICAL 0600,2200 jar 01/09/19 Pantoprazole Sodium [Protonix] 40 mg PO DAILY@0800 #30 tablet 01/09/19 Potassium Chloride [K-Dur] 40 meq PO BID #60 tablet 01/09/19 The following prescriptions were given: Aspirin E.C. [Ecotrin] 81 mg PO DAILY@0800 #30 tablet Atorvastatin Calcium [Lipitor] 10 mg PO QHS #30 tablet Clopidogrel Bisulfate [Plavix] 75 mg PO DAILY #30 tablet Furosemide [Lasix] 20 mg PO DAILY #30 tablet Pantoprazole Sodium [Protonix] 40 mg PO DAILY@0800 #30 tablet Metoprolol Tartrate [Lopressor (beta risa)] 25 mg PO BID #60 tablet Potassium Chloride [K-Dur] 40 meq PO BID #60 tablet Orders to be completed after discharge: Basic Metabolic Profile (BMP) Time Frame: 3 Days, Location: Laboratory Primary Care Physician: Austin Cuevas MD [Primary Care Provider] - Please follow up with your Primary Care Physician in: 1 week. Test Results: Test results from this visit will be discussed in further detail at your follow- up appointment, if applicable. Please Follow Up With: Epi Joya MD When: [phone] Please Follow Up With: Dr Daniele Holt/Yaima Rowell NP When: [phone] Proposed Discharge Date: 01/19/19
--- NOTE | 2019-01-09 21:12 | PCM.DC.SUM ---
Discharge Date and Diagnosis - Problem List Patient Problems: Active and Suspected Problems (Last Updated 01/04/19 @ 10:56 by Domitila Cleaning) Fall (Acute) Hypothermia (Acute) Encephalopathy (Acute) Acute diastolic (congestive) heart failure (Acute) Date of Admission: 12/22/18 Date of Discharge: 01/19/19 - Primary Discharge Diagnosis Active and Suspected Problems (Last Updated 01/04/19 @ 10:56 by Domitila No) Fall (Acute) Hypothermia (Acute) Encephalopathy (Acute) Acute diastolic (congestive) heart failure (Acute) - Secondary Discharge Diagnosis Chronic Problems (Last Updated 01/04/19 @ 10:56 by Domitila Cleaning) Essential hypertension (Chronic) Depression (Chronic) Anxiety (Chronic) HLD (hyperlipidemia) (Chronic) Anxiety and depression (Chronic) Hypothyroidism (Chronic) GERD (gastroesophageal reflux disease) (Chronic) AAA (abdominal aortic aneurysm) (Chronic) Hospital Course and Treatment Imaging Results: 12/27/18 13:32 Diet: Regular Diet Is pt able to select menu?: Yes Clinical Impression(s) from Imaging Studies Chest X-Ray 01/01/19 09:05 IMPRESSION: No acute abnormality is seen. Electronically Signed: Juancarlos Goddard, at 14:49 EDT , Service support , KUB X-Ray 01/01/19 09:15 IMPRESSION: Moderate amount of fecal material is seen in the left hemicolon as well as the rectosigmoid colon. Electronically Signed: Juancarlos Goddard, at 14:48 EDT , Service support , Operations: None Procedures: None Summary of Care Provided: The patient is a 84 year old Female with below past medical history hospitalized found down, hypothermic secondary to community acquired pneumonia, complicated by NSTEMI, encephalopathy, rhabdomyolysis, acute diastolic heart failure, admitted to TCU with debility, here for rehabilitation, strengthening, prior to discharge home alone. Resident needs referral to Vascular Surgery for 5CM abdominal aortic aneurysm. Consider evaluation and treatment of Alzheimer's Disease. Discharge home with 24 hour care, and Home Health Care. Patient Problems: Active and Suspected Problems (Last Updated 01/04/19 @ 10:56 by Domitila Cleaning) Fall (Acute) Hypothermia (Acute) Encephalopathy (Acute) Acute diastolic (congestive) heart failure (Acute) - Physical Exam Vital Signs Temp Pulse Resp BP Pulse Ox 96.7 F L 76 18 151/78 H 98 01/09/19 16:00 01/09/19 17:06 01/09/19 16:00 01/09/19 17:06 01/09/19 16:00 Oxygen Flow Rate (L/min) 2 Oxygen Delivery Method Room Air Weight: 70.505 kg Body Mass Index (BMI) 25.3 Intake and Output for Last 24 Hours 01/07/19 01/08/19 01/09/19 23:59 23:59 23:59 Intake Total 360 / 360 480 / 480 360 / 360 Balance 360 / 360 480 / 480 360 / 360 Discharge Diet: No Restrictions Discharge Activity: Return to Normal Activity, May Shower, Use Walker Weight Bearing Status: Weight bearing as tolerated Call your doctor if you observe: Fever of 101 or Higher, Inability to urinate, Inability to have a bowel movement, Shortness of breath, Chest pain, Uncontrolled pain Home Medications: Medications to take at Discharge Bupropion HCl [Wellbutrin Xl] 300 mg PO DAILY 12/19/18 Levothyroxine [Synthroid] 50 mcg PO DAILY 12/19/18 Sertraline HCl [Zoloft] 50 mg PO DAILY 12/19/18 pantoprazole 40 mg tablet,delayed release 40 mg PO DAILY 01/04/19 Acetaminophen [Tylenol] 1,000 mg PO Q6H PRN PRN tablet 01/09/19 Aspirin E.C. [Ecotrin] 81 mg PO DAILY@0800 #30 tablet 01/09/19 Atorvastatin Calcium [Lipitor] 10 mg PO QHS #30 tablet 01/09/19 Clopidogrel Bisulfate [Plavix] 75 mg PO DAILY #30 tablet 01/09/19 Furosemide [Lasix] 20 mg PO DAILY #30 tablet 01/09/19 Menthol/Lanolin/Calamine/Znox [Calmoseptine Ointment] 1 applic TOPICAL 0600,2200 tube 01/09/19 Metoprolol Tartrate [Lopressor (beta risa)] 25 mg PO BID #60 tablet 01/09/19 Mineral Oil/Petrolatum,White [Eucerin] 1 applic TOPICAL 0600,2200 jar 01/09/19 Pantoprazole Sodium [Protonix] 40 mg PO DAILY@0800 #30 tablet 01/09/19 Potassium Chloride [K-Dur] 40 meq PO BID #60 tablet 01/09/19 Following Prescrptions Were Given to Patient: Aspirin E.C. [Ecotrin] 81 mg PO DAILY@0800 #30 tablet Atorvastatin Calcium [Lipitor] 10 mg PO QHS #30 tablet Clopidogrel Bisulfate [Plavix] 75 mg PO DAILY #30 tablet Furosemide [Lasix] 20 mg PO DAILY #30 tablet Pantoprazole Sodium [Protonix] 40 mg PO DAILY@0800 #30 tablet Metoprolol Tartrate [Lopressor (beta risa)] 25 mg PO BID #60 tablet Potassium Chloride [K-Dur] 40 meq PO BID #60 tablet Other Amb Orders: Basic Metabolic Profile (BMP) Time Frame: 3 Days, Location: Laboratory Primary Care Physician: Austin Cuevas MD [Primary Care Provider] - Please follow up with your Primary Care Physician in: 1 week. Please Follow Up With: Epi Joya MD When: [phone] Please Follow Up With: Dr Daniele Holt/Yaima Rowell NP When: [phone] Please Follow Up With: Maverick Brar MD - [facility] When: 1 week. Disposition: Home with Home Health Minutes spent on discharge:: 35 Patient Condition:: Stable Medical Necessity - Tobacco Use Smoking Status: Former smoker Tobacco Use: Non-smoker Meaningful Use Info Meaningful Use Diagnoses (Choose all that apply): None applicable
--- NOTE | 2019-01-09 21:15 | DS.PCM_ITS ---
Discharge Date and Diagnosis - Problem List Patient Problems: Active and Suspected Problems (Last Updated 01/04/19 @ 10:56 by Domitila Cleaning) Fall (Acute) Hypothermia (Acute) Encephalopathy (Acute) Acute diastolic (congestive) heart failure (Acute) Date of Admission: 12/22/18 Date of Discharge: 01/19/19 - Primary Discharge Diagnosis Active and Suspected Problems (Last Updated 01/04/19 @ 10:56 by Domitila No) Fall (Acute) Hypothermia (Acute) Encephalopathy (Acute) Acute diastolic (congestive) heart failure (Acute) - Secondary Discharge Diagnosis Chronic Problems (Last Updated 01/04/19 @ 10:56 by Domitila Cleaning) Essential hypertension (Chronic) Depression (Chronic) Anxiety (Chronic) HLD (hyperlipidemia) (Chronic) Anxiety and depression (Chronic) Hypothyroidism (Chronic) GERD (gastroesophageal reflux disease) (Chronic) AAA (abdominal aortic aneurysm) (Chronic) Hospital Course and Treatment Imaging Results: 12/27/18 13:32 Diet: Regular Diet Is pt able to select menu?: Yes Clinical Impression(s) from Imaging Studies Chest X-Ray 01/01/19 09:05 IMPRESSION: No acute abnormality is seen. Electronically Signed: Juancarlos Goddard, at 14:49 EDT , Service support , KUB X-Ray 01/01/19 09:15 IMPRESSION: Moderate amount of fecal material is seen in the left hemicolon as well as the rectosigmoid colon. Electronically Signed: Juancarlos Goddard, at 14:48 EDT , Service support , Operations: None Procedures: None Summary of Care Provided: The patient is a 84 year old Female with below past medical history hospitalized found down, hypothermic secondary to community acquired pneumonia, complicated by NSTEMI, encephalopathy, rhabdomyolysis, acute diastolic heart failure, admitted to TCU with debility, here for rehabilitation, strengthening, prior to discharge home alone. Resident needs referral to Vascular Surgery for 5CM abdominal aortic aneurysm. Consider evaluation and treatment of Alzheimer's Disease. Discharge home with 24 hour care, and Home Health Care. Patient Problems: Active and Suspected Problems (Last Updated 01/04/19 @ 10:56 by Domitila Cleaning) Fall (Acute) Hypothermia (Acute) Encephalopathy (Acute) Acute diastolic (congestive) heart failure (Acute) - Physical Exam Vital Signs Temp Pulse Resp BP Pulse Ox 96.7 F L 76 18 151/78 H 98 01/09/19 16:00 01/09/19 17:06 01/09/19 16:00 01/09/19 17:06 01/09/19 16:00 Oxygen Flow Rate (L/min) 2 Oxygen Delivery Method Room Air Weight: 70.505 kg Body Mass Index (BMI) 25.3 Intake and Output for Last 24 Hours 01/07/19 01/08/19 01/09/19 23:59 23:59 23:59 Intake Total 360 / 360 480 / 480 360 / 360 Balance 360 / 360 480 / 480 360 / 360 Discharge Diet: No Restrictions Discharge Activity: Return to Normal Activity, May Shower, Use Walker Weight Bearing Status: Weight bearing as tolerated Call your doctor if you observe: Fever of 101 or Higher, Inability to urinate, Inability to have a bowel movement, Shortness of breath, Chest pain, Uncontrolled pain Home Medications: Medications to take at Discharge Bupropion HCl [Wellbutrin Xl] 300 mg PO DAILY 12/19/18 Levothyroxine [Synthroid] 50 mcg PO DAILY 12/19/18 Sertraline HCl [Zoloft] 50 mg PO DAILY 12/19/18 pantoprazole 40 mg tablet,delayed release 40 mg PO DAILY 01/04/19 Acetaminophen [Tylenol] 1,000 mg PO Q6H PRN PRN tablet 01/09/19 Aspirin E.C. [Ecotrin] 81 mg PO DAILY@0800 #30 tablet 01/09/19 Atorvastatin Calcium [Lipitor] 10 mg PO QHS #30 tablet 01/09/19 Clopidogrel Bisulfate [Plavix] 75 mg PO DAILY #30 tablet 01/09/19 Furosemide [Lasix] 20 mg PO DAILY #30 tablet 01/09/19 Menthol/Lanolin/Calamine/Znox [Calmoseptine Ointment] 1 applic TOPICAL 0600,2200 tube 01/09/19 Metoprolol Tartrate [Lopressor (beta risa)] 25 mg PO BID #60 tablet 01/09/19 Mineral Oil/Petrolatum,White [Eucerin] 1 applic TOPICAL 0600,2200 jar 01/09/19 Pantoprazole Sodium [Protonix] 40 mg PO DAILY@0800 #30 tablet 01/09/19 Potassium Chloride [K-Dur] 40 meq PO BID #60 tablet 01/09/19 Following Prescrptions Were Given to Patient: Aspirin E.C. [Ecotrin] 81 mg PO DAILY@0800 #30 tablet Atorvastatin Calcium [Lipitor] 10 mg PO QHS #30 tablet Clopidogrel Bisulfate [Plavix] 75 mg PO DAILY #30 tablet Furosemide [Lasix] 20 mg PO DAILY #30 tablet Pantoprazole Sodium [Protonix] 40 mg PO DAILY@0800 #30 tablet Metoprolol Tartrate [Lopressor (beta risa)] 25 mg PO BID #60 tablet Potassium Chloride [K-Dur] 40 meq PO BID #60 tablet Other Amb Orders: Basic Metabolic Profile (BMP) Time Frame: 3 Days, Location: Laboratory Primary Care Physician: Austin Cuevas MD [Primary Care Provider] - Please follow up with your Primary Care Physician in: 1 week. Please Follow Up With: Epi Joya MD When: [phone] Please Follow Up With: Dr Daniele Holt/Yaima Rowell NP When: [phone] Please Follow Up With: Maverick Brar MD - [facility] When: 1 week. Disposition: Home with Home Health Minutes spent on discharge:: 35 Patient Condition:: Stable Medical Necessity - Tobacco Use Smoking Status: Former smoker Tobacco Use: Non-smoker Meaningful Use Info Meaningful Use Diagnoses (Choose all that apply): None applicable
--- NOTE | 2019-01-09 21:15 | PCM.PN.HH ---
Home Health Note - Plan Overview of reason of hospitalization: The patient is a 84 year old Female with below past medical history hospitalized found down, hypothermic secondary to community acquired pneumonia, complicated by NSTEMI, encephalopathy, rhabdomyolysis, acute diastolic heart failure, admitted to TCU with debility, here for rehabilitation, strengthening, prior to discharge home alone. Resident needs referral to Vascular Surgery for 5CM abdominal aortic aneurysm. Consider evaluation and treatment of Alzheimer's Disease. Discharge home with 24 hour care, and Home Health Care. Problems: Patient was seen for (Last Updated 01/04/19 @ 10:56 by Domitila Cleaning) Fall (Acute) Hypothermia (Acute) Encephalopathy (Acute) Depression (Chronic) Anxiety (Chronic) Acute diastolic (congestive) heart failure (Acute) Complete List of Medical Problems (Last Updated 01/04/19 @ 10:56 by Domitila Cleaning) Essential hypertension (Chronic) Fall (Acute) Hypothermia (Acute) Encephalopathy (Acute) Depression (Chronic) Anxiety (Chronic) Acute diastolic (congestive) heart failure (Acute) Accidental hypothermia (Acute) Lactic acidosis (Acute) Rhabdomyolysis (Acute) NSTEMI (non-ST elevated myocardial infarction) (Acute) HLD (hyperlipidemia) (Chronic) Anxiety and depression (Chronic) Hypothyroidism (Chronic) GERD (gastroesophageal reflux disease) (Chronic) Encephalopathy acute (Acute) AAA (abdominal aortic aneurysm) (Chronic) Acute respiratory failure with hypoxia (Acute) CAP (community acquired pneumonia) (Acute) - Requirements and Reasons Disciplines Needed/Ordered: Physical Therapy Reason for Disciplines: Gait Training, Stair Training, Fall Prevention, Home Safety/Equipment Instruction, Balance and/or Posture Training, Transfer Training Related To: Limited/Poor Endurance, Shortness of Breath with Activity, Physical Impairments, Unsteady Gait/Balance, Fall Risk Patient is unable to leave the home: Without Aid of Supportive Devices (crutches, cane, wheelchair, walker), Without the assistance of another person - Additional Disciplines Additional Disciplines Needed/Ordered: Occupational Therapy
[2019-01-10] MEDS: Polyethylene Glycol 3350 17 GM PACKET PO (04:33)
[2019-01-10 04:34] VITALS: BP 113/60; PULSE 70
[2019-01-10] MEDS: Levothyroxine 50 MCG Tablet PO (04:34)
[2019-01-10] MEDS: Metoprolol Tartrate 25 MG Tablet PO ×2 (04:34→17:36)
[2019-01-10] MEDS: Enoxaparin 30 MG/0.3 ML Syringe SC (04:34)
[2019-01-10] MEDS: Menthol/Lanolin/Calamine/Znox 113 GM Tube 1 APPLIC TOPICAL ×2 (04:34→20:45)
[2019-01-10] MEDS: Furosemide 20 MG Tablet PO (04:34)
[2019-01-10] MEDS: Senna/Docusate Sodium 1 Tablet PO ×2 (04:34→17:36)
[2019-01-10] MEDS: Sertraline 50 MG Tablet PO (07:48)
[2019-01-10] MEDS: Pantoprazole Sodium 40 MG Tablet PO (07:48)
[2019-01-10] MEDS: Aspirin E.C. 81 MG Tablet PO (07:48)
[2019-01-10] MEDS: buPROPion (XL) 300 MG TABLET.XL PO (07:48)
[2019-01-10] MEDS: Clopidogrel Bisulfate 75 MG Tablet PO (07:48)
[2019-01-10 16:00] VITALS: BP 128/72; PULSE 70; RESP 18; TEMP 36.7; O2SAT 91
[2019-01-10 17:36] VITALS: PULSE 70
[2019-01-10] MEDS: Atorvastatin Calcium 10 MG Tablet PO (20:45)
[2019-01-11 06:32] VITALS: BP 117/72; PULSE 66
[2019-01-11] MEDS: Furosemide 20 MG Tablet PO (06:32)
[2019-01-11] MEDS: Enoxaparin 30 MG/0.3 ML Syringe SC (06:32)
[2019-01-11] MEDS: Metoprolol Tartrate 25 MG Tablet PO ×2 (06:32→17:09)
[2019-01-11] MEDS: Polyethylene Glycol 3350 17 GM PACKET PO (06:32)
[2019-01-11] MEDS: Senna/Docusate Sodium 1 Tablet PO (06:32)
[2019-01-11] MEDS: Levothyroxine 50 MCG Tablet PO (06:32)
[2019-01-11] MEDS: Menthol/Lanolin/Calamine/Znox 113 GM Tube 1 APPLIC TOPICAL ×2 (06:32→20:25)
[2019-01-11] MEDS: Sertraline 50 MG Tablet PO (08:46)
[2019-01-11] MEDS: Clopidogrel Bisulfate 75 MG Tablet PO (08:46)
[2019-01-11] MEDS: Pantoprazole Sodium 40 MG Tablet PO (08:46)
[2019-01-11] MEDS: buPROPion (XL) 300 MG TABLET.XL PO (08:47)
[2019-01-11] MEDS: Aspirin E.C. 81 MG Tablet PO (08:47)
--- NOTE | 2019-01-11 12:39 | CASEMGMT ---
Social Work: NOMNOC signed this day. LCD 01/18/19 with discharge planned for Tuesday01/19/19. Patient aware and agreeable to D/C date. STIVEN Kurtz
--- NOTE | 2019-01-11 14:34 | MDS.RN ---
Information for the mds was obtained from review of the clinical record, interview of resident, staff, and direct observation of resident's care.
[2019-01-11 15:56] VITALS: BP 147/80; PULSE 73; RESP 18; TEMP 36.8; O2SAT 93
[2019-01-11 17:09] VITALS: BP 147/80; PULSE 73
[2019-01-11] MEDS: Atorvastatin Calcium 10 MG Tablet PO (20:26)
[2019-01-12] MEDS: Menthol/Lanolin/Calamine/Znox 113 GM Tube 1 APPLIC TOPICAL ×2 (04:42→20:37)
[2019-01-12 04:43] VITALS: BP 134/63; PULSE 66
[2019-01-12] MEDS: Levothyroxine 50 MCG Tablet PO (04:43)
[2019-01-12] MEDS: Senna/Docusate Sodium 1 Tablet PO ×2 (04:43→16:17)
[2019-01-12] MEDS: Metoprolol Tartrate 25 MG Tablet PO ×2 (04:43→16:17)
[2019-01-12] MEDS: Enoxaparin 30 MG/0.3 ML Syringe SC (04:43)
[2019-01-12] MEDS: Furosemide 20 MG Tablet PO (04:43)
[2019-01-12] MEDS: Pantoprazole Sodium 40 MG Tablet PO (08:48)
[2019-01-12] MEDS: Sertraline 50 MG Tablet PO (08:48)
[2019-01-12] MEDS: Clopidogrel Bisulfate 75 MG Tablet PO (08:48)
[2019-01-12] MEDS: Aspirin E.C. 81 MG Tablet PO (08:48)
[2019-01-12] MEDS: buPROPion (XL) 300 MG TABLET.XL PO (08:48)
--- NOTE | 2019-01-12 15:50 | CASEMGMT ---
Brief interview for mental status (BIMS) and mood (PHQ-9) completed on this day. BIMS score 15. PHQ-9 score 04/19. Kaity Mayen social work student Initialized on 01/12/19 13:11 - END OF NOTE Reviewed SW student documentation done on this day. STIVEN Kurtz
[2019-01-12 16:00] VITALS: BP 125/79; PULSE 75; RESP 18; TEMP 36.9; O2SAT 91
[2019-01-12 16:17] VITALS: PULSE 74
[2019-01-12] MEDS: Atorvastatin Calcium 10 MG Tablet PO (20:38)
[2019-01-12 20:41] VITALS: PULSE 64; O2SAT 94
[2019-01-13] MEDS: Menthol/Lanolin/Calamine/Znox 113 GM Tube 1 APPLIC TOPICAL ×2 (05:51→20:03)
[2019-01-13 05:52] VITALS: BP 121/64; PULSE 64
[2019-01-13] MEDS: Enoxaparin 30 MG/0.3 ML Syringe SC (05:52)
[2019-01-13] MEDS: Levothyroxine 50 MCG Tablet PO (05:52)
[2019-01-13] MEDS: Furosemide 20 MG Tablet PO (05:52)
[2019-01-13] MEDS: Polyethylene Glycol 3350 17 GM PACKET PO (05:52)
[2019-01-13] MEDS: Metoprolol Tartrate 25 MG Tablet PO ×2 (05:52→17:12)
[2019-01-13 07:01] LABS: Absolute Lymphocyte Count 1.34 X10^3/ul (0.83-4.51); Absolute Neutrophil Count 2.1 X10^3/uL (2.0-7.7); Basophil# 0.02 X10^3/uL; Basophil% 0.5 % (0-1); Eosinophil# 0.22 X10^3/uL; Eosinophils% 5.2 % (0-5); Hematocrit 37.8 % (37-47); Hemoglobin 12.2 g/dl (12.0-15.0); Lymphocyte # 1.34 X10^3/ul (4.0); Lymphocyte % 31.5 % (19-41); Mean Corp Hgb Conc 32.3 g/gl (32-36); Mean Corpuscular Hgb 33.2 pg (27.0-32.0); Mean Platelet Vol. 10.3 fl (6.2-12.0); Monocyte# 0.52 X10^3/uL; Monocyte% 12.2 % (0-10); Neutrophil # 2.14 X10^3/uL (2.7-7.7); Neutrophil % 50.1 % (47-70); Platelet Count 210 K/mm3 (150-450); RBC Distribution Width CV 12.6 % (11.6-14.6); RBC Distribution Width SD 46.1 fl (35.1-43.9); Red Blood Count 3.67 M/mm3 (4.2-5.4); White Blood Count 4.3 K/mm3 (4.4-11.0)
[2019-01-13 07:10] LABS: Anion Gap 7 (5-15); BUN 19 mg/dL (7-18); Calcium,Total 8.9 mg/dL (8.5-10.1); Chloride 108 mmol/L (98-107); EST Glomerular Filtration Rate 64 mL/min (>60); Est Glom Filt Rate - Afr Amer 77 mL/min (>60); Estimated Creatinine Clearance 43.37 ml/min; Glucose 104 mg/dL (74-106); Potassium 4.1 mmol/L (3.5-5.1); Sodium Level 142 mmol/L (136-145)
[2019-01-13 07:39] LABS: POSITIVE COUNT NO; POSITIVE DIFFERENTIAL NO
[2019-01-13 07:40] LABS: POSITIVE MORPHOLOGY NO
[2019-01-13] MEDS: Clopidogrel Bisulfate 75 MG Tablet PO (08:28)
[2019-01-13] MEDS: buPROPion (XL) 300 MG TABLET.XL PO (08:28)
[2019-01-13] MEDS: Pantoprazole Sodium 40 MG Tablet PO (08:28)
[2019-01-13] MEDS: Aspirin E.C. 81 MG Tablet PO (08:28)
[2019-01-13] MEDS: Sertraline 50 MG Tablet PO (08:28)
[2019-01-13 09:37] VITALS: PULSE 63; RESP 18; O2SAT 95
[2019-01-13 15:31] VITALS: BP 125/69; PULSE 64; RESP 16; TEMP 36.8; O2SAT 97
[2019-01-13 17:12] VITALS: PULSE 64
[2019-01-13] MEDS: Atorvastatin Calcium 10 MG Tablet PO (20:02)
[2019-01-14 05:16] VITALS: BP 129/55; PULSE 65
[2019-01-14] MEDS: Menthol/Lanolin/Calamine/Znox 113 GM Tube 1 APPLIC TOPICAL ×2 (05:16→20:38)
[2019-01-14] MEDS: Metoprolol Tartrate 25 MG Tablet PO ×2 (05:16→17:36)
[2019-01-14] MEDS: Levothyroxine 50 MCG Tablet PO (05:16)
[2019-01-14] MEDS: Senna/Docusate Sodium 1 Tablet PO (05:16)
[2019-01-14] MEDS: Furosemide 20 MG Tablet PO (05:16)
[2019-01-14] MEDS: Enoxaparin 30 MG/0.3 ML Syringe SC (05:18)
[2019-01-14] MEDS: BACITRACIN/POLYMYXIN B 15 GM Tube 1 APPLIC TOPICAL (05:21)
[2019-01-14] MEDS: Sertraline 50 MG Tablet PO (09:12)
[2019-01-14] MEDS: Aspirin E.C. 81 MG Tablet PO (09:12)
[2019-01-14] MEDS: Pantoprazole Sodium 40 MG Tablet PO (09:12)
[2019-01-14] MEDS: buPROPion (XL) 300 MG TABLET.XL PO (09:12)
[2019-01-14] MEDS: Clopidogrel Bisulfate 75 MG Tablet PO (09:12)
[2019-01-14 15:15] VITALS: BP 128/76; PULSE 82; RESP 16; TEMP 36.9; O2SAT 97
[2019-01-14 17:36] VITALS: PULSE 82
[2019-01-14] MEDS: Atorvastatin Calcium 10 MG Tablet PO (20:32)
[2019-01-15] MEDS: Polyethylene Glycol 3350 17 GM PACKET PO (05:17)
[2019-01-15] MEDS: Furosemide 20 MG Tablet PO (05:19)
[2019-01-15] MEDS: Senna/Docusate Sodium 1 Tablet PO (05:19)
[2019-01-15] MEDS: Levothyroxine 50 MCG Tablet PO (05:19)
[2019-01-15 05:20] VITALS: BP 124/60; PULSE 63
[2019-01-15] MEDS: Metoprolol Tartrate 25 MG Tablet PO ×2 (05:20→17:57)
[2019-01-15] MEDS: BACITRACIN/POLYMYXIN B 15 GM Tube 1 APPLIC TOPICAL (05:20)
[2019-01-15] MEDS: Enoxaparin 30 MG/0.3 ML Syringe SC (05:20)
[2019-01-15] MEDS: Menthol/Lanolin/Calamine/Znox 113 GM Tube 1 APPLIC TOPICAL ×2 (05:20→20:23)
[2019-01-15] MEDS: Sertraline 50 MG Tablet PO (08:30)
[2019-01-15] MEDS: Pantoprazole Sodium 40 MG Tablet PO (08:30)
[2019-01-15] MEDS: buPROPion (XL) 300 MG TABLET.XL PO (08:30)
[2019-01-15] MEDS: Aspirin E.C. 81 MG Tablet PO (08:31)
[2019-01-15] MEDS: Clopidogrel Bisulfate 75 MG Tablet PO (08:31)
[2019-01-15 15:45] VITALS: BP 121/65; PULSE 61; RESP 18; TEMP 36.2; O2SAT 97
[2019-01-15 17:57] VITALS: BP 121/65; PULSE 61
[2019-01-15] MEDS: Atorvastatin Calcium 10 MG Tablet PO (20:25)
[2019-01-16 06:27] VITALS: BP 122/60; PULSE 65
[2019-01-16] MEDS: Metoprolol Tartrate 25 MG Tablet PO ×2 (06:27→16:52)
[2019-01-16] MEDS: Levothyroxine 50 MCG Tablet PO (06:29)
[2019-01-16] MEDS: Enoxaparin 30 MG/0.3 ML Syringe SC (06:29)
[2019-01-16] MEDS: Senna/Docusate Sodium 1 Tablet PO ×2 (06:29→16:52)
[2019-01-16] MEDS: Furosemide 20 MG Tablet PO (06:29)
[2019-01-16] MEDS: Polyethylene Glycol 3350 17 GM PACKET PO (06:30)
[2019-01-16] MEDS: Menthol/Lanolin/Calamine/Znox 113 GM Tube 1 APPLIC TOPICAL ×2 (06:31→21:18)
[2019-01-16] MEDS: BACITRACIN/POLYMYXIN B 15 GM Tube 1 APPLIC TOPICAL (06:34)
[2019-01-16] MEDS: buPROPion (XL) 300 MG TABLET.XL PO (08:48)
[2019-01-16] MEDS: Pantoprazole Sodium 40 MG Tablet PO (08:48)
[2019-01-16] MEDS: Sertraline 50 MG Tablet PO (08:49)
[2019-01-16] MEDS: Aspirin E.C. 81 MG Tablet PO (08:49)
[2019-01-16] MEDS: Clopidogrel Bisulfate 75 MG Tablet PO (08:49)
[2019-01-16 16:00] VITALS: BP 126/68; PULSE 69; RESP 20; TEMP 36.7; O2SAT 96
[2019-01-16 16:52] VITALS: BP 126/68; PULSE 69
[2019-01-16] MEDS: Atorvastatin Calcium 10 MG Tablet PO (21:18)
[2019-01-17] MEDS: Polyethylene Glycol 3350 17 GM PACKET PO (06:19)
[2019-01-17] MEDS: Levothyroxine 50 MCG Tablet PO (06:21)
[2019-01-17] MEDS: Senna/Docusate Sodium 1 Tablet PO (06:21)
[2019-01-17] MEDS: Menthol/Lanolin/Calamine/Znox 113 GM Tube 1 APPLIC TOPICAL ×2 (06:21→20:21)
[2019-01-17] MEDS: Furosemide 20 MG Tablet PO (06:21)
[2019-01-17 06:22] VITALS: BP 127/68; PULSE 66
[2019-01-17] MEDS: BACITRACIN/POLYMYXIN B 15 GM Tube 1 APPLIC TOPICAL (06:22)
[2019-01-17] MEDS: Metoprolol Tartrate 25 MG Tablet PO ×2 (06:22→17:09)
[2019-01-17] MEDS: Enoxaparin 30 MG/0.3 ML Syringe SC (06:22)
[2019-01-17] MEDS: Aspirin E.C. 81 MG Tablet PO (08:00)
[2019-01-17] MEDS: Pantoprazole Sodium 40 MG Tablet PO (08:00)
[2019-01-17] MEDS: Sertraline 50 MG Tablet PO (08:00)
[2019-01-17] MEDS: Clopidogrel Bisulfate 75 MG Tablet PO (08:00)
[2019-01-17] MEDS: buPROPion (XL) 300 MG TABLET.XL PO (08:00)
[2019-01-17 09:03] VITALS: PULSE 66; RESP 18; O2SAT 97
--- NOTE | 2019-01-17 11:40 | CASEMGMT ---
Social Work D/C set for Tuesday01/19/19. SW met with pt in room. Pt stating she plans to return to her home and her children will be taking turns staying with her. Pt is agreeable to d/c date and with home health services. With pt permission, phone call placed to pt son Mateus. Mateus confirms family will be providing 24 hour supervision for pt and is in agreement with [facility] PT[facility]. No preference on home health company used. Pt does not have any DME in the home. Therapy is recommending wheeled walker and shower chair. Mateus is agreeable to this and made aware that shower chair is not covered by insurance. Mateus will obtain shower chair. Wheeled walker will be ordered from [employer]. Referrral made to [facility] in [facility] and they are able to accept pt. Will fax order for WW to [employer] when obtained. Plan: Home with 24 hour supervision and [facility] PT/OT/ST JESSICA Goff
[2019-01-17 15:50] VITALS: BP 121/59; PULSE 66; RESP 18; TEMP 36.8; O2SAT 97
[2019-01-17 17:09] VITALS: PULSE 66
[2019-01-17] MEDS: Atorvastatin Calcium 10 MG Tablet PO (19:56)
[2019-01-18 06:11] VITALS: BP 128/72; PULSE 69
[2019-01-18] MEDS: Menthol/Lanolin/Calamine/Znox 113 GM Tube 1 APPLIC TOPICAL ×2 (06:11→20:50)
[2019-01-18] MEDS: Senna/Docusate Sodium 1 Tablet PO ×2 (06:11→17:21)
[2019-01-18] MEDS: Furosemide 20 MG Tablet PO (06:11)
[2019-01-18] MEDS: Metoprolol Tartrate 25 MG Tablet PO ×2 (06:11→17:21)
[2019-01-18] MEDS: Polyethylene Glycol 3350 17 GM PACKET PO (06:11)
[2019-01-18] MEDS: Levothyroxine 50 MCG Tablet PO (06:11)
[2019-01-18] MEDS: BACITRACIN/POLYMYXIN B 15 GM Tube 1 APPLIC TOPICAL (06:12)
[2019-01-18] MEDS: Enoxaparin 30 MG/0.3 ML Syringe SC (06:16)
[2019-01-18] MEDS: buPROPion (XL) 300 MG TABLET.XL PO (07:45)
[2019-01-18] MEDS: Clopidogrel Bisulfate 75 MG Tablet PO (07:45)
[2019-01-18] MEDS: Pantoprazole Sodium 40 MG Tablet PO (07:45)
[2019-01-18] MEDS: Sertraline 50 MG Tablet PO (07:45)
[2019-01-18] MEDS: Aspirin E.C. 81 MG Tablet PO (07:45)
--- NOTE | 2019-01-18 08:19 | CASEMGMT ---
Social Work Phone call to [facility] and referral for Wheeled Walker made. Orders faxed. JESSICA Goff
[2019-01-18 09:13] VITALS: PULSE 64; RESP 16; O2SAT 97
[2019-01-18 15:46] VITALS: BP 142/64; PULSE 71; RESP 16; TEMP 36.6; O2SAT 96
[2019-01-18 17:21] VITALS: BP 143/64; PULSE 71
[2019-01-18] MEDS: Atorvastatin Calcium 10 MG Tablet PO (20:50)
[2019-01-19] MEDS: Furosemide 20 MG Tablet PO (04:32)
[2019-01-19] MEDS: Levothyroxine 50 MCG Tablet PO (04:32)
[2019-01-19] MEDS: Polyethylene Glycol 3350 17 GM PACKET PO (04:32)
[2019-01-19 04:33] VITALS: BP 131/82; PULSE 69
[2019-01-19] MEDS: Menthol/Lanolin/Calamine/Znox 113 GM Tube 1 APPLIC TOPICAL (04:33)
[2019-01-19] MEDS: BACITRACIN/POLYMYXIN B 15 GM Tube 1 APPLIC TOPICAL (04:33)
[2019-01-19] MEDS: Metoprolol Tartrate 25 MG Tablet PO (04:33)
[2019-01-19] MEDS: Senna/Docusate Sodium 1 Tablet PO (04:33)
[2019-01-19] MEDS: Enoxaparin 30 MG/0.3 ML Syringe SC (04:33)
[2019-01-19] MEDS: buPROPion (XL) 300 MG TABLET.XL PO (08:26)
[2019-01-19] MEDS: Pantoprazole Sodium 40 MG Tablet PO (08:26)
[2019-01-19] MEDS: Clopidogrel Bisulfate 75 MG Tablet PO (08:27)
[2019-01-19] MEDS: Aspirin E.C. 81 MG Tablet PO (08:27)
[2019-01-19] MEDS: Sertraline 50 MG Tablet PO (08:27)
[2019-01-19 11:04] VITALS: BP 145/79; PULSE 62; RESP 16; TEMP 36.8; O2SAT 94
--- NOTE | 2019-01-24 12:20 | MDS.RN ---
Information for the mds was obtained from review of the clinical record, interview of resident, staff, and direct observation of resident's care.
== END 2019-01-19 10:45 | disposition home health service (06) | DRG 947 ==
PROVIDERS: Admitting Provider Family Medicine Geriatric Medicine; Family Provider Family Medicine; PCP Family Medicine; Referring Provider Family Medicine Geriatric Medicine; Visit Provider Family Medicine Geriatric Medicine
DX: R53.81 Other malaise (principal); I21.4 Non-ST elevation (NSTEMI) myocardial infarction; J18.9 Pneumonia, unspecified organism; I50.31 Acute diastolic (congestive) heart failure; I11.0 Hypertensive heart disease with heart failure; Z23 Encounter for immunization; I71.4 Abdominal aortic aneurysm, without rupture; N32.81 Overactive bladder; K21.9 Gastro-esophageal reflux disease without esophagitis; E87.6 Hypokalemia; E03.9 Hypothyroidism, unspecified; E78.5 Hyperlipidemia, unspecified; F32.9 Major depressive disorder, single episode, unspecified; F41.9 Anxiety disorder, unspecified; Z87.891 Personal history of nicotine dependence
CPT/HCPCS: 36415; 71045; 74018; 80048; 81001; 85025; 87086; 90732; 92507; 92523; 92526; 97110; 97116; 97163; 97166; 97530; 97535; 97802; G0009; J7030

== ENCOUNTER → 2019-03-02 16:14 | Outpatient (CLI) | payer MEDICARE, OTHER, SELFPAY ==
[2019-01-04 11:19] VITALS: BMI 25.7
--- NOTE | 2019-03-02 16:23 | CT_ITS ---
STUDY: CT ABDOMEN AND PELVIS WITH CONTRAST REASON FOR EXAM: Female, 84 years old. Abdominal pain. Known abdominal aortic aneurysm. RADIATION DOSAGE (If Supplied By Facility): CTDIvol = ( 19.23 ) mGy, DLP = ( 776.42 ) mGycm TECHNIQUE: Transaxial images were obtained from the dome of the diaphragm to the symphysis pubis without oral contrast. 100 IV Isovue 300 was administered. Sagittal and coronal images were reconstructed. Individualized dose optimization techniques were used for this CT. COMPARISON: Prior abdomen and pelvic CT exam of December 19, 2018 and November 11, 2017 FINDINGS: Bibasilar infiltrates have resolved from the prior exam. Normal liver. Mild compensatory dilatation of the common bile duct status post cholecystectomy. Normal spleen. Mild dilatation of the proximal pancreatic duct without other abnormality of the pancreas. Normal bilateral adrenal glands. Subcentimeter cyst of the right kidney. Slightly full right renal pelvis without ureteral distention or caliectasis. Negative for renal or ureteral stones. Subcentimeter cysts of the left kidney. The central renal pelvises only slightly prominent but there does appear to be mild caliectasis of the left kidney. Negative for distention of the ureter, renal or ureteral stones. Urinary bladder is full. Nondistended stomach. Nondistended small bowel. Diverticulosis of the colon without evidence of acute diverticulitis. There is non-visualization of the appendix. Stable fusiform aneurysmal dilatation of the infrarenal aorta with the greatest diameter 4.8 cm unchanged from prior exam with mural thrombus with a substantial flow lumen. Negative for evidence of interval expansion or leaking of the aneurysm. Normal inferior vena cava. Normal retroperitoneum. Status post hysterectomy without pelvic mass or free fluid of the pelvis. Minimal fatty umbilical hernia. There are diffuse degenerative changes of the visualized lumbar spine with demineralized osseous structures. CT/Abdomen/Pelvis W IV Cont ONLY IMPRESSION: No acute bowel related findings. Negative for evidence of obstruction, perforation or inflammatory bowel changes. Diverticulosis without evidence of acute diverticulitis. The appendix is absent. Subcentimeter cyst and a slightly focal right renal pelvis or extrarenal pelvis without caliectasis, renal or ureteral stones. Slightly full left renal pelvis and mild caliectasis without ureteral distention, renal or ureteral stones. The urinary bladder is full. No other acute renal findings or changes. Status post cholecystectomy with mild compensatory dilatation of the common bile duct without filling defects. Mild dilatation of the pancreatic duct without other abnormality of the pancreas. 4.8 cm fusiform aneurysm of the infrarenal aorta unchanged from prior exam with no evidence of interval expansion or leaking. Status post hysterectomy with no pelvic mass or free fluid of the pelvis. Electronically Signed: Kacey Power MD at 18:31 EDT , Service support ,
[2019-03-02 16:40] LABS: CREATININE FINGERSTICK 0.9 mg/dL (0.55-1.02)
== END ==
PROVIDERS: Family Provider Family Medicine; PCP Family Medicine; Referring Provider Family Medicine; Visit Provider Family Medicine
DX: I71.4 Abdominal aortic aneurysm, without rupture (principal); M54.5 Low back pain
CPT/HCPCS: 74177; Q9967

== ENCOUNTER 2020-09-28 12:34 | Inpatient (IN) | payer MEDICARE, OTHER, SELFPAY ==
[2020-01-04 15:39] VITALS: BMI 25.7
[2020-09-28 12:35] VITALS: BP 175/87; PULSE 80; RESP 15; TEMP 36.9; O2SAT 96; BMI 24.1
--- NOTE | 2020-09-28 12:47 | EKG12_ITS ---
Test Reason : FALL Blood Pressure : / mmHG Vent. Rate : 082 BPM Atrial Rate : 082 BPM P-R Int : 150 ms QRS Dur : 088 ms QT Int : 400 ms P-R-T Axes : -24 -44 026 degrees QTc Int : 467 ms Normal sinus rhythm Left axis deviation Moderate voltage criteria for LVH, may be normal variant Poor R wave progression Abnormal ECG Confirmed by WANDA JURADO, RODOLFO ([id number]), senior technical editor STEPHANIE LA ([id number]) on 10/01/2020 12:44:15 PM Referred By: HOLDEN Confirmed By:RODOLFO MUÑOZ MD
--- NOTE | 2020-09-28 12:48 | ED.VIS.GEN ---
History of Present Illness Chief Complaint: Fall Informant: Patient Onset: Days Maximum Severity: Mild Narrative: Patient presents with EMS from her home. She indicates that 3 days ago she fell walking around her bed landed on the left side of her hip hip pain left knee pain since the pain apparently intensified today to where she had more trouble walking. She is slightly confused at baseline regarding past history she is oriented x4, she indicates she has chronic pain and weakness in her left lower extremity such that she uses a walker and a cane at baseline she did not hit her head, her neighbors have been helping her since the fall she had more discomfort could not ambulate and they called EMS and she was brought in she denies head neck chest or abdominal pain, her only complaint is left hip left knee pain Past Medical History - Allergies and Home Meds Allergies/Adverse Reactions: Allergies No Known Allergies Allergy (Verified 09/28/20 13:14) Primary Care Physician: Austin Cuevas MD [Primary Care Provider] - Past Medical History: - - This is rather sketchy and includes as above Surgical History: adenoidectomy, appendectomy, cholecystectomy, hysterectomy, tonsillectomy, - - Family History Maternal Family History: Family History (Last Reviewed 01/04/20 @ 15:29 by Letty Lobo) Mother Heart disease Family History: Reports: Unknown - Patient unavailable to accurately give family history. Paternal Family History: Family History (Last Reviewed 01/04/20 @ 15:29 by Letty Lobo) Mother Heart disease Family History: Reports: Unknown - Patient unavailable to accurately give family history. Review of Systems General: Denies: Chills, Fever, Sweats Eyes: Denies: Visual changes - bilaterally, Diplopia ENT: Denies: Rhinorrhea, Sore throat Cardiovascular: Denies: Chest pain, Palpitations Respiratory: Denies: Dyspnea, Cough, Dyspnea on exertion Gastrointestinal: Denies: Abdominal pain, Nausea, Vomiting, Diarrhea, Melena, Hematochezia Genitourinary: Denies: Dysuria, Hematuria, Frequency Musculoskeletal: Reports: Extremity Pain. Denies: Back pain Skin: Denies: Rash, Wounds Neurological: Denies: Headache, Weakness, Numbness Physical Exam Vital Signs/Narrative: Vital Signs Temp Pulse Resp BP Pulse Ox 09/28/20 12:35 98.4 F 80 15 175/87 H 96 General: Well nourished, Well developed, No Acute Distress Head: Normocephalic, Atraumatic Eyes: Perrl, EOMI ENT: Moist mucous membranes, No rhinorrhea Neck: Supple, Nontender Cardiovascular: Regular rate, Regular rhythm, No murmurs Respiratory: No distress, CTA bilaterally, Chest nontender Abdomen: Soft, Nontender, Nondistended, Normal bowel sounds Back: Nontender, Normal Inspection Extremities: No edema, Tenderness Skin: Normal color, No rash Neurological: Alert, Oriented x3, Cranial nerves II-XII grossly intact, Normal Strength, Normal Sensation Psychological: Normal affect, Normal Mood Diagnostic/Tx/Re-eval - Medical Decision Making The patient is awake she is moving all 4 extremities she does have weakness to the left leg and that she is able to fully raise the right leg off the bed she can do so only to about if 10 cm left leg, she complains of left hip pain vague left knee pain, she has discoloration to the left foot that is chronic neurovascular function appears normal sensation is normal she denies any back pain Apparently family is on the way to the hospital given all the above will begin ED evaluation x-rays labs and discuss additional history with family The patient's pelvic x-ray hip x-ray to my review shows DJD nothing acute, the multiple view right knee x-ray shows DJD no obvious bony abnormality to my review, the chest x-ray shows chronic changes to the lung cardiac areas, nothing that appears acute, radiology has reviewed these films and generally concur see the reports Head CT is pending and the results will be on the chart ED screening labs are generally unremarkable see those reports Spoke with her son [phone] indicates she is fallen multiple times recently she lives at home alone family and neighbors help her the last time she fell she was found on the floor for a period of time, he believes that last fall was possibly , today she simply could not get out of bed with the help of her caregivers and she was sent to the hospital. In addition the son is concerned that she is developing forgetfulness or dementia and is concerned that she may no longer be able to live independently and he has been trying to arrange for an assessment to be done to move her to a different living situation with no progress Given all the above signs concern she should be admitted I spoke with the hospitalist will arrange for admission for further management and placement Admit stable Impression final, frequent falls, left hip injury, ED Disposition - Plan for ED Patient: Diagnosis: Frequent falls, left hip injury Referrals: Austin Cuevas MD [Primary Care Provider] -
--- NOTE | 2020-09-28 13:00 | RAD_ITS ---
STUDY: X-RAY - PELVIS AND LEFT HIP REASON FOR EXAM: Female, 85 years old. Pt fell 3 days ago landed on left hip. Left hip pain TECHNIQUE: 3 views of the pelvis and hip. COMPARISON: None. FINDINGS: No acute fracture, dislocation or osseous destruction. There is significant bilateral hip arthrosis left greater than right. No significant soft tissue swelling. IMPRESSION: No acute fracture or dislocation of the pelvis and hip. Electronically Signed: Edenilson Shen, at 14:15 EST Tel , Service support , RAD/Hip Min 2 Views (Portable)
--- NOTE | 2020-09-28 13:00 | RAD_ITS ---
STUDY: X-RAY CHEST REASON FOR EXAM: Female, 85 years old. Fall three days ago TECHNIQUE: Single frontal view of the chest. COMPARISON: 01/01/19 FINDINGS: Cardiac silhouette enlarged. Pulmonary vascularity increased. Aorta atherosclerotic. No focal airspace opacities. No pleural effusions. Upper abdomen unremarkable. Osseous structures intact. No pneumothorax. RAD/Chest 1 View (Portable) IMPRESSION: No acute traumatic process is identified. Cardiomegaly and pulmonary vascular congestion. Superimposed pneumonia should be excluded clinically. Electronically Signed: Edenilson Shen, at 14:22 EST Tel , Service support ,
--- NOTE | 2020-09-28 13:00 | RAD_ITS ---
STUDY: X-RAY - LEFT KNEE REASON FOR EXAM: Female, 85 years old. Fall three days ago. Left knee pain TECHNIQUE: 4 view(s) of the knee. COMPARISON: 10/20/17 FINDINGS: No acute fracture or dislocation. Mild to moderate tricompartmental degenerative changes The soft tissue structures are unremarkable. RAD/Knee 4 or More Views IMPRESSION: No acute fracture or dislocation left knee. Electronically Signed: Edenilson Shen, at 14:28 EST Tel , Service support ,
[2020-09-28 13:02] VITALS: O2SAT 98
--- NOTE | 2020-09-28 13:03 | ED.RN ---
pt denies pain/nausea. no distress noted.
[2020-09-28 13:19] LABS: Absolute Lymphocyte Count 1.29 X10^3/uL (0.83-4.51); Absolute Neutrophil Count 3.6 X10^3/uL (2.0-7.7); Basophil# 0.03 X10^3/uL; Basophil% 0.6 % (0-1); Eosinophil# 0.02 X10^3/uL; Eosinophils% 0.4 % (0-5); Hematocrit 39.9 % (37-47); Lymphocyte # 1.29 X10^3/ul (4.0); Lymphocyte % 23.7 % (19-41); Mean Corp Hgb Conc 35.1 g/dL (32-36); Mean Corpuscular Hgb 34.2 pg (27.0-32.0); Mean Corpuscular Volume 97.6 fL (81-99); Mean Platelet Vol. 10.1 fl (6.2-12.0); Monocyte# 0.46 X10^3/uL; Monocyte% 8.5 % (0-10); NRBC Flagged by Analyzer 0 % (0-5); Neutrophil # 3.63 X10^3/uL (2.7-7.7); Neutrophil % 66.6 % (47-70); Platelet Count 292 K/mm3 (150-450); RBC Distribution Width CV 11.9 % (11.6-14.6); RBC Distribution Width SD 42.9 fl (35.1-43.9); Red Blood Count 4.09 M/mm3 (4.2-5.4); White Blood Count 5.4 K/mm3 (4.4-11.0)
[2020-09-28 13:33] LABS: Anion Gap 6 (5-15); BUN 9 mg/dL (7-18); BUN/Creat Ratio 12.5 RATIO (10-20); Calcium,Total 9.4 mg/dL (8.5-10.1); Chloride 108 mmol/L (98-107); Creatinine, Serum 0.72 mg/dL (0.55-1.02); EST Glomerular Filtration Rate 82 mL/min (>60); Est Glom Filt Rate - Afr Amer 100 mL/min (>60); Glucose 91 mg/dL (74-106); Potassium 3.2 mmol/L (3.5-5.1); Sodium Level 143 mmol/L (136-145)
--- NOTE | 2020-09-28 13:35 | ED.RN ---
pt able to move both legs/hips without difficulty. no signs of distress and denies pain. continue to hold morphine/zofran at this time.
[2020-09-28 13:37] LABS: Mucous, Urine 0 SEEN /hpf (<or=2+); Squamous Epithelial Cells - UA 0 SEEN /hpf (5-10)
[2020-09-28 14:02] LABS: Color, Urine Straw (Yellow); Glucose, Dipstick Normal (Normal); Ketone-Dipstick 5 mg/dl (Negative); Leukocyte Esterase-Dipstick Negative /ul (Negative); Nitrite-Dipstick Negative (Negative); Occult Blood-Urine 25 /ul (Negative); Protein-Dipstick Negative (Negative); Urine Bilirubin Dipstick Negative (Negative); Urine Clarity Clear (Clear); Urine Urobilinogen Normal (Normal)
[2020-09-28 14:21] LABS: Amorphous Sediment 2+; Bacteria 1+ /hpf (None Seen); Coarse Granular Cast 0-5 SEEN /lpf (0-5 /lpf); Hyaline Cast 0-5 SEEN /lpf (0-5); Red Blood Cells-Urine 0-5 SEEN /hpf (0-5); White Blood Cells 0-5 SEEN /hpf (0-5)
--- NOTE | 2020-09-28 14:58 | CT_ITS ---
STUDY: CT BRAIN WITHOUT CONTRAST REASON FOR EXAM: Female, 85 years old. FALLS RADIATION DOSAGE (If Supplied By Facility): CTDIvol = ( 44.99 ) mGy, DLP = ( 796.11 ) mGycm TECHNIQUE: Transaxial CT imaging of the brain was performed without administration of intravenous contrast material. Individualized dose optimization techniques were used for this CT. COMPARISON: 12/19/2018 FINDINGS: Normal soft tissue structures. Normal calvarium. There is mild cerebral atrophy with widening of the extra-axial spaces and ventricular dilatation. There are areas of decreased attenuation within the white matter tracts of the supratentorial brain, consistent with microvascular disease changes. Normal basal ganglia and thalami. Normal brainstem. Normal cerebellum. There is no intracranial hemorrhage. There are no findings of an acute ischemic infarction. Normal visualized paranasal sinuses. CT/Brain/Head without Contrast IMPRESSION: 1. No acute intracranial hemorrhage or mass effect. 2. Central parenchymal volume loss. White matter changes that are nonspecific but most commonly associated with chronic small vessel ischemic disease. Electronically Signed: Sudhir Saini MD ([place]) at 15:24 EST , Service support ,
--- NOTE | 2020-09-28 15:42 | PCM.HP.STD ---
Problem List (1) Chronic diastolic (congestive) heart failure Status: Chronic (2) Essential hypertension Status: Chronic (3) Fall Status: Acute (4) Encephalopathy Status: Acute (5) Accidental hypothermia Status: Resolved Qualifiers: Encounter type: initial encounter Qualified Code(s): T68.XXXA - Hypothermia, initial encounter (6) NSTEMI (non-ST elevated myocardial infarction) Status: Chronic (7) HLD (hyperlipidemia) Status: Chronic Qualifiers: Hyperlipidemia type: pure hypercholesterolemia Qualified Code(s): E78.00 - Pure hypercholesterolemia, unspecified (8) Anxiety and depression Status: Chronic (9) Hypothyroidism Status: Chronic Qualifiers: (10) GERD (gastroesophageal reflux disease) Status: Chronic (11) AAA (abdominal aortic aneurysm) Status: Chronic Qualifiers: Presence of rupture: without rupture Qualified Code(s): I71.4 - Abdominal aortic aneurysm, without rupture History of Present Illness Date of Admission: 09/28/20 Chief Complaint: Fall, functional decline. The patient is a 85 year old F who presents emergency room due to fall and reported functional decline at home per son. Patient states she fell 3 or 4 days ago. She denies injury related to fall. According to patient, she is doing well at home. She states she lives with her 4 cats and 2 dogs. She is unable to state year or events that brought her to the emergency room. 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 Per son, family has been trying to get her into nursing facility for some time now due to dementia and functional decline. No family present in ER. Patient is a poor historian. Per records, she has a past medical history of chronic diastolic CHF, hypertension, hyperlipidemia, hypothyroidism, anxiety, depression, history of AAA, GERD. Patient denies current symptoms or complaints and is requesting to return home. Past Medical History Past Medical History (Chronic Problems): Chronic Problems (Last Reviewed 01/04/20 @ 15:29 by Letty Lobo) Chronic diastolic (congestive) heart failure (Chronic) Essential hypertension (Chronic) NSTEMI (non-ST elevated myocardial infarction) (Chronic) HLD (hyperlipidemia) (Chronic) Anxiety and depression (Chronic) Hypothyroidism (Chronic) GERD (gastroesophageal reflux disease) (Chronic) AAA (abdominal aortic aneurysm) (Chronic) Medical History: Medical History (Last Reviewed 01/04/20 @ 15:29 by Letty Lobo) Chronic diastolic (congestive) heart failure (Chronic) I50.32 Essential hypertension (Chronic) I10 Fall (Acute) W19.XXXA Hypothermia (Acute) T68.XXXA Encephalopathy (Acute) G93.40 Depression (Chronic) F32.9 Anxiety (Chronic) F41.9 Acute diastolic (congestive) heart failure (Resolved) I50.31 Accidental hypothermia (Acute) T68.XXXA Lactic acidosis (Acute) E87.2 Rhabdomyolysis (Acute) M62.82 NSTEMI (non-ST elevated myocardial infarction) (Chronic) I21.4 HLD (hyperlipidemia) (Chronic) E78.5 Anxiety and depression (Chronic) F41.9, F32.9 Hypothyroidism (Chronic) E03.9 GERD (gastroesophageal reflux disease) (Chronic) K21.9 Encephalopathy acute (Acute) G93.40 AAA (abdominal aortic aneurysm) (Chronic) I71.4 Acute respiratory failure with hypoxia (Acute) J96.01 CAP (community acquired pneumonia) (Acute) J18.9 Allergies No Known Allergies Allergy (Verified 09/28/20 13:14) Home Medications: Ambulatory Orders Medication Instructions Recorded Bupropion HCl [Wellbutrin Xl] 300 mg PO DAILY 12/19/18 Levothyroxine [Synthroid] 50 mcg PO DAILY 12/19/18 Sertraline HCl [Zoloft] 50 mg PO DAILY 12/19/18 pantoprazole 40 mg tablet,delayed 40 mg PO DAILY 01/04/19 release Acetaminophen [Tylenol] 1,000 mg PO Q6H PRN PRN tab 01/09/19 Aspirin E.C. [Ecotrin] 81 mg PO DAILY@0800 #30 tab 01/09/19 Atorvastatin Calcium [Lipitor] 10 mg PO QHS #30 tab 01/09/19 Clopidogrel Bisulfate [Plavix] 75 mg PO DAILY #30 tab 01/09/19 Furosemide [Lasix] 20 mg PO DAILY #30 tab 01/09/19 Menthol/Lanolin/Calamine/Znox 1 applic TOPICAL 0600,2200 tube 01/09/19 [Calmoseptine Ointment] Metoprolol Tartrate [Lopressor 25 mg PO BID #60 tab 01/09/19 (beta risa)] Mineral Oil/Petrolatum,White 1 applic TOPICAL 0600,2200 jar 01/09/19 [Eucerin] Pantoprazole Sodium [Protonix] 40 mg PO DAILY@0800 #30 tab 01/09/19 Potassium Chloride [K-Dur] 40 meq PO BID #60 tab 01/09/19 Surgical History: Surgical History (Last Reviewed 01/04/20 @ 15:29 by Letty Lobo) History of cholecystectomy Z90.49 History of hysterectomy Z90.710 Surgical History: adenoidectomy, appendectomy, cholecystectomy, hysterectomy, tonsillectomy Psychiatric History: Anxiety, Depression 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 Paternal Family History: Family History (Last Reviewed 01/04/20 @ 15:29 by Letty Lobo) Mother Heart disease History Items: - - Patient denies known paternal medical history including cardiac history. Review of Systems Constitutional: Denies: Chills, Fever, Weight Change HEENT: Denies: Head Aches, Sinus Congestion, Sinus Drainage Cardiovascular: Denies: Chest Pain, Palpitations Respiratory: Denies: Cough, Shortness of breath at rest, Sputum production Gastrointestinal: Denies: Abdominal Pain, Nausea, Vomiting Genitourinary: Denies: Dysuria Musculoskeletal: Denies: Joint Pain, Joint Tenderness Skin: Denies: Rash, Wounds Neurological: Denies: Numbness, Tingling, Focal weakness Psychiatric: Denies: Anxiety, Depression, Homicidal Ideations, Suicidal Ideations Hematologic/ Lymphatic: Denies: Easy Bruising, Easy Bleeding VTE Information - Inpt Only VTE Present on Admission: No VTE Mechan Device Prophylaxis: None VTE Pharm Prophylaxis ordered?: Yes Patient Problems: Active and Suspected Problems (Last Reviewed 01/04/20 @ 15:29 by Letty Lobo) Fall (Acute) Encephalopathy (Acute) - Physical Exam Vitals/I&O's: Vital Signs Temp Pulse Resp BP Pulse Ox 98.4 F 80 15 175/87 H 98 09/28/20 12:35 09/28/20 12:35 09/28/20 12:35 09/28/20 12:35 09/28/20 13:02 Oxygen Delivery Method Room Air Weight: 158 lb 15.253 oz Body Mass Index (BMI) 24.1 General: Alert, Cooperative, No apparent distress HEENT: Atraumatic, PERRLA, EOMI, Normocephalic Neck: Supple, No JVD, Negative Carotid Bruits Lungs: Clear to auscultation, Normal air movement Cardiovascular: Regular rate, No murmurs Abdomen: Bowel Sounds Present, Soft, Non Tender, Non-Distended Extremities: No clubbing, No cyanosis, No edema, Capillary Refill Less than 3 Seconds Skin: No rashes, No breakdown Musculoskeletal: No Tenderness to Palpation of Joints or Extremities Neurological: Cranial nerves II-XII grossly intact, Neuro grossly intact Psych/Mental Status: Normal Affect, Appropriate Laboratory Results 09/28/20 13:00: WBC 5.4, RBC 4.09 L, Hgb 14.0, Hct 39.9, MCV 97.6, MCH 34.2 H, MCHC 35.1, RDW Std Deviation 42.9, RDW Coeff of Gladys 11.9, Plt Count 292, MPV 10.1, Immature Gran % (Auto) 0.200, Neut % (Auto) 66.6, Lymph % (Auto) 23.7, [place]ois % (Auto) 8.5, Eos % (Auto) 0.4, Baso % (Auto) 0.6, Absolute Neuts (auto) 3.6, Absolute Lymphs (auto) 1.29, Nucleated RBC % 0 09/28/20 13:00: Sodium 143, Potassium 3.2 L, Chloride 108 H, Carbon Dioxide 29.0, Anion Gap 6, BUN 9, Creatinine 0.72, Estim Creat Clear Calc 43.00, Est GFR (MDRD) Af Amer 100, Est GFR (MDRD) Non-Af 82, BUN/Creatinine Ratio 12.5, Glucose 91, Calcium 9.4, Troponin I 0.042 09/28/20 13:35: Urine Color Straw, Urine Clarity Clear, Urine pH 7.0, Ur Specific [place] 1.010, Urine Protein Negative, Urine Glucose (UA) Normal, Urine Ketones 5 H, Urine Occult Blood 25 H, Urine Nitrite Negative, Urine Bilirubin Negative, Urine Urobilinogen Normal, Ur Leukocyte Esterase Negative, Urine RBC 0-5 SEEN, Urine WBC 0-5 SEEN, Ur Squamous Epith Cells 0 SEEN, Amorphous Sediment 2+, Urine Bacteria 1+, Hyaline Casts 0-5 SEEN, Coarse Granular Casts 0-5 SEEN, Urine Mucus 0 SEEN Assessment/Plan All Active Problems (Last Reviewed 01/04/20 @ 15:29 by Letty Lobo) Fall (Acute) Encephalopathy (Acute) Accidental hypothermia (Resolved) 1. Debility with recurrent falls, functional decline-imaging without acute process. UA negative. PT/OT. Social work/case management consult for discharge planning. Patient's son requesting patient to go to SNF however patient is not amenable at this time. Son does not have healthcare power of family and consumer sciences professor. 2. Cognitive impairment-no formal dementia diagnosis. Patient is not on medication regimen. Will need follow-up with geriatric medicine at discharge. Son feels patient is no longer safe at home, will discuss with social work as noted above. 3. Chronic diastolic CHF-echo November 2017 demonstrated an EF of 55%, stage I diastolic dysfunction, moderate tricuspid valve insufficiency, RVSP estimated to be 45 mmHg. Continue home Lasix regimen. 4. Hypertension-elevated on admission. Continue home metoprolol regimen. As needed hydralazine for systolic pressure greater than 160. 5. Hyperlipidemia-continue statin. 6. Hypothyroidism-continue Synthroid. 7. Anxiety/depression-on bupropion, sertraline. 8. History of AAA 9. GERD-continue PPI. DVT prophylaxis-Heparin subcu This patient was seen by SARA Sal under the supervision of Dr. Galloway.
--- NOTE | 2020-09-28 15:50 | ED.RN ---
attempted to ambulate pt. pt had difficulty getting out fo bed. stood requiring assist.after few seconds pt reo\ports that she is having pain behind left knee and needs to sit down. pt able to take feow small side steps to get back in position for sitting in bed. 2 assist to get pt laying in bed again.
[2020-09-28 15:52] VITALS: BP 139/79; PULSE 84; RESP 17; TEMP 36.3; O2SAT 99
--- NOTE | 2020-09-28 16:47 | ED.RN ---
juan fer and juan nurse report that they did not see pt son come in. pt reports he was here they argued and he wasnt happy. pt also was sitting up in chair getting dressed and ther ewas urine all over the floor.
--- NOTE | 2020-09-28 17:08 | ED.RN ---
son present. this nurse and son talked with pt. pt agreeable to stay and be admitted to acute hospital. dr caroline dodson.
[2020-09-28 17:28] VITALS: PULSE 88; BMI 28.7
[2020-09-28 22:26] VITALS: BP 183/84; PULSE 75; RESP 16; TEMP 36.7; O2SAT 97
[2020-09-28 22:29] VITALS: PULSE 75
[2020-09-28] MEDS: Atorvastatin Calcium 10 MG Tablet PO (22:29)
[2020-09-28] MEDS: Heparin Injection (Vial) 5,000 UNIT/ML VIAL 5000 UNIT SC (22:29)
[2020-09-28] MEDS: Metoprolol Tartrate 25 MG Tablet PO (22:29)
[2020-09-29] VITALS (7 sets, daily range): BP systolic 101–186; BP diastolic 55–86; PULSE 64–81; RESP 18; TEMP 36.3–37.1; O2SAT 93–97
[2020-09-29] MEDS: Acetaminophen 500 MG Tablet 1000 MG PO (03:00)
[2020-09-29] MEDS: hydrALAZINE 20 MG/ML Vial 10 MG IV (03:34)
[2020-09-29] MEDS: 0.9% Saline Lock 10 ML Syringe IV ×2 (03:34→04:19)
[2020-09-29] MEDS: Ondansetron 4 MG/2 ML Vial IV (04:19)
[2020-09-29] MEDS: Levothyroxine 50 MCG Tablet PO (04:19)
[2020-09-29] MEDS: oxyCODONE 5 MG Tablet PO (04:19)
[2020-09-29] MEDS: Furosemide 20 MG Tablet PO (09:12)
[2020-09-29] MEDS: Sertraline 50 MG Tablet PO (09:12)
[2020-09-29] MEDS: Clopidogrel Bisulfate 75 MG Tablet PO (09:12)
[2020-09-29] MEDS: Heparin Injection (Vial) 5,000 UNIT/ML VIAL 5000 UNIT SC (09:12)
[2020-09-29] MEDS: Aspirin E.C. 81 MG Tablet PO (09:12)
[2020-09-29] MEDS: Pantoprazole Sodium 40 MG Tablet PO (09:12)
[2020-09-29] MEDS: buPROPion (XL) 300 MG TABLET.XL PO (09:12)
[2020-09-29] MEDS: Metoprolol Tartrate 25 MG Tablet PO (09:24)
--- NOTE | 2020-09-29 10:59 | CASEMGMT ---
Social Work Assessment Referral Date: 09/29/2020 Date of Assessment: 09/29/2020 Reason for consult: Possible SNF placement Informant: Personal Status: SW met with pt to complete initial assessment. SW introduced self and role at [facility]. Pt is alert to self and place only. Pt thought today was September 30, 1998. Living Arrangements: Pt states that she lives with her babies. Pt states that she live with two dogs and four cats. Pt states it is two story home with first floor set up. Pt unsure of steps to enter, states there are more than two. ADLS: Pt states she was independent with ADLS. Pt does confirm she has had recent falls at home. Transportation: Pt states she still drives [facility]: [facility] PCP: Pt not able to state who her PCP is. Per facesheet, PCP is Dr. Cuevas DME: Cane, Walker, Wheelchair HCPOA/LW: Pt states she has completed HCPOA and LW recently, states she named her son Mateus as HCPOA. Substance Abuse Hx: Pt states in the past she drank ETOH and smoked cigarettes. Pt denied any current use. Pt states she just takes her prescribed medications. Mental Health Hx: Pt states history of anxiety, depression. SW asked pt if she took anything for depression and anxiety, pt unsure. Pt state she has history of thoughts of wanting to harm self/others, no plans. Pt denied any current suicidal/homicidal thoughts/plans/ideations. 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 ALESSIA informed pt that she was at [facility] last year, pt confirms. ALESSIA spoke with pt regarding discharge plans. ALESSIA informed pt that it is being recommend pt admit to SNF for short term therapy. Pt states agreeable to SNF and asked this worker to call her son Mateus to get his opinion on which SNF to go to. ALESSIA provided pt with list of SNF that accept pt's insurance. ALESSIA informed pt that this worker will call Mateus and keep pt updated. Pt states understanding. ALESSIA placed a call to pt's son Mateus and updated him on recommendation for SNF. Mateus asked who makes that decision. ALESSIA informed pt that SNF is just a recommendation and that pt and Mateus has a right to make determination regarding discharge plans. ALESSIA informed Mateus that pt was only alert to self and place, thought it was 1987. ALESSIA informed Mateus that pt gave this worker permission to call him to continue discussion of SNF. ALESSIA spoke with Mateus regarding SNF placement and verbally provided list of SNF that accept pt's insurance. Mateus asked about HCPOA for pt and how he needs to be involved in decision making. ALESSIA informed pt that this worker can speak with pt again regarding HCPOA and LW. Mateus states pt hasn't completed documents and requests pt completes document. ALESSIA informed Mateus that this worker can speak with pt again regarding HCPOA but again reiterated that pt was unsure of time, was only alert and orientated x2 and pt would have to be agreeable to completing documents if pt was able to do so. ALESSIA explained that if pt is not able to make own decisions, then it would go to spouse, if not spouse, then children to make decisions. ALESSIA explained Medicare coverage days to SNF. Mateus asked who would make the decision of when pt could return home. ALESSIA explained that the SNF would make recommendations for discharge but again pt and pt family has right to make decisions regarding discharge plans. Mateus states plan is for pt admit to [facility] and then asked for recommendations for SNF. ALESSIA explained that this worker cannot make recommendations but did provide Medicare Ratings for SNF. Mateus asked about TCU. ALESSIA explained that this worker didn't know if TCU had any beds available but could call and check. Mateus then states plan is for [facility] and asked if this worker will keep him updated on SWCC and HCPOA documents. ALESSIA explained that this worker will make referral to [facility] and once this worker hear's from [facility] and speaks to pt regarding HCPOA, this worker can update Mateus. Mateus states understanding. Plan: SNF pending acceptance. Pt is medically ready once SNF has been confirmed. SW to fax referral once PT/OT works with pt. Inga Hawk CATTLE MANAGER, BOX INSPECTOR
--- NOTE | 2020-09-29 12:28 | PCM.EXTCARCO ---
- Diet 09/28/20 17:43 Diet: Regular - General Food consistency:: Regular Liquid Consistency:: Regular/Thin - Routine Orders/Code Status Enema Type: Fleetz Enema Frequency: Daily PRN Suppository Type: Dulcolax 10mg Suppository Frequency: Daily PRN Routine Lab Work: CBC, BMP, - - Q Week - Suggestions for Active Care Change Position every (hours): 2 Times a day to sit in chair: 3 - Therapies Physical Therapy: Eval and Treat Occupational Therapy: Eval and Treat - Problem/Diagnosis (1) Chronic diastolic (congestive) heart failure Status: Chronic (2) Essential hypertension Status: Chronic (3) Fall Status: Acute (4) Encephalopathy Status: Acute Comment: Cognitive impairment. No acute process. (5) NSTEMI (non-ST elevated myocardial infarction) Status: Chronic (6) HLD (hyperlipidemia) Status: Chronic (7) Anxiety and depression Status: Chronic (8) Hypothyroidism Status: Chronic (9) GERD (gastroesophageal reflux disease) Status: Chronic (10) AAA (abdominal aortic aneurysm) Status: Chronic - Allergies/Procedures Done in Hospital Allergies/Adverse Reactions: Allergies No Known Allergies Allergy (Verified 09/28/20 13:14) Procedures: None - Type of Care/Length of Stay Estimated LOS: Convalescent Care Less Than 30 days Type of Care Needed: Skilled Rehab Potential: Fair Prognosis: Fair - Additional Orders/Day of Discharge H&P will serve as current which was dated: 09/28/20 Day of Discharge: 09/29/20 - Follow Up Care Primary Care Physician: Austin Cuevas MD [Primary Care Provider] - Please follow up with your Primary Care Physician in: 1 Week
--- NOTE | 2020-09-29 13:55 | CASEMGMT ---
Social Work Note PT/OT not available yet. SW went a head a faxed referral to [facility]. SW placed a call to Ramila at [facility] and provided referral. Ramila states they have beds available, should be able to accept pt but will review referral. ALESSIA placed a call to PT/OT requesting PT/OT work with pt. Plan: [facility] pending acceptance Inga Hawk ADULT LITERACY TEACHER, CONTRACT CONSULTANT
--- NOTE | 2020-09-29 14:01 | PN_ITS ---
Patient Problems: Active and Suspected Problems (Last Reviewed 01/04/20 @ 15:29 by Letty Lobo) Fall (Acute) Encephalopathy (Acute) Cognitive impairment. No acute process. Subjective: Patient seen and examined. Discussed in length plan of care and patient is amendable to SNF. Awaiting acceptance. She denies current symptoms or complaints. - Physical Exam Vitals/I&O's: Vital Signs Temp Pulse Resp BP Pulse Ox 97.6 F L 71 18 101/74 93 09/29/20 07:41 09/29/20 09:24 09/29/20 07:41 09/29/20 09:24 09/29/20 07:41 Oxygen Delivery Method Room Air Weight: 162 lb Body Mass Index (BMI) 28.7 Intake and Output for Last 24 Hours 09/27/20 09/28/20 09/29/20 23:59 23:59 23:59 Intake Total 100 / 100 500 / 500 Output Total 600 / 600 Balance 100 / 100 -100 / -100 General: Alert, Cooperative, No apparent distress HEENT: Atraumatic, PERRLA, EOMI, Normocephalic Neck: Supple, No JVD, Negative Carotid Bruits Lungs: Clear to auscultation, Normal air movement Cardiovascular: Regular rate, No murmurs Abdomen: Bowel Sounds Present, Soft, Non Tender, Non-Distended Extremities: No clubbing, No cyanosis, No edema, Capillary Refill Less than 3 Seconds Skin: No rashes, No breakdown Musculoskeletal: No Tenderness to Palpation of Joints or Extremities Neurological: Cranial nerves II-XII grossly intact, Neuro grossly intact Psych/Mental Status: Normal Affect, Appropriate Laboratory Results 09/28/20 13:35: Urine Color Straw, Urine Clarity Clear, Urine pH 7.0, Ur Specific [place] 1.010, Urine Protein Negative, Urine Glucose (UA) Normal, Urine Ketones 5 H, Urine Occult Blood 25 H, Urine Nitrite Negative, Urine Bilirubin Negative, Urine Urobilinogen Normal, Ur Leukocyte Esterase Negative, Urine RBC 0-5 SEEN, Urine WBC 0-5 SEEN, Ur Squamous Epith Cells 0 SEEN, Amorphous Sediment 2+, Urine Bacteria 1+, Hyaline Casts 0-5 SEEN, Coarse Granular Casts 0-5 SEEN, Urine Mucus 0 SEEN Current Medications Acetaminophen (Acetaminophen 500 Mg Tablet) 1,000 mg PO Q6H PRN PRN PRN Reason: Pain Score 1-3 Last Admin: 09/29/20 03:00 Dose: 1,000 mg Documented by: Aspirin (Aspirin E.C. 81 Mg Tablet) 81 mg PO DAILY [facility] Last Admin: 09/29/20 09:12 Dose: 81 mg Documented by: Atorvastatin Calcium (Atorvastatin Calcium 10 Mg Tablet) 10 mg PO QHS [facility] Last Admin: 09/28/20 22:29 Dose: 10 mg Documented by: Bupropion HCl (Bupropion (Xl) 300 Mg Tablet.Xl) 300 mg PO DAILY [facility] Last Admin: 09/29/20 09:12 Dose: 300 mg Documented by: Clopidogrel Bisulfate (Clopidogrel Bisulfate 75 Mg Tablet) 75 mg PO DAILY [facility] Last Admin: 09/29/20 09:12 Dose: 75 mg Documented by: Furosemide (Furosemide 20 Mg Tablet) 20 mg PO DAILY [facility] Last Admin: 09/29/20 09:12 Dose: 20 mg Documented by: Heparin Sodium (Porcine) (Heparin Injection (Vial) 5,000 Unit/Ml Vial) 5,000 unit SC Q12 [facility] Last Admin: 09/29/20 09:12 Dose: 5,000 unit Documented by: Hydralazine HCl (Hydralazine 20 Mg/Ml Vial) 10 mg IV Q4H PRN PRN PRN Reason: SBP> 160 or DBP > 120 Last Admin: 09/29/20 03:34 Dose: 10 mg Documented by: Levothyroxine Sodium (Levothyroxine 50 Mcg Tablet) 50 mcg PO DAILY@0600 [facility] Last Admin: 09/29/20 04:19 Dose: 50 mcg Documented by: Metoprolol Tartrate (Metoprolol Tartrate 25 Mg Tablet) 25 mg PO BID [facility] Last Admin: 09/29/20 09:24 Dose: 25 mg Documented by: Ondansetron HCl (Ondansetron 4 Mg/2 Ml Vial) 4 mg IV Q8H PRN PRN PRN Reason: NAUSEA/VOMITING Last Admin: 09/29/20 04:19 Dose: 4 mg Documented by: Oxycodone HCl (Oxycodone 5 Mg Tablet) 5 mg PO Q4H PRN PRN PRN Reason: Pain Score 4-10 Last Admin: 09/29/20 04:19 Dose: 5 mg Documented by: Pantoprazole Sodium (Pantoprazole Sodium 40 Mg Tablet) 40 mg PO DAILY@0800 [facility] Last Admin: 09/29/20 09:12 Dose: 40 mg Documented by: Potassium Chloride (Potassium Chloride 20 Meq Tablet) 40 meq PO BIDCM [facility] Last Admin: 09/29/20 09:11 Dose: 40 meq Documented by: Sertraline HCl (Sertraline 50 Mg Tablet) 50 mg PO DAILY [facility] Last Admin: 09/29/20 09:12 Dose: 50 mg Documented by: Sodium Chloride (0.9% Saline Lock 10 Ml Syringe) 10 - 40 ml IV UD PRN PRN Reason: SALINE FLUSH Last Admin: 09/29/20 04:19 Dose: 10 ml Documented by: Medical Necessity - Tobacco Use Smoking Status: Unknown if ever smoked Assessment/Plan All Active Problems (Last Reviewed 01/04/20 @ 15:29 by Letty Lobo) Fall (Acute) Encephalopathy (Acute) 1. Debility with recurrent falls, functional decline-imaging without acute pr ocess. UA negative. PT/OT. Social work/case management consult for discharge planning. SNF pending acceptance. 2. Cognitive impairment-no formal dementia diagnosis. Patient is not on medication regimen. Will need follow-up with geriatric medicine at discharge. Son feels patient is no longer safe at home, will discuss with social work as noted above. 3. Chronic diastolic CHF-echo November 2017 demonstrated an EF of 55%, stage I diastolic dysfunction, moderate tricuspid valve insufficiency, RVSP estimated to be 45 mmHg. Continue home Lasix regimen. 4. Hypertension- Continue home metoprolol regimen. 5. Hyperlipidemia-continue statin. 6. Hypothyroidism-continue Synthroid. 7. Anxiety/depression-on bupropion, sertraline. 8. History of AAA 9. GERD-continue PPI. DVT prophylaxis-Heparin subcu This patient was seen by SARA Sal under the supervision of Dr. Herrera.
--- NOTE | 2020-09-29 16:16 | PCM.DC.SUM ---
<Katalina Rose BLOCK STACKER - Last Filed: 09/29/20 16:20> Discharge Date and Diagnosis - Problem List Patient Problems: Active and Suspected Problems (Last Reviewed 01/04/20 @ 15:29 by Letty Lobo) Fall (Acute) Encephalopathy (Acute) Cognitive impairment. No acute process. Date of Admission: 09/28/20 Date of Discharge: 09/29/20 - Primary Discharge Diagnosis Acute Problems: Active Problems (Last Reviewed 01/04/20 @ 15:29 by Letty Lobo) 1. Debility with recurrent falls, functional decline 2. Cognitive impairment 3. Chronic diastolic CHF 4. Hypertension 5. Hyperlipidemia 6. Hypothyroidism 7. Anxiety/depression 8. History of AAA 9. GERD - Secondary Discharge Diagnosis Chronic Problems: Chronic Problems (Last Reviewed 01/04/20 @ 15:29 by Letty Lobo) Chronic diastolic (congestive) heart failure (Chronic) Essential hypertension (Chronic) NSTEMI (non-ST elevated myocardial infarction) (Chronic) HLD (hyperlipidemia) (Chronic) Anxiety and depression (Chronic) Hypothyroidism (Chronic) GERD (gastroesophageal reflux disease) (Chronic) AAA (abdominal aortic aneurysm) (Chronic) Hospital Course and Treatment Imaging Results: Diagnostic Data Chest X-Ray 09/28/20 13:00 IMPRESSION: No acute traumatic process is identified. Cardiomegaly and pulmonary vascular congestion. Superimposed pneumonia should be excluded clinically. Electronically Signed: Edenilson Shen, at 14:22 EST Tel , Service support , Hip X-Ray 09/28/20 13:00 Knee X-Ray 09/28/20 13:00 IMPRESSION: No acute fracture or dislocation left knee. Electronically Signed: Edenilson Shen, at 14:28 EST Tel , Service support , Brain CT 09/28/20 14:58 IMPRESSION: 1. No acute intracranial hemorrhage or mass effect. 2. Central parenchymal volume loss. White matter changes that are nonspecific but most commonly associated with chronic small vessel ischemic disease. Electronically Signed: Sudhir Saini MD (Bro[place]) at 15:24 EST , Service support , Operations: None Procedures: None Summary of Care Provided: The patient is a 85 year old F admitted 09/28/2020 due to fall and functional decline. 1. Debility with recurrent falls, functional decline-imaging without acute process. UA negative. Brain CT negative. SNF at discharge. 2. Cognitive impairment-no formal dementia diagnosis. Patient is not on medication regimen. Will need follow-up with geriatric medicine at discharge. Son feels patient is no longer safe at home, SNF at discharge as noted above. 3. Chronic diastolic CHF-echo November 2017 demonstrated an EF of 55%, stage I diastolic dysfunction, moderate tricuspid valve insufficiency, RVSP estimated to be 45 mmHg. Continue home Lasix regimen. 4. Hypertension-Continue home metoprolol regimen. 5. Hyperlipidemia-continue statin. 6. Hypothyroidism-continue Synthroid. 7. Anxiety/depression-on bupropion, sertraline. 8. History of AAA 9. GERD-continue PPI. General: Alert, Cooperative, No apparent distress HEENT: Atraumatic, PERRLA, EOMI, Normocephalic Neck: Supple, No JVD, Negative Carotid Bruits Lungs: Clear to auscultation, Normal air movement Cardiovascular: Regular rate, No murmurs Abdomen: Bowel Sounds Present, Soft, Non Tender, Non-Distended Extremities: No clubbing, No cyanosis, No edema, Capillary Refill Less than 3 Seconds Skin: No rashes, No breakdown Musculoskeletal: No Tenderness to Palpation of Joints or Extremities Neurological: Cranial nerves II-XII grossly intact, Neuro grossly intact Psych/Mental Status: Normal Affect, Appropriate Patient seen and examined prior to discharge. Physical assessment as noted above. Patient is stable for discharge with follow up recommendations as noted above. This patient was seen by SARA Sal under the supervision of Dr. Herrera. Patient Problems: Active and Suspected Problems (Last Reviewed 01/04/20 @ 15:29 by Letty Lobo) Fall (Acute) Encephalopathy (Acute) Cognitive impairment. No acute process. - Physical Exam Vitals/I&O's: Vital Signs Temp Pulse Resp BP Pulse Ox 97.4 F L 64 18 118/55 L 93 09/29/20 14:00 12/07/20 14:00 09/29/20 14:00 09/29/20 14:00 09/29/20 14:00 Oxygen Delivery Method Room Air Weight: 162 lb Body Mass Index (BMI) 28.7 Intake and Output for Last 24 Hours 09/27/20 09/28/20 09/29/20 23:59 23:59 23:59 Intake Total 100 / 100 900 / 900 Output Total 600 / 600 Balance 100 / 100 300 / 300 Current Medications Acetaminophen (Acetaminophen 500 Mg Tablet) 1,000 mg PO Q6H PRN PRN PRN Reason: Pain Score 1-3 Last Admin: 09/29/20 03:00 Dose: 1,000 mg Documented by: Aspirin (Aspirin E.C. 81 Mg Tablet) 81 mg PO DAILY [facility] Last Admin: 09/29/20 09:12 Dose: 81 mg Documented by: Atorvastatin Calcium (Atorvastatin Calcium 10 Mg Tablet) 10 mg PO QHS [facility] Last Admin: 09/28/20 22:29 Dose: 10 mg Documented by: Bupropion HCl (Bupropion (Xl) 300 Mg Tablet.Xl) 300 mg PO DAILY [facility] Last Admin: 09/29/20 09:12 Dose: 300 mg Documented by: Clopidogrel Bisulfate (Clopidogrel Bisulfate 75 Mg Tablet) 75 mg PO DAILY [facility] Last Admin: 09/29/20 09:12 Dose: 75 mg Documented by: Furosemide (Furosemide 20 Mg Tablet) 20 mg PO DAILY [facility] Last Admin: 09/29/20 09:12 Dose: 20 mg Documented by: Heparin Sodium (Porcine) (Heparin Injection (Vial) 5,000 Unit/Ml Vial) 5,000 unit SC Q12 [facility] Last Admin: 09/29/20 09:12 Dose: 5,000 unit Documented by: Hydralazine HCl (Hydralazine 20 Mg/Ml Vial) 10 mg IV Q4H PRN PRN PRN Reason: SBP> 160 or DBP > 120 Last Admin: 09/29/20 03:34 Dose: 10 mg Documented by: Levothyroxine Sodium (Levothyroxine 50 Mcg Tablet) 50 mcg PO DAILY@0600 [facility] Last Admin: 09/29/20 04:19 Dose: 50 mcg Documented by: Metoprolol Tartrate (Metoprolol Tartrate 25 Mg Tablet) 25 mg PO BID [facility] Last Admin: 12/07/20 09:24 Dose: 25 mg Documented by: Ondansetron HCl (Ondansetron 4 Mg/2 Ml Vial) 4 mg IV Q8H PRN PRN PRN Reason: NAUSEA/VOMITING Last Admin: 09/29/20 04:19 Dose: 4 mg Documented by: Oxycodone HCl (Oxycodone 5 Mg Tablet) 5 mg PO Q4H PRN PRN PRN Reason: Pain Score 4-10 Last Admin: 09/29/20 04:19 Dose: 5 mg Documented by: Pantoprazole Sodium (Pantoprazole Sodium 40 Mg Tablet) 40 mg PO DAILY@0800 [facility] Last Admin: 09/29/20 09:12 Dose: 40 mg Documented by: Potassium Chloride (Potassium Chloride 20 Meq Tablet) [facility] Last Admin: 09/29/20 09:11 Dose: 40 meq Documented by: Sertraline HCl (Sertraline 50 Mg Tablet) 50 mg PO DAILY [facility] Last Admin: 09/29/20 09:12 Dose: 50 mg Documented by: Sodium Chloride (0.9% Saline Lock 10 Ml Syringe) 10 - 40 ml IV UD PRN PRN Reason: SALINE FLUSH Last Admin: 09/29/20 04:19 Dose: 10 ml Documented by: Home Medications: Medications to take at Discharge Bupropion HCl [Wellbutrin Xl] 300 mg PO DAILY 12/19/18 Levothyroxine [Synthroid] 50 mcg PO DAILY 12/19/18 Sertraline HCl [Zoloft] 50 mg PO DAILY 12/19/18 pantoprazole 40 mg tablet,delayed release 40 mg PO DAILY 01/04/19 Acetaminophen [Tylenol] 1,000 mg PO Q6H PRN PRN tab 01/09/19 Aspirin E.C. [Ecotrin] 81 mg PO DAILY@0800 #30 tab 01/09/19 Atorvastatin Calcium [Lipitor] 10 mg PO QHS #30 tab 01/09/19 Clopidogrel Bisulfate [Plavix] 75 mg PO DAILY #30 tab 01/09/19 Furosemide [Lasix] 20 mg PO DAILY #30 tab 01/09/19 Menthol/Lanolin/Calamine/Znox [Calmoseptine Ointment] 1 applic TOPICAL 0600,2200 tube 01/09/19 Metoprolol Tartrate [Lopressor (beta risa)] 25 mg PO BID #60 tab 01/09/19 Mineral Oil/Petrolatum,White [Eucerin] 1 applic TOPICAL 0600,2200 jar 01/09/19 Pantoprazole Sodium [Protonix] 40 mg PO DAILY@0800 #30 tab 01/09/19 Potassium Chloride [K-Dur] 40 meq PO BID #60 tab 01/09/19 Primary Care Physician: Austin Cuevas MD [Primary Care Provider] - Please follow up with your Primary Care Physician in: 1 Week [facility] Minutes spent on discharge:: 35 Patient Condition:: Stable Medical Necessity - Tobacco Use Smoking Status: Unknown if ever smoked Meaningful Use Info Meaningful Use Diagnoses (Choose all that apply): None applicable <Chad Herrera - Last Filed: 09/29/20 17:37> Discharge Date and Diagnosis - Primary Discharge Diagnosis Acute Problems: Active Problems (Last Reviewed 01/04/20 @ 15:29 by Letty Lobo) Fall (Acute) Encephalopathy (Acute) Cognitive impairment. No acute process. - Secondary Discharge Diagnosis Chronic Problems: Chronic Problems (Last Reviewed 01/04/20 @ 15:29 by Letty Lobo) Chronic diastolic (congestive) heart failure (Chronic) Essential hypertension (Chronic) NSTEMI (non-ST elevated myocardial infarction) (Chronic) HLD (hyperlipidemia) (Chronic) Anxiety and depression (Chronic) Hypothyroidism (Chronic) GERD (gastroesophageal reflux disease) (Chronic) AAA (abdominal aortic aneurysm) (Chronic) Hospital Course and Treatment Summary of Care Provided: The patient is a 85 year old F [] - Physical Exam Vitals/I&O's: Vital Signs Temp Pulse Resp BP Pulse Ox 97.4 F L 64 18 118/55 L 93 09/29/20 14:00 09/29/20 14:00 09/29/20 14:00 09/29/20 14:00 09/29/20 14:00 Oxygen Delivery Method Room Air Weight: 162 lb Body Mass Index (BMI) 28.7 Intake and Output for Last 24 Hours 09/27/20 09/28/20 09/29/20 23:59 23:59 23:59 Intake Total 100 / 100 900 / 900 Output Total 600 / 600 Balance 100 / 100 300 / 300 Current Medications Acetaminophen (Acetaminophen 500 Mg Tablet) 1,000 mg PO Q6H PRN PRN PRN Reason: Pain Score 1-3 Last Admin: 09/29/20 03:00 Dose: 1,000 mg Documented by: Aspirin (Aspirin E.C. 81 Mg Tablet) 81 mg PO DAILY [facility] Last Admin: 09/29/20 09:12 Dose: 81 mg Documented by: Atorvastatin Calcium (Atorvastatin Calcium 10 Mg Tablet) 10 mg PO QHS [facility] Last Admin: 09/28/20 22:29 Dose: 10 mg Documented by: Bupropion HCl (Bupropion (Xl) 300 Mg Tablet.Xl) 300 mg PO DAILY [facility] Last Admin: 09/29/20 09:12 Dose: 300 mg Documented by: Clopidogrel Bisulfate (Clopidogrel Bisulfate 75 Mg Tablet) 75 mg PO DAILY [facility] Last Admin: 09/29/20 09:12 Dose: 75 mg Documented by: Furosemide (Furosemide 20 Mg Tablet) 20 mg PO DAILY [facility] Last Admin: 09/29/20 09:12 Dose: 20 mg Documented by: Heparin Sodium (Porcine) (Heparin Injection (Vial) 5,000 Unit/Ml Vial) 5,000 unit SC Q12 [facility] Last Admin: 09/29/20 09:12 Dose: 5,000 unit Documented by: Hydralazine HCl (Hydralazine 20 Mg/Ml Vial) 10 mg IV Q4H PRN PRN PRN Reason: SBP> 160 or DBP > 120 Last Admin: 09/29/20 03:34 Dose: 10 mg Documented by: Levothyroxine Sodium (Levothyroxine 50 Mcg Tablet) 50 mcg PO DAILY@0600 [facility] Last Admin: 09/29/20 04:19 Dose: 50 mcg Documented by: Metoprolol Tartrate (Metoprolol Tartrate 25 Mg Tablet) 25 mg PO BID [facility] Last Admin: 09/29/20 09:24 Dose: 25 mg Documented by: Ondansetron HCl (Ondansetron 4 Mg/2 Ml Vial) 4 mg IV Q8H PRN PRN PRN Reason: NAUSEA/VOMITING Last Admin: 09/29/20 04:19 Dose: 4 mg Documented by: Oxycodone HCl (Oxycodone 5 Mg Tablet) 5 mg PO Q4H PRN PRN PRN Reason: Pain Score 4-10 Last Admin: 09/29/20 04:19 Dose: 5 mg Documented by: Pantoprazole Sodium (Pantoprazole Sodium 40 Mg Tablet) 40 mg PO DAILY@0800 [facility] Last Admin: 09/29/20 09:12 Dose: 40 mg Documented by: Potassium Chloride (Potassium Chloride 20 Meq Tablet) 40 meq PO BIDCM [facility] Last Admin: 09/29/20 09:11 Dose: 40 meq Documented by: Sertraline HCl (Sertraline 50 Mg Tablet) 50 mg PO DAILY [facility] Last Admin: 09/29/20 09:12 Dose: 50 mg Documented by: Sodium Chloride (0.9% Saline Lock 10 Ml Syringe) 10 - 40 ml IV UD PRN PRN Reason: SALINE FLUSH Last Admin: 09/29/20 04:19 Dose: 10 ml Documented by: Addendum: Dr. Herrera I personally examined the patient and reviewed the chart. I agree with the above. 85-year-old female presents from home after a fall. Per the son he is concern for possible dementia as well as a functional decline. UA was negative for UTI and CT of the brain was unremarkable. She was evaluated by PT/OT and after some discussion was agreeable to go [place] [facility]. She was accepted today and plan will be for discharge for rehab. Inpatient E&M: 19488 Disch Hosp
--- NOTE | 2020-09-29 16:30 | CASEMGMT ---
Social Work Note PT/OT available. ALESSIA faxed PT/OT available to Ramila at [facility]. ALESSIA placed a call to Ramila at [facility]. SW updated Ramila that PT/OT have been faxed. Ramila states [facility] is able to accept pt today. SW informed Ramila that COVID test has been ordered, will need to send results once available. Transportation requested to be arranged around 8:00pm as pt's COVID test will need be tested and results take about 3 hours. Physician updated that pt can discharge to SNF today. SW in to speak with pt. SW updated pt that [facility] is able to accept pt today. Pt laughing throughout conversation and had to be reminded about going to [facility]. SW spoke with pt regarding HCPOA/LW paperwork. Pt states her son had wanted her to complete it but pt never did. SW asked pt if she had any additional children. Pt states she has seven. SW explained HCPOA to pt. Pt states she should discuss document with her children. SW informed pt that documents can go with her to [facility] and the SW at [facility] can assist pt with documents if she wants to complete them. Pt states understanding. SW asked pt about daughter Conchita as Conchita had called in earlier wanting an update. Pt confirms Conchita is her daughter. Pt states Mateus is the one that lives local. ALESSIA updated pt that this worker will update both Mateus and Conchita on discharge plans. Pt states understanding, gave this worker permission to update both Mateus and Conchita. ALESSIA received call from pt's son Mateus requesting update. ALESSIA updated Mateus that [facility] just got back to this worker that they can accept pt. ALESSIA updated Mateus that pt will admit to [facility] today but that this worker didn't know the time yet. Mateus asked about HCPOA. ALESSIA asked Mateus how many children pt had. Pt states pt did have 8 but there are only three left. Mateus states there are him, Conchita and Samantha. Mateus states he lives closest to pt and is the child care attendant for pt. ALESSIA updated Mateus that this worker did speak with pt regarding HCPOA and pt stated she wanted to talk to her children first before completing documents. ALESSIA updated Mateus that this worker did provide pt with documents and SW at [facility] can continue discussion of HCPOA/LW with pt. ALESSIA asked Mateus if he wanted this worker to call him again once transportation has been arranged and Mateus denied, stating he will call [facility] later to see if pt is still at [facility] or at [facility]. ALESSIA faxed completed discharge paperwork to [facility] including transfer to extended care facility, signed medication list, any scripts. Original in SNF folder and copy on pt's chart. ALESSIA completed [facility]. Original in SNF folder and copy on pt's chart. RN states pt can transport via wheelchair van. ALESSIA accessed trip assist and scheduled transport via wheelchair van for 8:00pm as COVID results are needed for pt. Transportation form completed and placed on SNF folder and copy on pt's chart. ALESSIA updated RN on transportation time. ALESSIA placed a call to [facility] spoke with Stephie borrego and updated staff on transportation time. ALESSIA placed a call to pt's daughter Conchita and introduced self and role at [facility]. ALESSIA updated Conchita that pt has been accepted to [facility] and will discharge to [facility] tonight at 8:00pm. Conchita states she spoke with Mateus and was updated at that time that pt was already at [facility]. ALESSIA updated Conchita that this worker had to wait for PT/OT to see pt before [facility] would officially accept pt and that took time. Conchita estates understanding. ALESSIA updated pt that both Mateus and Conchita have been updated on discharge to [facility] today. ALESSIA updated paralegal legal secretary and Charge Nurse that once COVID results are back and are negative, results will need to be faxed to [facility]. If pt's COVID test are positive, pt will not be able to discharge to [facility]. ALESSIA placed a call to Ramila at [facility] and updated her on transportation time as well and requested to speak with ALESSIA. Ramila states she is also the SW at this time. ALESSIA updated Ramila that pt's family is requesting HCPOA be completed with pt and to follow up on HCPOA with pt at facility. Ramila states understanding. Plan: [facility] today skilled with physician's ambulance transporting pt via wheelchair van at 8:00pm. Inga Hawk SENIOR ELECTRICAL PROJECT MANAGER, ENGINEERING MANAGER [employer]LECT[employer]ICS
--- NOTE | 2020-09-29 19:51 | NURSING ---
report called to grupo @ [facility]
== END 2020-09-29 20:35 | disposition skilled nursing facility (03) | DRG 948 ==
LOC: ED 14:07 → MS3 17:29
PROVIDERS: Admitting Provider Internal Medicine; Emergency Provider Emergency Medicine; PCP Family Medicine; Visit Provider Family Medicine
DX: R53.81 Other malaise (principal); I50.32 Chronic diastolic (congestive) heart failure; G93.40 Encephalopathy, unspecified; R29.6 Repeated falls; R41.89 Other symptoms and signs involving cognitive functions and awareness; I11.0 Hypertensive heart disease with heart failure; E78.5 Hyperlipidemia, unspecified; K21.9 Gastro-esophageal reflux disease without esophagitis; M25.562 Pain in left knee; M25.552 Pain in left hip; G89.29 Other chronic pain; I25.2 Old myocardial infarction; F32.9 Major depressive disorder, single episode, unspecified; F41.9 Anxiety disorder, unspecified; E03.9 Hypothyroidism, unspecified; Z86.79 Personal history of other diseases of the circulatory system
CPT/HCPCS: 70450; 71045; 73502; 73564; 80048; 81001; 84484; 85025; 87086; 87426; 93005; 97162; 97165; 99285; A4216; J2405

== ENCOUNTER 2020-12-17 16:11 | Inpatient (IN) | payer MEDICARE, OTHER, SELFPAY ==
[2020-09-28 17:28] VITALS: BMI 28.7
[2020-12-17 16:11] VITALS: BP 145/99; PULSE 60; RESP 18; TEMP 35.8; O2SAT 94; BMI 23.3
--- NOTE | 2020-12-17 17:07 | ED.DCSUM_ITS ---
- ER Visit Summary Date of Service: 12/17/20 Chief Complaint: Dementia and wandering History of Present Illness: The patient is a [address] Cuevas. She is unsure why she was here. Family told nursing that patient was at a custodial facility. It is unclear when she was released from here. Daughter reports patient is wandering and that they are unable to care for her at home. Patient is pleasantly demented, but not a reliable informant. Her only complaint on review of systems is a small cough and diarrhea now and then. She reports that she had diarrhea yesterday. She denies any other complaints. Physical Examination: Vitals: Stable. Afebrile. General: Well-nourished and well-developed. Head: Normocephalic atraumatic. Neck: Supple, no lymphadenopathy. No JVD. Nontender. Cardiovascular: Regular rate and rhythm. No murmurs. Respiratory: No respiratory distress. Clear to auscultation bilaterally. Abdominal: Soft, nontender, nondistended, normal bowel sounds. No guarding, rebound, or peritoneal signs. Back: Nontender. Extremities: Nontender, no edema. Skin: Normal color, no rash. Neurologic: Alert and oriented ?1. Cranial nerves II through XII are intact. Normal strength and sensation. Psych: Normal affect. Test Results: CBC shows monocytes of 12 and lymphocytes of 19. Chem-7 shows a glucose 132. Covid is negative. Clinical Impression(s) from Imaging Studies Chest X-Ray 12/17/20 17:35 IMPRESSION: No acute cardiopulmonary disease. Electronically Signed: Frank Serna DO at 18:15 EST Tel [phone], Service support , Emergency Department Course and Treatment: Case management was consulted. I spoke with her son who states that she lives with her sister. I left a message for sister and was unable to talk with her. Treatment Plan: At this time her daughter had told the squad that patient needs to be admitted to hospital because she cannot care for her at home. She will be discussed with the hospitalist admitted for further evaluation and treatment. Disposition: Admitted in stable condition Impression: 1. Dementia. This note was generated with [employer] (ABAM)ation software. It may contain incorrect words, spelling, and punctuation that were not noted in review of the chart prior to signing ED Disposition - Plan for ED Patient: Referrals: Austin Cuevas MD [Primary Care Provider] -
--- NOTE | 2020-12-17 17:35 | RAD_ITS ---
STUDY: X-RAY CHEST REASON FOR EXAM: Female, 85 years old. Cough. TECHNIQUE: Single AP portable view of the chest. COMPARISON: 09/28/2020. FINDINGS: Telemetry wires overlie the chest. There is elevation of the right hemidiaphragm. Lungs well expanded and free of infiltrate or mass. There is no demonstrated pleural abnormality. Normal size heart. Normal mediastinum and yvette. Normal visualized pulmonary arteries. There is atherosclerotic calcification of the aortic arch with tortuosity. There is dextroscoliosis and degenerative changes of the thoracic spine. There is degenerative osteoarthritis of the bilateral shoulders. There is no demonstrated abnormality of the visualized soft tissue structures of the upper abdomen. RAD/Chest 1 View (Portable) IMPRESSION: No acute cardiopulmonary disease. Electronically Signed: Frank Serna DO at 18:15 EST Tel [phone], Service support ,
[2020-12-17 17:37] LABS: Absolute Lymphocyte Count 1.35 X10^3/uL (0.83-4.51); Absolute Neutrophil Count 4.8 X10^3/uL (2.0-7.7); Basophil# 0.05 X10^3/uL; Basophil% 0.7 % (0-1); Eosinophil# 0.05 X10^3/uL; Eosinophils% 0.7 % (0-5); Hematocrit 38.5 % (37-47); Hemoglobin 12.7 g/dL (12.0-15.0); Lymphocyte # 1.35 X10^3/ul (4.0); Lymphocyte % 18.8 % (19-41); Mean Corpuscular Hgb 33.7 pg (27.0-32.0); Mean Corpuscular Volume 102.1 fL (81-99); Monocyte# 0.86 X10^3/uL; NRBC Flagged by Analyzer 0 % (0-5); Neutrophil # 4.84 X10^3/uL (2.7-7.7); Neutrophil % 67.5 % (47-70); Platelet Count 211 K/mm3 (150-450); RBC Distribution Width SD 48.3 fl (35.1-43.9); Red Blood Count 3.77 M/mm3 (4.2-5.4); White Blood Count 7.2 K/mm3 (4.4-11.0)
[2020-12-17 17:46] LABS: Anion Gap 9 (5-15); BUN 16 mg/dL (7-18); Calcium,Total 9.4 mg/dL (8.5-10.1); Chloride 106 mmol/L (98-107); EST Glomerular Filtration Rate 56 mL/min (>60); Est Glom Filt Rate - Afr Amer 68 mL/min (>60); Estimated Creatinine Clearance 38.36 ml/min; Glucose 132 mg/dL (74-106); Potassium 3.7 mmol/L (3.5-5.1); Sodium Level 140 mmol/L (136-145)
--- NOTE | 2020-12-17 19:10 | PCM.HP.STD ---
Problem List (1) Adult failure to thrive Status: Acute (2) Dementia Status: Chronic Qualifiers: Dementia type: unspecified type Dementia behavioral disturbance: without behavioral disturbance Qualified Code(s): F03.90 - Unspecified dementia without behavioral disturbance (3) Chronic diastolic (congestive) heart failure Status: Chronic (4) Essential hypertension Status: Chronic (5) NSTEMI (non-ST elevated myocardial infarction) Status: Chronic (6) HLD (hyperlipidemia) Status: Chronic Qualifiers: Hyperlipidemia type: pure hypercholesterolemia Qualified Code(s): E78.00 - Pure hypercholesterolemia, unspecified (7) Anxiety and depression Status: Chronic (8) Hypothyroidism Status: Chronic Qualifiers: Hypothyroidism type: unspecified (9) GERD (gastroesophageal reflux disease) Status: Chronic Qualifiers: Esophagitis presence: esophagitis presence not specified Qualified Code(s): K21.9 - Gastro-esophageal reflux disease without esophagitis (10) AAA (abdominal aortic aneurysm) Status: Chronic Qualifiers: Presence of rupture: without rupture Qualified Code(s): I71.4 - Abdominal aortic aneurysm, without rupture History of Present Illness Date of Admission: 12/17/20 Chief Complaint: Dementia, worsening, family unable to care for het. The patient is a 85 y/o F w/ PMHx: Hx AAA, Anxiety and Depression, Chronic diastolic CHF, Anxiety and Depression, hx NSTEMI, GERD, HTN, HLD, Dementia unclear type with unclear behavioral disturbance history who presents to the [facility] ED on 12/17/20 with history of worsening dementia, previously in a SNF but at home now with her daughter, unable to care for herself, roaming outside not wearing a coat prompting daughter to bring the patient to the ED with family (son) reporting she was recently taken out of [facility] secondary to cost 3 weeks ago. In the emergency room herself denies any issues and is very pleasant. She notes she feels well and denies any recent fever, chills, nausea, emesis, abdominal pain, chest pain or dyspnea. Patient does strongly note preference to avoid longterm facility. ED staff also unable to reach patient's daughter with whom she lives. Work-up in the ED included T 96.5 temporally, heart rate 60, BP 145/99, respiratory rate 18, 94% on room air, CBC with WBC 7.2, hemoglobin 12.7, platelet 211 without marked shift, BMP not marked appearing aside glucose 132, rapid Covid antigen negative, chest x-rays no acute cardiopulmonary findings. Past Medical History Past Medical History (Chronic Problems): Chronic Problems (Last Reviewed 01/04/20 @ 15:29 by Letty Lobo) Dementia (Chronic) Chronic diastolic (congestive) heart failure (Chronic) Essential hypertension (Chronic) NSTEMI (non-ST elevated myocardial infarction) (Chronic) HLD (hyperlipidemia) (Chronic) Anxiety and depression (Chronic) Hypothyroidism (Chronic) GERD (gastroesophageal reflux disease) (Chronic) AAA (abdominal aortic aneurysm) (Chronic) Medical History: Medical History (Last Reviewed 01/04/20 @ 15:29 by Letty Lobo) Chronic diastolic (congestive) heart failure (Chronic) I50.32 Essential hypertension (Chronic) I10 Fall (Acute) W19.XXXA Encephalopathy (Acute) G93.40 Cognitive impairment. No acute process. NSTEMI (non-ST elevated myocardial infarction) (Chronic) I21.4 HLD (hyperlipidemia) (Chronic) E78.5 Anxiety and depression (Chronic) F41.9, F32.9 Hypothyroidism (Chronic) E03.9 GERD (gastroesophageal reflux disease) (Chronic) K21.9 AAA (abdominal aortic aneurysm) (Chronic) I71.4 Allergies No Known Allergies Allergy (Verified 12/17/20 16:14) Home Medications: Ambulatory Orders Medication Instructions Recorded Bupropion HCl [Wellbutrin Xl] 300 mg PO DAILY 12/19/18 Levothyroxine [Synthroid] 50 mcg PO DAILY 12/19/18 Sertraline HCl [Zoloft] 50 mg PO DAILY 12/19/18 Acetaminophen [Tylenol] 1,000 mg PO Q6H PRN PRN tab 01/09/19 Aspirin E.C. [Ecotrin] 81 mg PO DAILY@0800 #30 tab 01/09/19 Atorvastatin Calcium [Lipitor] 10 mg PO QHS #30 tab 01/09/19 Clopidogrel Bisulfate [Plavix] 75 mg PO DAILY #30 tab 01/09/19 Furosemide [Lasix] 20 mg PO DAILY #30 tab 01/09/19 Menthol/Lanolin/Calamine/Znox 1 applic TOPICAL 0600,2200 tube 01/09/19 [Calmoseptine Ointment] Metoprolol Tartrate [Lopressor 25 mg PO BID #60 tab 01/09/19 (beta risa)] Mineral Oil/Petrolatum,White 1 applic TOPICAL 0600,2200 jar 01/09/19 [Eucerin] Pantoprazole Sodium [Protonix] 40 mg PO DAILY@0800 #30 tab 01/09/19 Potassium Chloride Oral Tablet 40 meq PO BID #60 tab 01/09/19 [K-Dur] Smz/Tmp Ds [Bactrim Ds] 1 tab PO DAILY 12/17/20 Tolterodine Tartrate [Detrol LA] 4 mg PO DAILY 12/17/20 Surgical History: Surgical History (Last Reviewed 01/04/20 @ 15:29 by Letty Lobo) History of cholecystectomy Z90.49 History of hysterectomy Z90.710 Surgical History: adenoidectomy, appendectomy, cholecystectomy, hysterectomy, tonsillectomy Psychiatric History: Anxiety, Depression [employer]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 Denies: Chills, Fever, Weight Change HEENT: Denies: Head Aches, Sinus Congestion, Sinus Drainage Cardiovascular: Denies: Chest Pain, Palpitations Respiratory: Denies: Cough, Shortness of breath at rest, Sputum production Gastrointestinal: Denies: Abdominal Pain, Nausea, Vomiting Genitourinary: Denies: Dysuria Musculoskeletal: Denies: Joint Pain, Joint Tenderness Skin: Denies: Rash, Wounds Neurological: Reports: Balance problems, Confusion. Denies: Focal weakness, Numbness, Tingling Psychiatric: Reports: Anxiety, Depression. Denies: Homicidal Ideations, Suicidal Ideations Hematologic/ Lymphatic: Reports: Easy Bruising, Easy Bleeding VTE Information - Inpt Only VTE Present on Admission: No VTE Mechan Device Prophylaxis: SCD's VTE Pharm Prophylaxis ordered?: Yes Subjective: Patient seated upright in the ED bed, no acute distress, pleasant, admits that she does not know a lot of her history secondary to dementia. Objective: Physical Examination: General: awake, alert, oriented to self, place and some events but significant underlying dementia which patient admits to, remains cooperative, seated upright in the ED bed with no acute distress. Skin: normal color, turgor, no icterus, cyanosis. HEENT: AT/NC, EOMI, PERRLA, mildly dry MM, no carotid bruits or JVD noted. Lungs: Diminished breath sounds, moderate effort, no evidence of any distress, no rales, ronchi or wheezing. Heart: Regular rate and rhythm; no gallop, rub audible. Abdomen: soft, NTTP, ND, normal BS, no HSM. Extremities: no cyanosis, clubbing, or edema. Neurological: patient awake, alert, oriented as noted; cognitive function severely reduced baseline with underlying advanced dementia, suspect she is at her baseline; pupils equally reactive to light and accomodation; cranial nerves II-XII grossly normal, moving all 4 extremities, no focal deficits, strength mildly global decreased likely secondary to age and comorbidities. Psychiatric: affect appears normal, pleasant, no acute evidence of depressive or anxiety feelings. - Physical Exam Vitals/I&O's: Vital Signs Temp Pulse Resp BP Pulse Ox 96.5 F L 60 18 145/99 H 94 12/17/20 16:11 12/17/20 16:11 12/17/20 16:11 12/17/20 16:11 12/17/20 16:11 Oxygen Delivery Method Room Air Weight: 140 lb Body Mass Index (BMI) 23.3 Microbiology Past 72 Hours 12/17/20 17:25 Mucosa - Nose SARS-CoV-2 Antigen (Rapid) - Final Laboratory Results 12/17/20 17:25: WBC 7.2, RBC 3.77 L, Hgb 12.7, Hct 38.5, MCV 102.1 H, MCH 33.7 H, MCHC 33.0, RDW Std Deviation 48.3 H, RDW Coeff of Gladys 13.0, Plt Count 211, MPV 10.0, Immature Gran % (Auto) 0.300, Neut % (Auto) 67.5, Lymph % (Auto) 18.8 L, Lynn % (Auto) 12.0 H, Eos % (Auto) 0.7, Baso % (Auto) 0.7, Absolute Neuts (auto) 4.8, Absolute Lymphs (auto) 1.35, Nucleated RBC % 0 12/17/20 17:25: Sodium 140, Potassium 3.7, Chloride 106, Carbon Dioxide 25.0, Anion Gap 9, BUN 16, Creatinine 1.00, Estim Creat Clear Calc 38.36, Est GFR (MDRD) Af Amer 68, Est GFR (MDRD) Non-Af 56 L, BUN/Creatinine Ratio 16.0, Glucose 132 H, Calcium 9.4 Assessment/Plan All Active Problems (Last Reviewed 01/04/20 @ 15:29 by Letty Lobo) Adult failure to thrive (Acute) Fall (Acute) Encephalopathy (Acute) The patient is a 85 y/o F w/ PMHx: Hx AAA, Anxiety and Depression, Chronic diastolic CHF, Anxiety and Depression, hx NSTEMI, GERD, HTN, HLD, Dementia unclear type with unclear behavioral disturbance history who presents to the [facility] ED on 12/17/20 with history of worsening dementia, previously in a SNF but at home now with her daughter, unable to care for herself, roaming outside not wearing a coat prompting daughter to bring the patient to the ED. 1. Dementia, unclear type, progressively worsening with adult failure to thrive: We will admit patient to the medical surgical floor, maintain on fall precautions, continue to treat patient's chronic issues which appear stable at this time, will request case management involvement as well as physical therapy and Occupational Therapy for likely longterm facility placement although cost may be a barrier therefore will discern further planning once case management/social work involvement. 2. Diastolic CHF: We will continue patient aspirin, Plavix, metoprolol, Lasix, statin, not an YULISA inhibitor or ARB, judiciously hydrate if necessary. 3. History NSTEMI: We will continue patient aspirin, Plavix, metoprolol, statin therapy, patient per current list not on YULISA inhibitor or ARB. 4. Hypertension: Continue home regimen including Lasix, metoprolol with hold parameters, PRN hydralazine. 5. Hyperlipidemia: Continue home statin regimen. 6. Hypothyroidism: Continue home synthroid regimen. 7. Anxiety and depression: We will continue patient home bupropion and sertraline regimen. 8. GERD: We will continue patient home PPI. 9. History of AAA: 03/02/2019 CT abdomen and pelvis with noted 4.8 similar fusiform aneurysm of the infrarenal aorta unchanged from previously, encourage continued outpatient evaluation. 10. DVT prophylaxis: SCDs, Lovenox. 11. CODE STATUS: Will remain full code given patient underlying dementia and unable to reach daughter, several staff members have also attempted to contact unsuccessfully. OBSV E&M: [id number] Initial observation care L3
[2020-12-17 19:23] VITALS: BP 108/75; PULSE 87; RESP 18; TEMP 36.8; O2SAT 97
[2020-12-17 19:28] VITALS: BMI 23.3
[2020-12-17 21:19] VITALS: BP 134/70; PULSE 90; RESP 18; TEMP 36.7; O2SAT 98
[2020-12-17 21:20] VITALS: BMI 22.4
[2020-12-17 21:57] LABS: Magnesium 1.9 mg/dL (1.6-2.6)
[2020-12-17 22:30] VITALS: BP 134/70; PULSE 90
[2020-12-17] MEDS: Metoprolol Tartrate 25 MG Tablet PO (22:30)
[2020-12-17] MEDS: Atorvastatin Calcium 10 MG Tablet PO (22:30)
[2020-12-17] MEDS: Potassium Chloride Oral Tablet 20 MEQ 40 MEQ PO (22:30)
[2020-12-17] MEDS: Menthol/Lanolin/Calamine/Znox 113 GM Tube 1 APPLIC TOPICAL (22:36)
[2020-12-18] VITALS (8 sets, daily range): BP systolic 118–147; BP diastolic 68–75; PULSE 70–84; RESP 16–18; TEMP 36.8–37.4; O2SAT 94–100
[2020-12-18 06:19] LABS: Absolute Lymphocyte Count 1.89 X10^3/uL (0.83-4.51); Absolute Neutrophil Count 3.3 X10^3/uL (2.0-7.7); Basophil# 0.05 X10^3/uL; Basophil% 0.8 % (0-1); Eosinophil# 0.18 X10^3/uL; Eosinophils% 2.9 % (0-5); Hematocrit 36.4 % (37-47); Lymphocyte # 1.89 X10^3/ul (4.0); Lymphocyte % 30.5 % (19-41); Mean Corpuscular Hgb 33.6 pg (27.0-32.0); Monocyte# 0.75 X10^3/uL; Monocyte% 12.1 % (0-10); NRBC Flagged by Analyzer 0 % (0-5); Neutrophil # 3.31 X10^3/uL (2.7-7.7); Neutrophil % 53.4 % (47-70); Platelet Count 219 K/mm3 (150-450); RBC Distribution Width CV 12.9 % (11.6-14.6); RBC Distribution Width SD 48.4 fl (35.1-43.9); Red Blood Count 3.57 M/mm3 (4.2-5.4); White Blood Count 6.2 K/mm3 (4.4-11.0)
[2020-12-18] MEDS: Menthol/Lanolin/Calamine/Znox 113 GM Tube 1 APPLIC TOPICAL ×2 (06:22→21:18)
[2020-12-18] MEDS: Levothyroxine 50 MCG Tablet PO (06:23)
[2020-12-18 06:50] LABS: ALB/GLOB Ratio 0.9 RATIO (0.9-2.4); AST(SGOT) 16 U/L (15-37); Alanine Aminotransfer ALT/SGPT 15 U/L (13-56); Albumin, Serum 2.9 g/dL (3.2-5.0); Alkaline Phosphatase 29 U/L (45-117); Anion Gap 5 (5-15); BUN 11 mg/dL (7-18); BUN/Creat Ratio 13.6 RATIO (10-20); Calcium,Total 8.9 mg/dL (8.5-10.1); Chloride 110 mmol/L (98-107); Creatinine, Serum 0.81 mg/dL (0.55-1.02); EST Glomerular Filtration Rate 72 mL/min (>60); Est Glom Filt Rate - Afr Amer 87 mL/min (>60); Estimated Creatinine Clearance 47.35 ml/min; Globulin 3.1 g/dL (2.2-4.2); Glucose 83 mg/dL (74-106); Potassium 4.7 mmol/L (3.5-5.1); Sodium Level 140 mmol/L (136-145)
[2020-12-18] MEDS: Aspirin E.C. 81 MG Tablet PO (08:38)
[2020-12-18] MEDS: Pantoprazole Sodium 40 MG Tablet PO (08:38)
[2020-12-18] MEDS: Potassium Chloride Oral Tablet 20 MEQ 40 MEQ PO ×2 (08:39→21:18)
[2020-12-18] MEDS: Furosemide 20 MG Tablet PO (09:28)
[2020-12-18] MEDS: Clopidogrel Bisulfate 75 MG Tablet PO (09:28)
[2020-12-18] MEDS: buPROPion (XL) 300 MG TABLET.XL PO (09:28)
[2020-12-18] MEDS: Enoxaparin 40 MG/0.4 ML Syringe SC (09:28)
[2020-12-18] MEDS: Metoprolol Tartrate 25 MG Tablet PO ×2 (09:28→21:18)
[2020-12-18] MEDS: Sertraline 50 MG Tablet PO (09:28)
--- NOTE | 2020-12-18 12:04 | PN_ITS ---
<Katalina Rose SUPERVISOR LIQUEFACTION - Last Filed: 12/18/20 12:10> Patient Problems: Active and Suspected Problems (Last Reviewed 01/04/20 @ 15:29 by Letty vann) Adult failure to thrive (Acute) Subjective: Patient seen and examined. Able to state month, unable to state year. Unable to tell me current living arrangements. Plan for SNF pending acceptance. Patient denies current symptoms or complaints. - Physical Exam Vitals/I&O's: Vital Signs Temp Pulse Resp BP Pulse Ox 99.3 F H 84 18 121/68 H 94 12/18/20 09:24 12/18/20 09:28 12/18/20 09:24 12/18/20 09:24 12/18/20 09:24 Oxygen Delivery Method Room Air Weight: 134 lb 14.766 oz Body Mass Index (BMI) 22.4 Intake and Output for Last 24 Hours 12/16/20 12/17/20 12/18/20 23:59 23:59 23:59 Intake Total 500 / 500 Balance 500 / 500 General: Alert, Cooperative, No apparent distress, Confused HEENT: Atraumatic, PERRLA, EOMI, Normocephalic Neck: Supple, No JVD, Negative Carotid Bruits Lungs: Clear to auscultation, Normal air movement Cardiovascular: Regular rate, No murmurs Abdomen: Bowel Sounds Present, Soft, Non Tender, Non-Distended Extremities: No clubbing, No cyanosis, No edema, Capillary Refill Less than 3 Seconds Skin: No rashes, No breakdown Musculoskeletal: No Tenderness to Palpation of Joints or Extremities Neurological: Cranial nerves II-XII grossly intact, Neuro grossly intact Psych/Mental Status: Normal Affect, Appropriate Microbiology Past 72 Hours 12/17/20 17:25 Mucosa - Nose SARS-CoV-2 Antigen (Rapid) - Final Laboratory Results 12/17/20 17:25: WBC 7.2, RBC 3.77 L, Hgb 12.7, Hct 38.5, MCV 102.1 H, MCH 33.7 H , MCHC 33.0, RDW Std Deviation 48.3 H, RDW Coeff of Gladys 13.0, Plt Count 211, MPV 10.0, Immature Gran % (Auto) 0.300, Neut % (Auto) 67.5, Lymph % (Auto) 18.8 L, Hopkins % (Auto) 12.0 H, Eos % (Auto) 0.7, Baso % (Auto) 0.7, Absolute Neuts (auto) 4.8, Absolute Lymphs (auto) 1.35, Nucleated RBC % 0 12/17/20 17:25: Sodium 140, Potassium 3.7, Chloride 106, Carbon Dioxide 25.0, Anion Gap 9, BUN 16, Creatinine 1.00, Estim Creat Clear Calc 38.36, Est GFR (MDRD) Af Amer 68, Est GFR (MDRD) Non-Af 56 L, BUN/Creatinine Ratio 16.0, Glucose 132 H, Calcium 9.4 12/17/20 17:25: Magnesium 1.9 12/18/20 06:12: WBC 6.2, RBC 3.57 L, Hgb 12.0, Hct 36.4 L, MCV 102.0 H, MCH 33.6 H, MCHC 33.0, RDW Std Deviation 48.4 H, RDW Coeff of Gladys 12.9, Plt Count 219, MPV 10.0, Immature Gran % (Auto) 0.300, Neut % (Auto) 53.4, Lymph % (Auto) 30.5, Hopkins % (Auto) 12.1 H, Eos % (Auto) 2.9, Baso % (Auto) 0.8, Absolute Neuts (auto) 3.3, Absolute Lymphs (auto) 1.89, Nucleated RBC % 0 12/18/20 06:12: Sodium 140, Potassium 4.7, Chloride 110 H, Carbon Dioxide 25.0, Anion Gap 5, BUN 11, Creatinine 0.81, Estim Creat Clear Calc 47.35, Est GFR (MDRD) Af Amer 87, Est GFR (MDRD) Non-Af 72, BUN/Creatinine Ratio 13.6, Glucose 83, Calcium 8.9, Total Bilirubin 0.50, AST 16, ALT 15, Alkaline Phosphatase 29 L , Total Protein 6.0 L, Albumin 2.9 L, Globulin 3.1, Albumin/Globulin Ratio 0.9 Current Medications Acetaminophen (Acetaminophen 325 Mg Tablet) 650 mg PO Q6H PRN PRN PRN Reason: Pain Score 1-10/Temp > 100.7 F Al Hydroxide/Mg Hydroxide (Mag Hydrox/Al Hydrox/Simeth 30 Ml Udc) 30 ml PO Q6H PRN PRN PRN Reason: Gastric Burning Albuterol Sulfate (Albuterol 2.5 Mg/3 Ml Vial.Neb.) 2.5 mg INHALATION Q2H PRN PRN PRN Reason: Dyspnea, wheezing Aspirin (Aspirin E.C. 81 Mg Tablet) 81 mg PO DAILY@0800 [facility] Last Admin: 12/18/20 08:38 Dose: 81 mg Documented by: Atorvastatin Calcium (Atorvastatin Calcium 10 Mg Tablet) 10 mg PO QHS [facility] Last Admin: 12/17/20 22:30 Dose: 10 mg Documented by: Bupropion HCl (Bupropion (Xl) 300 Mg Tablet.Xl) 300 mg PO DAILY [facility] Last Admin: 12/18/20 09:28 Dose: 300 mg Documented by: Calamine/Phenol (Menthol/Lanolin/Calamine/Znox 113 Gm Tube) 1 applic TOPICAL 00,2199 [facility]; Protocol Last Admin: 12/18/20 06:22 Dose: 1 applicatio Documented by: Clopidogrel Bisulfate (Clopidogrel Bisulfate 75 Mg Tablet) 75 mg PO DAILY [facility] Last Admin: 12/18/20 09:28 Dose: 75 mg Documented by: Enoxaparin Sodium (Enoxaparin 40 Mg/0.4 Ml Syringe) 40 mg SC DAILY [facility] Last Admin: 12/18/20 09:28 Dose: 40 mg Documented by: Furosemide (Furosemide 20 Mg Tablet) 20 mg PO DAILY [facility] Last Admin: 12/18/20 09:28 Dose: 20 mg Documented by: Guaifenesin (Guaifenesin 10 Ml Udc (200mg/10ml)) 20 ml PO Q4H PRN PRN PRN Reason: COUGH Hydralazine HCl (Hydralazine 20 Mg/Ml Vial) 10 mg IV Q4H PRN PRN PRN Reason: SBP > 160 Levothyroxine Sodium (Levothyroxine 50 Mcg Tablet) 50 mcg PO DAILY@0600 [facility] Last Admin: 12/18/20 06:23 Dose: 50 mcg Documented by: Magnesium Hydroxide (Magnesium Hydroxide 30 Ml Udc) 30 ml PO DAILY PRN PRN PRN Reason: Constipation Melatonin (Melatonin 3 Mg Tablet) 3 mg PO QHS PRN PRN PRN Reason: INSOMNIA Metoprolol Tartrate (Metoprolol Tartrate 25 Mg Tablet) 25 mg PO BID [facility] Last Admin: 12/18/20 09:28 Dose: 25 mg Documented by: Multi-Ingredient Cream (Mineral Oil/Petrolatum,White Jar) 1 applic TOPICAL 0600,2200 [facility]; Protocol Last Admin: 12/18/20 06:22 Dose: 1 applicatio Documented by: Nitroglycerin (Nitroglycerin (Inpatient Use) 0.4 Mg Tab.Subl) 0.4 mg SUBLINGUAL Q5M PRN PRN Reason: CARDIAC/CHEST PAIN Ondansetron HCl (Ondansetron 4 Mg/2 Ml Vial) 4 mg IV Q8H PRN PRN PRN Reason: NAUSEA/VOMITING Pantoprazole Sodium (Pantoprazole Sodium 40 Mg Tablet) 40 mg PO DAILY@0800 [facility] Last Admin: 12/18/20 08:38 Dose: 40 mg Documented by: Potassium Chloride (Potassium Chloride Oral Tablet 20 Meq) 40 meq PO BID [facility] Last Admin: 12/18/20 08:39 Dose: 40 meq Documented by: Prochlorperazine Edisylate (Prochlorperazine 10 Mg/2 Ml Vial) 5 mg IV Q4H PRN PRN PRN Reason: Breakthrough nausea/vomiting Psyllium Hydrophilic Mucilloid (Psyllium 1 Packet) 1 packet PO DAILY PRN PRN PRN Reason: Constipation Senna/Docusate Sodium (Senna/Docusate Sodium 1 Tablet) 2 tablet PO BID PRN PRN PRN Reason: Constipation Sertraline HCl (Sertraline 50 Mg Tablet) 50 mg PO DAILY [facility] Last Admin: 12/18/20 09:28 Dose: 50 mg Documented by: Sodium Chloride (0.9% Saline Lock 10 Ml Syringe) 10 - 40 ml IV UD PRN PRN Reason: SALINE FLUSH Throat Lozenges (Benzocaine/Menthol 1 Lozenge) 1 lozenge MUCOUS MEM Q2H PRN PRN PRN Reason: SORE THROAT Medical Necessity - Tobacco Use Smoking Status: Never smoker Tobacco Use: Non-smoker Assessment/Plan All Active Problems (Last Reviewed 01/04/20 @ 15:29 by Letty Lobo) Adult failure to thrive (Acute) Fall (Acute) Encephalopathy (Acute) 1. Dementia, unclear type with worsening failure to thrive-unsafe to be home without 24 hour supervision, recently taken out of SNF by family due to financial concerns. Social work/case management involved. PT/OT. Plan for SNF pending further social work eval/acceptance. 2. Chronic diastolic CHF/Hx NSTEMI-echo November 2017 demonstrated an EF of 55%, stage I diastolic dysfunction, moderate tricuspid valve insufficiency, RVSP estimated to be 45 mmHg. Continue home Lasix regimen. Continue aspirin, statin, Plavix, metoprolol. 3. Hypertension-Continue home metoprolol regimen. 4. Hyperlipidemia-continue statin. 5. Hypothyroidism-continue Synthroid. 6. Anxiety/depression-on bupropion, sertraline. 7. History of AAA-continue outpatient follow-up. 8. GERD-continue PPI. DVT prophylaxis-Lovenox Discharge planning: SNF pending acceptance. This patient was seen by SARA Sal under the supervision of Dr. Bucsh. <Suman Busch - Last Filed: 12/18/20 15:52> Subjective: Seen and examined. Patient was found wandering and lost in her home environment. Dementia. Physical exam General: Awake but disoriented to time, place and person. HEENT: Atraumatic, PERRLA, EOMI, Normocephalic Oral: No Gingival or Mucosal Lesions/ Ulcerations Neck: Supple, No JVD, Negative Carotid Bruits Lungs: Air entry diminished in bilateral lung bases. No crepitation/rhonchi Cardiovascular: Regular rate, Regular Rhythm, Normal S1, Normal S2, No murmurs Abdomen: Bowel Sounds Present, Soft, Non Tender, Non-Distended : No renal angle tenderness. No suprapubic tenderness. Extremities: No edema, Capillary Refill Less than 3 Seconds Skin: No rashes, No breakdown Musculoskeletal: No Tenderness to Palpation of Joints or Extremities Neurological: Cranial nerves II-XII grossly intact, Deep Tendon Reflexes 2+/4 and Symmetrical, Neuro grossly intact Psych/Mental Status: Anterograde and retrograde amnesia. Dementia - Physical Exam Vitals/I&O's: Vital Signs Temp Pulse Resp BP Pulse Ox 98.8 F 70 16 118/69 98 12/18/20 14:26 12/18/20 14:26 12/18/20 14:26 12/18/20 14:26 12/18/20 14:26 Oxygen Delivery Method Room Air Weight: 134 lb 14.766 oz Body Mass Index (BMI) 22.4 Intake and Output for Last 24 Hours 12/16/20 12/17/20 12/18/20 23:59 23:59 23:59 Intake Total 1200 / 1200 Balance 1200 / 1200 Microbiology Past 72 Hours 12/17/20 17:25 Mucosa - Nose SARS-CoV-2 Antigen (Rapid) - Final Laboratory Results 12/17/20 17:25: WBC 7.2, RBC 3.77 L, Hgb 12.7, Hct 38.5, MCV 102.1 H, MCH 33.7 H , MCHC 33.0, RDW Std Deviation 48.3 H, RDW Coeff of Gladys 13.0, Plt Count 211, MPV 10.0, Immature Gran % (Auto) 0.300, Neut % (Auto) 67.5, Lymph % (Auto) 18.8 L, Hopkins % (Auto) 12.0 H, Eos % (Auto) 0.7, Baso % (Auto) 0.7, Absolute Neuts (auto) 4.8, Absolute Lymphs (auto) 1.35, Nucleated RBC % 0 12/17/20 17:25: Sodium 140, Potassium 3.7, Chloride 106, Carbon Dioxide 25.0, Anion Gap 9, BUN 16, Creatinine 1.00, Estim Creat Clear Calc 38.36, Est GFR (MDRD) Af Amer 68, Est GFR (MDRD) Non-Af 56 L, BUN/Creatinine Ratio 16.0, Glucose 132 H, Calcium 9.4 12/17/20 17:25: Magnesium 1.9 12/18/20 06:12: WBC 6.2, RBC 3.57 L, Hgb 12.0, Hct 36.4 L, MCV 102.0 H, MCH 33.6 H, MCHC 33.0, RDW Std Deviation 48.4 H, RDW Coeff of Gladys 12.9, Plt Count 219, MPV 10.0, Immature Gran % (Auto) 0.300, Neut % (Auto) 53.4, Lymph % (Auto) 30.5, Hopkins % (Auto) 12.1 H, Eos % (Auto) 2.9, Baso % (Auto) 0.8, Absolute Neuts (auto) 3.3, Absolute Lymphs (auto) 1.89, Nucleated RBC % 0 12/18/20 06:12: Sodium 140, Potassium 4.7, Chloride 110 H, Carbon Dioxide 25.0, Anion Gap 5, BUN 11, Creatinine 0.81, Estim Creat Clear Calc 47.35, Est GFR (MDRD) Af Amer 87, Est GFR (MDRD) Non-Af 72, BUN/Creatinine Ratio 13.6, Glucose 83, Calcium 8.9, Total Bilirubin 0.50, AST 16, ALT 15, Alkaline Phosphatase 29 L , Total Protein 6.0 L, Albumin 2.9 L, Globulin 3.1, Albumin/Globulin Ratio 0.9 Current Medications Acetaminophen (Acetaminophen 325 Mg Tablet) 650 mg PO Q6H PRN PRN PRN Reason: Pain Score 1-10/Temp > 100.7 F Al Hydroxide/Mg Hydroxide (Mag Hydrox/Al Hydrox/Simeth 30 Ml Udc) 30 ml PO Q6H PRN PRN PRN Reason: Gastric Burning Albuterol Sulfate (Albuterol 2.5 Mg/3 Ml Vial.Neb.) 2.5 mg INHALATION Q2H PRN PRN PRN Reason: Dyspnea, wheezing Aspirin (Aspirin E.C. 81 Mg Tablet) 81 mg PO DAILY@0800 [facility] Last Admin: 12/18/20 08:38 Dose: 81 mg Documented by: Atorvastatin Calcium (Atorvastatin Calcium 10 Mg Tablet) 10 mg PO QHS [facility] Last Admin: 12/17/20 22:30 Dose: 10 mg Documented by: Bupropion HCl (Bupropion (Xl) 300 Mg Tablet.Xl) 300 mg PO DAILY [facility] Last Admin: 12/18/20 09:28 Dose: 300 mg Documented by: Calamine/Phenol (Menthol/Lanolin/Calamine/Znox 113 Gm Tube) 1 applic TOPICAL 0600,2200 [facility]; Protocol Last Admin: 12/18/20 06:22 Dose: 1 applicatio Documented by: Clopidogrel Bisulfate (Clopidogrel Bisulfate 75 Mg Tablet) 75 mg PO DAILY [facility] Last Admin: 12/18/20 09:28 Dose: 75 mg Documented by: Enoxaparin Sodium (Enoxaparin 40 Mg/0.4 Ml Syringe) 40 mg SC DAILY [facility] Last Admin: 12/18/20 09:28 Dose: 40 mg Documented by: Furosemide (Furosemide 20 Mg Tablet) 20 mg PO DAILY [facility] Last Admin: 12/18/20 09:28 Dose: 20 mg Documented by: Guaifenesin (Guaifenesin 10 Ml Udc (200mg/10ml)) 20 ml PO Q4H PRN PRN PRN Reason: COUGH Hydralazine HCl (Hydralazine 20 Mg/Ml Vial) 10 mg IV Q4H PRN PRN PRN Reason: SBP > 160 Levothyroxine Sodium (Levothyroxine 50 Mcg Tablet) 50 mcg PO DAILY@0600 [facility] Last Admin: 12/18/20 06:23 Dose: 50 mcg Documented by: Magnesium Hydroxide (Magnesium Hydroxide 30 Ml Udc) 30 ml PO DAILY PRN PRN PRN Reason: Constipation Melatonin (Melatonin 3 Mg Tablet) 3 mg PO QHS PRN PRN PRN Reason: INSOMNIA Metoprolol Tartrate (Metoprolol Tartrate 25 Mg Tablet) 25 mg PO BID [facility] Last Admin: 12/18/20 09:28 Dose: 25 mg Documented by: Multi-Ingredient Cream (Mineral Oil/Petrolatum,White Jar) 1 applic TOPICAL 0600,2200 [facility]; Protocol Last Admin: 12/18/20 06:22 Dose: 1 applicatio Documented by: Nitroglycerin (Nitroglycerin (Inpatient Use) 0.4 Mg Tab.Subl) 0.4 mg SUBLINGUAL Q5M PRN PRN Reason: CARDIAC/CHEST PAIN Ondansetron HCl (Ondansetron 4 Mg/2 Ml Vial) 4 mg IV Q8H PRN PRN PRN Reason: NAUSEA/VOMITING Pantoprazole Sodium (Pantoprazole Sodium 40 Mg Tablet) 40 mg PO DAILY@0800 [facility] Last Admin: 12/18/20 08:38 Dose: 40 mg Documented by: Potassium Chloride (Potassium Chloride Oral Tablet 20 Meq) 40 meq PO BID [facility] Last Admin: 12/18/20 08:39 Dose: 40 meq Documented by: Prochlorperazine Edisylate (Prochlorperazine 10 Mg/2 Ml Vial) 5 mg IV Q4H PRN PRN PRN Reason: Breakthrough nausea/vomiting Psyllium Hydrophilic Mucilloid (Psyllium 1 Packet) 1 packet PO DAILY PRN PRN PRN Reason: Constipation Senna/Docusate Sodium (Senna/Docusate Sodium 1 Tablet) 2 tablet PO BID PRN PRN PRN Reason: Constipation Sertraline HCl (Sertraline 50 Mg Tablet) 50 mg PO DAILY [facility] Last Admin: 12/18/20 09:28 Dose: 50 mg Documented by: Sodium Chloride (0.9% Saline Lock 10 Ml Syringe) 10 - 40 ml IV UD PRN PRN Reason: SALINE FLUSH Last Admin: 12/18/20 14:26 Dose: 10 ml Documented by: Throat Lozenges (Benzocaine/Menthol 1 Lozenge) 1 lozenge MUCOUS MEM Q2H PRN PRN PRN Reason: SORE THROAT Assessment/Plan This patient was seen in conjunction with SUPERVISOR LIQUEFACTIONKatalina. I have independently interviewed and examined the patient and reviewed pertinent history, examination findings, laboratory and plan of management. I have reviewed the note and agree with the documented findings with the few additional points. In brief, patient is admitted for worsening of dementia along with failure to thrive, unsafe home environment. Patient needs 24-hour supervision. Discussed with home health care case manager. PT and OT. Rest of the comorbidities including chronic diastolic heart failure and history of non-STEMI as mentioned above. I have discussed my assessment with Katalina SON and orders have been reviewed. Inpatient E&M: 08506 Subs Hosp L2
--- NOTE | 2020-12-18 13:42 | CASEMGMT ---
Addendum entered by Inga Hawk 12/18/20 15:43: *correction, SW received call from Mateus confirming he wanted a referral sent to [facility] not [facility]. Referral has been made to [facility] and ALESSIA is waiting for call back from [facility] regarding referral. Original Note: Social Work Note SW updated that pt is confused, pt's family requesting SNF. SW reviewed chart. Pt was recently at [facility] (about three weeks ago) and pt's son took pt out of [facility] due to cost. ALESSIA placed a call to Ramila at [facility]. Ramila states pt's son took pt out of [facility] AMA and took pt to her daughter's home. Ramila states pt had used most of her skilled days and is not sure if pt has any skilled days left. Ramila states pt became unskillable at [facility] and pt was transitioned to emt intermediate care which is private pay. Ramila states she tried to get pt's son Mateus to apply for Medicaid and speak to their Medicaid Specialist and Mateus never followed up. Ramila states Mateus is pt's POA and financial POA. Ramila states pt's family brought pt back yesterday to [facility] requesting [facility] to take pt back. [facility] informed pt's family that they would need to bring pt to hospital. ALESSIA asked Ramlia if she had any contact information for pt's daughter as pt's son is only one listed on demographics and Ramila states she doesn't. Ramila states pt had multiple children and only three of them are still living. ALESSIA received updated that pt's son Mateus called and requested a referral be sent to [facility]. ALESSIA placed a call to pt's son Mateus and left message for him to confirm he wants a referral sent to [facility]. ALESSIA received call from Mateus confirming he wants a referral to [facility], states he spoke with Yaritza at [facility] earlier today. ALESSIA placed a call to [facility] and left message regarding referral. ALESSIA faxed referral. Plan: [facility] pending acceptance Inga Hawk HYDROELECTRIC PLANT TECHNICIAN, CLEAN UP SUPERVISOR
[2020-12-18] MEDS: 0.9% Saline Lock 10 ML Syringe IV (14:26)
--- NOTE | 2020-12-18 15:54 | CASEMGMT ---
Social Work Note SW received message from Ana at [facility] stating they are able to accept pt, requests discharge tomorrow. ALESSIA placed a call to Ana and updated her pt is able to discharge to [facility] tomorrow. ALESSIA placed a call to Pt's son Mateus and left message updating him that [facility] is able to accept and plan will be for pt to discharge to [facility] tomorrow. Inga Hawk PURCHASING MANAGER/SALES, MOSAICIST
[2020-12-18] MEDS: Atorvastatin Calcium 10 MG Tablet PO (21:18)
[2020-12-18] MEDS: MELATONIN 3 MG TABLET PO (23:05)
[2020-12-19] MEDS: QUEtiapine 25 MG Tablet 12.5 MG PO (00:14)
[2020-12-19 01:55] VITALS: BP 137/76; PULSE 66; RESP 18; TEMP 36.8; O2SAT 93
[2020-12-19] MEDS: Menthol/Lanolin/Calamine/Znox 113 GM Tube 1 APPLIC TOPICAL (05:58)
[2020-12-19 07:16] VITALS: BP 128/68; PULSE 64; RESP 18; TEMP 36.7; O2SAT 95
[2020-12-19 07:19] VITALS: O2SAT 95
[2020-12-19 08:11] VITALS: PULSE 64; RESP 18; O2SAT 95
[2020-12-19 10:00] VITALS: BP 130/72; PULSE 64
[2020-12-19] MEDS: Metoprolol Tartrate 25 MG Tablet PO (10:00)
[2020-12-19] MEDS: Sertraline 50 MG Tablet PO (10:00)
[2020-12-19] MEDS: Pantoprazole Sodium 40 MG Tablet PO (10:03)
[2020-12-19] MEDS: Aspirin E.C. 81 MG Tablet PO (10:03)
[2020-12-19] MEDS: buPROPion (XL) 300 MG TABLET.XL PO (10:03)
[2020-12-19] MEDS: Furosemide 20 MG Tablet PO (10:03)
[2020-12-19] MEDS: Clopidogrel Bisulfate 75 MG Tablet PO (10:04)
[2020-12-19] MEDS: Enoxaparin 40 MG/0.4 ML Syringe SC (10:04)
[2020-12-19] MEDS: Potassium Chloride Oral Tablet 20 MEQ 40 MEQ PO (10:05)
--- NOTE | 2020-12-19 10:29 | PCM.EXTCARCO ---
- Diet 12/17/20 21:21 Diet: Cardiac - Heart Healthy Food consistency:: Regular Liquid Consistency:: Regular/Thin Is pt able to select menu?: No - Routine Orders/Code Status Enema Type: Fleetz Enema Frequency: Daily PRN Suppository Type: Dulcolax 10mg Suppository Frequency: Daily PRN - Suggestions for Active Care Change Position every (hours): 2 Times a day to sit in chair: 3 - Therapies Physical Therapy: Eval and Treat Occupational Therapy: Eval and Treat - Problem/Diagnosis (1) Adult failure to thrive Status: Acute (2) Dementia Status: Chronic (3) Chronic diastolic (congestive) heart failure Status: Chronic (4) Essential hypertension Status: Chronic (5) NSTEMI (non-ST elevated myocardial infarction) Status: Chronic (6) HLD (hyperlipidemia) Status: Chronic (7) Anxiety and depression Status: Chronic (8) Hypothyroidism Status: Chronic (9) GERD (gastroesophageal reflux disease) Status: Chronic (10) AAA (abdominal aortic aneurysm) Status: Chronic - Allergies/Procedures Done in Hospital Allergies/Adverse Reactions: Allergies No Known Allergies Allergy (Verified 12/17/20 16:14) Procedures: None - Type of Care/Length of Stay Estimated LOS: More Than 30 Days Type of Care Needed: Skilled Rehab Potential: Fair Prognosis: Fair - Additional Orders/Day of Discharge H&P will serve as current which was dated: 12/17/20 Day of Discharge: 12/19/20 - Follow Up Care Primary Care Physician: Austin Cuevas MD [Primary Care Provider] - Please follow up with your Primary Care Physician in: 1 Week
--- NOTE | 2020-12-19 10:33 | PCM.DC.SUM ---
<MiltonKatalina METAL SORTER - Last Filed: 12/19/20 10:41> Discharge Date and Diagnosis - Problem List Patient Problems: Active and Suspected Problems (Last Reviewed 01/04/20 @ 15:29 by Letty Lobo) Adult failure to thrive (Acute) Date of Admission: 12/17/20 Date of Discharge: 12/19/20 - Primary Discharge Diagnosis Acute Problems: Active Problems (Last Reviewed 01/04/20 @ 15:29 by Letty Lobo) 1. Dementia, unclear type with worsening failure to thrive 2. Chronic diastolic CHF/Hx NSTEMI 3. Hypertension 4. Hyperlipidemia 5. Hypothyroidism 6. Anxiety/depression 7. History of AAA 8. GERD - Secondary Discharge Diagnosis Chronic Problems: Chronic Problems (Last Reviewed 01/04/20 @ 15:29 by Letty Lobo) Dementia (Chronic) Chronic diastolic (congestive) heart failure (Chronic) Essential hypertension (Chronic) NSTEMI (non-ST elevated myocardial infarction) (Chronic) HLD (hyperlipidemia) (Chronic) Anxiety and depression (Chronic) Hypothyroidism (Chronic) GERD (gastroesophageal reflux disease) (Chronic) AAA (abdominal aortic aneurysm) (Chronic) Hospital Course and Treatment Imaging Results: Diagnostic Data Chest X-Ray 12/17/20 17:35 IMPRESSION: No acute cardiopulmonary disease. Electronically Signed: Frank Serna DO at 18:15 EST Tel [phone], Service support , Operations: None Procedures: None Summary of Care Provided: The patient is a 85 year old F admitted 12/17/2020 due to dementia, family unable to care for patient. 1. Dementia, unclear type with worsening failure to thrive-unsafe to be home without 24 hour supervision, recently taken out of SNF by family due to financial concerns. Placed on low-dose Seroquel at bedtime. SNF at discharge for further PT/OT, patient will require long-term care. 2. Chronic diastolic CHF/Hx NSTEMI-echo November 2017 demonstrated an EF of 55%, stage I diastolic dysfunction, moderate tricuspid valve insufficiency, RVSP estimated to be 45 mmHg. Continue home Lasix regimen. Continue aspirin, statin, Plavix, metoprolol. 3. Hypertension-Continue home metoprolol regimen. 4. Hyperlipidemia-continue statin. 5. Hypothyroidism-continue Synthroid. 6. Anxiety/depression-on bupropion, sertraline. 7. History of AAA-continue outpatient follow-up. 8. GERD-continue PPI. General: Alert, Cooperative, No apparent distress, Confused HEENT: Atraumatic, PERRLA, EOMI, Normocephalic Neck: Supple, No JVD, Negative Carotid Bruits Lungs: Clear to auscultation, Normal air movement Cardiovascular: Regular rate, No murmurs Abdomen: Bowel Sounds Present, Soft, Non Tender, Non-Distended Extremities: No clubbing, No cyanosis, No edema, Capillary Refill Less than 3 Seconds Skin: No rashes, No breakdown Musculoskeletal: No Tenderness to Palpation of Joints or Extremities Neurological: Cranial nerves II-XII grossly intact, Neuro grossly intact Psych/Mental Status: Normal Affect, Appropriate Patient seen and examined prior to discharge. Physical assessment as noted above. Patient is stable for discharge with follow up recommendations as noted above. This patient was seen by SARA Sal under the supervision of Dr. Busch. Patient Problems: Active and Suspected Problems (Last Reviewed 01/04/20 @ 15:29 by Letty Lobo) Adult failure to thrive (Acute) - Physical Exam Vitals/I&O's: Vital Signs Temp Pulse Resp BP Pulse Ox 98.1 F 64 18 130/72 H 95 12/19/20 07:16 12/19/20 10:00 12/19/20 08:11 12/19/20 10:00 12/19/20 08:11 Oxygen Delivery Method Room Air Weight: 133 lb 2.547 oz Body Mass Index (BMI) 22.4 Intake and Output for Last 24 Hours 12/17/20 12/18/20 12/19/20 23:59 23:59 23:59 Intake Total 1500 / 1500 Balance 1500 / 1500 Microbiology Past 72 Hours 12/17/20 17:25 Mucosa - Nose SARS-CoV-2 Antigen (Rapid) - Final Current Medications Acetaminophen (Acetaminophen 325 Mg Tablet) 650 mg PO Q6H PRN PRN PRN Reason: Pain Score 1-10/Temp > 100.7 F Al Hydroxide/Mg Hydroxide (Mag Hydrox/Al Hydrox/Simeth 30 Ml Udc) 30 ml PO Q6H PRN PRN PRN Reason: Gastric Burning Albuterol Sulfate (Albuterol 2.5 Mg/3 Ml Vial.Neb.) 2.5 mg INHALATION Q2H PRN PRN PRN Reason: Dyspnea, wheezing Aspirin (Aspirin E.C. 81 Mg Tablet) 81 mg PO DAILY@0800 [facility] Last Admin: 12/19/20 10:03 Dose: 81 mg Documented by: Atorvastatin Calcium (Atorvastatin Calcium 10 Mg Tablet) 10 mg PO QHS [facility] Last Admin: 12/18/20 21:18 Dose: 10 mg Documented by: Bupropion HCl (Bupropion (Xl) 300 Mg Tablet.Xl) 300 mg PO DAILY [facility] Last Admin: 12/19/20 10:03 Dose: 300 mg Documented by: Calamine/Phenol (Menthol/Lanolin/Calamine/Znox 113 Gm Tube) 1 applic TOPICAL 0600,2200 [facility]; Protocol Last Admin: 12/19/20 05:58 Dose: 1 applicatio Documented by: Clopidogrel Bisulfate (Clopidogrel Bisulfate 75 Mg Tablet) 75 mg PO DAILY [facility] Last Admin: 12/19/20 10:04 Dose: 75 mg Documented by: Enoxaparin Sodium (Enoxaparin 40 Mg/0.4 Ml Syringe) 40 mg SC DAILY [facility] Last Admin: 12/19/20 10:04 Dose: 40 mg Documented by: Furosemide (Furosemide 20 Mg Tablet) 20 mg PO DAILY [facility] Last Admin: 12/19/20 10:03 Dose: 20 mg Documented by: Guaifenesin (Guaifenesin 10 Ml Udc (200mg/10ml)) 20 ml PO Q4H PRN PRN PRN Reason: COUGH Hydralazine HCl (Hydralazine 20 Mg/Ml Vial) 10 mg IV Q4H PRN PRN PRN Reason: SBP > 160 Levothyroxine Sodium (Levothyroxine 50 Mcg Tablet) 50 mcg PO DAILY@0600 [facility] Last Admin: 12/19/20 06:08 Dose: Not Given Documented by: Magnesium Hydroxide (Magnesium Hydroxide 30 Ml Udc) 30 ml PO DAILY PRN PRN PRN Reason: Constipation Melatonin (Melatonin 3 Mg Tablet) 3 mg PO QHS PRN PRN PRN Reason: INSOMNIA Last Admin: 12/18/20 23:05 Dose: 3 mg Documented by: Metoprolol Tartrate (Metoprolol Tartrate 25 Mg Tablet) 25 mg PO BID [facility] Last Admin: 12/19/20 10:00 Dose: 25 mg Documented by: Multi-Ingredient Cream (Mineral Oil/Petrolatum,White Jar) 1 applic TOPICAL 0600,2200 [facility]; Protocol Last Admin: 12/19/20 05:57 Dose: 1 applicatio Documented by: Nitroglycerin (Nitroglycerin (Inpatient Use) 0.4 Mg Tab.Subl) 0.4 mg SUBLINGUAL Q5M PRN PRN Reason: CARDIAC/CHEST PAIN Ondansetron HCl (Ondansetron 4 Mg/2 Ml Vial) 4 mg IV Q8H PRN PRN PRN Reason: NAUSEA/VOMITING Pantoprazole Sodium (Pantoprazole Sodium 40 Mg Tablet) 40 mg PO DAILY@0800 [facility] Last Admin: 12/19/20 10:03 Dose: 40 mg Documented by: Potassium Chloride (Potassium Chloride Oral Tablet 20 Meq) 40 meq PO BID [facility] Last Admin: 12/19/20 10:05 Dose: 40 meq Documented by: Prochlorperazine Edisylate (Prochlorperazine 10 Mg/2 Ml Vial) 5 mg IV Q4H PRN PRN PRN Reason: Breakthrough nausea/vomiting Psyllium Hydrophilic Mucilloid (Psyllium 1 Packet) 1 packet PO DAILY PRN PRN PRN Reason: Constipation Quetiapine Fumarate (Quetiapine 25 Mg Tablet) 12.5 mg PO QHS [facility] Last Admin: 12/19/20 00:14 Dose: 12.5 mg Documented by: Senna/Docusate Sodium (Senna/Docusate Sodium 1 Tablet) 2 tablet PO BID PRN PRN PRN Reason: Constipation Sertraline HCl (Sertraline 50 Mg Tablet) 50 mg PO DAILY [facility] Last Admin: 12/19/20 10:00 Dose: 50 mg Documented by: Sodium Chloride (0.9% Saline Lock 10 Ml Syringe) 10 - 40 ml IV UD PRN PRN Reason: SALINE FLUSH Last Admin: 12/18/20 14:26 Dose: 10 ml Documented by: Throat Lozenges (Benzocaine/Menthol 1 Lozenge) 1 lozenge MUCOUS MEM Q2H PRN PRN PRN Reason: SORE THROAT Home Medications: Medications to take at Discharge Bupropion HCl [Wellbutrin Xl] 300 mg PO DAILY 12/19/18 Levothyroxine [Synthroid] 50 mcg PO DAILY 12/19/18 Sertraline HCl [Zoloft] 50 mg PO DAILY 12/19/18 Acetaminophen [Tylenol] 1,000 mg PO Q6H PRN PRN tab 01/09/19 Aspirin E.C. [Ecotrin] 81 mg PO DAILY@0800 #30 tab 01/09/19 Atorvastatin Calcium [Lipitor] 10 mg PO QHS #30 tab 01/09/19 Clopidogrel Bisulfate [Plavix] 75 mg PO DAILY #30 tab 01/09/19 Furosemide [Lasix] 20 mg PO DAILY #30 tab 01/09/19 Menthol/Lanolin/Calamine/Znox [Calmoseptine Ointment] 1 applic TOPICAL 0600,2200 tube 01/09/19 Metoprolol Tartrate [Lopressor (beta risa)] 25 mg PO BID #60 tab 01/09/19 Mineral Oil/Petrolatum,White [Eucerin] 1 applic TOPICAL 0600,2200 jar 01/09/19 Pantoprazole Sodium [Protonix] 40 mg PO DAILY@0800 #30 tab 01/09/19 Potassium Chloride Oral Tablet [K-Dur] 40 meq PO BID #60 tab 01/09/19 Tolterodine Tartrate [Detrol LA] 4 mg PO DAILY 12/17/20 Quetiapine Fumarate [Seroquel] 12.5 mg PO QHS tab 12/19/20 Primary Care Physician: Austin Cuevas MD [Primary Care Provider] - Please follow up with your Primary Care Physician in: 1 Week Disposition: Group Home facility Minutes spent on discharge:: 35 Patient Condition:: Stable Medical Necessity - Tobacco Use Smoking Status: Never smoker Tobacco Use: Non-smoker Meaningful Use Info Meaningful Use Diagnoses (Choose all that apply): None applicable <Suman Busch - Last Filed: 12/19/20 17:05> Discharge Date and Diagnosis - Primary Discharge Diagnosis Acute Problems: Active Problems (Last Reviewed 01/04/20 @ 15:29 by Letty Lobo) Adult failure to thrive (Acute) - Secondary Discharge Diagnosis Chronic Problems: Chronic Problems (Last Reviewed 01/04/20 @ 15:29 by Letty Lobo) Dementia (Chronic) Chronic diastolic (congestive) heart failure (Chronic) Essential hypertension (Chronic) NSTEMI (non-ST elevated myocardial infarction) (Chronic) HLD (hyperlipidemia) (Chronic) Anxiety and depression (Chronic) Hypothyroidism (Chronic) GERD (gastroesophageal reflux disease) (Chronic) AAA (abdominal aortic aneurysm) (Chronic) Hospital Course and Treatment Summary of Care Provided: []This patient was seen in conjunction with Katalina SON. I have independently interviewed and examined the patient and reviewed pertinent history, examination findings, laboratory and plan of management. I have reviewed the note and agree with the documented findings with the few additional points. In brief, patient is admitted for worsening of dementia along with failure to thrive, unsafe home environment. Patient needs 24-hour supervision. Discussed with field case manager. PT and OT. Rest of the comorbidities including chronic diastolic heart failure and history of non-STEMI as mentioned above. 2D echo 06/22/2018 shows EF 55% with stage I diastolic dysfunction consistent with chronic diastolic heart failure. Discharge medication reconciliation done. Discharge follow-up instructions completed. Discharge process discussed with the patient and all questions were answered to patient's satisfaction. Discharge to SNF. Total time spent, exact 35 minutes on discharge meds reconciliation, examination, coordination of care with nurses and ancillary staff, review of imaging and blood test and discussion with the patient on follow-up instructions I have discussed my assessment with Katalina SON and orders have been reviewed. Objective: Seen and examined Patient has dementia. Cannot take care of herself. Physical exam General: Pleasantly confused, disoriented. HEENT: Atraumatic, PERRLA, EOMI, Normocephalic Oral: No Gingival or Mucosal Lesions/ Ulcerations Neck: Supple, No JVD, Negative Carotid Bruits Lungs: Air entry diminished in bilateral lung bases. No crepitation/rhonchi Cardiovascular: Regular rate, Regular Rhythm, Normal S1, Normal S2, No murmurs Abdomen: Bowel Sounds Present, Soft, Non Tender, Non-Distended : No renal angle tenderness. No suprapubic tenderness. Extremities: No edema, Capillary Refill Less than 3 Seconds Skin: No rashes, No breakdown Musculoskeletal: No Tenderness to Palpation of Joints or Extremities Neurological: Cranial nerves II-XII grossly intact, Deep Tendon Reflexes 2+/4 and Symmetrical, Neuro grossly intact Psych/Mental Status: Dementia. - Physical Exam Vitals/I&O's: Vital Signs Temp Pulse Resp BP Pulse Ox 98.0 F 64 18 130/72 H 98 12/19/20 11:26 12/19/20 11:26 12/19/20 11:26 12/19/20 11:26 12/19/20 11:26 Oxygen Delivery Method Room Air Weight: 133 lb 2.547 oz Body Mass Index (BMI) 22.4 Intake and Output for Last 24 Hours 12/17/20 12/18/20 12/19/20 23:59 23:59 23:59 Intake Total 1500 / 1500 Balance 1500 / 1500 Microbiology Past 72 Hours 12/17/20 17:25 Mucosa - Nose SARS-CoV-2 Antigen (Rapid) - Final Inpatient E&M: [id number] [facility]
[2020-12-19 11:26] VITALS: BP 130/72; PULSE 64; RESP 18; TEMP 36.7; O2SAT 98
--- NOTE | 2020-12-19 11:41 | CASEMGMT ---
Social Work Note Pt is discharging to [facility] today. ALESSIA faxed completed discharge paperwork to [facility] including transfer to extended care facility, signed medication list, any scripts, COVID test, COVID screening tool, and [facility] in [employer]. Original in SNF folder and copy on pt's chart. [facility]escent [facility] completed in [facility] and original in SNF folder and copy on pt's chart. ALESSIA spoke with RN, pt is ready for transport, can transport via cot. ALESSIA accessed trip assist and arranged transportation via cot for 12:00pm. Transportation form completed and placed on SNF folder and copy on pt's chart. RN updated on transportation time. ALESSIA placed a call to Ana at [facility] and updated her on discharge and transportation time. ALESSIA placed a call to pt's son Mateus and left message for him updating him on discharge and transportation time. Plan: [facility] skilled today with [facility] transporting pt via cot at 12:00pm Inga Hawk MSW, IMMIGRATION SERVICES OFFICER
--- NOTE | 2020-12-19 12:26 | PHA.DC.MR ---
Pharmacy Service has performed discharge medication reconciliation for this patient upon transfer to [facility]. Home Medication Bupropion HCl [Wellbutrin Xl] 300 mg PO DAILY 12/19/18 Levothyroxine [Synthroid] 50 mcg PO DAILY 12/19/18 Sertraline HCl [Zoloft] 50 mg PO DAILY 12/19/18 Acetaminophen [Tylenol] 1,000 mg PO Q6H PRN PRN tab 01/09/19 Aspirin E.C. [Ecotrin] 81 mg PO DAILY@0800 #30 tab 01/09/19 Atorvastatin Calcium [Lipitor] 10 mg PO QHS #30 tab 01/09/19 Clopidogrel Bisulfate [Plavix] 75 mg PO DAILY #30 tab 01/09/19 Furosemide [Lasix] 20 mg PO DAILY #30 tab 01/09/19 Menthol/Lanolin/Calamine/Znox [Calmoseptine Ointment] 1 applic TOPICAL 0600,2200 tube 01/09/19 Metoprolol Tartrate [Lopressor (beta risa)] 25 mg PO BID #60 tab 01/09/19 Mineral Oil/Petrolatum,White [Eucerin] 1 applic TOPICAL 0600,2200 jar 01/09/19 Pantoprazole Sodium [Protonix] 40 mg PO DAILY@0800 #30 tab 01/09/19 Potassium Chloride Oral Tablet [K-Dur] 40 meq PO BID #60 tab 01/09/19 Tolterodine Tartrate [Detrol LA] 4 mg PO DAILY 12/17/20 Quetiapine Fumarate [Seroquel] 12.5 mg PO QHS tab 12/19/20 The patient's discharge medication list was reviewed for discrepancies and discrepancies were resolved.
== END 2020-12-19 12:17 | disposition skilled nursing facility (03) | DRG 884 ==
LOC: ED 18:36 → MS3 19:55
PROVIDERS: Admitting Provider Family Medicine; Emergency Provider Emergency Medicine; PCP Family Medicine; Visit Provider Internal Medicine
DX: F03.91 Unspecified dementia, unspecified severity, with behavioral disturbance (principal); I50.32 Chronic diastolic (congestive) heart failure; R62.7 Adult failure to thrive; R19.7 Diarrhea, unspecified; I11.0 Hypertensive heart disease with heart failure; I25.2 Old myocardial infarction; E78.5 Hyperlipidemia, unspecified; F32.9 Major depressive disorder, single episode, unspecified; F41.9 Anxiety disorder, unspecified; E03.9 Hypothyroidism, unspecified; K21.9 Gastro-esophageal reflux disease without esophagitis; Z68.23 Body mass index [BMI] 23.0-23.9, adult; Z91.83 Wandering in diseases classified elsewhere
CPT/HCPCS: 36415; 71045; 80048; 80053; 83735; 85025; 87426; 97162; 97166; 97535; 99251; 99285; A4216; G0463

== ENCOUNTER → 2021-02-18 05:00 | Outpatient (REF) | payer MEDICARE, OTHER, SELFPAY ==
[2021-02-18 07:50] LABS: Valproic Acid (Depakene) Level 55 ug/mL (50-100)
== END ==
LOC: OLS.WHLCAR 05:00
PROVIDERS: PCP Family Medicine; Visit Provider Family Medicine
DX: F03.91 Unspecified dementia, unspecified severity, with behavioral disturbance (principal); G93.40 Encephalopathy, unspecified; M62.81 Muscle weakness (generalized); R26.2 Difficulty in walking, not elsewhere classified; R27.8 Other lack of coordination
CPT/HCPCS: 36415; 80164

== ENCOUNTER 2021-03-11 12:10 | Emergency (ER) | payer MEDICARE, OTHER, SELFPAY ==
[2021-03-11 12:12] VITALS: BP 147/103; PULSE 62; RESP 16; TEMP 36.5; O2SAT 98; BMI 25.7
--- NOTE | 2021-03-11 12:36 | CT_ITS ---
STUDY: CT CERVICAL SPINE WITHOUT CONTRAST REASON FOR EXAM: Female, 86 years old. fall RADIATION DOSAGE (If Supplied By Facility): CTDIvol = ( 14.18 ) mGy, DLP = ( 285.99 ) mGycm TECHNIQUE: High resolution transaxial imaging was performed without contrast material. Sagittal and coronal images were reconstructed. Individualized dose optimization techniques were used for this CT. COMPARISON: 12/19/2018 FINDINGS: Normal craniovertebral junction. There is hypertrophy of the transverse ligament of the atlas with mild posterior displacement of the superior and inferior longitudinal fibers of the cruciform ligament, producing minimal ventral thecal sac flattening, but without cervical cord impingement. There are mild degenerative changes in the anterior atlantoaxial articulation. Normal odontoid process. Normal cervical lordosis. Normal vertebral bodies and posterior osseous elements. C2-3: Mild left facet hypertrophy produces mild left neural foraminal stenosis. 2 mm of anterolisthesis of C2 on C3 with a mild broad disc osteophyte complex produces mild spinal stenosis. C3-4: Severe right facet hypertrophy. 2 mm of anterolisthesis of C3 on C4 with a mild broad disc osteophyte complex and bilateral uncovertebral hypertrophy produces mild spinal stenosis but severe bilateral neural foraminal stenosis. C4-5: Mild bilateral facet hypertrophy. 2 mm retrolisthesis of C4 on C5 with a moderate broad disc osteophyte complex and bilateral uncovertebral hypertrophy produces moderate spinal stenosis and moderate bilateral neural foraminal stenosis. C5-6: Mild bilateral facet hypertrophy. 2 mm retrolisthesis of C5 on C6 with a mild broad disc osteophyte complex and bilateral vertebral hypertrophy produces moderate spinal stenosis and moderate bilateral neural foraminal stenosis. C6-7: Mild broad disc osteophyte complex produces mild spinal stenosis but no neural foraminal stenosis. C7-T1: 2 mm of anterolisthesis of C7 on T1 but no spinal stenosis or neural foraminal stenosis. Normal visualized soft tissue structures. CT/Spine Cervical without Contras IMPRESSION: No acute fracture or subluxation. Electronically Signed: Lonnie Novak MD at 13:14 EDT Tel , Service support ,
--- NOTE | 2021-03-11 12:36 | CT_ITS ---
STUDY: CT BRAIN WITHOUT CONTRAST REASON FOR EXAM: Female, 86 years old. fall RADIATION DOSAGE (If Supplied By Facility): CTDIvol = ( 44.99 ) mGy, DLP = ( 796.11 ) mGycm TECHNIQUE: Transaxial CT imaging of the brain was performed without administration of intravenous contrast material. Individualized dose optimization techniques were used for this CT. COMPARISON: 09/28/2020 FINDINGS: Normal soft tissue structures. Normal calvarium. There is moderate cerebral atrophy with widening of the extra-axial spaces and ventricular dilatation. There are areas of decreased attenuation within the white matter tracts of the supratentorial brain, consistent with microvascular disease changes. Normal basal ganglia and thalami. Normal brainstem. Normal cerebellum. There is no intracranial hemorrhage. There are no findings of an acute ischemic infarction. Normal visualized paranasal sinuses. CT/Brain/Head without Contrast IMPRESSION: Chronic involutional changes of the brain. Electronically Signed: Lonnie Novak MD at 13:08 EDT Tel , Service support ,
--- NOTE | 2021-03-11 12:37 | EDS_ITS ---
HPI History of Present Illness Chief Complaint: Fall Informant: patient and SNF Onset/Context/Timing Onset: Today Current Severity: Mild Maximum Severity: Mild Narrative Narrative: Patient presents from [facility] secondary to fall. She is in the dementia/memory unit. She was found on the floor. She is a scalp laceration measuring approximate 3 cm. She denies any other injury or pain. [facility] Medical History (Updated 03/11/21 @ 14:[address] Yuki Hernandez MD) AAA (abdominal aortic aneurysm) Anxiety and depression Chronic diastolic (congestive) heart failure Encephalopathy Essential hypertension Fall GERD (gastroesophageal reflux disease) HLD (hyperlipidemia) Hypothyroidism NSTEMI (non-ST elevated myocardial infarction) Home Medications bupropion HCl 300 mg PO DAILY 12/19/18 [History Last Taken 12/22/18 08:49] levothyroxine 50 mcg PO DAILY 12/19/18 [History Last Taken 12/22/18 05:28] sertraline 50 mg PO DAILY 12/19/18 [History Last Taken 12/22/18 08:49] acetaminophen 1,000 mg PO Q6H PRN PRN tab 01/09/19 [Rx Last Taken Unknown] aspirin 81 mg PO DAILY@0800 #30 tab 01/09/19 [Rx Last Taken Unknown] atorvastatin 10 mg PO QHS #30 tab 01/09/19 [Rx Last Taken Unknown] clopidogrel 75 mg PO DAILY #30 tab 01/09/19 [Rx Last Taken Unknown] furosemide 20 mg PO DAILY #30 tab 01/09/19 [Rx Last Taken Unknown] lanolin dutpdpz-oy-z.pet-ceres 1 applic TOPICAL 0600,2200 jar 01/09/19 [Rx Last Taken Unknown] menthol-zinc oxide 1 applic TOPICAL 0600,2200 tube 01/09/19 [Rx Last Taken Unknown] metoprolol tartrate 25 mg PO BID #60 tab 01/09/19 [Rx Last Taken Unknown] pantoprazole 40 mg PO DAILY@0800 #30 tab 01/09/19 [Rx Last Taken Unknown] potassium chloride 40 meq PO BID #60 tab 01/09/19 [Rx Last Taken Unknown] tolterodine 4 mg PO DAILY 12/17/20 [History Last Taken Unknown] quetiapine 12.5 mg PO QHS tab 12/19/20 [Rx Last Taken Unknown] Allergy/AdvReac Type Severity Reaction Status Date / Time No Known Allergies Allergy Verified 03/11/21 12:16 Family History Mother Heart disease Surgical History History of cholecystectomy History of hysterectomy Social History Smoking Status: Never smoker how long ago did patient quit smokin + years ago alcohol intake: never substance use type: does not use caffeine: Yes Type: coffee Number of servings: 10 ROS ROS ED Constitutional Constitutional ED: Denies chills or fever(s) Eyes Eyes: Denies change in vision ENT ENT ED: Denies sore throat Cardiovascular Cardiovascular: Denies chest pain Respiratory/Chest Respiratory/Chest: Denies cough or dyspnea Gastrointestinal Gastrointestinal: Denies abdominal pain, diarrhea, nausea or vomiting Genitourinary Genitourinary ED: Denies dysuria Musculoskeletal Musculoskeletal: Denies back pain Integumentary Reports rash and other Details: Scalp laceration Neurologic Neurologic: Denies headache(s) or weakness Psychiatric Psychiatric: Denies anxiety or depression Endocrine Endocrinology: Denies polydipsia or polyuria Allergic/Immunologic Allergic/Immunologic ED: Denies urticaria EXAM Physical Exam Const Vital Signs: 03/11/21 12:12 03/11/21 12:16 Temperature 97.7 F L Temperature Source Oral Pulse Rate 62 Respiratory Rate 16 Respiratory Effort Normal Non-Labored Respiratory Depth Normal Respiratory Pattern Normal Blood Pressure 147/103 H Blood Pressure Mean 117 Pulse Ox 98 Oxygen Delivery Method Room Air Room Air Positive well nourished and well developed General Appearance ED: well developed HEENT HEENT Narrative: 3 cm linear laceration right parietal scalp trauma Neck Neck Narrative: No C-spine tenderness. Resp normal respiratory effort and clear to auscultation bilaterally Cardio regular rhythm Rate: regular rate GI normal to inspection, nondistended, normoactive bowel sounds and non-tender Extremity normal to inspection and full ROM Neuro Sensorium / Orientation: alert Sensory Exam: other No focal neurologic deficits. Skin Skin Narrative: Scalp laceration as above PROC Procedures Lacerations Right parietal scalp: Length: 1.18 in Depth: Sub Q Shape: Linear Laceration repair: Irrigated, Lidocaine and Local Number of Sutures/Francia: 6 Comment: 6 francia [facility] Radiography Diagnostic Testing: Radiology Impression Brain CT 03/11/21 12:36 IMPRESSION: Chronic involutional changes of the brain. Electronically Signed: Lonnie Novak MD at 13:08 EDT Tel , Service support , Cervical Spine CT 03/11/21 12:36 IMPRESSION: No acute fracture or subluxation. Electronically Signed: Lonnie Novak MD at 13:14 EDT Tel , Service support , Treatment and Re-Evaluation Comments:: Patient had head and C-spine CTs were unremarkable. Right parietal scalp laceration anesthetized with 4 cc 1% lidocaine. Wound is cleansed and irrigated. 6 francia were placed across the wound. Patient is to have francia removed in 7 to 10 days. Discharge Plan Triage Chief Complaint: Fall ED Provider: Yuki Hernandez Dx/Rx/DC Orders Clinical Impression: Laceration of scalp Instructions: ED Laceration: All Closures Prescriptions: No Action levothyroxine 50 MCG tablet 50 mcg PO DAILY RF: 0 sertraline 50 MG tablet 50 mg PO DAILY RF: 0 bupropion HCl 300 MG tablet extended release 24 hr 300 mg PO DAILY RF: 0 acetaminophen 500 MG tablet 1,000 mg PO Q6H PRN PRN (Reason: Mild Pain (1-3/10)) RF: 0 pantoprazole 40 MG tablet 40 mg PO DAILY@0800 Qty: 30 RF: 0 furosemide 20 MG tablet 20 mg PO DAILY Qty: 30 RF: 0 lanolin zuhedpm-lq-l.pet-ceres 1 APPLIC cream 1 applic topical 599,2199 RF: 0 menthol-zinc oxide 1 APPLIC ointment 1 applic topical 599,2199 RF: 0 atorvastatin 10 MG tablet 10 mg PO QHS Qty: 30 RF: 0 clopidogrel 75 MG tablet 75 mg PO DAILY Qty: 30 RF: 0 aspirin 81 MG tablet 81 mg PO DAILY@0800 Qty: 30 RF: 0 potassium chloride 20 MEQ tablet 40 meq PO BID Qty: 60 RF: 0 metoprolol tartrate 25 MG tablet 25 mg PO BID Qty: 60 RF: 0 tolterodine 4 MG capsule,extended release 24hr 4 mg PO DAILY RF: 0 quetiapine 25 MG tablet 12.5 mg PO QHS RF: 0 Primary Care Provider: Austin Cuevas Referrals: Austin Cuevas MD [Primary Care Provider] - 10 Day for suture removal Disposition Disposition: Home, self care
[2021-03-11] MEDS: Lidocaine 1% (20 ml mdv) 20 ML Vial INFILT (14:45)
[2021-03-11 14:46] VITALS: BP 119/78; PULSE 65; RESP 18; O2SAT 97
--- NOTE | 2021-03-11 14:48 | ED.RN ---
NURSE TO NURSE REPORT GIVEN TO SIL[facility] AT [facility].
== END 2021-03-11 15:21 | disposition home or self-care (01) ==
PROVIDERS: Emergency Provider Emergency Medicine; PCP Family Medicine
DX: S01.01XA Laceration without foreign body of scalp, initial encounter (principal); F03.90 Unspecified dementia, unspecified severity, without behavioral disturbance, psychotic disturbance, mood disturbance, and anxiety; W19.XXXA Unspecified fall, initial encounter; Z87.891 Personal history of nicotine dependence
CPT/HCPCS: 12001; 70450; 72125; 99284

== ENCOUNTER → 2021-05-13 05:00 | Outpatient (REF) | payer MEDICARE, OTHER, MEDICAID, SELFPAY ==
[2021-05-13 08:24] LABS: Absolute Lymphocyte Count 1.96 X10^3/uL (0.83-4.51); Absolute Neutrophil Count 2.9 X10^3/uL (2.0-7.7); Basophil# 0.05 X10^3/uL; Basophil% 0.8 % (0-1); Eosinophil# 0.37 X10^3/uL; Eosinophils% 5.9 % (0-5); Hematocrit 38.6 % (37-47); Hemoglobin 12.3 g/dL (12.0-15.0); Lymphocyte # 1.96 X10^3/ul (0.83-4.51); Lymphocyte % 31.5 % (19-41); Mean Corp Hgb Conc 31.9 g/dL (32-36); Mean Corpuscular Hgb 33.2 pg (27.0-32.0); Mean Platelet Vol. 10.3 fl (6.2-12.0); Monocyte% 14.5 % (0-10); NRBC Flagged by Analyzer 0 % (0-5); Neutrophil # 2.91 X10^3/uL (2.7-7.7); Neutrophil % 46.8 % (47-70); Platelet Count 241 K/mm3 (150-450); RBC Distribution Width CV 12.3 % (11.6-14.6); RBC Distribution Width SD 47.4 fl (35.1-43.9); Red Blood Count 3.71 M/mm3 (4.2-5.4); White Blood Count 6.2 K/mm3 (4.4-11.0)
[2021-05-13 08:39] LABS: Anion Gap 6 (5-15); BUN 20 mg/dL (7-18); BUN/Creat Ratio 23.9 RATIO (10-20); Chloride 104 mmol/L (98-107); Creatinine, Serum 0.84 mg/dL (0.55-1.02); EST Glomerular Filtration Rate 69 mL/min (>60); Est Glom Filt Rate - Afr Amer 83 mL/min (>60); Glucose 78 mg/dL (74-106); Potassium 4.6 mmol/L (3.5-5.1); Sodium Level 141 mmol/L (136-145)
== END ==
LOC: OLS.WHLCAR 05:00
PROVIDERS: PCP Family Medicine; Visit Provider Family Medicine
DX: I10 Essential (primary) hypertension (principal); F03.91 Unspecified dementia, unspecified severity, with behavioral disturbance; M62.81 Muscle weakness (generalized); R62.7 Adult failure to thrive; S52.531D Colles' fracture of right radius, subsequent encounter for closed fracture with routine healing; Z74.1 Need for assistance with personal care
CPT/HCPCS: 36415; 80048; 85025

== ENCOUNTER → 2021-05-20 05:00 | Outpatient (REF) | payer MEDICARE, OTHER, SELFPAY ==
[2021-05-20 08:36] LABS: Valproic Acid (Depakene) Level 41 ug/mL (50-100)
== END ==
LOC: OLS.WHLCAR 05:00
PROVIDERS: PCP Family Medicine; Referring Provider Family Medicine; Visit Provider Family Medicine
DX: F03.91 Unspecified dementia, unspecified severity, with behavioral disturbance (principal); G93.40 Encephalopathy, unspecified; M62.81 Muscle weakness (generalized); R26.2 Difficulty in walking, not elsewhere classified; R27.8 Other lack of coordination
CPT/HCPCS: 36415; 80164

== ENCOUNTER → 2021-07-13 05:00 | Outpatient (REF) | payer MEDICARE, OTHER, SELFPAY ==
[2021-07-13 09:07] LABS: Thyroid Stim Hormone (TSH) 9.09 uIU/mL (0.358-3.74)
== END ==
LOC: OLS.WHLCAR 05:00
PROVIDERS: PCP Family Medicine; Visit Provider Family Medicine
DX: E03.9 Hypothyroidism, unspecified (principal); G93.40 Encephalopathy, unspecified; F03.91 Unspecified dementia, unspecified severity, with behavioral disturbance; M62.81 Muscle weakness (generalized); R26.2 Difficulty in walking, not elsewhere classified; R27.8 Other lack of coordination
CPT/HCPCS: 36415; 84443

== ENCOUNTER 2021-07-15 02:02 | Emergency (ER) | payer MEDICARE, OTHER, MEDICAID, SELFPAY ==
[2021-07-15 02:05] VITALS: BMI 26.4
[2021-07-15 02:06] VITALS: BP 144/66; PULSE 62; RESP 16; TEMP 36.4; O2SAT 96; BMI 26.4
--- NOTE | 2021-07-15 02:23 | RAD_ITS ---
STUDY: X-RAY CHEST REASON FOR EXAM: Female, 86 years old. Pain after trauma TECHNIQUE: 1 view COMPARISON: None. FINDINGS: Cardiac silhouette is top normal in size.. Costophrenic angles are sharp. Lungs are clear. The trachea is midline. There is no pneumothorax. Multilevel thoracic spondylosis and levoscoliosis noted. RAD/Chest 1 View (Portable) IMPRESSION: No acute cardiopulmonary process. Electronically Signed: Cesar Pena MD at 3:31 EDT Tel , Service support ,
--- NOTE | 2021-07-15 02:23 | CT_ITS ---
EXAM: CT HEAD WITHOUT INTRAVENOUS CONTRAST : 1935 CLINICAL INDICATION: trauma TECHNIQUE: Multiple axial images were obtained of the head without intravenous contrast. This CT exam was performed using one or more of the following dose reduction techniques: automated exposure control, adjustment of the mA and/or kV according to patient size, and/or use of iterative reconstruction technique. This report was created using [employer] report generation technology. COMPARISON: None. FINDINGS: BRAIN AND EXTRA-AXIAL SPACES: Diffuse cerebral volume loss. Periventricular small vessel chronic ischemic change. No intra- or extra-axial hemorrhage. No intracranial mass or mass effect. Posterior fossa structures are unremarkable. No hydrocephalus. Basal cisterns are patent. BONES/JOINTS: Unremarkable. No discrete lytic or blastic abnormalities. VASCULATURE: Arterial calcifications. SINUSES: Unremarkable as visualized. Clear. MASTOID AIR CELLS: Unremarkable. Clear. ORBITS: Visualized globes, extraocular muscles, optic nerves and retrobulbar fat appear unremarkable. CT/Brain/Head without Contrast IMPRESSION: 1. No acute intracranial abnormalities. 2. Age-related changes. Individualized dose optimization techniques were used for this CT. at 0326 Reported and signed by: Shai Mi MD Electronically Signed: Shai Mi MD at 3:25 EDT Tel , Service support ,
--- NOTE | 2021-07-15 02:23 | EKG12_ITS ---
Test Reason : NEURO Blood Pressure : / mmHG Vent. Rate : 064 BPM Atrial Rate : 064 BPM P-R Int : 148 ms QRS Dur : 086 ms QT Int : 444 ms P-R-T Axes : 000 -40 020 degrees QTc Int : 458 ms Normal sinus rhythm Left axis deviation Peter- Septal infarct , age undetermined Abnormal ECG Confirmed by WANDA JURADO, RODOLFO ([id number]), state editor STEPHANIE LA ([id number]) on 07/17/2021 9:53:32 AM Referred By: JAYDEN Confirmed By:RODOLFO MUÑOZ MD
--- NOTE | 2021-07-15 02:24 | EX.ED.DYSGE1 ---
HPI History of Present Illness Chief Complaint: Neuro S/Sx Informant: patient and family Narrative Narrative: Patient evidently fell at the nursing facility. She does have a history of frequent falls. An unknown period of time after this she was sitting on the edge of her bed and would not respond anyone. Per the son evidently the patient was sitting upright in breathing and did not pass out she just was not communicating in any way with people. She does have a history of frequent falls. No other data is obtainable. PFSH PFSH Home Medications bupropion HCl 150 mg PO DAILY 07/15/21 [History Last Taken Unknown] divalproex [Depakote] 250 mg PO BID 07/15/21 [History Last Taken Unknown] furosemide 20 mg PO DAILY 07/15/21 [History Last Taken Unknown] levothyroxine 75 mcg PO DAILY 07/15/21 [History Last Taken Unknown] potassium chloride 40 meq PO DAILY 07/15/21 [History Last Taken Unknown] quetiapine [Seroquel] 25 mg PO DAILY 07/15/21 [History Last Taken Unknown] sertraline [Zoloft] 100 mg PO DAILY 07/15/21 [History Last Taken Unknown] Social History Smoking Status: Never smoker ROS ROS ED ROS Narrative Patient has significant dementia. She does not recall the fall. She denies all symptoms. Due to her dementia, I do not know how accurate her denials are. Review of Systems ROS Unobtainable: due to mental status EXAM Physical Exam Const Vital Signs: 07/15/21 02:06 Temperature 97.6 F L Temperature Source Temporal Pulse Rate 62 Respiratory Rate 16 Blood Pressure 144/66 H Blood Pressure Mean 92 Pulse Ox 96 Oxygen Delivery Method Room Air Positive well nourished and well developed Constitutional Narrative: Patient is awake. She is alert. She is oriented to person and hospital. She could not tell me the year. She looks comfortable. General Appearance ED: well developed and NAD HEENT HEENT Narrative: I see no sign of head trauma of significance. Negative for trauma or tenderness Eyes PERRL Eyes Narrative: Pulls are about 2-1/2 mm but are reactive. Neck General: Negative for tenderness Chest Wall inspection of chest normal Resp normal respiratory effort and clear to auscultation bilaterally Cardio regular rate and regular rhythm GI normal to inspection, nondistended, normoactive bowel sounds and non-tender Palpation: soft Back/Spine Cervical Spine: Negative for cervical spine tenderness Thoracic Spine / Upper Back: Negative for thoracic spinal tenderness Lumbar Spine / Lower Back: Negative for lumbar spinal tenderness Extremity General Extremety ED: Negative for tenderness Neuro Neuro Narrative: Patient is alert and oriented x2. Sensorium / Orientation: alert Psych mental status grossly normal Skin no rashes or lesions noted MDM MDM MDM Narrative Medical decision making narrative: Patient CBC shows no marked abnormalities. Electrolytes are okay. Chest x-ray and CT of the head showed no acute process. Urinalysis is pending at this time. We find that the patient is actually DNR comfort care only. I think she can go back to her nursing facility. If the urine shows infection we will certainly treat that. If not, I think she can go back without antibiotics. And came back but did not show any signs convincing of infection. I discussed the case with her son who is also comfortable with her going back to the long-term facility. Lab Data Attestation: I reviewed the patient's lab results. Labs: Laboratory Results - last 24 hr 07/15/21 07/15/21 07/15/21 02:38 02:38 04:00 WBC 6.1 RBC 3.84 L Hgb 12.9 Hct 39.9 MCV 103.9 H MCH 33.6 H MCHC 32.3 RDW Std Deviation 47.0 H RDW Coeff of Gladys 12.2 Plt Count 227 MPV 9.7 Immature Gran % (Auto) 0.300 Neut % (Auto) 42.0 L Lymph % (Auto) 37.1 [place] % (Auto) 12.2 H Eos % (Auto) 7.7 H Baso % (Auto) 0.7 Absolute Neuts (auto) 2.6 Absolute Lymphs (auto) 2.25 Nucleated RBC % 0 Sodium 139 Potassium 4.4 Chloride 107 Carbon Dioxide 28.0 Anion Gap 4 L BUN 17 Creatinine 0.78 Estim Creat Clear Calc 36.16 Est GFR (MDRD) Af Amer 91 Est GFR (MDRD) Non-Af 75 BUN/Creatinine Ratio 21.9 H Glucose 80 Calcium 9.0 Urine Color Yellow Urine Clarity Clear Urine pH 7.0 Ur Specific [place] 1.010 Urine Protein Negative Urine Glucose (UA) Normal Urine Ketones Negative Urine Occult Blood 10 H Urine Nitrite Negative Urine Bilirubin Negative Urine Urobilinogen Normal Ur Leukocyte Esterase Negative Urine RBC 0-5 SEEN Urine WBC 0 SEEN Ur Squamous Epith Cells 0 SEEN Urine Bacteria 0 SEEN Urine Mucus 0 SEEN Radiography Diagnostic Testing: Radiology Impression Brain CT 07/15/21 02:23 IMPRESSION: 1. No acute intracranial abnormalities. 2. Age-related changes. Individualized dose optimization techniques were used for this CT. at 0326 Reported and signed by: Shai Mi MD Electronically Signed: Shai Mi MD at 3:25 EDT Tel , Service support , Chest X-Ray 07/15/21 02:23 IMPRESSION: No acute cardiopulmonary process. Electronically Signed: Cesar Pena MD at 3:31 EDT Tel , Service support , EKG Initial EKG: Comments: EKG for fall and decreased alertness. EKG read by me shows sinus rhythm with a rate of 64. Slight left axis deviation. No ectopy. No acute ST elevation or depression. NE interval, QRS duration and QTc are normal. Discharge Plan Triage Chief Complaint: Neuro S/Sx ED Provider: i[facility] C[facility] Dx/Rx/DC Orders Clinical Impression: Fall at retirement, Episodes of decreased attentiveness Instructions: ED Fall with Uncertain Cause Prescriptions: No Action furosemide 20 mg tablet 20 mg PO DAILY RF: 0 potassium chloride 20 mEq tablet,ER particles/crystals 40 meq PO DAILY RF: 0 sertraline [Zoloft] 50 mg Tablet 100 mg PO DAILY RF: 0 bupropion HCl 150 mg Tablet Extended Release 24 Hr 150 mg PO DAILY RF: 0 quetiapine [Seroquel] 25 mg Tablet 25 mg PO DAILY RF: 0 divalproex [Depakote] 250 mg Tablet,Delayed Release (Dr/Ec) 250 mg PO BID RF: 0 levothyroxine 50 mcg Tablet 75 mcg PO DAILY RF: 0 Primary Care Provider: Austin Cuevas Referrals: Austin Cuevas MD [Primary Care Provider] - 1 Week Disposition Disposition: Group Home Facility
[2021-07-15 02:40] LABS: Absolute Lymphocyte Count 2.25 X10^3/uL (0.83-4.51); Absolute Neutrophil Count 2.6 X10^3/uL (2.0-7.7); Basophil# 0.04 X10^3/uL; Basophil% 0.7 % (0-1); Eosinophil# 0.47 X10^3/uL; Eosinophils% 7.7 % (0-5); Hematocrit 39.9 % (37-47); Hemoglobin 12.9 g/dL (12.0-15.0); Lymphocyte # 2.25 X10^3/ul (0.83-4.51); Lymphocyte % 37.1 % (19-41); Mean Corp Hgb Conc 32.3 g/dL (32-36); Mean Corpuscular Hgb 33.6 pg (27.0-32.0); Mean Corpuscular Volume 103.9 fL (81-99); Mean Platelet Vol. 9.7 fl (6.2-12.0); Monocyte# 0.74 X10^3/uL; Monocyte% 12.2 % (0-10); NRBC Flagged by Analyzer 0 % (0-5); Neutrophil # 2.55 X10^3/uL (2.7-7.7); Platelet Count 227 K/mm3 (150-450); RBC Distribution Width CV 12.2 % (11.6-14.6); Red Blood Count 3.84 M/mm3 (4.2-5.4); White Blood Count 6.1 K/mm3 (4.4-11.0)
[2021-07-15 03:11] LABS: Anion Gap 4 (5-15); BUN 17 mg/dL (7-18); BUN/Creat Ratio 21.9 RATIO (10-20); Chloride 107 mmol/L (98-107); Creatinine, Serum 0.78 mg/dL (0.55-1.02); EST Glomerular Filtration Rate 75 mL/min (>60); Est Glom Filt Rate - Afr Amer 91 mL/min (>60); Estimated Creatinine Clearance 36.16 ml/min; Glucose 80 mg/dL (74-106); Potassium 4.4 mmol/L (3.5-5.1); Sodium Level 139 mmol/L (136-145)
[2021-07-15 04:06] LABS: Bacteria 0 SEEN /hpf (None Seen); Mucous, Urine 0 SEEN /hpf (<or=2+); Squamous Epithelial Cells - UA 0 SEEN /hpf (5-10); White Blood Cells 0 SEEN /hpf (0-5)
[2021-07-15 04:16] LABS: Color, Urine Yellow (Yellow); Glucose, Dipstick Normal (Normal); Ketone-Dipstick Negative (Negative); Leukocyte Esterase-Dipstick Negative /ul (Negative); Nitrite-Dipstick Negative (Negative); Occult Blood-Urine 10 /ul (Negative); Protein-Dipstick Negative (Negative); Urine Bilirubin Dipstick Negative (Negative); Urine Clarity Clear (Clear); Urine Urobilinogen Normal (Normal)
[2021-07-15 04:33] LABS: Red Blood Cells-Urine 0-5 SEEN /hpf (0-5)
[2021-07-15 04:44] VITALS: PULSE 74; RESP 17; TEMP 36.9; O2SAT 97
[2021-07-15 07:00] VITALS: RESP 16
[2021-07-15 08:14] VITALS: BP 157/73; PULSE 64; RESP 16; O2SAT 93
--- NOTE | 2021-07-15 08:15 | ED.RN ---
REPORT TO [facility]. PT SKIN P/W/D, RESP EVEN AND UNLABORED, NO DISTRESS NOTED.
[2021-07-17 09:16] LABS: Bedside Glucose 69 mg/dL (70-110)
== END 2021-07-15 08:18 | disposition skilled nursing facility (03) ==
PROVIDERS: Emergency Provider Emergency Medicine; PCP Family Medicine
DX: R40.4 Transient alteration of awareness (principal); W19.XXXA Unspecified fall, initial encounter; Z91.81 History of falling; Z79.899 Other long term (current) drug therapy
CPT/HCPCS: 70450; 71045; 80048; 81001; 82962; 85025; 93005; 99285

== ENCOUNTER → 2021-08-12 05:00 | Outpatient (REF) | payer MEDICARE, OTHER, SELFPAY ==
[2021-08-12 07:32] LABS: Absolute Lymphocyte Count 2.14 X10^3/uL (0.83-4.51); Absolute Neutrophil Count 2.5 X10^3/uL (2.0-7.7); Basophil# 0.05 X10^3/uL; Basophil% 0.8 % (0-1); Eosinophil# 0.36 X10^3/uL; Eosinophils% 6.1 % (0-5); Hematocrit 36.5 % (37-47); Hemoglobin 12.3 g/dL (12.0-15.0); Lymphocyte # 2.14 X10^3/ul (0.83-4.51); Mean Corp Hgb Conc 33.7 g/dL (32-36); Mean Corpuscular Hgb 33.9 pg (27.0-32.0); Mean Corpuscular Volume 100.6 fL (81-99); Mean Platelet Vol. 10.3 fl (6.2-12.0); Monocyte# 0.87 X10^3/uL; Monocyte% 14.6 % (0-10); NRBC Flagged by Analyzer 0 % (0-5); Neutrophil % 42.2 % (47-70); Platelet Count 217 K/mm3 (150-450); RBC Distribution Width CV 12.6 % (11.6-14.6); RBC Distribution Width SD 46.6 fl (35.1-43.9); Red Blood Count 3.63 M/mm3 (4.2-5.4); White Blood Count 5.9 K/mm3 (4.4-11.0)
[2021-08-12 07:47] LABS: Anion Gap 5 (5-15); BUN 23 mg/dL (7-18); BUN/Creat Ratio 24.9 RATIO (10-20); Calcium,Total 9.1 mg/dL (8.5-10.1); Chloride 106 mmol/L (98-107); Creatinine, Serum 0.92 mg/dL (0.55-1.02); EST Glomerular Filtration Rate 62 mL/min (>60); Est Glom Filt Rate - Afr Amer 74 mL/min (>60); Glucose 76 mg/dL (74-106); Potassium 4.3 mmol/L (3.5-5.1); Sodium Level 140 mmol/L (136-145)
[2021-08-12 08:02] LABS: Valproic Acid (Depakene) Level 32 ug/mL (50-100)
== END ==
LOC: OLS.WHLCAR 05:00
PROVIDERS: PCP Family Medicine; Visit Provider Family Medicine
DX: I10 Essential (primary) hypertension (principal); F03.91 Unspecified dementia, unspecified severity, with behavioral disturbance; S52.531A Colles' fracture of right radius, initial encounter for closed fracture; M62.81 Muscle weakness (generalized); R62.7 Adult failure to thrive; Z74.1 Need for assistance with personal care
CPT/HCPCS: 36415; 80048; 80164; 85025

== ENCOUNTER → 2021-09-14 12:46 | Outpatient (REF) | payer MEDICARE, OTHER, SELFPAY | LOC: OLS.WHLTSB 12:46 | PROVIDERS: PCP Family Medicine; Visit Provider Family Medicine | DX: U07.1 COVID-19 (principal) | CPT/HCPCS: 87635; U0005; U0003 ==

== ENCOUNTER 2021-11-04 05:00 | Outpatient (REF) | payer MEDICARE, OTHER, SELFPAY ==
[2021-11-04 08:20] LABS: Valproic Acid (Depakene) Level 64 ug/mL (50-100)
== END 2021-11-04 23:59 | disposition home or self-care (01) ==
LOC: OLS.WHLCAR 05:00
PROVIDERS: PCP Family Medicine; Visit Provider Family Medicine
DX: F03.91 Unspecified dementia, unspecified severity, with behavioral disturbance (principal); G93.40 Encephalopathy, unspecified; M62.81 Muscle weakness (generalized); R26.2 Difficulty in walking, not elsewhere classified; R27.8 Other lack of coordination
CPT/HCPCS: 36415; 80164

== ENCOUNTER → 2021-11-11 | Outpatient (REF) | payer MEDICARE, OTHER, MEDICAID, SELFPAY ==
[2021-11-11 08:51] LABS: Absolute Lymphocyte Count 1.75 X10^3/uL (0.83-4.51); Basophil# 0.04 X10^3/uL; Basophil% 0.7 % (0-1); Eosinophil# 0.38 X10^3/uL; Eosinophils% 6.3 % (0-5); Hematocrit 37.6 % (37-47); Hemoglobin 11.9 g/dL (12.0-15.0); Lymphocyte # 1.75 X10^3/ul (0.83-4.51); Lymphocyte % 29.2 % (19-41); Mean Corp Hgb Conc 31.6 g/dL (32-36); Mean Corpuscular Hgb 32.4 pg (27.0-32.0); Mean Corpuscular Volume 102.5 fL (81-99); Mean Platelet Vol. 9.6 fl (6.2-12.0); Monocyte# 0.79 X10^3/uL; Monocyte% 13.2 % (0-10); NRBC Flagged by Analyzer 0 % (0-5); Neutrophil # 3.02 X10^3/uL (2.7-7.7); Neutrophil % 50.3 % (47-70); Platelet Count 200 K/mm3 (150-450); RBC Distribution Width SD 49.3 fl (35.1-43.9); Red Blood Count 3.67 M/mm3 (4.2-5.4)
[2021-11-11 09:09] LABS: Anion Gap 4 (5-15); BUN 16 mg/dL (7-18); BUN/Creat Ratio 20.2 RATIO (10-20); Chloride 105 mmol/L (98-107); Creatinine, Serum 0.79 mg/dL (0.55-1.02); EST Glomerular Filtration Rate 73 mL/min (>60); Est Glom Filt Rate - Afr Amer 89 mL/min (>60); Glucose 96 mg/dL (74-106); Potassium 4.1 mmol/L (3.5-5.1); Sodium Level 140 mmol/L (136-145)
== END | disposition home or self-care (01) ==
LOC: OLS.WHLCAR 05:00
PROVIDERS: PCP Family Medicine; Visit Provider Family Medicine
DX: S52.531A Colles' fracture of right radius, initial encounter for closed fracture (principal); F03.91 Unspecified dementia, unspecified severity, with behavioral disturbance; M62.81 Muscle weakness (generalized); R62.7 Adult failure to thrive; I10 Essential (primary) hypertension; Z74.1 Need for assistance with personal care
CPT/HCPCS: 36415; 80048; 85025

== ENCOUNTER → 2022-01-11 | Outpatient (REF) | payer MEDICARE, OTHER, MEDICAID, SELFPAY ==
[2022-01-11 09:31] LABS: Thyroid Stim Hormone (TSH) 4.11 uIU/mL (0.358-3.74)
== END | disposition home or self-care (01) ==
LOC: OLS.WHLCAR 05:00
PROVIDERS: PCP Family Medicine; Visit Provider Family Medicine
DX: E03.9 Hypothyroidism, unspecified (principal); F03.91 Unspecified dementia, unspecified severity, with behavioral disturbance; G93.40 Encephalopathy, unspecified; M62.81 Muscle weakness (generalized); R26.2 Difficulty in walking, not elsewhere classified; R27.8 Other lack of coordination
CPT/HCPCS: 36415; 84443

== ENCOUNTER 2022-01-13 04:00 | Outpatient (REF) | payer MEDICARE, OTHER, MEDICAID, SELFPAY ==
[2022-01-13 08:23] LABS: Valproic Acid (Depakene) Level 70 ug/mL (50-100)
== END 2022-01-13 23:59 | disposition home or self-care (01) ==
LOC: OLS.WHLCAR 04:00
PROVIDERS: PCP Family Medicine; Referring Provider Family Medicine; Visit Provider Family Medicine
DX: F33.9 Major depressive disorder, recurrent, unspecified (principal); F03.91 Unspecified dementia, unspecified severity, with behavioral disturbance; S52.531A Colles' fracture of right radius, initial encounter for closed fracture; R62.7 Adult failure to thrive; Z74.1 Need for assistance with personal care
CPT/HCPCS: 36415; 80164

== ENCOUNTER → 2022-03-24 | Outpatient (REF) | payer MEDICARE, OTHER, MEDICAID, SELFPAY ==
[2022-03-24 11:24] LABS: Valproic Acid (Depakene) Level 64 ug/mL (50-100)
== END | disposition home or self-care (01) ==
LOC: OLS.WHLCAR 08:35
PROVIDERS: PCP Family Medicine; Visit Provider Family Medicine
DX: F03.91 Unspecified dementia, unspecified severity, with behavioral disturbance (principal); S52.531A Colles' fracture of right radius, initial encounter for closed fracture; M62.81 Muscle weakness (generalized); Z74.1 Need for assistance with personal care
CPT/HCPCS: 36415; 80164

== ENCOUNTER → 2022-05-12 | Outpatient (REF) | payer MEDICARE, OTHER, MEDICAID, SELFPAY ==
[2022-05-12 09:22] LABS: Absolute Lymphocyte Count 1.66 X10^3/uL (0.83-4.51); Absolute Neutrophil Count 2.2 X10^3/uL (2.0-7.7); Basophil# 0.05 X10^3/uL; Eosinophil# 0.34 X10^3/uL; Eosinophils% 6.8 % (0-5); Hematocrit 35.8 % (37-47); Hemoglobin 11.8 g/dL (12.0-15.0); Lymphocyte # 1.66 X10^3/ul (0.83-4.51); Lymphocyte % 33.1 % (19-41); Mean Corpuscular Hgb 33.7 pg (27.0-32.0); Mean Corpuscular Volume 102.3 fL (81-99); Mean Platelet Vol. 9.6 fl (6.2-12.0); Monocyte# 0.73 X10^3/uL; Monocyte% 14.6 % (0-10); NRBC Flagged by Analyzer 0 % (0-5); Neutrophil % 43.9 % (47-70); Platelet Count 159 K/mm3 (150-450); RBC Distribution Width CV 12.4 % (11.6-14.6); RBC Distribution Width SD 46.6 fl (35.1-43.9)
[2022-05-12 09:49] LABS: ALB/GLOB Ratio 0.8 RATIO (0.9-2.4); AST(SGOT) 15 U/L (15-37); Alanine Aminotransfer ALT/SGPT 12 U/L (13-56); Albumin, Serum 2.7 g/dL (3.2-5.0); Alkaline Phosphatase 32 U/L (45-117); Anion Gap 5 (5-15); BUN 19 mg/dL (7-18); BUN/Creat Ratio 29.8 RATIO (10-20); Calcium,Total 8.8 mg/dL (8.5-10.1); Chloride 107 mmol/L (98-107); Creatinine, Serum 0.64 mg/dL (0.55-1.02); EST Glomerular Filtration Rate 94 mL/min (>60); Est Glom Filt Rate - Afr Amer 114 mL/min (>60); Globulin 3.3 g/dL (2.2-4.2); Glucose 71 mg/dL (74-106); Sodium Level 143 mmol/L (136-145)
== END | disposition home or self-care (01) ==
LOC: OLS.WHLCAR 07:05
PROVIDERS: PCP Family Medicine; Visit Provider Family Medicine
DX: I10 Essential (primary) hypertension (principal); F03.91 Unspecified dementia, unspecified severity, with behavioral disturbance; M62.81 Muscle weakness (generalized); R62.7 Adult failure to thrive; S52.531A Colles' fracture of right radius, initial encounter for closed fracture; Z74.1 Need for assistance with personal care
CPT/HCPCS: 36415; 80053; 85025

== ENCOUNTER → 2022-06-16 | Outpatient (REF) | payer MEDICARE, OTHER, MEDICAID, SELFPAY ==
[2022-06-16 09:34] LABS: Valproic Acid (Depakene) Level 73 ug/mL (50-100)
== END ==
LOC: OLS.WHLCAR 06:40
PROVIDERS: PCP Family Medicine; Visit Provider Family Medicine
DX: F33.9 Major depressive disorder, recurrent, unspecified (principal); F41.9 Anxiety disorder, unspecified; F03.91 Unspecified dementia, unspecified severity, with behavioral disturbance; S52.531A Colles' fracture of right radius, initial encounter for closed fracture; M62.81 Muscle weakness (generalized); R62.7 Adult failure to thrive; Z74.1 Need for assistance with personal care
CPT/HCPCS: 36415; 80164

== ENCOUNTER → 2022-07-12 | Outpatient (REF) | payer MEDICARE, OTHER, MEDICAID, SELFPAY ==
[2022-07-12 08:37] LABS: Thyroid Stim Hormone (TSH) 2.88 uIU/mL (0.358-3.74)
== END ==
LOC: OLS.WHLCAR 05:00
PROVIDERS: PCP Family Medicine; Visit Provider Family Medicine
DX: R53.1 Weakness (principal); F03.91 Unspecified dementia, unspecified severity, with behavioral disturbance; I11.0 Hypertensive heart disease with heart failure; I50.32 Chronic diastolic (congestive) heart failure; R13.12 Dysphagia, oropharyngeal phase; R62.7 Adult failure to thrive; I71.4 Abdominal aortic aneurysm, without rupture; E78.00 Pure hypercholesterolemia, unspecified; K21.9 Gastro-esophageal reflux disease without esophagitis; K59.00 Constipation, unspecified; N32.81 Overactive bladder; F33.9 Major depressive disorder, recurrent, unspecified; F41.9 Anxiety disorder, unspecified; L98.9 Disorder of the skin and subcutaneous tissue, unspecified; Z91.19 Patient's noncompliance with other medical treatment and regimen; Z86.16 Personal history of COVID-19; M62.81 Muscle weakness (generalized); E03.9 Hypothyroidism, unspecified
CPT/HCPCS: 36415; 84443

== ENCOUNTER → 2022-09-08 | Outpatient (REF) | payer MEDICARE, OTHER, MEDICAID, SELFPAY ==
[2022-09-08 07:46] LABS: Valproic Acid (Depakene) Level 73 ug/mL (50-100)
== END ==
LOC: OLS.WHLTSB 05:00
PROVIDERS: PCP Family Medicine; Visit Provider Family Medicine
DX: F03.918 Unspecified dementia, unspecified severity, with other behavioral disturbance (principal); M62.81 Muscle weakness (generalized); R62.7 Adult failure to thrive; S52.531A Colles' fracture of right radius, initial encounter for closed fracture; Z74.1 Need for assistance with personal care
CPT/HCPCS: 36415; 80164

== ENCOUNTER → 2022-10-01 | Outpatient (REF) | payer MEDICARE, OTHER, MEDICAID, SELFPAY ==
[2022-10-01 08:49] LABS: Absolute Lymphocyte Count 1.51 X10^3/uL (0.83-4.51); Absolute Neutrophil Count 4.7 X10^3/uL (2.0-7.7); Basophil# 0.03 X10^3/uL; Basophil% 0.4 % (0-1); Eosinophil# 0.12 X10^3/uL; Eosinophils% 1.6 % (0-5); Hematocrit 30.4 % (37-47); Hemoglobin 9.9 g/dL (12.0-15.0); Lymphocyte # 1.51 X10^3/ul (0.83-4.51); Lymphocyte % 20.1 % (19-41); Mean Corp Hgb Conc 32.6 g/dL (32-36); Mean Corpuscular Hgb 33.4 pg (27.0-32.0); Mean Corpuscular Volume 102.7 fL (81-99); Monocyte# 1.17 X10^3/uL; Monocyte% 15.5 % (0-10); NRBC Flagged by Analyzer 0 % (0-5); Neutrophil # 4.66 X10^3/uL (2.7-7.7); Neutrophil % 61.9 % (47-70); Platelet Count 229 K/mm3 (150-450); RBC Distribution Width CV 12.6 % (11.6-14.6); RBC Distribution Width SD 47.2 fl (35.1-43.9); Red Blood Count 2.96 M/mm3 (4.2-5.4); White Blood Count 7.5 K/mm3 (4.4-11.0)
[2022-10-01 09:09] LABS: ALB/GLOB Ratio 0.6 RATIO (0.9-2.4); AST(SGOT) 16 U/L (15-37); Alanine Aminotransfer ALT/SGPT 14 U/L (13-56); Albumin, Serum 2.2 g/dL (3.2-5.0); Alkaline Phosphatase 30 U/L (45-117); Anion Gap 3 (5-15); BUN 23 mg/dL (7-18); BUN/Creat Ratio 36.5 RATIO (10-20); Calcium,Total 8.6 mg/dL (8.5-10.1); Chloride 109 mmol/L (98-107); Creatinine, Serum 0.63 mg/dL (0.55-1.02); EST Glomerular Filtration Rate 95 mL/min (>60); Est Glom Filt Rate - Afr Amer 115 mL/min (>60); Globulin 3.9 g/dL (2.2-4.2); Glucose 83 mg/dL (74-106); Protein, Total 6.1 g/dL (6.4-8.2); Sodium Level 142 mmol/L (136-145); Thyroid Stim Hormone (TSH) 8.68 uIU/mL (0.358-3.74)
[2022-10-01 09:17] LABS: Valproic Acid (Depakene) Level 61 ug/mL (50-100)
== END ==
LOC: OLS.WHLCAR 05:00
PROVIDERS: PCP Family Medicine; Visit Provider Internal Medicine
DX: I11.0 Hypertensive heart disease with heart failure (principal); I50.32 Chronic diastolic (congestive) heart failure; R13.12 Dysphagia, oropharyngeal phase; R62.7 Adult failure to thrive; F03.92 Unspecified dementia, unspecified severity, with psychotic disturbance
CPT/HCPCS: 36415; 80053; 80164; 84443; 85025

== ENCOUNTER → 2022-10-05 | Outpatient (REF) | payer MEDICARE, OTHER, MEDICAID, SELFPAY ==
[2022-10-05 13:05] LABS: Absolute Neutrophil Count 4.6 X10^3/uL (2.0-7.7); Basophil# 0.03 X10^3/uL; Basophil% 0.4 % (0-1); Eosinophil# 0.01 X10^3/uL; Eosinophils% 0.1 % (0-5); Hematocrit 28.8 % (37-47); Hemoglobin 8.9 g/dL (12.0-15.0); Lymphocyte % 11.6 % (19-41); Mean Corp Hgb Conc 30.9 g/dL (32-36); Mean Corpuscular Hgb 32.2 pg (27.0-32.0); Mean Corpuscular Volume 104.3 fL (81-99); Mean Platelet Vol. 9.3 fl (6.2-12.0); Monocyte# 1.28 X10^3/uL; Monocyte% 18.6 % (0-10); NRBC Flagged by Analyzer 0 % (0-5); Neutrophil # 4.61 X10^3/uL (2.7-7.7); Neutrophil % 67.1 % (47-70); Platelet Count 184 K/mm3 (150-450); RBC Distribution Width CV 12.8 % (11.6-14.6); RBC Distribution Width SD 48.2 fl (35.1-43.9); Red Blood Count 2.76 M/mm3 (4.2-5.4); White Blood Count 6.9 K/mm3 (4.4-11.0)
[2022-10-05 14:22] LABS: Anion Gap 6 (5-15); BUN 20 mg/dL (7-18); BUN/Creat Ratio 32.1 RATIO (10-20); Calcium,Total 8.3 mg/dL (8.5-10.1); Chloride 106 mmol/L (98-107); Creatinine, Serum 0.62 mg/dL (0.55-1.02); EST Glomerular Filtration Rate 96 mL/min (>60); Est Glom Filt Rate - Afr Amer 117 mL/min (>60); Glucose 146 mg/dL (74-106); Sodium Level 139 mmol/L (136-145)
== END ==
LOC: OLS.WHLCAR 11:30
PROVIDERS: PCP Family Medicine; Visit Provider Internal Medicine
DX: I11.0 Hypertensive heart disease with heart failure (principal); I50.32 Chronic diastolic (congestive) heart failure; R13.12 Dysphagia, oropharyngeal phase; R62.7 Adult failure to thrive; F03.92 Unspecified dementia, unspecified severity, with psychotic disturbance
CPT/HCPCS: 36415; 80048; 85025